=== PATIENT | male | born 1985 | race Caucasian/White ===

== ENCOUNTER 2018-07-21 21:42 | Emergency (ER) | payer BC ==
[2018-07-21 22:37] LABS: Potassium 4.2 mmol/L (3.5-5.1)
[2018-07-21 22:43] LABS: Absolute Lymphocytes (CBC) 1.8 K/uL (0.7-4.9); Absolute Monocytes 0.9 K/uL (0.1-1.3); Absolute Neutrophil 7.8 K/uL (1.8-8.0); Basophils % 1.5 % (0-1.3); Eosinophils % 2.6 % (0-4.4); Hematocrit 40.3 % (39.6-49.0); Lymphocytes % 16.2 % (15.3-44.8); Monocytes % 8.2 % (3.3-12.3); RBC Red Blood Cell Count 5.76 M/uL (4.33-5.43)
[2018-07-22 00:15] LABS: Anisocytosis 1+; Blood Morphology Comment NOTED (NOT SEEN); Hypochromasia 2+; Ovalocytes 2+; Platelet Estimate ADEQ; Urine White Blood Cell Casts OK
--- NOTE | 2018-07-22 00:15 | ER ---
Nurse's Notes [facility] Name: Kailash Greenfield Age: 32 yrs Sex: Male : 1985 Arrival Date: 07/21/2018 Time: 21:50 Bed 7 Private MD: Diagnosis: Hypoglycemia, unspecified;Unspecified open wound, right lower leg Presentation: 07/21 21:50 Presenting complaint: EMS states: they were toned out for report of pt found by bb neighbors unresponsive, pt's BGL on their arrival was 26 they administered D10 250 mLs with a repeat BGL of 184 pt awake, slightly confused. Transition of care: patient was not received from another setting of care. Onset of symptoms was July 21, 2018. Risk Assessment: Do you want to hurt yourself or someone else? Patient reports no desire to harm self or others. Initial Sepsis Screen: Does the patient meet any 2 criteria? No. Patient's initial sepsis screen is negative. Does the patient have a suspected source of infection? No. Patient's initial sepsis screen is negative. Care prior to arrival: Medication(s) given: D10 250 mL IV initiated. 20 GA, in the right antecubital area. 21:50 Method Of Arrival: EMS: [facility] bb 21:50 Acuity: ALFONSO 2 bb Historical: - Allergies: 22:02 Lidocaine; bb - Home Meds: 22:02 Lisinopril Oral [Active]; [place] Oral [Active]; carvedilol oral oral [Active]; Novolin N bb Sub-Q [Active]; Novolin R Sub-Q [Active]; - PMHx: 22:02 Diabetes - IDDM; heart problems; Hypertension; bb - PSHx: 22:02 heart surgery x2 when child; bb - Immunization history:: Adult Immunizations unknown. - Social history:: Smoking status: unknown. - Ebola Screening: : No symptoms or risks identified at this time. Screenin:53 Abuse screen: Denies threats or abuse. Denies injuries from another. Nutritional aa1 screening: No deficits noted. Tuberculosis screening: No symptoms or risk factors identified. Fall Risk IV access (20 points). Assessment: 21:53 General: Appears in no apparent distress. comfortable, unkempt, Behavior is calm, aa1 cooperative, appropriate for age. Pain: Denies pain. Neuro: Level of Consciousness is awake, alert, obeys commands, Oriented to person, place, time, situation, Moves all extremities. Speech is normal, Facial symmetry appears normal, Pupils are PERRLA. Cardiovascular: Denies chest pain, palpitations, shortness of breath. Respiratory: Airway is patent Respiratory effort is even, unlabored, Respiratory pattern is regular, symmetrical. GI: No signs and/or symptoms were reported involving the gastrointestinal system. : No signs and/or symptoms were reported regarding the genitourinary system. EENT: No signs and/or symptoms were reported regarding the EENT system. Derm: Skin is intact, Skin is clammy, moist, Skin is pale, Skin temperature is cool Wound noted lateral aspect of right calf and right meyers Wound is 2 wounds noted redness to surrounding borders with denuded edges and tissue slough noted to wound beds. Musculoskeletal: Circulation, motion, and sensation intact. Capillary refill is sluggish, in bilateral fingers. toes. 22:30 Reassessment: Patient appears in no apparent distress at this time. Patient and/or aa1 family updated on plan of care and expected duration. Pain level reassessed. Patient is alert, oriented x 3, equal unlabored respirations, skin warm/dry/pink. Awaiting lab results. 23:15 Reassessment: Patient appears in no apparent distress at this time. Patient and/or aa1 family updated on plan of care and expected duration. Pain level reassessed. Patient is alert, oriented x 3, equal unlabored respirations, skin warm/dry/pink. Awaiting provider reassessment. 07/22 00:40 Reassessment: Patient appears in no apparent distress at this time. Patient is alert, aa1 oriented x 3, equal unlabored respirations, skin warm/dry/pink. Discussed d/c \T\ f/u instructions with pt \T\ family; denies questions or concerns at this time Patient states feeling better. Vital Signs: 07/21 21:51 BP 144 / 89; Pulse 81; Resp 18; Pulse Ox 93% on R/A; Weight 81.65 kg (R); Height 6 ft. bb 0 in. (182.88 cm) (R); 21:52 aa1 22:32 BP 122 / 88; Pulse 88; Resp 18; Pulse Ox 95% on R/A; Pain 0/10; aa1 23:30 BP 143 / 78; Pulse 89; Resp 16; Temp 97.5(O); Pulse Ox 95% on R/A; Pain 0/10; aa1 07/22 00:40 BP 129 / 62; Pulse 86; Resp 18; Temp 97.6; Pulse Ox 95% on R/A; Pain 0/10; aa1 07/21 21:51 Body Mass Index 24.41 (81.65 kg, 182.88 cm) bb 07/21 21:52 Unable to successfully obtain pt's temperature using temporal, oral, and axillary aa1 methods. EMS reports unable to obtain temperature as well. Applied warm blankets to pt and will reattampt to obtain temperature once pt is dry and no longer shaking. 22:32 thermometer still not reading aa1 ED Course: 21:50 Patient arrived in ED. ds1 21:51 Patient has correct armband on for positive identification. Placed in gown. Bed in low aa1 position. Call light in reach. Side rails up X2. phototypesetting equipment monitor on. Pulse ox on. NIBP on. Warm blanket given. 21:51 Arm band placed on Patient placed in an exam room, on a stretcher, on pulse oximetry. bb Family accompanied patient. 21:51 Maintain EMS IV. Dressing intact. Good blood return noted. Site clean \T\ dry. Gauge \T\ aa 1 site: 20g LAC. 21:55 Fidel García PA is PHCP. jr8 21:55 Peewee Wright MD is Attending Physician. jr8 22:00 Triage completed. bb 22:04 Diet: pt given sandwich, peanut butter and crackers and a soda. bb 22:29 Janene Danielson, FREDDY is Primary Nurse. aa1 07/22 00:14 Paolo Zarate MD is Referral Physician. jr8 00:40 No provider procedures requiring assistance completed. IV discontinued, intact, aa1 bleeding controlled, No redness/swelling at site. Pressure dressing applied. Administered Medications: No medications were administered Point of Care Testing: Blood Glucose: 07/21 21:52 Blood Glucose: 155 mg/dL; aa1 23:37 Blood Glucose: 347 mg/dL; bb Ranges: Outcome: 07/22 00:14 Discharge ordered by . jr8 00:40 Discharged to home ambulatory, with family. aa1 00:40 Condition: good 00:40 Discharge instructions given to patient, family, Instructed on discharge instructions, follow up and referral plans. medication usage, wound care, Demonstrated understanding of instructions, follow-up care, medications, wound care, Prescriptions given X 1, Hand written script for Santyl given 00:42 Patient left the ED. aa1 Signatures: Janene Danielson RN RN aa1 Jane Mckenna1 Yolande Espinoza RN RN bb Fidel García PA PA jr8 Corrections: (The following items were deleted from the chart) 05 22:03 21:51 BP 144 / 89; Pulse 81bpm; Resp 18bpm; Pulse Ox 93% RA; aa1 bb
--- NOTE | 2018-07-22 00:16 | EDPHYS ---
Physician Documentation [facility] Name: Kailash Greenfield Age: 32 yrs Sex: Male : 1985 Arrival Date: 07/21/2018 Time: 21:50 Bed 7 Private MD: ED Physician Peewee Wright HPI: 07/21 22:11 This 32 yrs old Male presents to ER via EMS with complaints of Hypoglycemia. jr8 22:11 The patient or guardian reports hypoglycemia. Onset: The symptoms/episode jr8 began/occurred acutely, today. Associated signs and symptoms: Pertinent negatives: nausea, vomiting. Current symptoms: In the emergency department the patient's symptoms have improved, moderately. The patient has experienced similar episodes in the past, a few times. The patient has not recently seen a physician. Patient stated that he took his insulin today but forgot to eat. While cooking tonight started to become altered. EMS on scene found that patients BGL was in the 20s. D10 given. Patient upon arrival now A\T\O x4. Feeling much better . Historical: - Allergies: 22:02 Lidocaine; bb - Home Meds: 22:02 Lisinopril Oral [Active]; [place] Oral [Active]; carvedilol oral oral [Active]; Novolin N bb Sub-Q [Active]; Novolin R Sub-Q [Active]; - PMHx: 22:02 Diabetes - IDDM; heart problems; Hypertension; bb - PSHx: 22:02 heart surgery x2 when child; bb - Immunization history:: Adult Immunizations unknown. - Social history:: Smoking status: unknown. - Ebola Screening: : No symptoms or risks identified at this time. ROS: 22:11 Eyes: Negative for injury, pain, redness, and discharge, ENT: Negative for injury, jr8 pain, and discharge, Neck: Negative for injury, pain, and swelling, Cardiovascular: Negative for chest pain, palpitations, and edema, Respiratory: Negative for shortness of breath, cough, wheezing, and pleuritic chest pain, Abdomen/GI: Negative for abdominal pain, nausea, vomiting, diarrhea, and constipation, Back: Negative for injury and pain, MS/Extremity: Negative for injury and deformity, Neuro: Negative for headache, weakness, numbness, tingling, and seizure. 22:11 Skin: Positive for open wounds right leg. Exam: 22:11 Eyes: Pupils equal round and reactive to light, extra-ocular motions intact. Lids and jr8 lashes normal. Conjunctiva and sclera are non-icteric and not injected. Cornea within normal limits. Periorbital areas with no swelling, redness, or edema. ENT: Nares patent. No nasal discharge, no septal abnormalities noted. Tympanic membranes are normal and external auditory canals are clear. Oropharynx with no redness, swelling, or masses, exudates, or evidence of obstruction, uvula midline. Mucous membranes moist. Neck: Trachea midline, no thyromegaly or masses palpated, and no cervical lymphadenopathy. Supple, full range of motion without nuchal rigidity, or vertebral point tenderness. No Meningismus. Cardiovascular: Regular rate and rhythm with a normal S1 and S2. No gallops, murmurs, or rubs. Normal PMI, no JVD. No pulse deficits. Respiratory: Lungs have equal breath sounds bilaterally, clear to auscultation and percussion. No rales, rhonchi or wheezes noted. No increased work of breathing, no retractions or nasal flaring. Abdomen/GI: Soft, non-tender, with normal bowel sounds. No distension or tympany. No guarding or rebound. No evidence of tenderness throughout. Back: No spinal tenderness. No costovertebral tenderness. Full range of motion. MS/ Extremity: Pulses equal, no cyanosis. Neurovascular intact. Full, normal range of motion. Neuro: Awake and alert, GCS 15, oriented to person, place, time, and situation. Cranial nerves II-XII grossly intact. Motor strength 5/5 in all extremities. Sensory grossly intact. Cerebellar exam normal. Normal gait. 22:11 Skin: Patient has two stage 3 open diabetic wounds noted to right lower leg on medial and lateral aspects. No surrounding cellulitis noted. No discharge noted . Vital Signs: 21:51 BP 144 / 89; Pulse 81; Resp 18; Pulse Ox 93% on R/A; Weight 81.65 kg (R); Height 6 ft. bb 0 in. (182.88 cm) (R); 21:52 aa1 22:32 BP 122 / 88; Pulse 88; Resp 18; Pulse Ox 95% on R/A; Pain 0/10; aa1 23:30 BP 143 / 78; Pulse 89; Resp 16; Temp 97.5(O); Pulse Ox 95% on R/A; Pain 0/10; aa1 07/22 00:40 BP 129 / 62; Pulse 86; Resp 18; Temp 97.6; Pulse Ox 95% on R/A; Pain 0/10; aa1 07/21 21:51 Body Mass Index 24.41 (81.65 kg, 182.88 cm) 07/21 21:52 Unable to successfully obtain pt's temperature using temporal, oral, and axillary aa1 methods. EMS reports unable to obtain temperature as well. Applied warm blankets to pt and will reattampt to obtain temperature once pt is dry and no longer shaking. 22:32 thermometer still not reading aa1 MDM: 21:55 Patient medically screened. 8 07/22 00:13 Data reviewed: vital signs, nurses notes, lab test result(s), and as a result, I will jr8 discharge patient. Data interpreted: Pulse oximetry: on room air is 95 %. Interpretation: normal. Counseling: I had a detailed discussion with the patient and/or guardian regarding: the historical points, exam findings, and any diagnostic results supporting the discharge/admit diagnosis, lab results, the need for outpatient follow up, a family practitioner, to return to the emergency department if symptoms worsen or persist or if there are any questions or concerns that arise at home. ED course: Glucose levels stabilized. Patient feeling much better. Will refer back to wound care for diabetic wounds to right leg. 07/21 21:50 Order name: [facility]SB[facility] - FOR PT WITH NO ID; Complete Time: 22:30 07/21 22:09 Order name: CBC with Diff; Complete Time: 00:21 jr8 07/21 22:09 Order name: Basic Metabolic Panel; Complete Time: 22:49 jr8 07/21 22:52 Order name: CBC Smear Scan; Complete Time: 00:21 EDMS 07/21 23:44 Order name: Glucose, Ancillary Testing EDMS Administered Medications: No medications were administered Point of Care Testing: Blood Glucose: 07/21 21:52 Blood Glucose: 155 mg/dL; aa1 23:37 Blood Glucose: 347 mg/dL; bb Ranges: Critical Glucose Levels:Adult <50 mg/dl or >400 mg/dl <40 mg/dl or >180 mg/dl Disposition: 07/22 06:42 Co-signature as Attending Physician, Peewee Wright MD I agree with the assessment and otto plan of care. Disposition: 07/22/18 00:14 Discharged to Home. Impression: Hypoglycemia, unspecified, Unspecified open wound, right lower leg. - Condition is Stable. - Discharge Instructions: Hypoglycemia, Blood Glucose Monitoring, Adult. - Medication Reconciliation Form, Thank You Letter, Antibiotic Education, Prescription Opioid Use form. - Follow up: Paolo Zarate MD; When: 2 - 3 days; Reason: Recheck today's complaints, Continuance of care, Re-evaluation by your physician. - Problem is new. - Symptoms have improved. Signatures: Dispatcher [employer] EDMS Janene Danielson RN RN aa1 Peewee Wright MD MD cha Ballard, Brenda RN RN bb Fidel García PA PA jr8 Corrections: (The following items were deleted from the chart) 00:42 00:14 07/22/2018 00:14 Discharged to Home. Impression: Hypoglycemia, unspecified; aa1 Unspecified open wound, right lower leg. Condition is Stable. Forms are Medication Reconciliation Form, Thank You Letter, Antibiotic Education, Prescription Opioid Use. Follow up: Dr. Paolo Zarate; When: 2 - 3 days; Reason: Recheck today's complaints, Continuance of care, Re-evaluation by your physician. Problem is new. Symptoms have improved. jr8
[2018-07-22 03:04] VITALS: O2SAT 95
[2018-07-22 03:06] VITALS: BP 143/78; TEMP 97.5
== END 2018-07-22 00:42 | disposition home or self-care (01) ==
LOC: ER 21:42
DX: E16.2 Hypoglycemia, unspecified (principal); S81.801A Unspecified open wound, right lower leg, initial encounter; I10 Essential (primary) hypertension; E11.9 Type 2 diabetes mellitus without complications; X58.XXXA Exposure to other specified factors, initial encounter
CPT/HCPCS: 36415; 80048; 82962; 85025; 99284

== ENCOUNTER 2019-11-06 19:40 | Inpatient (IN) | payer BC, SELFPAY ==
[2019-11-06] MEDS ORDERED: NA CHLORIDE 0.9% 1,000 ML ONE ×2 (20:33→21:27)
[2019-11-06 20:48] LABS: ALT/SGPT 18 U/L (12-78); AST/SGOT 15 U/L (15-37); Absolute Lymphocytes (CBC) 0.9 K/uL (0.7-4.9); Albumin 3.3 g/dL (3.4-5.0); Alkaline Phosphatase 137 U/L (45-117); BUN Blood Urea Nitrogen 47 mg/dL (7-18); Basophils % 1.8 % (0-1.3); Bicarbonate 19 mmol/L (21-32); Bilirubin Direct 0.2 mg/dL (0-0.2); Bilirubin Total 0.5 mg/dL (0.2-1.0); Glucose Level 169 mg/dL (74-106); Hematocrit 29.4 % (39.6-49.0); Lipase 17 U/L (73-393); MPV 9.4 fL (7.6-11.3); Potassium 3.5 mmol/L (3.5-5.1); Protein, Total 8.4 g/dL (6.4-8.2); Sodium Level 136 mmol/L (136-145); Troponin (Emerg Dept Use Only) < 0.02 ng/mL (0.0-0.045)
[2019-11-06 21:16] LABS: Platelet Estimate ADEQ; White Blood Cell Scan OK (OK)
[2019-11-06 21:17] LABS: Anisocytosis 2+; Blood Morphology Comment NOTED (NOT SEEN); Hypochromasia 2+
[2019-11-06 21:18] LABS: Teardrop Cell FEW
--- NOTE | 2019-11-06 21:27 | ER ---
Nurse's Notes [facility] Name: Kailash Greenfield Age: 33 yrs Sex: Male : 1985 Arrival Date: 11/06/2019 Time: 19:48 Bed 20 Private MD: Verónica Brennan Diagnosis: Dehydration;Acute kidney injury;Vomiting Presentation: 11/05 20:01 Chief complaint: Patient states: I've been really tired for the past few days and today ea threw up twice. Coronavirus screen: Client denies travel out of the [place] in the last 14 days. At this time, the client does not indicate any symptoms associated with coronavirus-19. Ebola Screen: Patient negative for fever greater than or equal to 101.5 degrees Fahrenheit, and additional compatible Ebola Virus Disease symptoms. Initial Sepsis Screen: Does the patient meet any 2 criteria? No. Patient's initial sepsis screen is negative. Does the patient have a suspected source of infection? No. Patient's initial sepsis screen is negative. Risk Assessment: Do you want to hurt yourself or someone else? Patient reports no desire to harm self or others. Onset of symptoms was November 08, 2019. 20:01 Method Of Arrival: Ambulatory ea 20:01 Acuity: ALFONSO 3 ea Triage Assessment: 20:06 General: Appears in no apparent distress. Behavior is calm, cooperative, appropriate ea for age. Pain: Denies pain. EENT: No deficits noted. Neuro: Level of Consciousness is awake, alert, obeys commands, Oriented to person, place, time, situation. Cardiovascular: Capillary refill < 3 seconds Patient's skin is warm and dry. Respiratory: Airway is patent Respiratory effort is even, unlabored, Respiratory pattern is regular, symmetrical. GI: Reports nausea, vomiting, since vomited two times today Patient currently denies diarrhea. : No signs and/or symptoms were reported regarding the genitourinary system. Derm: Skin is intact, is healthy with good turgor, Skin is dry, Skin is pink, warm \T\ dry. Skin temperature is warm. Musculoskeletal: Circulation, motion, and sensation intact. Range of motion: intact in all extremities. Historical: - Allergies: 20:06 Lidocaine; ea - Home Meds: 20:06 carvedilol Oral [Active]; lisinopril Oral [Active]; [place] Oral [Active]; Novolin N ea Sub-Q [Active]; Novolin R Sub-Q [Active]; amoxicillin 250 mg/5 mL Oral susr 5 mL every 8 hours [Active]; gabapentin 100 mg oral cap 3 caps 3 times per day [Active]; clindamycin HCl 75 mg Oral cap 2 caps every 6 hours [Active]; - PMHx: 20:06 Diabetes - IDDM; heart problems; Hypertension; ea - Immunization history:: Adult Immunizations up to date. - Social history:: Smoking status: Patient reports the use of cigarette tobacco products, smokes one pack cigarettes per day. Screenin:10 Abuse screen: Denies threats or abuse. Nutritional screening: No deficits noted. ea Tuberculosis screening: No symptoms or risk factors identified. Fall Risk IV access (20 points). Total [place] Fall Scale indicates No Risk (0-24 pts). Assessment: 20:10 General: see triage assessment. ea 21:00 Reassessment: Patient appears in no apparent distress at this time. Patient and/or vc family updated on plan of care and expected duration. Pain level reassessed. Patient is alert, oriented x 3, equal unlabored respirations, skin warm/dry/pink. Patients oxygen saturation 88% non labored, patient placed on 3L nasal canula, SpO2 increased to 94%. 22:00 Reassessment: Patient appears in no apparent distress at this time. Patient and/or vc family updated on plan of care and expected duration. Pain level reassessed. Patient is alert, oriented x 3, equal unlabored respirations, skin warm/dry/pink. Patient denies pain at this time. GI: Reports vomiting. 23:00 Reassessment: Patient appears in no apparent distress at this time. Patient and/or vc family updated on plan of care and expected duration. Pain level reassessed. Patient is alert, oriented x 3, equal unlabored respirations, skin warm/dry/pink. GI: Abdomen is round non-distended, Reports loss of appetite Patient currently denies pain. 11/06 00:00 Reassessment: Patient appears in no apparent distress at this time. Patient and/or vc family updated on plan of care and expected duration. Pain level reassessed. Patient is alert, oriented x 3, equal unlabored respirations, skin warm/dry/pink. Vital Signs: 11/05 20:01 BP 111 / 67; Pulse 102; Resp 15; Temp 98; Pulse Ox 94% on R/A; ea 20:06 BP 111 / 67; Pulse 102; Resp 15; Temp 98; Pulse Ox 94% on R/A; Weight 99.79 kg; Height ea 6 ft. (182.88 cm); 21:00 BP 116 / 69; Pulse 92; Resp 16; Pulse Ox 91% on 3 lpm NC; vc 22:00 BP 138 / 82; Pulse 92; Resp 17; Pulse Ox 90% on 3 lpm NC; vc 23:00 BP 123 / 77; Pulse 95; Resp 16; Pulse Ox 92% on R/A; vc 11/06 00:00 BP 140 / 82; Pulse 95; Resp 16; Pulse Ox 96% on 3 lpm NC; vc 11/05 20:06 Body Mass Index 29.84 (99.79 kg, 182.88 cm) ea ED Course: 11/05 19:48 Patient arrived in ED. am2 19:49 Verónica Brennan is Private Physician. am2 19:56 Dagoberto Cervantes NP is PHCP. pm1 20:01 Roselia Salmon, RN is Primary Nurse. ea 20:04 Triage completed. ea 20:11 Arm band placed on right wrist. ea 20:11 Patient has correct armband on for positive identification. Bed in low position. Call ea light in reach. Side rails up X 1. Pulse ox on. NIBP on. 20:15 Inserted saline lock: 20 gauge in right antecubital area, using aseptic technique. vc Blood collected. 21:25 Fritz Mcrae DO is Hospitalizing Provider. pm1 21:25 Hospitalizing Provider role handed off by Fritz Mcrae DO pm1 21:25 Gene Abreu MD is Hospitalizing Provider. pm1 21:34 Wilder Marcus MD is Hospitalizing Provider. pm1 11/06 01:03 Wilder Marcus MD is Attending Physician. vc Administered Medications: 11/05 20:25 Drug: NS 0.9% 1000 ml Route: IV; Rate: 1000 ml; Site: right antecubital; ea 21:24 CANCELLED (Duplicate Order): NS 0.9% 1000 ml IV at 1 bolus Per protocol; 1000 mL bolus pm1 21:24 Drug: NS 0.9% 1000 ml Route: IV; Rate: 1000 ml; Site: right antecubital; Point of Care Testing: Blood Glucose: 20:06 Blood Glucose: 215 mg/dL; ea Ranges: Outcome: 21:27 Decision to Hospitalize by Provider. pm1 11/06 01:03 Patient left the ED. vc Signatures: Dagoberto Cervantes NP DIRECTOR SELECTION AND ADMINISTRATION pm1 Veronica Jha am2 Roselia Salmon RN RN ea Calcote, Vanessa, RN RN vc
--- NOTE | 2019-11-06 21:28 | EDPHYS ---
Physician Documentation [facility] Name: Kailash Greenfield Age: 33 yrs Sex: Male : 1985 Arrival Date: 11/06/2019 Time: 19:48 Bed 20 Private MD: Verónica Brennan ED Physician Wilder Marcus HPI: 11/05 20:07 This 33 yrs old Male presents to ER via Ambulatory with complaints of pm1 Nausea/Vomiting, dehydration, General Weakness. 20:07 The patient presents to the emergency department with vomiting, 3 times since the onset pm1 of symptoms. Onset: The symptoms/episode began/occurred vomiting started today. Has not been eating or drinking well for the past 3 days. Eating one meal per day at night and has not been drinking much fluids. Patient does have a particular reason for his decreased appetite. Associated signs and symptoms: Pertinent negatives: abdominal pain, dysuria, fever, chest pain, shortness of breath. Severity of symptoms: in the emergency department the symptoms are worse with generalized weakness. The patient has been recently seen by a physician: with different complaint(s), Dr. Brennan prescribed him antibiotics for his chronic wounds to his lower legs. Historical: - Allergies: 20:06 Lidocaine; ea - Home Meds: 20:06 carvedilol Oral [Active]; lisinopril Oral [Active]; [place] Oral [Active]; Novolin N ea Sub-Q [Active]; Novolin R Sub-Q [Active]; amoxicillin 250 mg/5 mL Oral susr 5 mL every 8 hours [Active]; gabapentin 100 mg oral cap 3 caps 3 times per day [Active]; clindamycin HCl 75 mg Oral cap 2 caps every 6 hours [Active]; - PMHx: 20:06 Diabetes - IDDM; heart problems; Hypertension; ea - Immunization history:: Adult Immunizations up to date. - Social history:: Smoking status: Patient reports the use of cigarette tobacco products, smokes one pack cigarettes per day. ROS: 20:07 Cardiovascular: Negative for chest pain, palpitations, and edema, Respiratory: Negative pm1 for shortness of breath, cough, wheezing, and pleuritic chest pain. 20:07 Back: Negative for injury and pain, MS/Extremity: Negative for injury and deformity. 20:07 Constitutional: Positive for poor PO intake, Negative for fever. 20:07 Abdomen/GI: Positive for nausea and vomiting, Negative for abdominal pain, diarrhea, constipation. 20:07 Skin: Positive for chronic wounds to bilateral lower extremities. 20:07 Neuro: Positive for generalized weakness. Exam: 20:07 Constitutional: This is a well developed, well nourished patient who is awake, alert, pm1 and in no acute distress. Head/Face: Normocephalic, atraumatic. 20:07 Abdomen/GI: Soft, non-tender, with normal bowel sounds. No distension or tympany. No guarding or rebound. No evidence of tenderness throughout. Back: No spinal tenderness. No costovertebral tenderness. Full range of motion. MS/ Extremity: Pulses equal, no cyanosis. Neurovascular intact. Full, normal range of motion. 20:07 Cardiovascular: Rate: tachycardic, Rhythm: regular, Pulses: no pulse deficits are appreciated, Edema: is not appreciated. 20:07 Respiratory: the patient does not display signs of respiratory distress, Respirations: normal, Breath sounds: are clear throughout. 20:07 Neuro: Exam negative for acute changes, Orientation: is normal, Mentation: is normal, Motor: is normal, Sensation: is normal, no obvious gross deficits. Vital Signs: 20:01 BP 111 / 67; Pulse 102; Resp 15; Temp 98; Pulse Ox 94% on R/A; ea 20:06 BP 111 / 67; Pulse 102; Resp 15; Temp 98; Pulse Ox 94% on R/A; Weight 99.79 kg; Height ea 6 ft. (182.88 cm); 21:00 BP 116 / 69; Pulse 92; Resp 16; Pulse Ox 91% on 3 lpm NC; vc 22:00 BP 138 / 82; Pulse 92; Resp 17; Pulse Ox 90% on 3 lpm NC; vc 23:00 BP 123 / 77; Pulse 95; Resp 16; Pulse Ox 92% on R/A; vc 11/06 00:00 BP 140 / 82; Pulse 95; Resp 16; Pulse Ox 96% on 3 lpm NC; vc 11/05 20:06 Body Mass Index 29.84 (99.79 kg, 182.88 cm) ea MDM: 11/05 19:58 Patient medically screened. pm1 20:06 Data reviewed: vital signs. pm1 21:24 Counseling: I had a detailed discussion with the patient and/or guardian regarding: the pm1 historical points, exam findings, and any diagnostic results supporting the discharge/admit diagnosis, lab results, the need for further work-up and treatment in the hospital. 11/05 20:07 Order name: Basic Metabolic Panel; Complete Time: 21:09 pm1 11/05 20:07 Order name: CBC with Diff; Complete Time: 21:22 pm1 11/05 20:07 Order name: Hepatic Function; Complete Time: 21: pm1 11/05 20:07 Order name: Lipase; Complete Time: 21: pm1 11/05 20:07 Order name: Troponin (emerg Dept Use Only); Complete Time: 21: pm1 11/05 20:12 Order name: Glucose, Ancillary Testing; Complete Time: 20:14 EDMS 11/05 20:54 Order name: CBC Smear Scan; Complete Time: 21:22 EDMS 11/05 21:46 Order name: Chest Single View XRAY pm1 11/05 22:29 Order name: COVID-19 vc 11/05 22:51 Order name: CORONAVIRUS EDMS 11/05 23:56 Order name: SARS-COV-2 RT PCR; Complete Time: 00:24 EDMS 11/05 20:07 Order name: IV Saline Lock; Complete Time: 20:26 pm1 11/05 20:07 Order name: Labs collected and sent; Complete Time: 20:26 pm1 11/05 20:07 Order name: EKG; Complete Time: 20:08 pm1 11/05 20:07 Order name: EKG - Nurse/Tech; Complete Time: 20:20 pm1 Administered Medications: 20:25 Drug: NS 0.9% 1000 ml Route: IV; Rate: 1000 ml; Site: right antecubital; ea 21:24 CANCELLED (Duplicate Order): NS 0.9% 1000 ml IV at 1 bolus Per protocol; 1000 mL bolus pm1 21:24 Drug: NS 0.9% 1000 ml Route: IV; Rate: 1000 ml; Site: right antecubital; vc Point of Care Testing: Blood Glucose: 20:06 Blood Glucose: 215 mg/dL; ea Ranges: Critical Glucose Levels:Adult <50 mg/dl or >400 mg/dl <40 mg/dl or >180 mg/dl Disposition: 11/06/19 21:27 Hospitalization ordered by Wilder Marcus for Inpatient Admission. Preliminary diagnosis are Acute kidney injury, Dehydration, Vomiting. - Bed requested for Intensive Care Unit. - Status is Inpatient Admission. vc - Condition is Stable. - Problem is new. - Symptoms have improved. Signatures: Dispatcher [employer] EDBritany Love RN RN cg Dagoberto Cervantes, ACOUSTICS TEACHER ACOUSTICS TEACHER pm1 Roselia Salmon RN RN ea Willa Quinonez RN RN vc Corrections: (The following items were deleted from the chart) 21:24 21:23 NS 0.9% 1000 ml IV at 1 bolus Per protocol; 1000 mL bolus ordered. vc pm1 21:35 21:27 Hospitalization Ordered by Gene Abreu MD for Inpatient Admission. Preliminary pm1 diagnosis is Acute kidney injuryDehydration; Vomiting. Bed requested for Telemetry/MedSurg (Inpatient). Status is Inpatient Admission. Condition is Stable. Problem is new. Symptoms have improved. pm1 22:22 21:35 11/06/2019 21:27 Hospitalization Ordered by Wilder Marcus MD for Inpatient cg Admission. Preliminary diagnosis is Acute kidney injuryDehydration; Vomiting. Bed requested for Telemetry/MedSurg (Inpatient). Status is Inpatient Admission. Condition is Stable. Problem is new. Symptoms have improved. pm1 11/06 00:03 0905 22:22 11/06/2019 21:27 Hospitalization Ordered by Wilder Marcus MD for Inpatient cg Admission. Preliminary diagnosis is Acute kidney injuryDehydration; Vomiting. Bed requested for Telemetry/MedSurg (Inpatient). Status is Inpatient Admission. Condition is Stable. Problem is new. Symptoms have improved. 11/06 01:03 00:03 11/06/2019 21:27 Hospitalization Ordered by Wilder Marcus MD for Inpatient vc Admission. Preliminary diagnosis is Acute kidney injuryDehydration; Vomiting. Bed requested for Intensive Care Unit. Status is Inpatient Admission. Condition is Stable. Problem is new. Symptoms have improved.
--- NOTE | 2019-11-06 21:59 | P.HP ---
Certification for Inpatient Patient admitted to: Inpatient With expected LOS: >2 Midnights Patient will require the following post-hospital care: None Practitioner: I am a practitioner with admitting privileges, knowledge of patient current condition, hospital course, and medical plan of care. Services: Services provided to patient in accordance with Admission requirements found in Title 42 Section 412.3 of the Code of Federal Regulations <DahianaQuinn gaitan - Last Filed: 11/06/19 21:54> Patient History Date of Service: 11/06/19 Primary Care Provider: Dr. Brennan Reason for admission: ARF History of Present Illness: A 33-year-old male with history of diabetes mellitus type 2-insulin dependent, hypertension presents emergency department for nausea, vomiting, anorexia. Patient reports that he has not been feeling well with decreased p.o. intake and a few episodes of vomiting. Patient was evaluated in the emergency department and found to be in acute renal failure with creatinine of 3.47, BUN 47, GFR 21. Last creatinine measured was within normal limits at 1.3. Patient also reports that he has been on clindamycin for diabetic wounds to his lower extremities which she has been treated for by his primary care doctor. Patient also takes lisinopril. While patient is in the emergency department he was found to have some hypoxia with saturations around 87-88% without oxygen. Patient does report distant history of tobacco abuse but not currently smoking. Patient also had a heart surgery as a child but is unable to give specific details regarding this procedure. ED provider wishes to admit patient for further evaluation and management. When I saw the patient in the emergency department he was awake, alert, oriented x3. Patient denies significant shortness of breath but this with some hypoxia. Patient currently on nasal cannula at 3 L saturating about 94 95%. Patient does not appear to be volume overload at this time, electrolytes within normal limits. Patient be admitted for further evaluation and management. 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 - Family History Father -: Hypertension, Diabetes Mother -: Hypertension, Diabetes - Social History Smoking Status: Former smoker Alcohol use: Yes CD- Drugs: No Caffeine use: No Place of Residence: Home <Quinn Ba - Last Filed: 11/06/19 21:54> Date of Service: 11/07/19 <Wilder Marcus - Last Filed: 11/07/19 11:30> Allergies lidocaine Allergy (Severe, Verified 06/16/17 15:06) Shortness of breath Home Medications: Collagenase [Santyl Ointment*] 1 dose TOP DAILY 02/21/16 Lisinopril/Hydrochlorothiazide [Lisinopril-Hctz 20-12.5 mg Tab] 2 tab PO DAILY 02/21/16 carvediloL [Coreg*] 1 tab PO BID 02/21/16 Multivitamin [Multiple Vitamins] 1 each PO DAILY 06/16/17 Amoxicillin [Amoxil] 250 mg PO Q8H 11/07/19 Gabapentin [Neurontin] 3 tab PO TID 11/07/19 Hydrocodone Bit/Acetaminophen [Hydrocodon-Acetaminoph 7.5-325] 1 each PO BID 11/07/19 Ibuprofen [Advil] 4 cap PO BIDP PRN 11/07/19 Insulin 70/30 NPH/Reg Human [Novolin 70/30*] 40 unit SQ BID 11/07/19 Insulin Aspart [Novolog Flexpen] See Protocol SQ BID 11/07/19 clindamycin HCL [Clindamycin HCl] 2 cap PO Q6H 11/07/19 Review of Systems 10-point ROS is otherwise unremarkable General: Malaise Gastrointestinal: Nausea, Vomiting <Quinn Ba - Last Filed: 11/06/19 21:54> Physical Examination - Physical Exam General: Alert, In no apparent distress, Oriented x3 HEENT: Atraumatic, Normocephalic, PERRLA, Other (Poor dentation, mucous membranes dry) Neck: Supple, No LAD Respiratory: Normal air movement, Rhonchi/gurgles (Bilaterally, cleared with cough) Cardiovascular: Normal pulses, Regular rate/rhythm, Systolic murmur Capillary refill: <2 Seconds Gastrointestinal: Normal bowel sounds, Soft and benign, No tenderness, No masses, No rebound Musculoskeletal: No contractures, No erythema, No tenderness Integumentary: No tenderness/swelling, No erythema, No warmth Neurological: Normal speech, Normal strength at 5/5 x4 extr, Normal tone, Sensation intact, Normal affect - Studies Laboratory Data (last 24 hrs) 11/06/19 20:17: WBC 8.6, Hgb 8.4 L, Hct 29.4 L, Plt Count 330 11/06/19 20:17: Sodium 136, Potassium 3.5, BUN 47 H, Creatinine 3.47 H, Glucose 169 H, Total Bilirubin 0.5, AST 15, ALT 18, Alkaline Phosphatase 137 H, Lipase 17 L <Quinn Ba - Last Filed: 11/06/19 21:54> - Studies Laboratory Data (last 24 hrs) 11/06/19 20:17: WBC 8.6, Hgb 8.4 L, Hct 29.4 L, Plt Count 330 11/06/19 20:17: Sodium 136, Potassium 3.5, BUN 47 H, Creatinine 3.47 H, Glucose 169 H, Total Bilirubin 0.5, AST 15, ALT 18, Alkaline Phosphatase 137 H, Lipase 17 L <Wilder Marcus - Last Filed: 11/07/19 11:30> Assessment and Plan - Plan Assessment Acute renal failure Anemia-likely iron deficiency versus anemia of chronic disease Diabetes mellitus type 2-insulin dependent Hypertension Hypoxia Plan Acute renal failure: Continue with IV fluid hydration overnight. Nephrology consult in place. Recheck chemistry with morning labs. Renal ultrasound is ordered. Could be related to dehydration or alternatively combination of dehydration, lisinopril, oral antibiotic. DVT prophylaxis with heparin 5000 units subcutaneous twice daily. Appreciate further input from nephrology. Anemia-likely iron deficiency versus anemia of chronic disease: Will repeat H&H with morning labs, iron studies ordered. Diabetes mellitus type 2-insulin dependent: A.c. HS Accu-Cheks, sliding scale insulin therapy. Will order A1c with morning labs. Hypertension: Will hold lisinopril at this time as patient is in acute renal failure. Will provide medications as needed. Hypoxia: Patient with some mild hypoxia in the emergency department. Will obtain chest x-ray, supply oxygen as needed. Will also supply patient with nebulizer treatments as needed. Patient possibly has COPD as he is a former smoker, will also evaluate patient for COVID. Patient also a distant history of cardiovascular surgery as a child. Patient's troponin is normal, no other indications this is cardiac in nature. If no other etiology is found it may consider cardiology consult and possibly echocardiogram when available. Discharge Plan: Home Plan to discharge in: Greater than 2 days - Advance Directives Does patient have a Living Will: No Does patient have a Durable POA for Healthcare: No - Code Status/Comfort Care Code Status Assessed: Yes (Patient is full code) Critical Care: No Time Spent Managing Pts Care (In Minutes): 55 <Quinn Ba - Last Filed: 11/06/19 21:54> Physician Review Additional Text: Plan of care discussed with Quinn Ba, and I agree with the management plan as noted above. In addition, Patient with chronic BLE wounds being treated by PCP with long courses of Clindamycin. Patient has been doing wound care at home. Refuses to let me see them as he just changed the dressing earlier. Continue Clindamycin for now Wound care consult LORIE -will get further labs to eval: UA, urine Na & Cr. -likely in setting of 800mg BID to TID ibuprofen daily for months and decreased PO intake <Wilder Marcus - Last Filed: 11/07/19 11:30>
[2019-11-07] MEDS ORDERED: IPRATROPIUM BROM 0.5MG/2.5ML NEB PRN (02:00)
[2019-11-07] MEDS ORDERED: ALBUTEROL 2.5 MG/3 ML NEB SOL NEB PRN (02:00)
[2019-11-07] MEDS ORDERED: ONDANSETRON 4 MG/2 ML VIAL IV PRN (02:00)
[2019-11-07] MEDS ORDERED: ACETAMINOPHEN 500 MG TAB PO PRN (02:00)
[2019-11-07] MEDS: NA CHLORIDE 0.9% 1,000 ML IV SCH ×4 (02:04→23:39)
[2019-11-07] MEDS: HYDROCODONE/APAP 7.5/325 MG TAB PO PRN ×2 (03:45→10:08)
[2019-11-07 04:40] LABS: Potassium 3.8 mmol/L (3.5-5.1)
[2019-11-07 04:50] LABS: C-Reactive Protein 58.7 mg/L (<3.00)
[2019-11-07 05:52] LABS: Absolute Lymphocytes (CBC) 0.9 K/uL (0.7-4.9); Basophils % 0.9 % (0-1.3); Hematocrit 27.2 % (39.6-49.0); Lymphocytes % 11.3 % (15.3-44.8); MPV 9.1 fL (7.6-11.3); RBC Red Blood Cell Count 4.11 M/uL (4.33-5.43)
--- NOTE | 2019-11-07 06:53 | EKG ---
Test Date: 2019-11-06 Test Time: 20:12:07 [employer] Automatic: LEVI MEASUREMENT RESULTS: Intervals: Rate: 101 NE: 158 QRSD: 96 QT: 334 QTc: 433 Seanor: P: 18 NE: 158 QRS: -13 T: -43 INTERPRETIVE STATEMENTS: Sinus tachycardia with occasional premature ventricular complexes Possible Left atrial enlargement Anterior infarct, age undetermined T wave abnormality, consider inferolateral ischemia Abnormal ECG Compared to ECG 10/23/2018 21:49:04 Ventricular premature complex(es) now present T-wave abnormality now present Sinus rhythm no longer present ST (T wave) deviation no longer present Myocardial infarct finding still present Possible ischemia still present Electronically Signed On 11-07-19 06:53:08 CDT by Herb Garcia
[2019-11-07] MEDS ORDERED: HEPARIN 5000 UNIT/ML 1 ML VIAL SQ SCH (09:00)
[2019-11-07] MEDS ORDERED: ASCORBIC ACID 500 MG TABLET PO SCH (09:00)
[2019-11-07] MEDS ORDERED: VITAMIN D 1000 UNIT TAB PO SCH (09:00)
[2019-11-07] MEDS ORDERED: METHYLPREDNISOLONE 40 MG INJ IV SCH (09:00)
[2019-11-07] MEDS ORDERED: THIAMINE 200 MG/2 ML INJ IVP SCH (09:00)
[2019-11-07] MEDS: INSULIN -REGULAR HUMAN 50 UNIT/0.5 ML ML SQ SCH ×4 (09:09→21:04)
[2019-11-07] MEDS ORDERED: GLUCAGON 1 MG/VIAL IM PRN (09:24)
[2019-11-07] MEDS ORDERED: D50W 25 GM/50 ML SYRINGE/VIAL IV PRN (09:24)
--- NOTE | 2019-11-07 09:42 | P.CNS ---
Date of Consult: 11/07/19 Primary Care Provider: Dr. Brennan Chief Complaint: ARF History of Present Illness: Patient is 33 years of age presented with nausea vomiting anorexia has not been feeling well and being dehydrated she had acute renal failure per phone microcytic anemia although he denies any history of melenic stools patient has also had a ulcers and has 4 kids been treated with clindamycin he also takes an ISMAEL-inhibitor patient has diabetic ulcers on his foot the disabled as some congenital heart surgeries he denies any shortness of breath Allergies lidocaine Allergy (Severe, Verified 06/16/17 15:06) Shortness of breath Home Medications: Collagenase [Santyl Ointment*] 1 dose TOP DAILY 02/21/16 Lisinopril/Hydrochlorothiazide [Lisinopril-Hctz 20-12.5 mg Tab] 2 tab PO DAILY 02/21/16 carvediloL [Coreg*] 1 tab PO BID 02/21/16 Multivitamin [Multiple Vitamins] 1 each PO DAILY 06/16/17 Amoxicillin [Amoxil] 250 mg PO Q8H 11/07/19 Gabapentin [Neurontin] 3 tab PO TID 11/07/19 Hydrocodone Bit/Acetaminophen [Hydrocodon-Acetaminoph 7.5-325] 1 each PO BID 11/07/19 Ibuprofen [Advil] 4 cap PO BIDP PRN 11/07/19 Insulin 70/30 NPH/Reg Human [Novolin 70/30*] 40 unit SQ BID 11/07/19 Insulin Aspart [Novolog Flexpen] See Protocol SQ BID 11/07/19 clindamycin HCL [Clindamycin HCl] 2 cap PO Q6H 11/07/19 - Past Medical/Surgical History Diabetic: Yes -: Diabetes mellitus type 2 -: Hypertension -: Neuropathy -: 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 - Family History Father Medical History: Hypertension, Diabetes Mother Medical History: Hypertension, Diabetes Brother Medical History: Heart disease, Diabetes - Social History Smoking Status: Unknown if ever smoked Alcohol use: No CD- Drugs: No Caffeine use: Yes Place of Residence: Home Review of Systems 10-point ROS is otherwise unremarkable General: Weakness Gastrointestinal: Nausea Physical Examination Temp Pulse Resp BP Pulse Ox 98.2 F 90 22 H 119/60 92 11/07/19 04:00 11/07/19 04:00 11/07/19 04:00 11/07/19 04:00 11/07/19 04:00 General: Alert, In no apparent distress, Oriented x3 HEENT: Atraumatic Neck: No Thyromegaly Cardiovascular: No edema Gastrointestinal: Normal bowel sounds, Soft and benign Musculoskeletal: Other (Ulcers on his extremity) Integumentary: No rashes Laboratory Data (last 24 hrs) 11/06/19 20:17: WBC 8.6, Hgb 8.4 L, Hct 29.4 L, Plt Count 330 11/06/19 20:17: Sodium 136, Potassium 3.5, BUN 47 H, Creatinine 3.47 H, Glucose 169 H, Total Bilirubin 0.5, AST 15, ALT 18, Alkaline Phosphatase 137 H, Lipase 17 L - Problems (1) Renal failure Current Visit: Yes Status: Acute Plan: Patient is 33 years of age admitted with nausea vomiting acute renal failure was likely a combination of nonsteroidals and Ismael inhibitors needs a urinalysis to check or hematuria as he has chronic severe microcytic anemia denies history of GI bleeding patient's kidney function is improving renal ultrasound is pending the need urinary excretion of sodium and creatinine to evaluate fractional excretion of sodium patient is positive for edwards virus he does not have any acute lung damage chronically hypoxic apparently from his congenital heart disorders (2) Microcytic anemia Current Visit: Yes Status: Acute Plan: Patient has severe microcytic anemia was likely blood loss due to chronic use of nonsteroidals need to be evaluated for peptic ulcer disease and GI evaluation there is no history of active GI bleed recommend iron infusions IV pantoprazole
--- NOTE | 2019-11-07 09:47 | P.PN ---
Subjective Date of Service: 11/07/19 Primary Care Provider: Dr. Brennan Chief Complaint: ARF Subjective: No new changes (Reports maybe feeling a little bit better after all the IV fluids. No shortness of breath, breathing comfortably. Continues with leg pain due to chronic wounds) Physical Examination - Vital Signs Temperature: 98.2 F Blood Pressure: 119/60 Pulse: 90 Respirations: 22 Pulse Ox (%): 92 - Physical Exam General: Alert, In no apparent distress HEENT: EOMI, Sclerae nonicteric Neck: Supple, No LAD Respiratory: Other (Breathing comfortably on 3 L nasal cannula) Cardiovascular: No edema, Regular rate/rhythm Gastrointestinal: Soft and benign, Non-distended, No tenderness Integumentary: Other (Bilateral lower extremity ulcerations covered with dressing (c/d/i)) Neurological: Normal speech, Normal affect - Studies Laboratory Data (last 24 hrs) 11/06/19 20:17: WBC 8.6, Hgb 8.4 L, Hct 29.4 L, Plt Count 330 11/06/19 20:17: Sodium 136, Potassium 3.5, BUN 47 H, Creatinine 3.47 H, Glucose 169 H, Total Bilirubin 0.5, AST 15, ALT 18, Alkaline Phosphatase 137 H, Lipase 17 L Assessment & Plan Physician Review Additional Text: Acute renal failure Microcytic Anemia-likely iron deficiency versus anemia of chronic disease Diabetes mellitus type 2-insulin dependent Bilateral lower extremity wounds Hypertension Hypoxia Congenital heart disease (patient doesn't know specific diagnosis) Plan Acute renal failure Improvement overnight with IV fluids. Nephrology consulted Renal ultrasound ordered Will obtain further labs, calculate FeNa Seems multi factorial, dehydration and lots of NSAID (at least 800 mg b.i.d.) usage for months. Hold nephrotoxic medications Microcytic Anemia, likely of chronic disease and/or iron deficiency Hemoglobin drop today, likely dilutional Given history of congenital heart disease s/p surgery, +COVID, & LORIE, discussed that he may benefit from blood transfusion Patient states he will think about it Iron: Low, TIBC: Normal, ferritin: Low, transferrin saturation: Low Will give IV iron Start on Protonix Tonight history of bleeding, denies GI bleed. Check stool Hemoccult - he has been taking a significant amount of NSAIDs over the past few months He may benefit from GI followup Diabetes mellitus type 2-insulin dependent: A.c. HS Accu-Cheks, sliding scale insulin therapy. Hgb A1c: 10 restart home regimen Bilateral lower extremity wounds -restart home clindamycin, does not appear septic -wound care consult -patient refused to let me look at them today, as he had just changed the dressing a few hr prior -reports his chronic pain due to these wounds, PDMP reviewed: no red flags, restart home [place] 10s Hypertension: Hold nephrotoxic medications (home lisinopril) in setting of acute kidney injury Hypoxia: Congenital heart disease Patient unaware of what cardiac diagnosis he had. Patient with some mild hypoxia in the emergency department. Patient states this is normal for him, ever since his cardiovascular surgery as a child. He states he typically runs around 88-90% Otherwise he reports breathing comfortably Do not suspect active COVID-19 pneumonia at this time, discussed with Dr. Herrera, lamberto steroids Time Spent Managing Pts Care (In Minutes): 40
[2019-11-07] MEDS ORDERED: NA CHLORIDE 0.9% 250 ML IV SCH (10:00)
[2019-11-07] MEDS: PANTOPRAZOLE 40MG TABLET PO SCH (10:07)
[2019-11-07] MEDS: MULTIVITAMIN TAB PO SCH (10:08)
[2019-11-07] MEDS: carvediloL 3.125 MG TAB PO SCH ×2 (10:38→21:05)
[2019-11-07] MEDS: GABAPENTIN 100 MG CAP PO SCH ×3 (10:39→21:05)
[2019-11-07] MEDS: INSULIN 70/30 100 UNITS/ML SQ SCH ×2 (10:40→21:03)
--- NOTE | 2019-11-07 11:59 | RAD REPORT ---
EXAM DESCRIPTION: Abimael Single View11/06/2019 10:50 pm CLINICAL HISTORY: Shortness of breath/hypoxemia COMPARISON: 2013 FINDINGS: The lungs appear clear of acute infiltrate. The heart is normal size IMPRESSION: No acute abnormalities displayed
[2019-11-07 12:06] LABS: Arterial Blood Carboxyhemoglob 2.1 % (0-1.5); Blood Gas Oxyhemoglobin 73.4 % (94-97); Blood O2 Saturation 75.9 % (92-98.5)
[2019-11-07 13:55] LABS: Urine Appearance CLEAR; Urine Bilirubin NEGATIVE (NEG); Urine Blood TRACE (NEG); Urine Color YELLOW; Urine Glucose 3+ (NEG); Urine Protein TRACE (NEG); Urine Specific Gravity 1.015 (1.005-1.030); Urine Urobilinogen 0.2 mg/dL (0.2-1.0); Urine pH 5.5 (5.0-7.0)
[2019-11-07 14:13] LABS: Urine Microscopic Reflex ORDER UMIC
[2019-11-07 14:27] LABS: Urine Bacteria <20 /HPF (NONE SEEN); Urine Culture Reflex Order NOT NEEDED
--- NOTE | 2019-11-07 18:30 | RAD REPORT ---
EXAM DESCRIPTION: US - Renal Ultrasound-Complete - 11/07/2019 6:24 pm CLINICAL HISTORY: . Acute renal failure COMPARISON: None. FINDINGS: The right kidney measures 9 cm with a normal echotexture. 1.3 centimeters cyst The left kidney measures 10 cm with a normal echotexture. Hydronephrosis is not seen. No gross abnormality of bladder IMPRESSION: 0.3 centimeter right renal cyst
[2019-11-07] MEDS ORDERED: INSULIN 70/30 100 UNITS/ML SQ ONE (20:26)
[2019-11-07 20:38] LABS: Hematocrit 30.8 % (39.6-49.0)
--- NOTE | 2019-11-07 20:48 | P.CNS ---
Date of Consult: 11/07/19 Reason for Consult: LORIE/ CKD Requesting Physician: Wilder Marcus Primary Care Provider: Dr. Brennan Chief Complaint: ARF History of Present Illness: Reports taking Advil 800mg twice daily for multiple years. Denies any difficulties with urination but reports increased frequency and volume since being admitted. No hx CKD. A 33-year-old male with history of diabetes mellitus type 2-insulin dependent, hypertension presents emergency department for nausea, vomiting, anorexia. Patient reports that he has not been feeling well with decreased p.o. intake and a few episodes of vomiting. Patient was evaluated in the emergency department and found to be in acute renal failure with creatinine of 3.47, BUN 47, GFR 21. Last creatinine measured was within normal limits at 1.3. Patient also reports that he has been on clindamycin for diabetic wounds to his lower extremities which she has been treated for by his primary care doctor. Patient also takes lisinopril. While patient is in the emergency department he was found to have some hypoxia with saturations around 87-88% without oxygen. Patient does report distant history of tobacco abuse but not currently smoking. Patient also had a heart surgery as a child but is unable to give specific details regarding this procedure. ED provider wishes to admit patient for further evaluation and management. 20:07 This 33 yrs old Male presents to ER via Ambulatory with complaints of pm1 Nausea/Vomiting, dehydration, General Weakness. 20:07 The patient presents to the emergency department with vomiting, 3 times since the onset pm1 of symptoms. Onset: The symptoms/episode began/occurred vomiting started today. Has not been eating or drinking well for the past 3 days. Eating one meal per day at night and has not been drinking much fluids. Patient does have a particular reason for his decreased appetite. Associated signs and symptoms: Pertinent negatives: abdominal pain, dysuria, fever, chest pain, shortness of breath. Severity of symptoms: in the emergency department the symptoms are worse with generalized weakness. The patient has been recently seen by a physician: with different complaint(s), Dr. Brennan prescribed him antibiotics for his chronic wounds to his lower legs. Allergies lidocaine Allergy (Severe, Verified 06/16/17 15:06) Shortness of breath Home medications list reviewed: Yes Home Medications: Collagenase [Santyl Ointment*] 1 dose TOP DAILY 02/21/16 Lisinopril/Hydrochlorothiazide [Lisinopril-Hctz 20-12.5 mg Tab] 2 tab PO DAILY 02/21/16 carvediloL [Coreg*] 1 tab PO BID 02/21/16 Multivitamin [Multiple Vitamins] 1 each PO DAILY 06/16/17 Amoxicillin [Amoxil] 250 mg PO Q8H 11/07/19 Gabapentin [Neurontin] 3 tab PO TID 11/07/19 Hydrocodone Bit/Acetaminophen [Hydrocodon-Acetaminoph 7.5-325] 1 each PO BID 11/07/19 Ibuprofen [Advil] 4 cap PO BIDP PRN 11/07/19 Insulin 70/30 NPH/Reg Human [Novolin 70/30*] 40 unit SQ BID 11/07/19 Insulin Aspart [Novolog Flexpen] See Protocol SQ BID 11/07/19 clindamycin HCL [Clindamycin HCl] 2 cap PO Q6H 11/07/19 - Past Medical/Surgical History Diabetic: Yes -: Diabetes mellitus type 2 -: Hypertension -: Neuropathy -: 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 - Family History Father Medical History: Hypertension, Diabetes Mother Medical History: Hypertension, Diabetes Brother Medical History: Heart disease, Diabetes - Social History Smoking Status: Unknown if ever smoked Alcohol use: No CD- Drugs: No Caffeine use: Yes Place of Residence: Home Review of Systems 10-point ROS is otherwise unremarkable General: Weakness, Malaise Respiratory: SOB with Excertion Integumentary: Lesions Physical Examination Temp Pulse Resp BP Pulse Ox 98.4 F 76 20 136/77 90 L 11/07/19 16:00 11/07/19 16:00 11/07/19 16:00 11/07/19 16:00 11/07/19 16:00 General: In no apparent distress, Oriented x3, Cooperative HEENT: Atraumatic Neck: Supple Respiratory: Clear to auscultation bilaterally Cardiovascular: No edema, Regular rate/rhythm Gastrointestinal: Soft and benign, Non-distended Musculoskeletal: No clubbing, No contractures Integumentary: No rashes, No cyanosis, Skin lesion Neurological: Normal speech Laboratory Data (last 24 hrs) 11/06/19 20:17: WBC 8.6, Hgb 8.4 L, Hct 29.4 L, Plt Count 330 11/06/19 20:17: Sodium 136, Potassium 3.5, BUN 47 H, Creatinine 3.47 H, Glucose 169 H, Total Bilirubin 0.5, AST 15, ALT 18, Alkaline Phosphatase 137 H, Lipase 17 L Imagings Data: EXAM DESCRIPTION: Abimael Single View11/06/2019 10:50 pm CLINICAL HISTORY: Shortness of breath/hypoxemia COMPARISON: 2013 FINDINGS: The lungs appear clear of acute infiltrate. The heart is normal size IMPRESSION: No acute abnormalities displayed. EXAM DESCRIPTION: US - Renal Ultrasound-Complete - 11/07/2019 6:24 pm CLINICAL HISTORY: . Acute renal failure COMPARISON: None. FINDINGS: The right kidney measures 9 cm with a normal echotexture. 1.3 centimeters cyst The left kidney measures 10 cm with a normal echotexture. Hydronephrosis is not seen. No gross abnormality of bladder IMPRESSION: 0.3 centimeter right renal cyst Conclusions/Impression: A/ LORIE in the setting of ibuprofen and hypovolemia. Hypokalemia Acidosis HTN DM II with polyneuropathy Anemia in chronic illness Iron deficiency COVID19 Positive P/ Continue current POC and Medications. Discontinue ibuprofen. Continue IVF. May restart Lisinopril once renal fx improves. Agree with IV iron. Replete potassium as needed. Titrate insulin as needed to improve BG. No NSAIDs. AM labs. Daily weight. Thank you kindly for the consultation.
[2019-11-07] MEDS: HYDROCODONE/APAP 10/325 TAB PO PRN (23:39)
[2019-11-08] MEDS: PANTOPRAZOLE 40MG TABLET PO SCH (05:38)
[2019-11-08 05:39] LABS: C-Reactive Protein 43.9 mg/L (<3.00); Ferritin 17.9 ng/mL (26-388); Potassium 3.8 mmol/L (3.5-5.1)
[2019-11-08 05:41] LABS: Absolute Lymphocytes (CBC) 1.3 K/uL (0.7-4.9); Basophils % 0.6 % (0-1.3); Hematocrit 29.5 % (39.6-49.0); Lymphocytes % 27.7 % (15.3-44.8); MPV 9.4 fL (7.6-11.3); RBC Red Blood Cell Count 4.33 M/uL (4.33-5.43)
[2019-11-08] MEDS: INSULIN -REGULAR HUMAN 50 UNIT/0.5 ML ML SQ SCH ×4 (07:30→21:10)
[2019-11-08] MEDS: IRON SUCROSE 100 MG in NA CHLORIDE 0.9% 100 ML IV SCH (08:00)
[2019-11-08] MEDS ORDERED: POTASSIUM 25 MEQ EFFERV TAB PO ONE (08:00)
[2019-11-08] MEDS: MULTIVITAMIN TAB PO SCH (08:02)
[2019-11-08] MEDS: carvediloL 3.125 MG TAB PO SCH ×2 (08:02→20:35)
[2019-11-08] MEDS: GABAPENTIN 100 MG CAP PO SCH ×3 (08:02→20:35)
[2019-11-08] MEDS: NA CHLORIDE 0.9% 1,000 ML IV SCH (08:03)
[2019-11-08] MEDS: INSULIN 70/30 100 UNITS/ML SQ SCH ×2 (08:04→21:10)
[2019-11-08] MEDS: COLLAGENASE 30 GM OINTMENT TOP SCH (08:11)
[2019-11-08] MEDS: lisinopriL 5 MG TAB PO SCH (08:14)
[2019-11-08] MEDS: NACHLORIDE 0.45% 1,000 ML IV SCH ×2 (08:14→21:20)
[2019-11-08] MEDS ORDERED: SODIUM CHLORIDE 0.9% 10ML INJ IV PRN (08:50)
[2019-11-08] MEDS ORDERED: IRON SUCROSE 50 MG in NA CHLORIDE 0.9% 100 ML IV SCH (09:00)
[2019-11-08] MEDS ORDERED: SOD FERRIC GLUC COMPLX/SUCROSE 125 MG in NA CHLORIDE 0.9% 100 ML IV SCH (09:00)
[2019-11-08] MEDS: PANTOPRAZOLE 40 MG INJ IVP SCH ×2 (09:07→20:35)
--- NOTE | 2019-11-08 12:35 | P.PN ---
Subjective Date of Service: 11/08/19 Primary Care Provider: Dr. Brennan Chief Complaint: ARF Subjective: Improving (Patient reports feeling well, continues with chronic lower extremity pain. States he is breathing comfortably) Review of Systems 10-point ROS is otherwise unremarkable Physical Examination - Vital Signs Temperature: 98.1 F Blood Pressure: 132/74 Pulse: 72 Respirations: 19 Pulse Ox (%): 90 - Physical Exam General: Alert, In no apparent distress HEENT: Mucous membr. moist/pink, Sclerae nonicteric Neck: Supple, No LAD Respiratory: Other (Breathing comfortably on 3 L nasal cannula) Cardiovascular: No edema, Regular rate/rhythm, Normal S1 S2 Gastrointestinal: Soft and benign, Non-distended, No tenderness Integumentary: Other (Bilateral lower extremities with wound dressings in place (c/d/i)) Neurological: Normal speech, Normal affect Assessment & Plan Physician Review Additional Text: Acute renal failure Microcytic Anemia-likely iron deficiency versus anemia of chronic disease Diabetes mellitus type 2-insulin dependent Bilateral lower extremity wounds Hypertension Hypoxia Congenital heart disease (patient doesn't know specific diagnosis) Plan Acute renal failure Improvement/resolution with IV fluids. Nephrology consulted. Renal ultrasound: 0.3 cm right renal cyst Seems multi factorial, dehydration and lots of NSAID (at least 800 mg b.i.d.) usage for months. Hold nephrotoxic medications Microcytic Anemia, of chronic disease and iron deficiency GI bleed Given history of congenital heart disease s/p surgery, +COVID, & LORIE, discussed that he may benefit from blood transfusion Received 1 unit PRBC on 11/07/2019 Iron: Low, TIBC: Normal, ferritin: Low, transferrin saturation: Low Receiving IV iron Continue Protonix Tonight history of bleeding, denies GI bleed. Hemoccult-positive, patient without any abdominal pain Likely gastritis in setting of chronic NSAID usage Discussed with GI, Dr. Weinberg - stable for outpatient f/u, no acute intervention is needed at this time Diabetes mellitus type 2-insulin dependent: A.c. HS Accu-Cheks, sliding scale insulin therapy. Hgb A1c: 10 Continue home regimen Bilateral lower extremity wounds -continue home clindamycin, does not appear septic -wound care consult -patient again refused to let me look at them today -reports his chronic pain due to these wounds, PDMP reviewed: no red flags, continue home [place] 10s Hypertension: Hold nephrotoxic medications (home lisinopril) in setting of acute kidney injury Hypoxia: Congenital heart disease Patient unaware of what cardiac diagnosis he had. Patient with some mild hypoxia in the emergency department. Patient states this is normal for him, ever since his cardiovascular surgery as a child. He states he typically runs around 88-90% Otherwise he reports breathing comfortably Do not suspect active COVID-19 pneumonia at this time, discussed with Dr. Herrera, dc steroids Dispo: anticipate DC home tomorrow, may need O2, monitor Hgb in setting of occult GI bleed Time Spent Managing Pts Care (In Minutes): 35
--- NOTE | 2019-11-08 19:31 | CON ---
Date of Consultation: 11/08/2019 Reason For Consultation: Because of anemia, acute drop in hemoglobin. History Of Present Illness: The patient is a 33-year-old white male with history of diabetes type 2, hypertension, presented to the hospital with nausea, vomiting, anorexia, found to have acute renal f ailure with a creatinine of 3.47 with prior creatinine being 1.3, BUN of 47, GFR 21. The patient als o states he had been on clindamycin for diabetic wounds of his lower extremities by his primary care doctor and is also on lisinopril for blood pressure. He was found to be hypoxic with O2 saturations of 87% to 88% on room air in the emergency room. He does have a history of tobacco use, but not curr ently smoking. The patient is admitted to hospital for care. He is COVID positive and now in the CO VID positive ICU moore. The patient's hemoglobin noted to decline, which on admission was 8.4, then d ropped to 7.7 acutely. Of note, the patient has been taking ibuprofen 800 mg 2 to 3 times a day it a ppears. Past Medical History: Significant for diabetes, hypertension, neuropathy, congenital heart repair, m ultiple surgeries. Family History: Father with diabetes, hypertension. Mother with diabetes, hypertension. Social History: Former smoker. Positive for alcohol. Lives at home. No recreational drugs noted. Home Medications: Include collagenase, lisinopril, hydrochlorothiazide, Coreg, multivitamin, amoxici llin, gabapentin, [place], Advil 4 tablets b.i.d. at least, Novolin insulin, NovoLog insulin, clindamyc in. Allergies: LIDOCAINE. Review of Systems: The patient had nausea, vomiting, decreased appetite, mild shortness of breath, recent wounds of lowe r extremities, on clindamycin for therapy. The patient denies any melena, hematochezia, hematemesis, coffee-grounds emesis, numbness. No history appears of depression, anxiety, muscle aches, joint ach es, backaches, seizure, syncope, chest pain, shortness of breath. No hemoptysis or hematuria. Physical Examination: Vital Signs: The patient is 6 foot, 206 pounds, BMI 28 kg/m2. Laboratory Data: White count of 4.7, down from 8.6 on admission; hemoglobin 8.4 on admission, then d own to 7.7, then back up to 8.4; hematocrit 29.5; MCV of 68 on admission, then MCV of 85; platelet co unt of 258; polys 53%; lymphs 28%; monocytes 15%; eosinophils 0 today. Blood gas showed pH of 7.34, pCO2 of 32.9, pO2 of 43 on room air, hemoglobin of 2.1, methemoglobin of 1.2, O2 saturation 76% on ro om air, 21% FiO2. The patient has a sodium 140, potassium 3.8, chloride 110, bicarb 22, BUN is 25, c reatinine of 1.14, glucose 93, calcium of 9.1, ferritin 17.9 low, C-reactive protein elevated at 43.9 , iron saturation of 3.5%. UA shows 3+ glucose, trace ketones, trace blood, negative nitrite, negati ve leukocyte esterase, less than 5 white blood cells, less than 5 squamous epithelial cells, less aicha n 20 bacteria, trace protein. COVID-19 testing was positive. Chest x-ray revealed no acute abnormal ities. O2 saturation of 87% on room air and PaO2 of 42 with an oxygen saturation of approximately 76 % with blood gas. Impression: 1.Anemia. Hemoglobin from 8.4 down to 7.7 since admission. The patient has been taking ibuprofen 8 00 mg twice a day or more chronically. He has a low MCV of 65 on admission and has been transfused 1 time. Hemoglobin is back up to 8.4 after 1 unit. The patient will need to be placed on PPI twice a day preferably IV in this case of acute setting with COVID-19 respiratory compromise. We will try t o avoid upper endoscopy since this would endanger staff with high risk procedure for spreading the CO VID-19 to multiple staff members and this is not necessary. We would also check HP antigen test and treat if positive. We will continue the Protonix twice a day. 2.COVID-19 positive with acute respiratory compromise with O2 saturation of 87% on room air, FiO2 of 40, PaO2 of 43, and oxygen saturation of 76% on ABG. He need to be kept in COVID unit therapy as pe r Internal Medicine and Pulmonary Medicine. Consider ID consult. Recommendations: 1.Increase Protonix from 40 mg p.o. daily to 40 mg IV q.12 hours. 2.Check Helicobacter pylori stool antigen test and treat if positive. 3.Continue COVID-19 isolation and consider Infectious Disease consultation as needed for possible th erapy as needed and as indicated. 4.Acute renal failure. Continue therapy and consider Nephrology consultation. 5.Also, the patient has iron-deficiency anemia. We will work this up further outpatient with EGD co lonoscopy when the patient is COVID-19 negative. NAE Voice ID: [id number] Report ID: [id number]
[2019-11-08] MEDS ORDERED: INSULIN 70/30 100 UNITS/ML SQ ONE (21:09)
[2019-11-09] MEDS: NACHLORIDE 0.45% 1,000 ML IV SCH (00:25)
[2019-11-09 05:35] LABS: Absolute Lymphocytes (CBC) 1.4 K/uL (0.7-4.9); Basophils % 0.5 % (0-1.3); Hematocrit 31.8 % (39.6-49.0); Lymphocytes % 20.8 % (15.3-44.8); MPV 9.1 fL (7.6-11.3); RBC Red Blood Cell Count 4.68 M/uL (4.33-5.43)
[2019-11-09 05:42] LABS: BUN Blood Urea Nitrogen 13 mg/dL (7-18); Bicarbonate 27 mmol/L (21-32); Ferritin 52.4 ng/mL (26-388); Glucose Level 51 mg/dL (74-106); Magnesium 1.6 mg/dL (1.8-2.4); Potassium 3.6 mmol/L (3.5-5.1); Sodium Level 140 mmol/L (136-145)
[2019-11-09 05:53] VITALS: BMI 28.0
[2019-11-09] MEDS: INSULIN -REGULAR HUMAN 50 UNIT/0.5 ML ML SQ SCH ×2 (07:30→12:00)
[2019-11-09] MEDS ORDERED: MAGNESIUM SULFATE 1 gm IVPB 1 GM/100 ML BAG IV ONE (08:00)
[2019-11-09] MEDS: INSULIN 70/30 100 UNITS/ML SQ SCH (08:10)
[2019-11-09] MEDS: GABAPENTIN 100 MG CAP PO SCH ×2 (08:13→15:19)
[2019-11-09] MEDS: PANTOPRAZOLE 40 MG INJ IVP SCH (08:13)
[2019-11-09] MEDS: carvediloL 3.125 MG TAB PO SCH (08:13)
[2019-11-09] MEDS: lisinopriL 5 MG TAB PO SCH (08:13)
[2019-11-09] MEDS: MULTIVITAMIN TAB PO SCH (08:14)
[2019-11-09] MEDS: IRON SUCROSE 100 MG in NA CHLORIDE 0.9% 100 ML IV SCH (08:18)
[2019-11-09 08:45] VITALS: O2SAT 93
[2019-11-09] MEDS ORDERED: POTASSIUM CL SA 10 MEQ TAB PO ONE (09:00)
[2019-11-09 10:26] LABS: Anisocytosis 2+; Blood Morphology Comment NOTED (NOT SEEN); Platelet Estimate ADEQ; White Blood Cell Scan OK (OK)
[2019-11-09 10:27] LABS: Hypochromasia 1+; Ovalocytes 1+
[2019-11-09 10:29] LABS: Teardrop Cell 1+
--- NOTE | 2019-11-09 12:00 | P.DS ---
Admission Date: 11/06/19 Discharge Date: 11/09/19 Primary Care Provider: Dr. Brennan Disposition: ROUTINE DISCHARGE Discharge Condition: FAIR Reason for Admission: ARF Consultations: Dr. Phillips Brief History of Present Illness: 33-year-old gentleman with a history of diabetes mellitus on insulin therapy presented to the emergency department with a complaint of nausea and vomiting. Patient also reports a history of congenital heart disease in childhood and chronic hypoxia. He was noted to have acute renal failure with creatinine up to 3.47 compared to baseline of 1.3. He was also anemia with hemoglobin of 8.4. Patient tested positive for COVID 19. He was admitted for further management. Hospital Course: Patient was admitted to the medical floor and treated aggressively with IV fluids. Nephrology was consulted, patient was seen and followed by Dr. Phillips. Acute renal failure responded well to IV hydration and got resolved. Patient developed anemia with hemoglobin of falling to as low as 7.7. He was transfused 1 unit of blood. Occult GI bleed suspected. Patient was seen and evaluated by GI-Dr. Weinberg. Given that patient was on ibuprofen, he was placed on IV Protonix. Dr. Weinberg recommended medical management at this time given his COVID positive status and also recommended Helicobacter pylori testing which is pending. Patient did not experience any active GI bleeding and his hemoglobin was stable. He was hypoxic on room air. Chest x-ray done in the ED did not show any acute infiltrate. Patient reported chronic hypoxia but not on home oxygen. There is a concern his COVID positive status may exacerbate his hypoxia and therefore recommend home oxygen therapy. Patient noted to be hypoxic with SaO2 at 81% on room air at rest. Patient condition has stabilized, acute renal failure has resolved. He is discharged to follow with Dr. Weinberg within 2 weeks. Vital Signs/Physical Exam: Temp Pulse Resp BP Pulse Ox 98.3 F 88 24 H 145/77 H 89 L 11/09/19 08:00 11/09/19 08:00 11/09/19 08:00 11/09/19 08:13 11/09/19 08:00 General: Alert, In no apparent distress, Oriented x3 HEENT: Mucous membr. moist/pink Respiratory: Clear to auscultation bilaterally, Normal air movement Cardiovascular: No edema, Regular rate/rhythm, Normal S1 S2, No murmurs Gastrointestinal: Normal bowel sounds, Soft and benign, No tenderness Musculoskeletal: Other (Multiple shallow ulcers on right lower extremity.) Neurological: Normal strength at 5/5 x4 extr Laboratory Data at Discharge: WBC 6.5 K/uL (4.3-10.9) D 11/09/19 04:58 Hgb 9.2 g/dL (13.6-17.9) L 11/09/19 04:58 Hct 31.8 % (39.6-49.0) L 11/09/19 04:58 Plt Count 223 K/uL (152-406) 11/09/19 04:58 Sodium 140 mmol/L (136-145) 11/09/19 04:58 Potassium 3.6 mmol/L (3.5-5.1) 11/09/19 04:58 BUN 13 mg/dL (7-18) 11/09/19 04:58 Creatinine 0.96 mg/dL (0.55-1.3) 11/09/19 04:58 Glucose 51 mg/dL (74-106) L 11/09/19 04:58 Magnesium 1.6 mg/dL (1.8-2.4) L 11/09/19 04:58 Total Bilirubin 0.5 mg/dL (0.2-1.0) 11/06/19 20:17 AST 15 U/L (15-37) 11/06/19 20:17 ALT 18 U/L (12-78) 11/06/19 20:17 Alkaline Phosphatase 137 U/L (45-117) H 11/06/19 20:17 Lipase 17 U/L (73-393) L 11/06/19 20:17 Home Medications: Collagenase [Santyl Ointment*] 1 dose TOP DAILY 02/21/16 Lisinopril/Hydrochlorothiazide [Lisinopril-Hctz 20-12.5 mg Tab] 2 tab PO DAILY 02/21/16 Multivitamin [Multiple Vitamins] 1 each PO DAILY 06/16/17 Amoxicillin [Amoxil*] 250 mg PO Q8H 11/07/19 Hydrocodone Bit/Acetaminophen [Hydrocodon-Acetaminoph 7.5-325] 1 each PO BID 11/07/19 Insulin 70/30 NPH/Reg Human [Novolin 70/30*] 40 unit SQ BID 09/06/20 Insulin Aspart [Novolog Flexpen] See Protocol SQ BID 11/07/19 clindamycin HCL [Clindamycin HCl] 2 cap PO Q6H 11/07/19 Albuterol Neb [Proventil 0.083% Neb Soln] 2.5 mg NEB Q6HP PRN #120 amp 11/09/19 Gabapentin [Neurontin*] 3 tab PO TID #270 cap 11/09/19 Pantoprazole [Protonix Tab] 40 mg PO BID #60 tab 11/09/19 carvediloL [Coreg*] 1 tab PO BID #60 tab 11/09/19 New Medications: Albuterol Neb [Proventil 0.083% Neb Soln] 2.5 mg NEB Q6HP PRN #120 amp PRN Reason: Shortness Of Breath carvediloL [Coreg*] 1 tab PO BID #60 tab Gabapentin [Neurontin*] 3 tab PO TID #270 cap Pantoprazole [Protonix Tab] 40 mg PO BID #60 tab Diet: ADA Activity: Ad jaida Followup: Zafar Weinberg MD [ASSOCIATE-ACTIVE - CAN ADMIT] - (Within 2 weeks) Time spent managing pt's care (in minutes): 40
[2019-11-09] MEDS: COLLAGENASE 30 GM OINTMENT TOP SCH (12:01)
[2019-11-09 12:47] VITALS: BP 130/61; TEMP 98.8
[2019-11-09] MEDS: HYDROCODONE/APAP 10/325 TAB PO PRN (12:56)
== END 2019-11-09 16:36 | disposition home or self-care (01) | DRG 682 ==
LOC: ER 19:40 → ERHOLD 21:52 → 3RD-ICU 11-07 00:43
PROVIDERS: ADMIT Hospitalist; ATTEND Internal Medicine
PROC: 30233N1 Transfusion of Nonautologous Red Blood Cells into Peripheral Vein, Percutaneous Approach (ICD-10-PCS; principal; 2019-11-07)
DX: N17.9 Acute kidney failure, unspecified (principal); U07.1 COVID-19; E87.2 Acidosis; I10 Essential (primary) hypertension; R09.02 Hypoxemia; E86.1 Hypovolemia; E87.6 Hypokalemia; E11.42 Type 2 diabetes mellitus with diabetic polyneuropathy; D63.8 Anemia in other chronic diseases classified elsewhere; D50.9 Iron deficiency anemia, unspecified; Q24.9 Congenital malformation of heart, unspecified; Z87.891 Personal history of nicotine dependence; Z79.891 Long term (current) use of opiate analgesic; Z79.4 Long term (current) use of insulin; Z88.4 Allergy status to anesthetic agent; Z79.899 Other long term (current) drug therapy
CPT/HCPCS: 36415; 36430; 71045; 76770; 80048; 80076; 81003; 81015; 82274; 82570; 82728; 82805; 82947; 83036; 83540; 83690; 83735; 84300; 84466; 84484; 85014; 85018; 85025; 86140; 86850; 86900; 86901; 87338; 93005; 99251; 99284; C9113; J1644; J1815; J2916; J2920; J3411; J3475; J3590; J7030; J7050; P9016; U0003

== ENCOUNTER 2020-09-14 23:34 | Inpatient (IN) | payer OTHER ==
[2020-09-15] MEDS ORDERED: NA CHLORIDE 0.9% 0 ML ONE (01:01)
[2020-09-15 01:25] LABS: Protime INR 1.19
[2020-09-15 01:28] LABS: Absolute Lymphocytes (CBC) 0.5 K/uL (0.7-4.9); Basophils % 0.8 % (0-1.3); Hematocrit 40.6 % (39.6-49.0); Lymphocytes % 3.8 % (15.3-44.8); MPV 9.4 fL (7.6-11.3); RBC Red Blood Cell Count 4.63 M/uL (4.33-5.43)
[2020-09-15 01:50] LABS: ALT/SGPT 20 U/L (12-78); AST/SGOT 12 U/L (15-37); Albumin 3.4 g/dL (3.4-5.0); Alkaline Phosphatase 191 U/L (45-117); BUN Blood Urea Nitrogen 69 mg/dL (7-18); Bicarbonate 16 mmol/L (21-32); Bilirubin Direct 0.1 mg/dL (0-0.2); Bilirubin Total 0.6 mg/dL (0.2-1.0); Creatine Phosphokinase 115 U/L (39-308); Glucose Level 326 mg/dL (74-106); Lipase 21 U/L (73-393); Magnesium 2.3 mg/dL (1.8-2.4); NT PRO-BNP 859 pg/mL (<125); Potassium 7.7 mmol/L (3.5-5.1); Protein, Total 8.7 g/dL (6.4-8.2); Sodium Level 128 mmol/L (136-145); Troponin (Emerg Dept Use Only) < 0.02 ng/mL (0.0-0.045)
--- NOTE | 2020-09-15 02:25 | EDPHYS ---
Physician Documentation [facility] Name: Kailash Greenfield Age: 34 yrs Sex: Male : 1985 Arrival Date: 09/14/2020 Time: 23:36 Bed 6 Private MD: ED Physician Chris English HPI: 09/15 01:06 This 34 yrs old Male presents to ER via Wheelchair with complaints of mh7 DISORIENTED. 01:06 The patient presents to the emergency department with nausea, that is moderate, mh7 vomiting, that is intermittent, described as clear fluid. 01:07 Onset: The symptoms/episode began/occurred yesterday. Possible causes: unknown. The mh7 symptoms are aggravated by nothing. The symptoms are alleviated by nothing. Associated signs and symptoms: Pertinent positives: nausea, vomiting, Disoriented according to family, Pertinent negatives: abdominal pain, anorexia, belching, constipation, diarrhea, dysuria, fever, flatulence, GI bleeding, hematuria. Severity of symptoms: At their worst the symptoms were moderate yesterday, in the emergency department the symptoms have improved moderately. Historical: - Allergies: 00:08 Lidocaine; bb - Home Meds: 00:08 carvedilol Oral [Active]; gabapentin 100 mg Oral cap 3 caps 3 times per day [Active]; bb lisinopril Oral [Active]; Novolin R Sub-Q [Active]; Doniphan Oral [Active]; cipro [Active]; - PMHx: 00:08 Diabetes - IDDM; heart problems; Hypertension; bb - PSHx: 00:08 Heart surgery; bb - Immunization history:: Adult Immunizations up to date. - Social history:: Smoking status: Patient denies any tobacco usage or history of. ROS: 01:07 Constitutional: Negative for fever, chills, and weight loss, Eyes: Negative for injury, mh7 pain, redness, and discharge, ENT: Negative for injury, pain, and discharge, Neck: Negative for injury, pain, and swelling, Cardiovascular: Negative for chest pain, palpitations, and edema, Respiratory: Negative for shortness of breath, cough, wheezing, and pleuritic chest pain, Back: Negative for injury and pain, : Negative for injury, bleeding, discharge, and swelling, MS/Extremity: Negative for injury and deformity, Skin: Negative for injury, rash, and discoloration, Neuro: Negative for headache, weakness, numbness, tingling, and seizure, Psych: Negative for depression, anxiety, suicide ideation, homicidal ideation, and hallucinations, Allergy/Immunology: Negative for hives, rash, and allergies, Endocrine: Negative for neck swelling, polydipsia, polyuria, polyphagia, and marked weight changes, Hematologic/Lymphatic: Negative for swollen nodes, abnormal bleeding, and unusual bruising. Exam: 01:07 Constitutional: This is a well developed, well nourished patient who is awake, alert, mh7 and in no acute distress. Head/Face: Normocephalic, atraumatic. Eyes: Pupils equal round and reactive to light, extra-ocular motions intact. Lids and lashes normal. Conjunctiva and sclera are non-icteric and not injected. Cornea within normal limits. Periorbital areas with no swelling, redness, or edema. Neck: Trachea midline, no thyromegaly or masses palpated, and no cervical lymphadenopathy. Supple, full range of motion without nuchal rigidity, or vertebral point tenderness. No Meningismus. Chest/axilla: Normal chest wall appearance and motion. Nontender with no deformity. No lesions are appreciated. Cardiovascular: Regular rate and rhythm with a normal S1 and S2. No gallops, murmurs, or rubs. Normal PMI, no JVD. No pulse deficits. Respiratory: Lungs have equal breath sounds bilaterally, clear to auscultation and percussion. No rales, rhonchi or wheezes noted. No increased work of breathing, no retractions or nasal flaring. Abdomen/GI: Soft, non-tender, with normal bowel sounds. No distension or tympany. No guarding or rebound. No evidence of tenderness throughout. Back: No spinal tenderness. No costovertebral tenderness. Full range of motion. 01:07 Psych: Awake, alert, with orientation to person, place and time. Behavior, mood, and affect are within normal limits. 01:07 Neuro: Orientation: is normal, Mentation: is normal, Memory: is normal, immediate memory is intact, recent memory is intact, remote memory is intact, Cranial nerves: grossly normal, Cerebellar function: is grossly normal, Motor: is normal, Sensation: is normal, Gait: not tested. seizure activity, is not displayed by the patient, Abnormal movements: there are no abnormal movements. 01:07 MS/ Extremity: Pulses equal, no cyanosis. Neurovascular intact. Full, normal range [facility] of motion. Vital Signs: 00:06 BP 107 / 61; Pulse 95; Resp 18 S; Temp 98.6; Pulse Ox 95% on R/A; Weight 93.89 kg (R); bb Height 6 ft. 0 in. (182.88 cm) (R); Pain 0/10; 00:06 Body Mass Index 28.07 (93.89 kg, 182.88 cm) bb MDM: 02:22 Differential diagnosis: gastritis, pancreatitis, Dehydration. Data reviewed: [facility] signs, nurses notes, old medical records, lab test result(s), cardiac enzymes, CBC, electrolytes, EKG, radiologic studies, plain films. Data reviewed: radiologic studies, CT scan. Data interpreted: Pulse oximetry: on room air is 96 %. Interpretation: normal. Counseling: I had a detailed discussion with the patient and/or guardian regarding: the historical points, exam findings, and any diagnostic results supporting the discharge/admit diagnosis, lab results, radiology results, the need for further work-up and treatment in the hospital. Response to treatment: the patient's symptoms have mildly improved after treatment. 02:25 Patient medically screened. 09/15 00:25 Order name: Basic Metabolic Panel 09/15 00:25 Order name: CBC with Diff 09/15 00:25 Order name: LFT's; Complete Time: : [facility] 09/15 00:25 Order name: Magnesium; Complete Time: [facility] 09/15 00:25 Order name: NT PRO-BNP; Complete Time: : 09/15 00:25 Order name: PT-INR; Complete Time: :50 09/15 00:25 Order name: Troponin (emerg Dept Use Only); Complete Time: 09/15 00:26 Order name: Basic Metabolic Panel; Complete Time: : EDMS 09/15 00:26 Order name: CPK; Complete Time: :09/15 00:26 Order name: UDS [facility] 09/15 00:26 Order name: Acetaminophen; Complete Time: 09/15 00:26 Order name: Salicylate [facility] 09/15 00:26 Order name: ETOH Level [facility] 09/15 00:27 Order name: Alcohol Serum/Plasma; Complete Time: 01:50 [facility] 09/15 00:27 Order name: Lipase; Complete Time: 01:51 [facility] 09/15 00:27 Order name: Lactate; Complete Time: 01:38 [facility] 09/15 01:41 Order name: Manual Differential [facility] 09/15 01:52 Order name: Arterial Blood Gas [facility] 09/15 01:52 Order name: Ketone, Serum [facility] 09/15 01:53 Order name: ABG Arterial Blood Gas [facility] 09/15 01:53 Order name: Acetone Level; Complete Time: 02:14 [facility] 09/15 04:23 Order name: COVID-19 : Document "Date of Symptom Onset" if Symptomatic. 09/15 05:21 Order name: CORONAVIRUS [facility] 09/15 06:17 Order name: SARS-COV-2 RT PCR [facility] 09/15 08:12 Order name: Glucose, Ancillary Testing [facility] 09/15 08:41 Order name: Comprehensive Metabolic Panel [facility] 09/15 08:41 Order name: Phosphorus [facility] 09/15 08:41 Order name: Creatine Phosphokinase [facility] 09/15 08:41 Order name: Magnesium [facility] 09/15 09:26 Order name: Urinalysis [facility] 09/15 00:25 Order name: XRAY Chest (1 view) [facility] 09/15 00:25 Order name: EKG; Complete Time: 00:26 [facility] 09/15 00:25 Order name: Cardiac monitoring; Complete Time: 00:56 [facility] 09/15 00:25 Order name: EKG - Nurse/Tech; Complete Time: 00:56 [facility] 09/15 00:25 Order name: IV Saline Lock; Complete Time: 00:56 [facility] 09/15 00:25 Order name: Labs collected and sent; Complete Time: 00:56 [facility] 09/15 00:25 Order name: O2 Per Protocol; Complete Time: 00:56 [facility] 09/15 00:25 Order name: O2 Sat Monitoring; Complete Time: 00:56 [facility] 09/15 00:26 Order name: Urine Dipstick-Ancillary (obtain specimen); Complete Time: 08:41 [facility] 09/15 00:26 Order name: Accucheck Blood Glucose; Complete Time: 01:44 [facility] 09/15 00:27 Order name: CT Head Brain wo Cont [facility] 09/15 02:25 Order name: CONS Physician Consult [facility] 09/15 09:28 Order name: Urine Microscopic Only [facility] 09/15 10:32 Order name: Hemoglobin A1c [facility] 09/15 11:45 Order name: Glucose, Ancillary Testing [facility]DC Administered Medications: 00:56 Drug: NS 0.9% 1000 ml Route: IV; Rate: 1000 ml; Site: right antecubital; ea 02:35 Follow up: Response: No adverse reaction; IV Status: Completed infusion; IV Intake: ea 1000ml 02:35 Drug: NS 0.9% 1000 ml Route: IV; Rate: 1000 ml; Site: right antecubital; ea 03:48 Follow up: Response: No adverse reaction; IV Status: Completed infusion; IV Intake: ea 1000ml 02:35 Drug: Insulin Regular Human 10 units {Co-Signature: chago (Brijesh Addison RN).} Route: IVP; ea Site: right antecubital; 03:48 Follow up: Response: No adverse reaction ea 02:35 Drug: Calcium Chloride 1 grams Route: IVP; Site: right antecubital; ea 03:48 Follow up: Response: No adverse reaction ea 02:35 Drug: Sodium Bicarbonate 1 amp Route: IVP; Site: right antecubital; ea 03:47 Follow up: Response: No adverse reaction ea Disposition Summary: 09/15/20 02:25 Hospitalization Ordered Hospitalization Status: Inpatient Admission [facility] Provider: Erica Gomez Condition: Stable [facility] Problem: new [facility] Symptoms: have improved [facility] Bed/Room Type: Standard [facility] Location: Telemetry/MedSurg (Inpatient)(09/15/20 14:02) eb Room Assignment: 229(09/15/20 14:02) eb Diagnosis - Dehydration [facility] - Hyperkalemia [facility] - Acute Kidney Injury [facility] Forms: - Medication Reconciliation Form [facility] - SBAR form [facility] Signatures: Dispatcher [employer] EDYolande Contreras RN RN bb Antunez, Elena, RN RN ea Botello, Elizabeth eb Holmes, Maurice, MD MD [facility] Brijesh Addison RN [email or web address] Corrections: (The following items were deleted from the chart) 05:18 02:25 Telemetry/MedSurg (Inpatient) [facility] bb 05:18 02:25 [facility] bb 14:02 05:18 [facility] ER [facility] bb eb 14:02 05:18 [facility]- eb
--- NOTE | 2020-09-15 02:25 | ER ---
Nurse's Notes [facility] Name: Kailash Greenfield Age: 34 yrs Sex: Male : 1985 Arrival Date: 09/14/2020 Time: 23:36 Bed 6 Private MD: Diagnosis: Dehydration;Hyperkalemia;Acute Kidney Injury Presentation: 09/15 00:06 Chief complaint: Patient states: he was not feeling well all day then vomited x 2 bb tonight pt is diabetic has a leg ulcer and was put on cipro today. Coronavirus screen: At this time, the client does not indicate any symptoms associated with coronavirus-19. Ebola Screen: No symptoms or risks identified at this time. Initial Sepsis Screen: Does the patient meet any 2 criteria? No. Patient's initial sepsis screen is negative. Does the patient have a suspected source of infection? Yes: Skin breakdown/wound. Risk Assessment: Do you want to hurt yourself or someone else? Patient reports no desire to harm self or others. Onset of symptoms was September 15, 2020. 00:06 Method Of Arrival: Wheelchair bb 00:06 Acuity: ALFONSO 3 bb Historical: - Allergies: 00:08 Lidocaine; bb - Home Meds: 00:08 carvedilol Oral [Active]; gabapentin 100 mg Oral cap 3 caps 3 times per day [Active]; bb lisinopril Oral [Active]; Novolin R Sub-Q [Active]; Scobey Oral [Active]; cipro [Active]; - PMHx: 00:08 Diabetes - IDDM; heart problems; Hypertension; bb - PSHx: 00:08 Heart surgery; bb - Immunization history:: Adult Immunizations up to date. - Social history:: Smoking status: Patient denies any tobacco usage or history of. Screenin:57 Abuse screen: Denies threats or abuse. Nutritional screening: No deficits noted. ea Tuberculosis screening: No symptoms or risk factors identified. Fall Risk IV access (20 points). Assessment: 00:10 General: Appears in no apparent distress. Behavior is calm, cooperative, appropriate ea for age. Pain: Denies pain. Neuro: No deficits noted. Cardiovascular: Patient's skin is warm and dry. Respiratory: Airway is patent Respiratory effort is even, unlabored, Respiratory pattern is regular, symmetrical. Derm: Skin is pink, warm \T\ dry. 01:47 Reassessment: Patient and/or family updated on plan of care and expected duration. Pain ea level reassessed. Patient is alert, oriented x 3, equal unlabored respirations, skin warm/dry/pink. Vital Signs: 00:06 BP 107 / 61; Pulse 95; Resp 18 S; Temp 98.6; Pulse Ox 95% on R/A; Weight 93.89 kg (R); bb Height 6 ft. 0 in. (182.88 cm) (R); Pain 0/10; 00:06 Body Mass Index 28.07 (93.89 kg, 182.88 cm) bb ED Course: 09/14 23:36 Patient arrived in ED. wm 09/15 00:00 Chris English MD is Attending Physician. [facility] 00:01 Roselia Salmon, FREDDY is Primary Nurse. ea 00:08 Triage completed. bb 00:08 Arm band placed on Patient placed in an exam room, on a stretcher, on pulse oximetry. bb Family accompanied patient. 00:44 CT Head Brain wo Cont In Process Unspecified. EDMS 00:57 Patient has correct armband on for positive identification. Bed in low position. Call ea light in reach. 00:57 Inserted saline lock: 20 gauge in right antecubital area, using aseptic technique. ea Blood collected. 01:05 XRAY Chest (1 view) In Process Unspecified. EDMS 02:23 Erica Gomez MD is Hospitalizing Provider. mh7 Administered Medications: 00:56 Drug: NS 0.9% 1000 ml Route: IV; Rate: 1000 ml; Site: right antecubital; ea 02:35 Follow up: Response: No adverse reaction; IV Status: Completed infusion; IV Intake: ea 1000ml 02:35 Drug: NS 0.9% 1000 ml Route: IV; Rate: 1000 ml; Site: right antecubital; ea 03:48 Follow up: Response: No adverse reaction; IV Status: Completed infusion; IV Intake: ea 1000ml 02:35 Drug: Insulin Regular Human 10 units {Co-Signature: [email or web address] (Brijesh Addison RN).} Route: IVP; ea Site: right antecubital; 03:48 Follow up: Response: No adverse reaction ea 02:35 Drug: Calcium Chloride 1 grams Route: IVP; Site: right antecubital; ea 03:48 Follow up: Response: No adverse reaction ea 02:35 Drug: Sodium Bicarbonate 1 amp Route: IVP; Site: right antecubital; ea 03:47 Follow up: Response: No adverse reaction ea Intake: 02:35 IV: 1000ml; Total: 1000ml. ea 03:48 IV: 1000ml; Total: 2000ml. ea Outcome: 02:25 Decision to Hospitalize by Provider. Codie 15:01 Patient left the ED. jayson Signatures: Dispatcher [employer] Yolande Mehta RN RN Roselia Bernard RN RN Cosmo Xavier RN RN [id number] Holmes, Maurice, MD MD mhKaylan Suero RN [email or web address]
[2020-09-15] MEDS ORDERED: NA CHLORIDE 0.9% 1,000 ML ONE ×3 (02:45→09:34)
[2020-09-15] MEDS ORDERED: INSULIN -REGULAR HUMAN 50 UNIT/0.5 ML ML ONE ×3 (02:45→12:01)
[2020-09-15] MEDS ORDERED: Caclcium Chloride 10% INJ SYR IV ONE (02:46)
[2020-09-15 02:49] LABS: Arterial Blood Carboxyhemoglob 1.1 % (0-1.5); Blood Gas Oxyhemoglobin 37.4 % (94-97); Blood O2 Saturation 38.2 % (92-98.5)
[2020-09-15 03:10] LABS: Blood Morphology Comment NOT SEEN (NOT SEEN); Platelet Estimate ADEQ
--- NOTE | 2020-09-15 03:15 | P.HP ---
Certification for Inpatient Patient admitted to: Inpatient With expected LOS: >2 Midnights Patient will require the following post-hospital care: None Practitioner: I am a practitioner with admitting privileges, knowledge of patient current condition, hospital course, and medical plan of care. Services: Services provided to patient in accordance with Admission requirements found in Title 42 Section 412.3 of the Code of Federal Regulations <Ramiro Mcintosh - Last Filed: 09/15/20 03:26> Patient History Date of Service: 09/15/20 Primary Care Provider: Steven Reason for admission: LORIE, hyperkalemia History of Present Illness: Mr. Greenfield is a 34 yo M with DM here today with nausea, vomiting, weakness, and twitching beginning this evening. He says he has been out in the sun the last few days and was initially drinking gatorade but switched to soda. WBC 13. Na 128, K 7.7, C03 16. BUN 69, Cr 5.59, GFR 12. Glu 326. Alk phos 191. BNP 859. Given insulin, calcium gluconate and bicarb in the ED as well as fluids. CXR and CT Head without acute findings. EKG without peaked T waves or U waves. Ketones & acetone negative. 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 - Family History Father -: Hypertension, Diabetes Mother -: Hypertension, Diabetes Brother -: Heart disease, Diabetes - Social History Smoking Status: Never smoker Alcohol use: Yes CD- Drugs: No Caffeine use: Yes Place of Residence: Home <Tuyet Mcintoshwil Dunham - Last Filed: 09/15/20 03:26> Date of Service: 09/15/20 <Erica Gomez - Last Filed: 09/16/20 03:11> Allergies lidocaine Allergy (Severe, Verified 09/15/20 04:04) Shortness of breath Home Medications: Lisinopril/Hydrochlorothiazide [Lisinopril-Hctz 20-12.5 mg Tab] 2 tab PO DAILY 02/21/16 Multivitamin [Multiple Vitamins] 1 each PO DAILY 06/16/17 Insulin 70/30 NPH/Reg Human [Novolin 70/30*] 40 unit SQ BID 11/07/19 Insulin Aspart [Novolog Flexpen] See Protocol SQ BID 11/07/19 carvediloL [Coreg*] 1 tab PO BID #60 tab 11/09/19 Ciprofloxacin HCl 500 mg PO BID 09/15/20 Gabapentin [Neurontin*] 400 mg PO TID 09/15/20 Hydrocodone/Acetaminophen [Hydrocodon-Acetaminophn 10-325] 1 each PO PRN 09/15/20 Review of Systems General: Weakness Gastrointestinal: Nausea, Vomiting <Ramiro Mcintosh - Last Filed: 09/15/20 03:26> Physical Examination - Physical Exam General: Alert, In no apparent distress HEENT: Atraumatic, PERRLA, Mucous membr. moist/pink, EOMI, Sclerae nonicteric Neck: Supple, 2+ carotid pulse no bruit, No LAD, Without JVD or thyroid abnormality Respiratory: Clear to auscultation bilaterally, Normal air movement Cardiovascular: Regular rate/rhythm, Normal S1 S2 Gastrointestinal: Normal bowel sounds, No tenderness Musculoskeletal: No tenderness Integumentary: No rashes Neurological: Normal gait, Normal speech, Normal strength at 5/5 x4 extr, Normal tone, Normal affect Lymphatics: No axilla or inguinal lymphadenopathy - Studies Laboratory Data (last 24 hrs) 09/15/20 00:58: PT 13.7 H, INR 1.19 09/15/20 00:58: WBC 13.00 H, Hgb 13.0 L, Hct 40.6, Plt Count 340 09/15/20 00:58: Sodium 128 L, Potassium 7.7 H*, BUN 69 H, Creatinine 5.59 H*, Glucose 326 H, Magnesium 2.3 D, Total Bilirubin 0.6, AST 12 L, ALT 20, Alkaline Phosphatase 191 H, Lipase 21 L <Ramiro Mcintosh - Last Filed: 09/15/20 03:26> Assessment and Plan - Problems (Diagnosis) (1) Hyperkalemia Current Visit: Yes Status: Acute (2) Diabetes Current Visit: No Status: Chronic Qualifiers: Diabetes mellitus type: type 1 Diabetes mellitus complication status: without complication Qualified Code(s): E10.9 - Type 1 diabetes mellitus without complications (3) Renal failure Current Visit: No Status: Acute Qualifiers: Renal failure chronicity: acute Acute renal failure type: unspecified Qualified Code(s): N17.9 - Acute kidney failure, unspecified (4) Open wnd knee/leg-complicated Current Visit: No Status: Chronic Qualifiers: Encounter type: subsequent encounter Laterality: right Qualified Code(s): S81.001D - Unspecified open wound, right knee, subsequent encounter; S81.801D - Unspecified open wound, right lower leg, subsequent encounter; S91.001D - Unspecified open wound, right ankle, subsequent encounter (5) Pyoderma gangrenosa Current Visit: No Status: Chronic - Plan nephrology consulted continue aggressive IVF hydration received insulin, calcium gluconate and bicarb in the ED. will recheck potassium and BMP. on telemetry, continue to monitor sliding scale insulin and accuchecks, A1c pending consulted wound care for dressing changes DVT ppx Discharge Plan: Home Plan to discharge in: 48 Hours - Advance Directives Does patient have a Living Will: No Does patient have a Durable POA for Healthcare: No - Code Status/Comfort Care Code Status Assessed: Yes (full code ) Critical Care: No Time Spent Managing Pts Care (In Minutes): 70 <Ramiro Mcintosh - Last Filed: 09/15/20 03:26> Date of Service: 09/15/20 Agree with plan of care as mentioned above. Aggressive IV hydration and monitor renal function and electrolytes closely <Erica Gomez - Last Filed: 09/16/20 03:11>
[2020-09-15] MEDS: NA CHLORIDE 0.9% 1,000 ML IV SCH ×3 (04:03→19:46)
[2020-09-15] MEDS ORDERED: ACETAMINOPHEN 500 MG TAB PO PRN (04:03)
[2020-09-15] MEDS ORDERED: ONDANSETRON 4 MG/2 ML VIAL IV PRN (04:03)
[2020-09-15 04:58] VITALS: BMI 28.0
[2020-09-15] MEDS: INSULIN -REGULAR HUMAN 50 UNIT/0.5 ML ML SQ SCH ×4 (07:30→21:09)
--- NOTE | 2020-09-15 07:35 | RAD REPORT ---
EXAM DESCRIPTION: RAD - Chest Single View - 09/15/2020 1:05 am CLINICAL HISTORY: AMS COMPARISON: Chest Single View dated 11/06/2019; CHEST SINGLE VIEW dated 03/20/2013 FINDINGS: No evidence of edema or pneumonia. The heart size is within normal limits.No acute osseous abnormality. No significant pleural effusions or pneumothorax. Sternotomy. IMPRESSION: No acute cardiopulmonary disease.
--- NOTE | 2020-09-15 08:03 | P.CNS ---
Date of Consult: 09/15/20 Reason for Consult: LORIE Requesting Physician: Erica Gomez Primary Care Provider: Steven Chief Complaint: LORIE, hyperkalemia History of Present Illness: Mr. Greenfield is a 34 yo M with DM here today with nausea, vomiting, weakness, and twitching beginning this evening. He says he has been out in the sun the last few days and was initially drinking gatorade but switched to soda. Reports working outside in the heat for the last few days and then starting to feel bad in the last 24-48 hours. No NSAIDs. No difficulty with urination. 01:06 This 34 yrs old Male presents to ER via Wheelchair with complaints of mh7 DISORIENTED. 01:06 The patient presents to the emergency department with nausea, that is moderate, mh7 vomiting, that is intermittent, described as clear fluid. 01:07 Onset: The symptoms/episode began/occurred yesterday. Possible causes: unknown. The mh7 symptoms are aggravated by nothing. The symptoms are alleviated by nothing. Associated signs and symptoms: Pertinent positives: nausea, vomiting, Disoriented according to family, Pertinent negatives: abdominal pain, anorexia, belching, constipation, diarrhea, dysuria, fever, flatulence, GI bleeding, hematuria. Severity of symptoms: At their worst the symptoms were moderate yesterday, in the emergency department the symptoms have improved moderately. Allergies lidocaine Allergy (Severe, Verified 09/15/20 04:04) Shortness of breath Home medications list reviewed: Yes Home Medications: Lisinopril/Hydrochlorothiazide [Lisinopril-Hctz 20-12.5 mg Tab] 2 tab PO DAILY 02/21/16 Multivitamin [Multiple Vitamins] 1 each PO DAILY 06/16/17 Insulin 70/30 NPH/Reg Human [Novolin 70/30*] 40 unit SQ BID 11/07/19 Insulin Aspart [Novolog Flexpen] See Protocol SQ BID 11/07/19 carvediloL [Coreg*] 1 tab PO BID #60 tab 11/09/19 Ciprofloxacin HCl 500 mg PO BID 09/15/20 Gabapentin [Neurontin*] 400 mg PO TID 09/15/20 Hydrocodone/Acetaminophen [Hydrocodon-Acetaminophn 10-325] 1 each PO PRN 09/15/20 - Past Medical/Surgical History Diabetic: Yes -: Diabetes mellitus type 2 -: Hypertension -: Neuropathy -: 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 - Family History Father Medical History: Hypertension, Diabetes Mother Medical History: Hypertension, Diabetes Brother Medical History: Heart disease, Diabetes - Social History Smoking Status: Unknown if ever smoked Alcohol use: Yes CD- Drugs: No Caffeine use: Yes Place of Residence: Home Review of Systems 10-point ROS is otherwise unremarkable General: Weakness, Malaise Musculoskeletal: Foot Pain Neurological: Weakness Physical Examination General: In no apparent distress, Oriented x3, Cooperative HEENT: Atraumatic Neck: Supple Respiratory: Clear to auscultation bilaterally Cardiovascular: No edema, Regular rate/rhythm Gastrointestinal: Soft and benign, Non-distended Musculoskeletal: No clubbing, No contractures Integumentary: No rashes, No cyanosis, Diabetic ulcer Neurological: Normal speech, Abnormal sensation Laboratory Data (last 24 hrs) 09/15/20 00:58: PT 13.7 H, INR 1.19 09/15/20 00:58: WBC 13.00 H, Hgb 13.0 L, Hct 40.6, Plt Count 340 09/15/20 00:58: Sodium 128 L, Potassium 7.7 H*, BUN 69 H, Creatinine 5.59 H*, Glucose 326 H, Magnesium 2.3 D, Total Bilirubin 0.6, AST 12 L, ALT 20, Alkaline Phosphatase 191 H, Lipase 21 L Imagings Data: EXAM DESCRIPTION: RAD - Chest Single View - 09/15/2020 1:05 am CLINICAL HISTORY: AM COMPARISON: Chest Single View dated 11/06/2019; CHEST SINGLE VIEW dated 03/20/2013 FINDINGS: No evidence of edema or pneumonia. The heart size is within normal limits.No acute osseous abnormality. No significant pleural effusions or pneumothorax. Sternotomy. IMPRESSION: No acute cardiopulmonary disease. Conclusions/Impression: LORIE likely hypovolemia Proteinuria -Aggressive IVF with NS Hyponatremia in the setting of HCTZ -Continue IVF with NS -Hold HCTZ Hyperkalemia in the setting of Lisinopril -Continue IVF with NS -Kayexalate 30g X2 -Hold Lisinopril NAG Acidosis -Start oral bicarb HTN with CKD -Hold Lisinopril HCTZ -Hold Coreg DM II with CKD, polyneuropathy and foot ulcer -RISS Thank you kindly for the consultation.
[2020-09-15] MEDS ORDERED: SOD POLYSTYREN SUL 15 GM/60 ML UCUP PO ONE ×2 (08:26→18:00)
[2020-09-15 08:35] LABS: Albumin 2.8 g/dL (3.4-5.0); Bilirubin Total 0.5 mg/dL (0.2-1.0); Magnesium 2.3 mg/dL (1.8-2.4); Phosphorus 5.4 mg/dL (2.5-4.9); Protein, Total 7.4 g/dL (6.4-8.2)
[2020-09-15 08:40] LABS: Potassium 7.7 mmol/L (3.5-5.1)
[2020-09-15] MEDS: HEPARIN 5000 UNIT/ML 1 ML VIAL SQ SCH ×2 (09:00→16:56)
[2020-09-15] MEDS: SODIUM BICARB 325 MG TAB PO SCH ×4 (09:00→21:09)
[2020-09-15 09:06] LABS: Urine Appearance CLEAR (Clear); Urine Bilirubin NEGATIVE (Negative); Urine Blood NEGATIVE (Negative); Urine Color YELLOW (Yellow); Urine Glucose 1+ (Negative); Urine Protein TRACE (Negative); Urine Urobilinogen 0.2 mg/dL (0.2-1.0); Urine pH 5.5 (5.0-7.0)
[2020-09-15 09:26] LABS: Urine Microscopic Reflex ORDER UMIC
[2020-09-15 09:27] LABS: Urine Bacteria <20 /HPF (NONE SEEN); Urine RBC <5 /HPF (NONE SEEN)
[2020-09-15] MEDS ORDERED: SOD POLYSTYREN SUL 15 GM/60 ML UCUP ONE (09:33)
[2020-09-15] MEDS ORDERED: HEPARIN 5000 UNIT/ML 1 ML VIAL ONE (09:33)
[2020-09-15] MEDS: HYDROCODONE/APAP 10/325 TAB PO PRN ×2 (10:20→17:05)
[2020-09-15] MEDS ORDERED: HYDROCODONE/APAP 10/325 TAB ONE (10:37)
--- NOTE | 2020-09-15 11:04 | RAD REPORT ---
EXAM DESCRIPTION: CT - Head Brain Wo Cont - 09/15/2020 6:40 am CLINICAL HISTORY: The patient is 34 years old and is Male; AMS TECHNIQUE: Axial computed tomography images of the head/brain without intravenous contrast. Sagitt al and coronal reformatted images were created and reviewed. This CT exam was performed using one o r more of the following dose reduction techniques: automated exposure control, adjustment of the mA and/or kV according to patient size, and/or use of iterative reconstruction technique. COMPARISON: No relevant prior studies available. FINDINGS: BRAIN: Evidence of small areas of encephalomalacia within the right frontal lobe and sca ttered throughout the left frontal and parietal lobes is noted. No intracranial hemorrhage, mass effe ct, or midline shift is seen. There are no extra-axial fluid collections. There is no cerebral edema. VENTRICLES: Unremarkable. No ventriculomegaly. BONES/JOINTS: No acute fracture. SOFT TISSUES: Unremarkable. SINUSES: Unremarkable as visualized. No acute sinusitis. MASTOID AIR CELLS: Unremarkable as visualized. No mastoid effusion. ORBITS: Unremarkable as visualized. IMPRESSION: No acute intracranial findings. Chronic findings as detailed above. Electronically signed by: Breann Abraham MD 09/15/2020 1:10 AM CDT Due to temporary technical issues with the PACS/Fluency reporting system, reports are being signed by the in house radiologist without review as a courtesy to ensure prompt reporting. The interpreting r adiologist is fully responsible for the content of the report.
[2020-09-15 11:17] LABS: Barbiturates NEGATIVE (NEGATIVE); Benzodiazepines NEGATIVE (NEGATIVE); Cocaine NEGATIVE (NEGATIVE); METHAMPHETAM NEGATIVE (NEGATIVE); Methadone NEGATIVE (NEGATIVE); Opiates NEGATIVE (NEGATIVE); Phencyclidine NEGATIVE (NEGATIVE); THC Cannibis NEGATIVE (NEGATIVE)
--- NOTE | 2020-09-15 11:43 | EKG ---
Test Date: 2020-09-15 Test Time: 00:50:08 Design Leader: LEVI MEASUREMENT RESULTS: Intervals: Rate: 86 FL: 192 QRSD: 112 QT: 384 QTc: 459 [place]: P: 28 FL: 192 QRS: -56 T: 8 INTERPRETIVE STATEMENTS: Normal sinus rhythm Left axis deviation Inferior infarct, age undetermined Anterolateral infarct, age undetermined Abnormal ECG Compared to ECG 11/06/2019 20:12:07 Left-axis deviation now present Sinus tachycardia no longer present Ventricular premature complex(es) no longer present T-wave abnormality no longer present Possible ischemia no longer present Myocardial infarct finding still present Electronically Signed On 09-15-20 11:42:00 CDT by Herb Garcia
[2020-09-15] MEDS ORDERED: NA CHLORIDE 0.9% 1,000 ML IV SCH (14:54)
[2020-09-15 15:58] LABS: Potassium 5.9 mmol/L (3.5-5.1)
[2020-09-15] MEDS ORDERED: INSULIN -REGULAR HUMAN 50 UNIT/0.5 ML ML SQ ONE (16:06)
[2020-09-15] MEDS ORDERED: D50W 25 GM/50 ML VIAL IV PRN (16:07)
[2020-09-15 20:39] LABS: Potassium 6.3 mmol/L (3.5-5.1)
[2020-09-15] MEDS ORDERED: ALBUTEROL 2.5 MG/3 ML NEB SOL NEB ONE (21:35)
[2020-09-16] MEDS: HEPARIN 5000 UNIT/ML 1 ML VIAL SQ SCH ×2 (00:59→09:00)
[2020-09-16] MEDS: NA CHLORIDE 0.9% 1,000 ML IV SCH (00:59)
[2020-09-16 01:53] VITALS: BP 102/55; TEMP 97.9
[2020-09-16] MEDS ORDERED: D50W 25 GM/50 ML SYRINGE IV ONE (02:35)
[2020-09-16] MEDS ORDERED: INSULIN -REGULAR HUMAN 50 UNIT/0.5 ML ML SQ ONE (02:37)
--- NOTE | 2020-09-16 03:17 | P.PN ---
Subjective Date of Service: 09/15/20 Patient clinical symptoms are improving. Patient's urine output has increased. BUN and creatinine are much better as his potassium level. Continue with pain control. Continue with aggressive IV hydration. Repeat renal function and potassium level this evening. Will also check in the morning. Anticipate discharge over the next 2-3 days. Review of Systems 10-point ROS is otherwise unremarkable Physical Examination - Vital Signs Temperature: 97.9 F Blood Pressure: 102/55 Pulse: 75 Respirations: 16 Pulse Ox (%): 93 - Physical Exam General: Alert, In no apparent distress, Oriented x3 Respiratory: Clear to auscultation bilaterally, Normal air movement Cardiovascular: Regular rate/rhythm, Normal S1 S2, Systolic murmur Gastrointestinal: Normal bowel sounds, Soft and benign, Non-distended, No tenderness Musculoskeletal: No clubbing, No swelling, No tenderness Neurological: Normal speech, Normal tone, Normal affect Lymphatics: No axilla or inguinal lymphadenopathy - Studies Medications List Reviewed: Yes Assessment & Plan - Problems (Diagnosis) (1) Acute kidney injury Current Visit: Yes Status: Acute (2) Hyperkalemia Current Visit: Yes Status: Acute (3) Congenital heart valve abnormality Current Visit: No Status: Acute (4) Hypertension Current Visit: No Status: Acute (5) Neuropathy Current Visit: No Status: Acute (6) Diabetes Current Visit: No Status: Chronic Qualifiers: Diabetes mellitus type: type 1 Diabetes mellitus complication status: without complication Qualified Code(s): E10.9 - Type 1 diabetes mellitus without complications - Plan Plan: 1. Continue with aggressive IV hydration 2. Monitor renal function closely 3. Repeat potassium level 4. Hold lisinopril 5. Strict input and output 6. Strict blood sugar control 7. Monitor blood pressure closely 8. Check CPK level 9. Hold statin therapy 10. GI and DVT prophylaxis Discharge Plan: Home Plan to discharge in: Greater than 2 days - Advance Directives Does patient have a Living Will: No Does patient have a Durable POA for Healthcare: No - Code Status/Comfort Care Code Status Assessed: Yes Code Status: Full Code Critical Care: No Time Spent Managing PTS Care (In Minutes): 35
[2020-09-16] MEDS ORDERED: HYDROCODONE/APAP 10/325 TAB PO SCH (04:00)
--- NOTE | 2020-09-16 06:12 | P.PN ---
Subjective Date of Service: 09/16/20 Primary Care Provider: Steven Chief Complaint: LORIE, hyperkalemia Subjective: Improving, Doing well Physical Examination - Vital Signs Temperature: 97.9 F Blood Pressure: 102/55 Pulse: 75 Respirations: 16 Pulse Ox (%): 93 - Studies Medications List Reviewed: Yes Assessment & Plan Discharge Plan: Home Plan to discharge in: 24 Hours Physician Review Additional Text: Physical exam: General: Alert, In no apparent distress, Oriented x3 Respiratory: Clear to auscultation bilaterally, Normal air movement Cardiovascular: Regular rate/rhythm, Normal S1 S2, Systolic murmur Gastrointestinal: Normal bowel sounds, Soft and benign, Non-distended, No tenderness Musculoskeletal: No clubbing, No swelling, No tenderness Neurological: Normal speech, Normal tone, Normal affect Lymphatics: No axilla or inguinal lymphadenopathy Impression: (1) Acute kidney injury Current Visit: Yes Status: Acute (2) Hyperkalemia Current Visit: Yes Status: Acute (3) Congenital heart valve abnormality Current Visit: No Status: Acute (4) Hypertension Current Visit: No Status: Acute (5) Neuropathy Current Visit: No Status: Acute (6) Diabetes Current Visit: No Status: Chronic Qualifiers: Diabetes mellitus type: type 1 Diabetes mellitus complication status: without complication Qualified Code(s): E10.9 - Type 1 diabetes mellitus without complications Plan: 1. Continue with aggressive IV hydration. Case discussed with nephrology. Patient to be discharged home. Will make changes to his medications. 2. Monitor renal function closely 3. Repeat potassium level 4. Hold lisinopril 5. Strict input and output 6. Strict blood sugar control 7. Monitor blood pressure closely 8. Check CPK level 9. Hold statin therapy 10. GI and DVT prophylaxis Time Spent Managing Pts Care (In Minutes): 55
[2020-09-16 06:19] LABS: Albumin 2.6 g/dL (3.4-5.0); Bilirubin Total 0.3 mg/dL (0.2-1.0); Magnesium 2.2 mg/dL (1.8-2.4); Phosphorus 4.1 mg/dL (2.5-4.9); Potassium 4.6 mmol/L (3.5-5.1); Protein, Total 6.7 g/dL (6.4-8.2)
[2020-09-16] MEDS ORDERED: NACHLORIDE 0.45% 1,000 ML IV SCH (07:00)
[2020-09-16] MEDS: INSULIN -REGULAR HUMAN 50 UNIT/0.5 ML ML SQ SCH ×3 (07:30→15:44)
[2020-09-16] MEDS ORDERED: carvediloL 3.125 MG TAB PO SCH (09:00)
[2020-09-16] MEDS ORDERED: INSULIN 70/30 100 UNITS/ML SQ SCH (09:00)
[2020-09-16] MEDS: SODIUM BICARB 325 MG TAB PO SCH ×2 (09:27→13:00)
[2020-09-16 13:16] VITALS: O2SAT 97
--- NOTE | 2020-09-16 16:06 | P.DS ---
Admission Date: 09/15/20 Discharge Date: 09/16/20 Primary Care Provider: Steven Disposition: ROUTINE DISCHARGE Discharge Condition: GOOD Reason for Admission: LORIE, hyperkalemia Consultations: Nephrology-Dr. Cotton Procedures: Medical problem list: Acute renal injury with hyperkalemia secondary to severe dehydration, hypovolemia, and medication Diabetes mellitus type 2 insulin-dependent Hypertension Diabetic neuropathy with chronic pain Brief History of Present Illness: 34-year-old male with history of hypertension, diabetes. Patient presented with nausea, vomiting and weakness. Patient had been working outside. Patient found to have acute renal failure likely from dehydration. Patient admitted for further evaluation and treatment. Hospital Course: Patient presented with acute renal injury secondary to severe dehydration, hypovolemia complicated with medication. The patient was admitted for treatment. Patient received IV fluids with improvement. Nephrology was consulted. His medications of carvedilol, lisinopril hydrochlorothiazide were discontinued. Patient has improved. Renal function improved. Patient no longer with elevated potassium or acidosis. At discharge recommend to increase oral intake. Recommend to continue to hold carvedilol, lisinopril hydrochlorothiazide. Recommend follow-up with PCP within 1 week. Recommend follow-up with nephrology in 1 to 2 weeks to follow-up hospitalization. Recommend to recheck labBMP in 1 week to monitor his progress. Patient with hypertension. Medicationscarvedilol and lisinopril hydrochlorothiazide have been discontinued due to low blood pressure and acute renal injury. Recommend to monitor his blood pressures daily. Recommend to maintain his blood pressure less than 130/80. If blood pressures remain elevated greater than 140/90 patient may need to restart his carvedilol. Recommend follow-up with nephrology or his PCP to determine when lisinopril hydrochlorothiazide can be restarted. This may not be needed if blood pressures remain normal. Patient with diabetes mellitus type 2 insulin-dependent. At discharge patient may continue with his current regimen of medication. This includes insulin 70/30 40 units subcu twice daily and NovoLog sliding scale. Hemoglobin A1c 11.7. Recommend to maintain blood sugar less than 140 fasting and less than 2 after meals. Further adjustment can be done by his PCP. Recommend to recheck hemoglobin A1c every 3 months to monitor his progress. Recommend follow-up with his PCP to further monitor and address his medication. Patient with diabetic neuropathy and chronic pain. At discharge patient may continue with Neurontin 400 mg 3 times a day and [place] as needed for pain. Further adjustment can be done by his PCP. Vital Signs/Physical Exam: Temp Pulse Resp BP Pulse Ox 97.9 F 75 16 102/55 L 93 09/16/20 15:59 09/16/20 15:59 09/16/20 15:59 09/16/20 15:59 09/16/20 15:59 General: Alert, In no apparent distress, Oriented x3, Cooperative HEENT: Atraumatic Neck: Supple Respiratory: Clear to auscultation bilaterally, Normal air movement Cardiovascular: Normal pulses, Regular rate/rhythm Gastrointestinal: Normal bowel sounds, No tenderness, No masses, No rebound, No guarding Musculoskeletal: No erythema, No tenderness, No warmth Integumentary: No tenderness/swelling, No erythema, No warmth, No cyanosis Neurological: Normal speech, Normal strength at 5/5 x4 extr, Normal tone, Normal affect Laboratory Data at Discharge: WBC 13.00 K/uL (4.3-10.9) H 09/15/20 00:58 Hgb 13.0 g/dL (13.6-17.9) L 09/15/20 00:58 Hct 40.6 % (39.6-49.0) 09/15/20 00:58 Plt Count 340 K/uL (152-406) 09/15/20 00:58 PT 13.7 SECONDS (9.5-12.5) H 09/15/20 00:58 INR 1.19 09/15/20 00:58 Sodium 142 mmol/L (136-145) 09/16/20 05:19 Potassium 4.6 mmol/L (3.5-5.1) 09/16/20 05:19 BUN 50 mg/dL (7-18) H 09/16/20 05:19 Creatinine 2.57 mg/dL (0.55-1.3) H D 09/16/20 05:19 Glucose 132 mg/dL (74-106) H 09/16/20 05:19 Phosphorus 4.1 mg/dL (2.5-4.9) 09/16/20 05:19 Magnesium 2.2 mg/dL (1.8-2.4) 09/16/20 05:19 Total Bilirubin 0.3 mg/dL (0.2-1.0) 09/16/20 05:19 AST 11 U/L (15-37) L 09/16/20 05:19 ALT 14 U/L (12-78) 09/16/20 05:19 Alkaline Phosphatase 146 U/L (45-117) H 09/16/20 05:19 Lipase 21 U/L (73-393) L 09/15/20 00:58 Home Medications: Multivitamin [Multiple Vitamins] 1 each PO DAILY 06/16/17 Insulin 70/30 NPH/Reg Human [Novolin 70/30*] 40 unit SQ BID 11/07/19 Insulin Aspart [Novolog Flexpen] See Protocol SQ BID 11/07/19 Gabapentin [Neurontin*] 400 mg PO TID 09/15/20 Hydrocodone/Acetaminophen [Hydrocodone-Acetamin 10-325 mg] 1 each PO PRN 09/15/20 Physician Discharge Instructions: Patient presented with acute renal injury secondary to severe dehydration, hypovolemia complicated with medication. The patient was admitted for zion atment. Patient received IV fluids with improvement. Nephrology was consulted. His medications of carvedilol, lisinopril hydrochlorothiazide were discontinued. Patient has improved. Renal function improved. Patient no longer with elevated potassium or acidosis. At discharge recommend to increase oral intake. Recommend to continue to hold carvedilol, lisinopril hydrochlorothiazide. Recommend follow-up with PCP within 1 week. Recommend follow-up with nephrology in 1 to 2 weeks to follow-up hospitalization. Recommend to recheck labBMP in 1 week to monitor his progress. Patient with hypertension. Medicationscarvedilol and lisinopril hydrochlorothiazide have been discontinued due to low blood pressure and acute renal injury. Recommend to monitor his blood pressures daily. Recommend to maintain his blood pressure less than 130/80. If blood pressures remain elevated greater than 140/90 patient may need to restart his carvedilol. Recommend follow-up with nephrology or his PCP to determine when lisinopril hydrochlorothiazide can be restarted. This may not be needed if blood pressures remain normal. Patient with diabetes mellitus type 2 insulin-dependent. At discharge patient may continue with his current regimen of medication. This includes insulin 70/30 40 units subcu twice daily and NovoLog sliding scale. Hemoglobin A1c 11.7. Recommend to maintain blood sugar less than 140 fasting and less than 2 after meals. Further adjustment can be done by his PCP. Recommend to recheck hemoglobin A1c every 3 months to monitor his progress. Recommend follow-up with his PCP to further monitor and address his medication. Patient with diabetic neuropathy and chronic pain. At discharge patient may continue with Neurontin 400 mg 3 times a day and [place] as needed for pain. Further adjustment can be done by his PCP. Diet: ADA Activity: Ad jaida Followup: NONE,NONE [Primary Care Provider] - Time spent managing pt's care (in minutes): 55
--- NOTE | 2020-09-16 16:20 | PN ---
Subjective: He is alert, awake, doing well today. Denies any nausea, vomiting. He seems to be eati ng and drinking well. He has been able to walk around. He states that he was working outside in the yard and did not drink enough fluids and that is how he got volume depleted. He states that this mckeon s happened to him before also and recovered with volume repletion in the past. He understands to fol low up in clinic. I have given him information on our clinic and how to make an appointment and the phone numbers. The patient states that he will do that. He states he is ready to go home. His daug hter who is 10 years old has been visiting him. She is currently with some friends and he wants to b e able to spend some time with his daughter. He is otherwise talking in full sentences, comfortable walking on, blood pressure stable. He states he has his medications at home. He follows up with [facility] doctors in [place] and sates that he does not have any history of significant kidney disea se in the past except for 1 time when he was volume depleted and after volume repletion got better. Objective: Vital signs: The patient's blood pressure is 102/55, pulse 75, respirations around 16. He is afebrile. O2 sats are 97% to 100% on room air. Lungs: Clear to auscultation. Abdomen: Soft. Extremities: Reveal no edema. Heart: Sounds are regular. Laboratory Data: His WBC count is 13, hemoglobin and hematocrit are 13/40.6, platelet count of 340 r rober. Sodium 142, potassium 4.6, chloride 115, bicarb is 22, BUN is 50, creatinine is 2.57, glucose in the 144 range. Albumin 2.6. Normal saline has been given at 150 cc an hour. Currently, his norm al saline is on hold. The patient is eating and drinking okay. Assessment And Plan: Acute kidney injury in the setting of prerenal azotemia, volume depletion. The patient has been adequately volume repleted. Kidney function significantly improved. Question what his residual kidney function is and what the damage from this acute kidney injury may be. The patie nt is clinically stable to be discharged home. He understands that his renal function is possibly no t back to baseline completely. He also understands that he needs to continue to keep his water intak e and food intake adequate. If any change in condition, he needs to come back to the emergency room. Monitor his blood pressure and any changes need to be addressed and reported to his primary care tea suresh or if indicated needs to come to the ER. I have educated him about that. From the renal point of view, the patient is ready to be discharged home with followup in clinic. I have given him informati on to make appointment in clinic with us. Appreciate your consultation Dr. Mcrae. /ELENA Voice ID: [id number] Report ID: [id number]
== END 2020-09-16 18:11 | disposition home or self-care (01) | DRG 683 ==
LOC: ER 23:34 → ERHOLD 09-15 02:23 → 2ND 09-15 14:52
PROVIDERS: ADMIT Hospitalist; ATTEND Family Medicine
DX: N17.9 Acute kidney failure, unspecified (principal); L88 Pyoderma gangrenosum; E87.1 Hypo-osmolality and hyponatremia; E87.2 Acidosis; E87.5 Hyperkalemia; E86.1 Hypovolemia; E86.0 Dehydration; G89.29 Other chronic pain; I12.9 Hypertensive chronic kidney disease with stage 1 through stage 4 chronic kidney disease, or unspecified chronic kidney disease; N18.9 Chronic kidney disease, unspecified; E11.22 Type 2 diabetes mellitus with diabetic chronic kidney disease; E11.621 Type 2 diabetes mellitus with foot ulcer; E11.42 Type 2 diabetes mellitus with diabetic polyneuropathy; L97.509 Non-pressure chronic ulcer of other part of unspecified foot with unspecified severity; T50.905A Adverse effect of unspecified drugs, medicaments and biological substances, initial encounter; S91.001D Unspecified open wound, right ankle, subsequent encounter; S81.801D Unspecified open wound, right lower leg, subsequent encounter; R80.9 Proteinuria, unspecified; Z88.4 Allergy status to anesthetic agent; Z79.4 Long term (current) use of insulin; Z79.899 Other long term (current) drug therapy; Z20.822 Contact with and (suspected) exposure to COVID-19
CPT/HCPCS: 11042; 11045; 36415; 70450; 71045; 80048; 80053; 80076; 80307; 80320; 80329; 81003; 81015; 82010; 82550; 82805; 82947; 83036; 83605; 83690; 83735; 83880; 84100; 84132; 84484; 85025; 85610; 87070; 87075; 87077; 87186; 87205; 93005; 94760; 96361; 96374; 96375; 99284; J1644; J7030; U0003

== ENCOUNTER 2020-10-17 18:40 | Inpatient (IN) | payer OTHER ==
[2020-10-17 20:44] LABS: Absolute Lymphocytes (CBC) 1.6 K/uL (0.7-4.9); Basophils % 1.1 % (0-1.3); Hematocrit 40.7 % (39.6-49.0); Lymphocytes % 18.5 % (15.3-44.8); MPV 8.4 fL (7.6-11.3); RBC Red Blood Cell Count 4.64 M/uL (4.33-5.43)
[2020-10-17 21:03] LABS: Potassium 6.9 mmol/L (3.5-5.1)
--- NOTE | 2020-10-17 21:23 | ER ---
Nurse's Notes [facility] Name: Kailash Greenfield Age: 34 yrs Sex: Male : 1985 Arrival Date: 10/17/2020 Time: 18:46 Bed 12 [facility] MD: Diagnosis: Hyperkalemia Presentation: 10/17 20:54 Chief complaint: Patient states: was sent here for abnormal lab results of high bb potassium. Coronavirus screen: At this time, the client does not indicate any symptoms associated with coronavirus-19. Ebola Screen: No symptoms or risks identified at this time. Initial Sepsis Screen: Does the patient meet any 2 criteria? No. Patient's initial sepsis screen is negative. Does the patient have a suspected source of infection? No. Patient's initial sepsis screen is negative. Risk Assessment: Do you want to hurt yourself or someone else? Patient reports no desire to harm self or others. Onset of symptoms was October 17, 2020. 20:54 Method Of Arrival: Ambulatory bb 20:54 Acuity: ALFONSO 3 bb Triage Assessment: 10/18 04:13 General: Appears in no apparent distress. Behavior is calm, cooperative, appropriate lh3 for age. Pain: Complains of pain in right leg. Historical: - Allergies: 10/17 20:55 Lidocaine; bb - Home Meds: 20:55 carvedilol Oral [Active]; cipro [Active]; gabapentin 100 mg Oral cap 3 caps 3 times per bb day [Active]; lisinopril Oral [Active]; [place] Oral [Active]; Novolin R Sub-Q [Active]; - PMHx: 20:55 Diabetes - IDDM; heart problems; Hypertension; bb - PSHx: 20:55 heart surgery; bb - Immunization history:: Adult Immunizations unknown. - Social history:: Smoking status: unknown. Screenin/18 04:14 Abuse screen: Denies threats or abuse. Nutritional screening: No deficits noted. lh3 Tuberculosis screening: No symptoms or risk factors identified. Fall Risk No fall in past 12 months (0 pts). Secondary diagnosis (15 points) impaired mobility, IV access (20 points). Ambulatory Aid- None/Bed Rest/Nurse Assist (0 pts). Gait- Weak (10 pts.). Mental Status- Oriented to own ability (0 pts). Assessment: 04:14 General: Appears in no apparent distress. Behavior is calm, cooperative, appropriate lh3 for age. Vital Signs: 10/17 20:54 BP 128 / 78; Pulse 79; Resp 18 S; Temp 97.7(O); Pulse Ox 92% on R/A; Weight 96.62 kg bb (R); Height 6 ft. 1 in. (185.42 cm) (R); 10/18 04:37 BP 107 / 70; Pulse 72; Resp 18; Temp 97.5; Pulse Ox 95% on R/A; lh3 10/17 20:54 Body Mass Index 28.10 (96.62 kg, 185.42 cm) bb ED Course: 10/17 18:46 Patient arrived in ED. bp1 20:13 Marimar North FNP-C is PHCP. kb 20:13 Peewee Wright MD is Attending Physician. kb 20:55 Triage completed. bb 20:55 Arm band placed on Patient placed in waiting room, Patient notified of wait time. bb 21:22 Fritz Mcrae DO is Hospitalizing Provider. kb 21:47 Wilder Marcus MD is Hospitalizing Provider. la1 22:13 Whit Nava, FREDDY is Primary Nurse. lh3 23:48 CORONAVIRUS Sent. 3 10/18 01:17 Basic Metabolic Panel Sent. 3 01:17 CBC with Diff Sent. lh3 03:16 COVID-19 : Document "Date of Symptom Onset" if Symptomatic. Sent. lh3 04:14 Patient has correct armband on for positive identification. Bed in low position. Call 3 light in reach. Side rails up X 1. Side rails up X2. 04:14 No provider procedures requiring assistance completed. Inserted saline lock: 20 gauge lh3 in right antecubital area, using aseptic technique. Administered Medications: 10/17 23:07 Drug: Insulin Regular Human 10 units {Co-Signature: ss (Selina Taylor RN).} Route: IVP; lh3 Site: right antecubital; 23:07 Drug: Sodium Bicarbonate 1 amp Route: IVP; Site: right antecubital; 3 10/18 03:17 Follow up: Response: No adverse reaction 3 10/17 23:07 Drug: Calcium Gluconate 1 grams Route: IVPB; Infused Over: 10 mins; Site: right lh3 antecubital; 10/18 03:17 Follow up: IV Status: Completed infusion; IV Intake: 100ml [facility] 10/17 23:07 Drug: Kayexalate (polystyrene) 45 grams Route: PO; [facility] 10/18 03:16 Follow up: Response: No adverse reaction [facility] 10/17 23:07 Drug: Albuterol 2.5 mg Route: Inhalation; [facility] 10/18 03:16 Follow up: Response: No adverse reaction [facility] 10/17 23:08 Drug: D50W 50 ml Route: IVP; Site: right antecubital; [facility] 10/18 03:17 Follow up: Response: No adverse reaction [facility] 03:18 Follow up: Response: No adverse reaction [facility] 01:15 Drug: D5W with Sodium Bicarbonate 100 mEq/L 1000 ml Route: IV; Rate: 75 ml/hr; Site: 3 right antecubital; Intake: 03:17 IV: 100ml; Total: 100ml. [facility] Outcome: 10/17 21:23 Decision to Hospitalize by Provider. 10/20 01:43 Patient left the ED. em Signatures: Marimar North, CRISC KULWANT-Ricardo Villanueva RN RN em Yolande Espinoza RN RN bb Quinn Ba FNP-Rosamaria BLUM-Heidy1 Angelica Parks [facility] Whit Nava RN RN 3 Selina Taylor RN
--- NOTE | 2020-10-17 21:23 | EDPHYS ---
Physician Documentation [facility] Name: Kailash Grenefield Age: 34 yrs Sex: Male : 1985 Arrival Date: 10/17/2020 Time: 18:46 Bed 12 Private MD: KIARA Physician Peewee Wright HPI: 10/17 22:40 This 34 yrs old Male presents to ER via Ambulatory with complaints of kb Abnormal Lab Results. 22:40 Pt states he had routine labs done on Friday. Was called and told to come to the ER for kb potassium of 6.6. Denies any symptoms. States he waited to come because he thought it might go down on its own. Onset: The symptoms/episode began/occurred 5 day(s) ago. Severity of symptoms: At their worst the symptoms were moderate in the emergency department the symptoms are unchanged. The patient has not experienced similar symptoms in the past. The patient has been recently seen by a physician:. Historical: - Allergies: 20:55 Lidocaine; bb - Home Meds: 20:55 carvedilol Oral [Active]; cipro [Active]; gabapentin 100 mg Oral cap 3 caps 3 times per bb day [Active]; lisinopril Oral [Active]; [place] Oral [Active]; Novolin R Sub-Q [Active]; - PMHx: 20:55 Diabetes - IDDM; heart problems; Hypertension; bb - PSHx: 20:55 heart surgery; bb - Immunization history:: Adult Immunizations unknown. - Social history:: Smoking status: unknown. ROS: 22:40 Constitutional: Negative for fever, chills, and weight loss. kb 22:40 All other systems are negative. Exam: 22:40 Constitutional: This is a well developed, well nourished patient who is awake, alert, kb and in no acute distress. Head/Face: Normocephalic, atraumatic. ENT: Moist Mucous membranes Cardiovascular: Regular rate and rhythm with a normal S1 and S2. No gallops, murmurs, or rubs. No pulse deficits. Respiratory: Respirations even and unlabored. No increased work of breathing, no retractions or nasal flaring. Abdomen/GI: Soft, non-tender. No distention Skin: Warm, dry with normal turgor. Normal color. MS/ Extremity: Pulses equal, no cyanosis. Neurovascular intact. Full, normal range of motion. Neuro: Awake and alert, GCS 15, oriented to person, place, time, and situation. Moves all extremities. Normal gait. Psych: Awake, alert, with orientation to person, place and time. Behavior, mood, and affect are within normal limits. Vital Signs: 20:54 BP 128 / 78; Pulse 79; Resp 18 S; Temp 97.7(O); Pulse Ox 92% on R/A; Weight 96.62 kg bb (R); Height 6 ft. 1 in. (185.42 cm) (R); 10/18 04:37 BP 107 / 70; Pulse 72; Resp 18; Temp 97.5; Pulse Ox 95% on R/A; lh3 10/17 20:54 Body Mass Index 28.10 (96.62 kg, 185.42 cm) bb MDM: 10/17 20:13 Patient medically screened. 21:23 Data reviewed: vital signs, nurses notes. Data interpreted: Pulse oximetry: on room air kb is 92 %. Interpretation: normal. Counseling: I had a detailed discussion with the patient and/or guardian regarding: the historical points, exam findings, and any diagnostic results supporting the discharge/admit diagnosis, lab results, the need for outpatient follow up, a family practitioner, to return to the emergency department if symptoms worsen or persist or if there are any questions or concerns that arise at home. 21:26 Physician consultation: Quinn CASE was contacted at 21:26, regarding admission, kb to the telemetry unit. patient's condition, and will see patient in ED. 10/17 20:13 Order name: CBC with Diff 10/17 20:13 Order name: Basic Metabolic Panel 10/17 20:14 Order name: CBC with Automated Diff; Complete Time: 20:52 EDTN 10/17 20:14 Order name: Basic Metabolic Panel; Complete Time: 21:06 EDTN 10/17 21:26 Order name: COVID-19 : Document "Date of Symptom Onset" if Symptomatic. 10/17 21:26 Order name: CORONAVIRUS EDTN 10/17 22:48 Order name: Glucose, Ancillary Testing; Complete Time: 22:50 EDTN 10/18 00:52 Order name: SARS-COV-2 RT PCR; Complete Time: 00:54 EDMS 10/18 01:17 Order name: Comprehensive Metabolic Panel; Complete Time: 01:18 EDMS 10/18 07:49 Order name: CBC with Automated Diff; Complete Time: 15:01 EDMS 10/18 08:06 Order name: Comprehensive Metabolic Panel; Complete Time: 15:01 EDMS 10/18 08:06 Order name: Uric Acid; Complete Time: 15:01 EDMS 10/18 08:06 Order name: Creatine Phosphokinase; Complete Time: 15:01 EDMS 10/18 08:06 Order name: Lipid Profile; Complete Time: 15:01 EDMS 10/18 08:06 Order name: T4 Free; Complete Time: 15:01 EDMS 10/18 08:06 Order name: Magnesium; Complete Time: 15:01 EDMS 10/18 08:06 Order name: Thyroid Stimulating Hormone; Complete Time: 15:01 EDMS 10/18 09:54 Order name: Glucose, Ancillary Testing; Complete Time: 15:01 EDMS 10/18 13:38 Order name: Glucose 10/18 13:43 Order name: Glucose, Ancillary Testing; Complete Time: 15:01 EDMS 10/18 14:43 Order name: Basic Metabolic Panel; Complete Time: 15:01 EDMS 10/18 14:45 Order name: Glucose Level; Complete Time: 15:01 EDMS 10/18 17:16 Order name: Glucose, Ancillary Testing; Complete Time: 17:16 EDMS 10/18 18:49 Order name: Basic Metabolic Panel; Complete Time: 18:53 EDMS 10/18 21:07 Order name: Glucose, Ancillary Testing; Complete Time: 21:10 EDMS 10/19 03:44 Order name: CBC with Automated Diff EDMS 10/19 04:39 Order name: Comprehensive Metabolic Panel EDMS 10/19 04:39 Order name: Creatine Phosphokinase EDMS 10/19 04:39 Order name: Magnesium EDMS 10/17 21:03 Order name: EKG; Complete Time: 21:03 kb 10/17 21:03 Order name: EKG - Nurse/Tech; Complete Time: 07:01 kb 10/17 21:41 Order name: Blood Glucose Level; Complete Time: 22:52 kb 10/17 22:26 Order name: Misc. Order: Obtain CMP, CPK levels at 2350; Complete Time: 03:16 la1 10/19 08:26 Order name: Glucose, Ancillary Testing EDMS 10/19 11:32 Order name: Basic Metabolic Panel EDMS 10/19 11:32 Order name: Magnesium EDMS 10/19 11:33 Order name: Glucose, Ancillary Testing EDMS 10/19 16:27 Order name: Glucose, Ancillary Testing EDMS 10/19 21:02 Order name: Glucose, Ancillary Testing EDMS 10/19 23:15 Order name: Glucose, Ancillary Testing EDMS Administered Medications: 23:07 Drug: Insulin Regular Human 10 units {Co-Signature: ss (Selina Taylor RN).} Route: IVP; [facility] Site: right antecubital; 23:07 Drug: Sodium Bicarbonate 1 amp Route: IVP; Site: right antecubital; [facility] 10/18 03:17 Follow up: Response: No adverse reaction [facility] 10/17 23:07 Drug: Calcium Gluconate 1 grams Route: IVPB; Infused Over: 10 mins; Site: right [facility] antecubital; 10/18 03:17 Follow up: IV Status: Completed infusion; IV Intake: 100ml [facility] 10/17 23:07 Drug: Kayexalate (polystyrene) 45 grams Route: PO; [facility] 10/18 03:16 Follow up: Response: No adverse reaction [facility] 10/17 23:07 Drug: Albuterol 2.5 mg Route: Inhalation; [facility] 10/18 03:16 Follow up: Response: No adverse reaction [facility] 10/17 23:08 Drug: D50W 50 ml Route: IVP; Site: right antecubital; [facility] 10/18 03:17 Follow up: Response: No adverse reaction [facility] 03:18 Follow up: Response: No adverse reaction [facility] 01:15 Drug: D5W with Sodium Bicarbonate 100 mEq/L 1000 ml Route: IV; Rate: 75 ml/hr; Site: [facility] right antecubital; Disposition: 10/20 07:29 Co-signature as Attending Physician, Peewee Wright MD I agree with the assessment and otto plan of care. Disposition Summary: 10/17/20 21:23 Hospitalization Ordered Hospitalization Status: Inpatient Admission kb Condition: Stable kb Problem: new kb Symptoms: are unchanged kb Bed/Room Type: Standard kb Provider: Wilder Marcus(10/17/20 21:47) la1 Location: Telemetry/MedSurg (Inpatient)(10/19/20 22:55) cg Room Assignment: [facility](10/19/20 22:55) Diagnosis - Hyperkalemia kb Forms: - Medication Reconciliation Form kb - SBAR form kb Signatures: Dispatcher [employer] EDMS [place] Marimar, KULWANT-C KULWANT-Chrissie Bautista RN RN mw Anderson, Corey, MD MD cha Ballard, Brenda RN Quinn Billingsley FNP-Rosamaria BLUM-Britany Bowen RN RN cg Whit Nava RN RN 3 Selina Taylor RN Corrections: (The following items were deleted from the chart) 10/17 21:47 21:23 Fritz Mcrae lashay la1 22:40 22:40 Constitutional: This is a well developed, well nourished patient who is awake, kb alert, and in no acute distress. Head/Face: Normocephalic, atraumatic. ENT: Moist Mucous membranes Respiratory: Respirations even and unlabored. No increased work of breathing, no retractions or nasal flaring. Skin: Warm, dry with normal turgor. Normal color. MS/ Extremity: Pulses equal, no cyanosis. Neurovascular intact. Full, normal range of motion. Neuro: Awake and alert, GCS 15, oriented to person, place, time, and situation. Moves all extremities. Normal gait. Psych: Awake, alert, with orientation to person, place and time. Behavior, mood, and affect are within normal limits. 10/18 02:07 10/17 21:23 Telemetry/MedSurg (Inpatient) [facility] 10/18 02:07 10/17 21:23 [facility] 10/19 22:55 10/18 02:07 [facility] ER HOLD [facility] 10/19 22:55 10/18 02:07 ERHOLD- [facility]
--- NOTE | 2020-10-17 22:44 | P.HP ---
Certification for Inpatient Patient admitted to: Inpatient With expected LOS: >2 Midnights Patient will require the following post-hospital care: None Practitioner: I am a practitioner with admitting privileges, knowledge of patient current condition, hospital course, and medical plan of care. Services: Services provided to patient in accordance with Admission requirements found in Title 42 Section 412.3 of the Code of Federal Regulations Patient History Date of Service: 10/17/20 Reason for admission: Hyperkalemia, CKD 4, hypoglycemia History of Present Illness: 34-year-old male with history of CKD 4, diabetes metas type II, congenital heart disease with valve replacement, hypertension, neuropathy presents emergency department for abnormal lab value. Patient reports he had outpatient labs done with his front desk specialist on Friday which was significant for potassium level of 6.6. Patient was evaluated here in the emergency department labs were significant for potassium 6.9 chloride 116 carbon dioxide 18 BUN 57 creatinine 2.5 GFR 30 glucose initially 38. Patient was given juice as well as calcium gluconate, insulin, dextrose, Kayexalate, albuterol treatment in the emergency department, repeat labs in level pending, ED provider wishes to admit for further evaluation and management of hyperkalemia. Allergies lidocaine Allergy (Severe, Verified 09/15/20 04:04) Shortness of breath Home Medications: Multivitamin [Multiple Vitamins] 1 each PO DAILY 06/16/17 Insulin 70/30 NPH/Reg Human [Novolin 70/30*] 40 unit SQ BID 11/07/19 Insulin Aspart [Novolog Flexpen] See Protocol SQ BID 11/07/19 Gabapentin [Neurontin*] 400 mg PO TID 09/15/20 Hydrocodone/Acetaminophen [Hydrocodone-Acetamin 10-325 mg] 1 each PO PRN 09/15/20 - Past Medical/Surgical History Diabetic: Yes -: Diabetes mellitus type 2 -: Hypertension -: Neuropathy -: congenital heart defect -: CKD 4 -: 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 - Family History Father -: Hypertension, Diabetes Mother -: Hypertension, Diabetes Brother -: Heart disease, Diabetes - Social History Alcohol use: Yes CD- Drugs: No Caffeine use: Yes Review of Systems Unremarkable Physical Examination - Physical Exam General: Alert, In no apparent distress, Oriented x3 HEENT: Atraumatic, PERRLA, Mucous membr. moist/pink, EOMI, Sclerae nonicteric Neck: Supple, 2+ carotid pulse no bruit, No LAD, Without JVD or thyroid abnormality Respiratory: Clear to auscultation bilaterally, Normal air movement Cardiovascular: Regular rate/rhythm, Normal S1 S2 Gastrointestinal: Normal bowel sounds, No tenderness Musculoskeletal: No tenderness Integumentary: No rashes, Diabetic ulcer, Other (Patient with chronic wound to right lower extremity, currently dressing is intact without any significant wound drainage.) Neurological: Normal speech, Normal strength at 5/5 x4 extr, Normal tone, Normal affect Lymphatics: No axilla or inguinal lymphadenopathy - Studies Laboratory Data (last 24 hrs) 10/17/20 20:20: Sodium 140, Potassium 6.9 H*, BUN 57 H, Creatinine 2.50 H, Glucose 38 L* 10/17/20 20:20: WBC 8.80, Hgb 13.1 L, Hct 40.7, Plt Count 378 Assessment and Plan - Plan Assessment: Hyperkalemia secondary to CKD 4 Diabetes mellitus type 2 with hypoglycemia Hypertension Congenital heart defect Plan: Hyperkalemia secondary to CKD 4: Patient received insulin, dextrose, calcium, albuterol, Kayexalate in the ER, will repeat potassium level this evening, nephrology consulted for additional assistance. Creatinine/GFR stable from discharge. Patient will require education regarding renal diet. Bicarb drip this evening. Diabetes mellitus type 2 with hypoglycemia: ACH is Accu-Chek, sliding scale insulin therapy. Continue D5W with 150 mEq of bicarb drip the evening. Hypertension: obtain and verify home meds, continue as appropriate Congenital heart defect: stable, continue to monitor DVT PPX: Heparin Code status: Full Discharge Plan: Home Plan to discharge in: 48 Hours - Advance Directives Does patient have a Living Will: No Does patient have a Durable POA for Healthcare: No - Code Status/Comfort Care Code Status Assessed: Yes (Full code) Critical Care: No Time Spent Managing Pts Care (In Minutes): 55
[2020-10-17] MEDS ORDERED: INSULIN -REGULAR HUMAN 50 UNIT/0.5 ML ML ONE (22:54)
[2020-10-17] MEDS ORDERED: ALBUTEROL 2.5 MG/3 ML NEB SOL ONE (22:54)
[2020-10-17] MEDS ORDERED: SOD POLYSTYREN SUL 15 GM/60 ML UCUP ONE (22:55)
[2020-10-17] MEDS ORDERED: SODIUM BICARB 50 MEQ/50ML VIAL ONE (22:55)
[2020-10-17] MEDS ORDERED: CALCIUM GLUCONATE 1 GM IVPB 1 GM/50 ML BAG IV ONE (22:55)
[2020-10-17] MEDS ORDERED: D5W 1,000 ML IV ONE (22:55)
[2020-10-17] MEDS ORDERED: D50W 25 GM/50 ML SYRINGE IV ONE (22:56)
[2020-10-18 01:16] LABS: Albumin 3.1 g/dL (3.4-5.0); Bilirubin Total 0.3 mg/dL (0.2-1.0); Protein, Total 7.7 g/dL (6.4-8.2)
[2020-10-18 01:17] LABS: Potassium 5.6 mmol/L (3.5-5.1)
[2020-10-18 05:35] VITALS: BMI 30.4
[2020-10-18] MEDS ORDERED: ONDANSETRON 4 MG/2 ML VIAL IV PRN (05:38)
[2020-10-18] MEDS ORDERED: D5W 1,000 ML with NA BICARB 8.4% 150 MEQ IV SCH ×2 (05:38)
[2020-10-18] MEDS ORDERED: GLUCAGON 1 MG/VIAL IM PRN (05:38)
[2020-10-18] MEDS ORDERED: D50W 25 GM/50 ML SYRINGE IV PRN (05:38)
[2020-10-18 07:48] LABS: Absolute Lymphocytes (CBC) 1.8 K/uL (0.7-4.9); Basophils % 1.2 % (0-1.3); Hematocrit 35.8 % (39.6-49.0); Lymphocytes % 28.2 % (15.3-44.8); MPV 8.4 fL (7.6-11.3); RBC Red Blood Cell Count 4.11 M/uL (4.33-5.43)
[2020-10-18 08:04] LABS: Albumin 2.8 g/dL (3.4-5.0); Bilirubin Total 0.3 mg/dL (0.2-1.0); Magnesium 1.8 mg/dL (1.8-2.4); Potassium 5.3 mmol/L (3.5-5.1); Uric Acid 8.9 mg/dL (3.5-7.2)
[2020-10-18 08:05] LABS: Thyroid Stimulating Hormone 8.43 uIU/mL (0.360-3.740)
[2020-10-18] MEDS ORDERED: HEPARIN 5000 UNIT/ML 1 ML VIAL ONE ×2 (10:47→20:39)
[2020-10-18] MEDS: INSULIN -REGULAR HUMAN 50 UNIT/0.5 ML ML SQ SCH ×4 (11:10→20:53)
[2020-10-18] MEDS: HEPARIN 5000 UNIT/ML 1 ML VIAL SQ SCH ×2 (11:11→20:38)
[2020-10-18] MEDS ORDERED: INSULIN -REGULAR HUMAN 50 UNIT/0.5 ML ML ONE ×2 (11:27→15:06)
[2020-10-18] MEDS ORDERED: INSULIN -REGULAR HUMAN 50 UNIT/0.5 ML ML IV ONE (14:15)
[2020-10-18 14:43] LABS: Potassium 5.6 mmol/L (3.5-5.1)
--- NOTE | 2020-10-18 16:25 | EKG ---
Test Date: 2020-10-18 Test Time: 06:55:31 Dental Officer: LINDA MEASUREMENT RESULTS: Intervals: Rate: 82 UT: 172 QRSD: 92 QT: 392 QTc: 457 [place]: P: 24 UT: 172 QRS: -5 T: -18 INTERPRETIVE STATEMENTS: Sinus rhythm with occasional premature ventricular complexes Low voltage QRS Septal infarct, age undetermined ST & T wave abnormality, consider inferior ischemia ST & T wave abnormality, consider anterolateral ischemia Abnormal ECG Compared to ECG 09/15/2020 00:50:08 Ventricular premature complex(es) now present Low QRS voltage now present ST (T wave) deviation now present Possible ischemia now present Left-axis deviation no longer present Myocardial infarct finding still present Electronically Signed On 10-18-20 16:22:52 CDT by Herb Garcia
[2020-10-18] MEDS ORDERED: INSULIN 70/30 100 UNITS/ML SQ SCH (16:30)
[2020-10-18] MEDS: INSULIN 70/30 100 UNITS/ML SQ SCH (16:30)
[2020-10-18] MEDS ORDERED: SOD POLYSTYREN SUL 15 GM/60 ML UCUP PO ONE ×3 (17:00→22:27)
--- NOTE | 2020-10-18 17:02 | P.PN ---
Subjective Date of Service: 10/18/20 Chief Complaint: Hyperkalemia, CKD 4, hypoglycemia Subjective: No new changes (feels the same, no significant symptoms. maybe some generalized fatigue.) Review of Systems 10-point ROS is otherwise unremarkable Physical Examination - Vital Signs Temperature: 97.6 F Blood Pressure: 143/87 Respirations: 15 Pulse Ox (%): 93 - Studies Laboratory Data (last 24 hrs) 10/17/20 20:20: Sodium 140, Potassium 6.9 H*, BUN 57 H, Creatinine 2.50 H, Glucose 38 L* 10/17/20 20:20: WBC 8.80, Hgb 13.1 L, Hct 40.7, Plt Count 378 Assessment & Plan Physician Review Additional Text: Physical Exam General: Alert, In no apparent distress, Oriented x3 HEENT: Normal conjunctiva, sclera anicteric Respiratory: Clear to auscultation bilaterally, Normal air movement Cardiovascular: Regular rate/rhythm, Normal S1 S2 Gastrointestinal: Soft, nontender, nondistended Musculoskeletal: No joint tenderness Integumentary: chronic wound to right lower extremity with dressing intact Problem list Hyperkalemia likely secondary to medication (Bactrim and Lisinopril) in setting of CKD4 Diabetes mellitus type 2 with hypoglycemia Hypertension Congenital heart defect Patient reports he has recently been taking Bactrim for his wound in addition to lisinopril for his hypertension. Suspect this combination this will lead to his hyperglycemia Initially improved with some insulin, albuterol, and Kayexalate Repeat potassium increased again. Patient also now with hyperglycemia, did not receive his a.m. dose of insulin Patient otherwise feeling well Restart patient's insulin, will give another dose of IV insulin as well as Kayexalate Recheck BMP this evening If potassium and glucose are better, can possibly be discharged home later tonight. You would need to discontinue the Bactrim, and hold the lisinopril. To have close follow-up with his flight communications officer who is aware. Time Spent Managing Pts Care (In Minutes): 40
[2020-10-18] MEDS ORDERED: SOD POLYSTYREN SUL 15 GM/60 ML UCUP ONE ×3 (17:36→23:59)
[2020-10-18] MEDS ORDERED: WATER FOR INJ,STERILE 10 ML ONE (17:36)
--- NOTE | 2020-10-18 22:31 | P.CNS ---
Date of Consult: 10/18/20 Reason for Consult: Hyperkalemia/ CKD Requesting Physician: Wilder Marcus Chief Complaint: Hyperkalemia, CKD 4, hypoglycemia History of Present Illness: 34 yo WM DM, CKD presented to the ER with hyperkalemia in the setting of Lisinopril and Bactrim. 34-year-old male with history of CKD 4, diabetes metas type II, congenital heart disease with valve replacement, hypertension, neuropathy presents emergency department for abnormal lab value. Patient reports he had outpatient labs done with his oxidation engineer on Friday which was significant for potassium level of 6.6. Patient was evaluated here in the emergency department labs were significant for potassium 6.9 chloride 116 carbon dioxide 18 BUN 57 creatinine 2.5 GFR 30 glucose initially 38. Patient was given juice as well as calcium gluconate, insulin, dextrose, Kayexalate, albuterol treatment in the emergency department, repeat labs in level pending, ED provider wishes to admit for further evaluation and management of hyperkalemia. Allergies lidocaine Allergy (Severe, Verified 09/15/20 04:04) Shortness of breath Home medications list reviewed: Yes Home Medications: Insulin 70/30 NPH/Reg Human [Novolin 70/30*] See Protocol SQ BID 11/07/19 Gabapentin [Neurontin*] 400 mg PO TID 09/15/20 Hydrocodone/Acetaminophen [Hydrocodone-Acetamin 10-325 mg] 1 each PO PRN 09/15/20 Carvedilol [Coreg] 12.5 mg PO BID 10/18/20 Ciprofloxacin HCl [Cipro 500 MG Tablet] 1 tab PO BID 10/18/20 Insulin -Regular Human [Novolin -R*] See Protocol SQ 10/18/20 Lisinopril/Hydrochlorothiazide [Lisinopril-Hctz 10-12.5 mg Tab] 1 tab PO BID 10/18/20 Sulfamethoxazole/Trimethoprim [Bactrim Ds Tablet] 1 tab PO BID 10/18/20 - Past Medical/Surgical History Diabetic: Yes -: Diabetes mellitus type 2 -: Hypertension -: Neuropathy -: congenital heart defect -: CKD 4 -: 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 - Family History Father Medical History: Hypertension, Diabetes Mother Medical History: Hypertension, Diabetes Brother Medical History: Heart disease, Diabetes - Social History Smoking Status: Unknown if ever smoked Alcohol use: Yes CD- Drugs: No Caffeine use: Yes Place of Residence: Home Review of Systems 10-point ROS is otherwise unremarkable Physical Examination Temp Pulse Resp BP Pulse Ox 98.2 F 20 143/87 H 93 10/18/20 20:00 10/18/20 20:00 10/18/20 17:02 10/18/20 17:02 General: Oriented x3, Cooperative HEENT: Atraumatic Neck: Supple Respiratory: Clear to auscultation bilaterally Cardiovascular: No edema, Regular rate/rhythm Gastrointestinal: Soft and benign, Non-distended Musculoskeletal: No clubbing, No contractures Integumentary: No rashes, No cyanosis Neurological: Normal speech Blood work reviewed in the chart. Conclusions/Impression: LORIE CKD III -No NSAIDs Hyperkalemia -Kayexalate as ordered -Hold Lisinopril -Hold Bactrim HTN with CKD -Restart Coreg -Hold Lisinopril DM II with CKD -RISS Case reviewed with Dr. Marcus
[2020-10-19 03:36] LABS: Absolute Lymphocytes (CBC) 1.7 K/uL (0.7-4.9); Basophils % 1.5 % (0-1.3); Hematocrit 37.3 % (39.6-49.0); Lymphocytes % 25.3 % (15.3-44.8); RBC Red Blood Cell Count 4.35 M/uL (4.33-5.43)
[2020-10-19 03:49] LABS: Albumin 2.9 g/dL (3.4-5.0); Bilirubin Total 0.3 mg/dL (0.2-1.0); Magnesium 1.6 mg/dL (1.8-2.4); Potassium 5.4 mmol/L (3.5-5.1); Protein, Total 7.2 g/dL (6.4-8.2)
[2020-10-19] MEDS ORDERED: SOD POLYSTYREN SUL 15 GM/60 ML UCUP PO ONE (06:27)
[2020-10-19] MEDS: INSULIN 70/30 100 UNITS/ML SQ SCH ×2 (07:30→16:05)
[2020-10-19] MEDS: INSULIN -REGULAR HUMAN 50 UNIT/0.5 ML ML SQ SCH ×4 (07:30→21:00)
[2020-10-19] MEDS: carvediloL 6.25 MG TAB PO SCH ×2 (08:00→16:47)
[2020-10-19] MEDS: MUPIROCIN 2% OINT 22GM TUBE TOP SCH (09:00)
[2020-10-19] MEDS: HEPARIN 5000 UNIT/ML 1 ML VIAL SQ SCH ×2 (09:00→22:03)
[2020-10-19] MEDS ORDERED: INSULIN -REGULAR HUMAN 50 UNIT/0.5 ML ML ONE (09:27)
[2020-10-19] MEDS ORDERED: INSULIN 70/30 100 UNITS/ML SQ ONE (09:27)
[2020-10-19] MEDS ORDERED: HEPARIN 5000 UNIT/ML 1 ML VIAL ONE ×2 (09:57→22:21)
[2020-10-19] MEDS ORDERED: carvediloL 6.25 MG TAB ONE ×2 (09:58→17:13)
[2020-10-19] MEDS ORDERED: SOD POLYSTYREN SUL 15 GM/60 ML UCUP ONE ×4 (09:58→17:14)
[2020-10-19 11:23] LABS: Magnesium 1.6 mg/dL (1.8-2.4)
[2020-10-19 11:31] LABS: Potassium 6.1 mmol/L (3.5-5.1)
[2020-10-19] MEDS: SOD POLYSTYREN SUL 15 GM/60 ML UCUP PO SCH ×3 (12:28→18:15)
--- NOTE | 2020-10-19 16:27 | P.PN ---
Subjective Date of Service: 10/19/20 Chief Complaint: Hyperkalemia, CKD 4, hypoglycemia Subjective: No new changes (pt reports feeling ok, no complaints. no nausea/vomiting, no diarrhea, no palpitations/chest pain. Potassium improved this morning) Review of Systems 10-point ROS is otherwise unremarkable Physical Examination - Vital Signs Temperature: 98.3 F Blood Pressure: 142/81 Pulse: 93 Respirations: 17 Pulse Ox (%): 94 Assessment & Plan Physician Review Additional Text: Physical Exam General: Alert, In no apparent distress, Oriented x3 HEENT: Normal conjunctiva, sclera anicteric Respiratory: Clear to auscultation bilaterally, Normal air movement Cardiovascular: Regular rate/rhythm, Normal S1 S2 Gastrointestinal: Soft, nontender, nondistended Musculoskeletal: No joint tenderness Integumentary: chronic wound to right lower extremity Problem list Hyperkalemia likely secondary to medication (Bactrim and Lisinopril) in setting of CKD3-4 Diabetes mellitus type 2, insulin dependent Hypertension Congenital heart defect Patient reports he has recently been taking Bactrim for his wound in addition to lisinopril for his hypertension. Suspect this combination this will lead to his hyperglycemia Initially improved with some insulin, albuterol, and Kayexalate potassium has been labile nephrology consulted Continue Kayexalate Potassium increased back up to 6 this morning Recheck BMP in AM will need to discontinue the Bactrim, and hold the lisinopril. To have close follow-up with his bar tender who is aware. anticipate dc home tomorrow, pending further improvement Time Spent Managing Pts Care (In Minutes): 35
[2020-10-19] MEDS: ACETAMINOPHEN 500 MG TAB PO PRN (16:58)
[2020-10-19] MEDS ORDERED: ACETAMINOPHEN 500 MG TAB ONE (17:20)
--- NOTE | 2020-10-19 21:16 | P.PN ---
Date of Service: 10/19/20 Vital Signs Temp Pulse Resp BP Pulse Ox 98.3 F 93 H 17 142/81 H 94 10/19/20 16:27 10/19/20 16:27 10/19/20 16:27 10/19/20 16:27 10/19/20 16:27 Medications Acetaminophen (Acetaminophen 500 Mg Tab) 500 mg PO Q4HP PRN PRN Reason: TEMP > 100' F Last Admin: 10/19/20 16:58 Dose: 500 mg Documented by: Carvedilol (Carvedilol 6.25 Mg Tab) 12.5 mg PO BIDWM [facility] Dextrose (D50w 25 Gm/50 Ml Syringe) 12.5 gm IV PRN PRN; Protocol PRN Reason: HYPOGLYCEMIA Glucagon (Glucagon 1 Mg/Vial) 1 mg IM 1X PRN; Protocol PRN Reason: HYPOGLYCEMIA Heparin Sodium (Porcine) (Heparin 5000 Unit/Ml 1 Ml Vial) 5,000 unit SQ Q12HR [facility] Last Admin: 10/19/20 09:00 Dose: 5,000 unit Documented by: Insulin Human Isoph/Insulin Regular (Insulin 70/30 100 Units/Ml) 30 unit SQ BIDAC [facility] Last Admin: 10/19/20 16:05 Dose: Not Given Documented by: Insulin Human Regular (Insulin -Regular Human 50 Unit/0.5 Ml Ml) 0 unit SQ ACHS [facility]; Protocol Last Admin: 10/19/20 16:05 Dose: Not Given Documented by: Mupirocin (Mupirocin 2% Oint 22gm Tube) 1 appl TOP DAILY [facility] Last Admin: 10/19/20 09:00 Dose: 1 dose Documented by: Ondansetron HCl (Ondansetron 4 Mg/2 Ml Vial) 4 mg IV Q6HP PRN PRN Reason: NAUSEA / VOMITING Sodium Chloride (Flush Normal Saline 10 Ml) 10 ml IV BID [facility] Last Admin: 10/19/20 09:00 Dose: 10 ml Documented by: Assessment/ Plan: Nephrology Progress Note Doing well No chest pain or dyspnea No acute events overnight Vitals, medications blood work and imaging reviewed in the chart General: Oriented x3, Cooperative HEENT: Atraumatic Neck: Supple Respiratory: Clear to auscultation bilaterally Cardiovascular: No edema, Regular rate/rhythm Gastrointestinal: Soft and benign, Non-distended Musculoskeletal: No clubbing, No contractures Integumentary: No rashes, No cyanosis Neurological: Normal speech Blood work reviewed in the chart. Conclusions/Impression: LORIE CKD III -No NSAIDs Hyperkalemia -Kayexalate as ordered -Hold Lisinopril -Hold Bactrim HTN with CKD -Increase Coreg -Hold Lisinopril DM II with CKD -RISS Case reviewed with Dr. Marcus
[2020-10-20] MEDS: ACETAMINOPHEN 500 MG TAB PO PRN (00:49)
[2020-10-20] MEDS ORDERED: ACETAMINOPHEN 500 MG TAB ONE (01:09)
[2020-10-20 05:52] LABS: Hematocrit 40.4 % (39.6-49.0); MPV 7.8 fL (7.6-11.3); RBC Red Blood Cell Count 4.67 M/uL (4.33-5.43)
[2020-10-20 06:32] LABS: Albumin 3.3 g/dL (3.4-5.0); Bilirubin Total 0.4 mg/dL (0.2-1.0); Magnesium 1.5 mg/dL (1.8-2.4); Protein, Total 8.2 g/dL (6.4-8.2)
[2020-10-20 06:57] VITALS: TEMP 97.2
[2020-10-20] MEDS: INSULIN 70/30 100 UNITS/ML SQ SCH (07:30)
[2020-10-20] MEDS: INSULIN -REGULAR HUMAN 50 UNIT/0.5 ML ML SQ SCH (07:30)
[2020-10-20] MEDS ORDERED: carvediloL 6.25 MG TAB PO SCH (08:00)
[2020-10-20 08:38] VITALS: BP 129/72
--- NOTE | 2020-10-20 08:43 | P.DS ---
Admission Date: 10/17/20 Discharge Date: 10/20/20 Disposition: ROUTINE DISCHARGE Discharge Condition: GOOD Reason for Admission: Hyperkalemia, CKD 4, hypoglycemia Consultations: NephrologyDr. Phillips Procedures: Problem list Hyperkalemia secondary to medication (Bactrim and Lisinopril) in setting of CKD3-4 Diabetes mellitus type 2, insulin dependent Hypertension Congenital heart defect Brief History of Present Illness: 34-year-old male with history of CKD 4, diabetes metas type II, congenital heart disease with valve replacement, hypertension, neuropathy presents emergency department for abnormal lab value. Patient reports he had outpatient labs done with his dealer sales manager on Friday which was significant for potassium level of 6.6. Patient was evaluated here in the emergency department labs were significant for potassium 6.9 chloride 116 carbon dioxide 18 BUN 57 creatinine 2.5 GFR 30 glucose initially 38. Patient was given juice as well as calcium gluconate, insulin, dextrose, Kayexalate, albuterol treatment in the emergency department, repeat labs in level pending, ED provider wishes to admit for further evaluation and management of hyperkalemia. Hospital Course: Patient was treated for his hyperkalemia with initial improvement, however his potassium continued to increase again. Nephrology was consulted, recommended holding lisinopril, discontinued Bactrim. Patient was treated with Kayexalate. He had significant improvement of his potassium levels and stable. Patient is asymptomatic. He was discharged home Advised to not take his lisinopril until he has further follow- up/recommendations from his dealer sales manager. To discontinue Bactrim. Vital Signs/Physical Exam: Physical Exam General: Alert, In no apparent distress, Oriented x3 HEENT: Normal conjunctiva, sclera anicteric Respiratory: Clear to auscultation bilaterally, Normal air movement Cardiovascular: Regular rate/rhythm, Normal S1 S2 Gastrointestinal: Soft, nontender, nondistended Musculoskeletal: No joint tenderness Integumentary: chronic wound to right lower extremity Temp Pulse Resp BP Pulse Ox 97.2 F 80 18 129/72 92 10/20/20 07:20 10/20/20 07:20 10/20/20 07:20 10/20/20 07:20 10/20/20 07:20 Laboratory Data at Discharge: WBC 7.80 K/uL (4.3-10.9) 10/20/20 05:40 Hgb 13.2 g/dL (13.6-17.9) L 10/20/20 05:40 Hct 40.4 % (39.6-49.0) 10/20/20 05:40 Plt Count 343 K/uL (152-406) 10/20/20 05:40 Sodium 139 mmol/L (136-145) 10/20/20 05:40 Potassium 4.0 mmol/L (3.5-5.1) 10/20/20 05:40 BUN 30 mg/dL (7-18) H 10/20/20 05:40 Creatinine 1.52 mg/dL (0.55-1.3) H 10/20/20 05:40 Glucose 301 mg/dL (74-106) H 10/20/20 05:40 Uric Acid 8.9 mg/dL (3.5-7.2) H 10/18/20 07:07 Magnesium 1.5 mg/dL (1.8-2.4) L 10/20/20 05:40 Total Bilirubin 0.4 mg/dL (0.2-1.0) 10/20/20 05:40 AST 15 U/L (15-37) 10/20/20 05:40 ALT 26 U/L (12-78) 10/20/20 05:40 Alkaline Phosphatase 149 U/L (45-117) H 10/20/20 05:40 Triglycerides 92 mg/dL (<150) 10/18/20 07:07 Cholesterol 104 mg/dL (<200) 10/18/20 07:07 HDL Cholesterol 25 mg/dL (40-60) L 10/18/20 07:07 Cholesterol/HDL Ratio 4.16 10/18/20 07:07 Home Medications: Insulin 70/30 NPH/Reg Human [Novolin 70/30*] See Protocol SQ BID 11/07/19 Gabapentin [Neurontin*] 400 mg PO TID 09/15/20 Hydrocodone/Acetaminophen [Hydrocodone-Acetamin 10-325 mg] 1 each PO PRN 09/15/20 Carvedilol [Coreg] 12.5 mg PO BID 10/18/20 Ciprofloxacin HCl [Cipro 500 MG Tablet] 1 tab PO BID 10/18/20 Insulin -Regular Human [Novolin -R*] See Protocol SQ 10/18/20 Physician Discharge Instructions: PROBLEM: Hyperkalemia GOAL: Clear understanding of disease process INSTRUCTIONS: Diet: Regular Activity: As tolerated If you have any questions regarding your stay call [phone] If your symptoms worsen call [phone] or go to the ED. You were found to have high potassium levels in your blood. Likely due to your recent usage of bactrim in combination with your lisinopril and chronic kidney disease. This improved with holding those medications, as well as medications to further reduce your potassium level (Kayexalate) Recommend discontinuing Bactrim, and not taking your lisinopril until you follow-up with your kidney doctor with repeat blood work. If your potassium stays stable/in the normal range, they may likely restart your lisinopril. Follow-up with your kidney doctor next week. Diet: Regular Activity: Ad jaida Followup: NONE,NONE [Primary Care Provider] - Time spent managing pt's care (in minutes): 40
[2020-10-20] MEDS: HEPARIN 5000 UNIT/ML 1 ML VIAL SQ SCH (08:46)
[2020-10-20] MEDS: MUPIROCIN 2% OINT 22GM TUBE TOP SCH (08:50)
[2020-10-20 08:56] VITALS: O2SAT 92
== END 2020-10-20 10:16 | disposition home or self-care (01) | DRG 641 ==
LOC: ER 18:40 → ERHOLD 22:28 → 2ND 10-20 01:34
PROVIDERS: ADMIT Hospitalist; ATTEND Hospitalist
DX: E87.5 Hyperkalemia (principal); N18.4 Chronic kidney disease, stage 4 (severe); N17.9 Acute kidney failure, unspecified; I12.9 Hypertensive chronic kidney disease with stage 1 through stage 4 chronic kidney disease, or unspecified chronic kidney disease; E11.22 Type 2 diabetes mellitus with diabetic chronic kidney disease; T36.8X5A Adverse effect of other systemic antibiotics, initial encounter; T46.4X5A Adverse effect of angiotensin-converting-enzyme inhibitors, initial encounter; Y92.009 Unspecified place in unspecified non-institutional (private) residence as the place of occurrence of the external cause; Q24.9 Congenital malformation of heart, unspecified; Z95.2 Presence of prosthetic heart valve; E11.40 Type 2 diabetes mellitus with diabetic neuropathy, unspecified; Z20.822 Contact with and (suspected) exposure to COVID-19
CPT/HCPCS: 36415; 80048; 80053; 80061; 82550; 82947; 83735; 84439; 84443; 84550; 85025; 85027; 93005; 96365; 96366; 96375; 99284; J0610; J1644; J1815; U0003

== ENCOUNTER 2020-12-23 10:58 | Emergency (ER) | payer OTHER ==
[2020-12-23] MEDS ORDERED: D50W 25 GM/50 ML SYRINGE IV ONE (11:31)
[2020-12-23] MEDS ORDERED: NA CHLORIDE 0.9% 1,000 ML ONE ×2 (11:31→15:41)
[2020-12-23 12:20] LABS: Protime INR 1.15
[2020-12-23 12:22] LABS: Absolute Lymphocytes (CBC) 1.5 K/uL (0.7-4.9); Basophils % 1.2 % (0-1.3); Hematocrit 43.5 % (39.6-49.0); Lymphocytes % 12.2 % (15.3-44.8); MPV 8.8 fL (7.6-11.3); RBC Red Blood Cell Count 5.09 M/uL (4.33-5.43)
[2020-12-23 12:42] LABS: Albumin 3.2 g/dL (3.4-5.0); Bilirubin Direct 0.1 mg/dL (0-0.2); Bilirubin Total 0.4 mg/dL (0.2-1.0); Potassium 3.7 mmol/L (3.5-5.1); Protein, Total 8.2 g/dL (6.4-8.2)
[2020-12-23] MEDS ORDERED: VANCOMYCIN 1 GM/VIAL ONE (13:33)
[2020-12-23] MEDS ORDERED: NA CHLORIDE 0.9% 100 ML ONE (13:33)
[2020-12-23] MEDS ORDERED: CEFEPIME 1 GM/VIAL ONE (13:33)
[2020-12-23] MEDS ORDERED: NA CHLORIDE 0.9% 2,000 ML ONE (13:34)
[2020-12-23] MEDS ORDERED: NA CHLORIDE 0.9% 500 ML ONE (13:34)
--- NOTE | 2020-12-23 14:07 | RAD REPORT ---
EXAM DESCRIPTION: RAD - Tib Fib Right - 12/23/2020 1:22 pm CLINICAL HISTORY: diabetic wound COMPARISON: No comparisons FINDINGS: No acute fracture. No malalignment. No significant focal degenerative changes. IMPRESSION: No acute osseous abnormality involving the tibia or fibula. No soft tissue gas or eviden ce of underlying osteomyelitis.
[2020-12-23 15:38] LABS: Urine Blood Negative (Negative); Urine Glucose Trace (Negative); Urine Protein Negative (Negative); Urine Specific Gravity 1.015 (1.005-1.030); Urine pH 5.5 (5.0-7.0)
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
--- NOTE | 2020-12-23 15:45 | EDPHYS ---
Physician Documentation [facility] Name: Kailash Greenfield Age: 35 yrs Sex: Male : 1985 Arrival Date: 12/23/2020 Time: 11:01 Bed 4 Private MD: ED Physician Erica iRco HPI: 12/23 11:05 This 35 yrs old Male presents to ER via EMS with complaints of Low Blood cp Sugar. 11:05 The patient presents with decreased responsiveness. cp 11:05 Onset: The symptoms/episode began/occurred at an unknown time. Possible causes: low cp blood sugar, the patient uses insulin, EMS reports initial blood glucose of 44 upon arrival. Associated signs and symptoms: Pertinent positives: unresponsive. Current symptoms: In the emergency department the patient's symptoms have improved, moderately. Patient's baseline: Neuro: alert and fully oriented, Motor: no deficits, Ambulation: walks without assistance, Speech: normal. Family member called EMS due to concern of inability to contact patient today. Patient with history of chronic wound to right lower leg. Historical: - Allergies: 11:05 Lidocaine; ll1 - PMHx: 11:05 Diabetes - IDDM; heart problems; Hypertension; ll1 - PSHx: 11:05 heart surgery; ll1 - Immunization history:: Adult Immunizations up to date, Client reports having NOT received the Covid vaccine. - Social history:: Smoking status: Patient denies any tobacco usage or history of. ROS: 11:10 Constitutional: Negative for chills, fever, poor PO intake. cp 11:10 Eyes: Negative for injury, pain, redness, and discharge. cp 11:10 ENT: Negative for ear pain, sore throat, difficulty swallowing, difficulty handling cp secretions. 11:10 Cardiovascular: Negative for chest pain. 11:10 Respiratory: Negative for cough, shortness of breath, wheezing. 11:10 Abdomen/GI: Negative for abdominal pain, nausea, vomiting, and diarrhea. 11:10 Neuro: Positive for altered mental status, Negative for 11:10 Unable to obtain ROS due to altered mental status. Exam: 11:15 ECG was reviewed by the Attending Physician. cp 11:17 Constitutional: The patient appears in no acute distress, alert, awake, cp non-diaphoretic, non-toxic, well developed, well nourished. 11:17 Head/Face: Normocephalic, atraumatic. cp 11:17 Eyes: Periorbital structures: appear normal, Pupils: equal, round, and reactive to light and accomodation, Extraocular movements: intact throughout, Conjunctiva: normal, no exudate, no injection, Sclera: no appreciated abnormality, Lids and lashes: appear normal, bilaterally. 11:17 ENT: External ear(s): are unremarkable, Nose: is normal, Mouth: Lips: dry, Oral mucosa: dry, Posterior pharynx: Airway: no evidence of obstruction, patent. 11:17 Neck: ROM/movement: is normal, is supple, without pain, no range of motions limitations, no meningismus. 11:17 Chest/axilla: Inspection: normal, Palpation: is normal, no crepitus, no tenderness. 11:17 Cardiovascular: Rate: normal, Rhythm: regular, Edema: is not appreciated, JVD: is not appreciated. 11:17 Respiratory: the patient does not display signs of respiratory distress, Respirations: normal, no use of accessory muscles, no retractions, labored breathing, is not present, Breath sounds: are clear throughout, no decreased breath sounds, no stridor, no wheezing. 11:17 Abdomen/GI: Inspection: abdomen appears normal, Bowel sounds: active, all quadrants, Palpation: abdomen is soft and non-tender, in all quadrants. 11:17 Back: pain, is absent, ROM is normal. 11:20 Skin: large wound through dermal layer of skin right lower leg with moderate cp surrounding erythema, mild drainage. 11:20 Neuro: Orientation: to person, place \\T\\ time. Mentation: able to follow commands, slow cp to respond, Motor: moves all fours, general weakness with no focal deficits. Vital Signs: 11:01 BP 147 / 84; Pulse 88; Resp 22; Pulse Ox 93% on R/A; Weight 97.52 kg; Height 6 ft. 0 ll1 in. (182.88 cm); Pain 0/10; 11:01 Temp 96.0(TE); ll1 12:10 BP 98 / 62; Pulse 79; Resp 18; Pulse Ox 94% on R/A; jw6 12:33 Temp 96.7(TE); ll1 14:46 Temp 97.9(O); ll1 15:23 BP 135 / 91; Pulse 95; Resp 18; Pulse Ox 96% on R/A; jw6 15:26 Temp 98.2(O); jw6 16:30 BP 116 / 73; Pulse 95; Resp 17; Pulse Ox 95% on R/A; ll1 11:01 Body Mass Index 29.16 (97.52 kg, 182.88 cm) ll1 MDM: 11:04 Patient medically screened. cp 12:00 Differential Diagnosis: alcohol intoxication, hypoglycemia, sepsis, UTI, volume cp depletion. 14:00 Physician consultation: Andrea Nayak was called at 14:05, was contacted at 14:00, regarding admission, to the telemetry unit. patient's condition, requests patient to be ambulated and if ambulatory will discharge to home. 15:20 Physician consultation: Andrea Nayak in the emergency department to see patient at 15:15, evaluates patient. Discusses results of labs and feels patient stable for discharge to home. Wants patient to start oral doxycycline 100 mg bid and Augmentin 875 mg bid, both for 7 days and f/u with DR Rodriguez. 15:20 Counseling: I had a detailed discussion with the patient and/or guardian regarding: the historical points, exam findings, and any diagnostic results supporting the discharge/admit diagnosis, lab results, radiology results, the need for outpatient follow up, a family practitioner, wound care. Response to treatment: the patient's symptoms have markedly improved after treatment, patient is well hydrated. 15:40 Data reviewed: vital signs, nurses notes, lab test result(s), EKG, radiologic studies, cp plain films. 12/23 11:02 Order name: Basic Metabolic Panel 12/23 11:02 Order name: CBC with Diff cp 12/23 11:02 Order name: LFT's; Complete Time: 13:39 cp 12/23 13:39 Interpretation: Normal except: ALK 201; ALB 3.2; GLOB 5.0; A/G 0.6. cp 12/23 11:02 Order name: Magnesium; Complete Time: 13:39 cp 12/23 11:02 Order name: PT-INR; Complete Time: 12:33 cp 12/23 12:33 Interpretation: Abnormal: PT 13.2. cp 12/23 11: Order name: Basic Metabolic Panel; Complete Time: 13:39 EDMS 12/23 13:40 Interpretation: Normal except: GLUC 268; BUN 22; GFR 67. 12/23 11:02 Order name: CBC with Automated Diff; Complete Time: 12:33 EDMS 12/23 12:33 Interpretation: Normal except: WBC 12.30; MCH 26.7; MCHC 31.2; RDW 15.8; EJ% 75.3; cp LYM% 12.2; NEUT A 9.3. 12/23 11:14 Order name: Glucose, Ancillary Testing; Complete Time: 12:33 EDMS 12/23 11:41 Order name: Wound Culture jw6 12/23 12:53 Order name: Lactate; Complete Time: 13:39 12/23 12:53 Order name: Procalcitonin; Complete Time: 13:59 12/23 12:53 Order name: Blood Culture Adult (2) 12/23 12:53 Order name: Urine Microscopic Only 12/23 12:55 Order name: Glucose, Ancillary Testing; Complete Time: 13:39 EDMS 12/23 11:02 Order name: EKG; Complete Time: 11:02 12/23 11:02 Order name: Cardiac monitoring; Complete Time: 11:10 12/23 11:02 Order name: EKG - Nurse/Tech; Complete Time: 11:10 12/23 11:02 Order name: IV Saline Lock; Complete Time: 11:07 12/23 12:59 Order name: XRAY Tib Fib RIGHT; Complete Time: 14:10 12/23 14:10 Interpretation: Report reviewed. 12/23 13:49 Order name: COVID-19 (Coronavirus) Document "Date of Onset" if Symptomatic 12/23 14:45 Order name: SARS-COV-2 RT PCR; Complete Time: 16:27 EDMS 12/23 15:37 Order name: Urine Dipstick-Ancillary; Complete Time: 16:27 EDMS 12/23 15:43 Order name: Glucose, Ancillary Testing; Complete Time: 16:27 EDMS 12/23 11:02 Order name: Labs collected and sent; Complete Time: 11:07 12/23 11:02 Order name: O2 Per Protocol; Complete Time: 11:07 12/23 11:02 Order name: O2 Sat Monitoring; Complete Time: 11: 12/23 11:41 Order name: Wound Care; Complete Time: 11:41 jw6 12/23 11:41 Order name: Wound dressing; Complete Time: 11:41 jw6 12/23 12:40 Order name: Accucheck Blood Glucose; Complete Time: 12:45 cp 12/23 12:53 Order name: Urine Dipstick-Ancillary (obtain specimen); Complete Time: 15:38 cp 12/23 15:09 Order name: Vital Signs: recheck to include temp; Complete Time: 15:27 cp 12/23 15:09 Order name: Accucheck Blood Glucose; Complete Time: 15:38 cp EC:15 Rate is 102 beats/min. Rhythm is regular. NM interval is normal. QRS interval is cp normal. QT interval is normal. Interpreted by me. Reviewed by me. Administered Medications: 11:17 Drug: D50W 50 ml Route: IVP; Site: left antecubital; jw6 11:17 Follow up: Response: No adverse reaction jw6 11:17 Drug: NS 0.9% 1000 ml Route: IV; Rate: 1 bolus; Site: left antecubital; jw6 12:45 Follow up: Response: No adverse reaction; IV Status: Completed infusion; IV Intake: jw6 1000ml 13:22 Drug: NS 0.9% 1000 ml Route: IV; Rate: 1 bolus; Site: left antecubital; 1 13:22 Drug: Cefepime 1 grams Route: IVPB; Rate: 200 ml/hr; Infused Over: 30 mins; Site: left ll1 antecubital; 14:01 Drug: vancoMYCIN 1 grams Route: IVPB; Infused Over: 2 hrs; Site: left antecubital; jw6 16:12 Not Given (Duplicate Order): NS 0.9% 1000 ml IV at 1 bolus Per protocol; 1000 mL bolus jw6 Point of Care Testing: Blood Glucose: 11:06 Blood Glucose: 95 mg/dL; ll1 Ranges: Critical Glucose Levels:Adult <50 mg/dl or >400 mg/dl <40 mg/dl or >180 mg/dl Disposition Summary: 12/23/20 15:44 Discharge Ordered Location: Home cp Problem: new cp Symptoms: have improved cp Condition: Stable cp Diagnosis - Type 1 diabetes mellitus with hypoglycemia cp - Cellulitis of right lower limb - Right Lower Leg cp Followup: cp - With: Vladimir Rodriguez MD - When: 2 - 3 days - Reason: Recheck today's complaints Discharge Instructions: - Discharge Summary Sheet cp - Cellulitis, Adult cp - Hypoglycemia cp Forms: - Medication Reconciliation Form cp - Thank You Letter cp - Antibiotic Education cp - Prescription Opioid Use cp Prescriptions: - Augmentin 875-125 mg Oral Tablet - take 1 tablet by ORAL route every 12 hours for 7 days; 14 tablet; Refills: 0, cp Product Selection Permitted - Doxycycline Hyclate 100 mg Oral Tablet - take 1 tablet by ORAL route every 12 hours for 7 days; 14 tablet; Refills: 0, cp Product Selection Permitted Addendum: 01/01/2021 22:54 Co-signature as Attending Physician, Erica Rico MD PA/[employer] SERVICE AGENT's history reviewed, m a2 patient interviewed, and examined. I agree with assessment and care plan and confirm the diagnosis (es) above. Signatures: Dispatcher [employer] EDMS Peewee Braga PA PA cp Alzahri, Mohammad, MD MD ma2 Buster Martinez RN RN ll1 Nadege Mejias 6 Corrections: (The following items were deleted from the chart) 12/23 14:45 13:49 CORONAVIRUS ordered. EDMS EDMS 15:09 15:08 Vital Signs ordered. cp cp
[2020-12-23 16:47] VITALS: TEMP 98.2
[2020-12-23 16:48] VITALS: BP 116/73; O2SAT 95
[2020-12-23 17:32] LABS: Urine Bacteria <20 /HPF (NONE SEEN); Urine RBC <5 /HPF (NONE SEEN)
== END 2020-12-23 16:32 | disposition home or self-care (01) ==
LOC: ER 10:58
DX: E10.649 Type 1 diabetes mellitus with hypoglycemia without coma (principal); Z79.4 Long term (current) use of insulin; L03.115 Cellulitis of right lower limb; Z20.822 Contact with and (suspected) exposure to COVID-19
CPT/HCPCS: 96361; 93005; 87040 ×2; 87070; 85025; 80048; 36415; 83735; 87205; 85610; 82947 ×3; 80076; 83605; 87077 ×2; 87186 ×2; 84145; 73590; 96375; 96374; 99285; U0003; J3370; J7040; J7030 ×3; J0692; 81003; 81015

== ENCOUNTER 2021-08-24 22:26 | Inpatient (IN) | payer OTHER ==
--- OUTSIDE RECORDS SUMMARY | 2021-08-24 22:30 | XMS REPORT | Continuity of Care Document ---
:1985 Author Organization [facility] t Address [address] [place] [address] Care Team Providers Name Role Phone Pcp, Does Not Have A Primary Care Physician [place] [facility]ALTH SERVICES DIRECTOR Attending Clinician Payers Payer Name Policy Type Policy Number Effective Date Expiration Date S ource Problems Condition Condition Condition Status Onset Resolution Last Treating Co mments Source Name Details Category Date Date Treatment Clinician Date No known No known Disease Unive rs active active ity of problems problems [facility] Allergies, Adverse Reactions, Alerts Allergy Allergy Status Severity Reaction(s) Onset Inactive Treating Comm ents Source Name Type Date Date Clinician Lidocain Propensi Active Rash Univer s e ty to 7-19 ity of adverse 00:00: [place] reaction 00 Medical s Branch Social History Social Habit Start Date Stop Date Quantity Comments Source Exposure to 2021-07-31 2021-08-10 Not sure [facility] SARS-CoV-2 (event) 00:00:00 14:48:00 Medica l Branch Sex Assigned At [birth year] [facility] 00:00:00 00:00:00 Medical Branch Smoking Status Start Date Stop Date Source Unknown if ever smoked [facility] Medications Ordered Filled Start Stop Current Ordering Indication Dosage Frequency Signature Comments Components Source Medication Medication Date Date Medication? Clinician (SIG) Name Name insulin Yes Inject 8 Univer s regular 6-10 units ity of human 00:00: three [place] (NOVOLIN R 00 times Medical REGULAR daily with Branch U-100 meals, INSULN) 100 plus unit/mL sliding injection scale. Max daily dose 50 units Insulin Yes [id number] 25U inject 25 Univers Glargine 6-10 Units ity of (LANTUS 00:00: under the [place] [id number] skin 2 Medical U-100 (two) Branch INSULIN) times 100 unit/mL daily. (3 mL) injection insulin Yes Inject 8 Univer s regular 6-10 units ity of human 00:00: three [place] (NOVOLIN R 00 times Medical REGULAR daily with Branch U-100 meals, INSULN) 100 plus unit/mL sliding injection scale. Max daily dose 50 units Insulin Yes [id number] 25U inject 25 Univers Glargine 6-10 Units ity of (LANTUS 00:00: under the [place] [id number] skin 2 Medical U-100 (two) Branch INSULIN) times 100 unit/mL daily. (3 mL) injection insulin Yes Inject 8 Univer s regular 6-10 units ity of human 00:00: three [place] (NOVOLIN R 00 times Medical REGULAR daily with Branch U-100 meals, INSULN) 100 plus unit/mL sliding injection scale. Max daily dose 50 units Insulin Yes [id number] 25U inject 25 Univers Glargine 6-10 Units ity of (LANTUS 00:00: under the [place] [address] skin 2 Medical U-100 (two) Branch INSULIN) times 100 unit/mL daily. (3 mL) injection Insulin 2021- No 20U inject 20 Univ ers Glargine 2-18 06-10 Units ity of (LANTUS 00:00: 00:00 under the [facility] SOLOSTAR 00 :00 skin Medical U-100 daily. Branch INSULIN) 100 unit/mL (3 mL) injection Insulin 2021- No 20U inject 20 Univ ers Glargine 2-18 06-10 Units ity of (LANTUS 00:00: 00:00 under the [facility] SOLOSTAR 00 :00 skin Medical U-100 daily. Branch INSULIN) 100 unit/mL (3 mL) injection HYDROcodone Yes 1{tbl} Take 1 Un serafin -acetaminop 2-02 tablet by ity of hen 10-325 00:00: [place] tablet 00 (two) Medical times Branch daily. HYDROcodone 2021-0 Yes 1{tbl} Take 1 Un serafin -acetaminop 2-02 tablet by ity of hen 10-325 00:00: [place] mg tablet 00 (two) Medical times Branch daily. HYDROcodone 2-0 Yes 1{tbl} Take 1 Un serafin -acetaminop 2-02 tablet by ity of hen 10-325 00:00: [place] mg tablet 00 (two) Medical times Branch daily. amLODIPine 2021-0 Yes Univers 5 mg tablet 1-20 ity of 00:00: [place] 00 Medical Branch gabapentin 2-0 Yes Univers 400 mg 1-20 ity of capsule 00:00: [place] 00 Medical Branch lisinopriL- 2021-0 Yes Univer s hydrochloro 1-20 ity of thiazide 00:00: [place] 20-12.5 mg 00 Medical per tablet Branch amLODIPine 2021-0 Yes Univers 5 mg tablet 1-20 ity of 00:00: [place] 00 Medical Branch gabapentin 2022-0 Yes Univers 400 mg 1-20 ity of capsule 00:00: [place] 00 Medical Branch lisinopriL- 2-0 Yes Univer s hydrochloro 1-20 ity of thiazide 00:00: [place] 20-12.5 mg 00 Medical per tablet Branch amLODIPine 2-0 Yes Univers 5 mg tablet 1-20 ity of 00:00: [place] 00 Medical Branch gabapentin 2022-0 Yes Univers 400 mg 1-20 ity of capsule 00:00: [place] 00 Medical Branch lisinopriL- 2-0 Yes Univer s hydrochloro 1-20 ity of thiazide 00:00: [place] 20-12.5 mg 00 Medical per tablet Branch amoxicillin 2022-0 2022- No Unive rs 500 mg 1-20 06-10 ity of capsule 00:00: 00:00 [place] 00 :00 Medical Branch doxycycline 2022-0 2022- No Unive rs monohydrate 1-20 06-10 ity of 100 mg 00:00: 00:00 [place] capsule 00 :00 Medical Branch NOVOLIN R 2022-0 2022- No Univers REGULAR 1-20 06-10 ity of U-100 00:00: 00:00 [place] INSULN 100 00 :00 Medical unit/mL Branch solution amoxicillin 2021- No Unive rs 500 mg 03-22 ity of capsule 00:00: 00:00 [place] 00 :00 Medical Branch doxycycline 2021-2021- No Unive rs monohydrate 03-22 ity of 100 mg 00:00: 00:00 [place] capsule 00 :00 Medical Branch NOVOLIN R 2021- No Univers REGULAR 03-22 ity of U-100 00:00: 00:00 [place] INSULN 100 00 :00 Medical unit/mL Branch solution furosemide 2020-03 Yes 20mg Take 20 mg U nivers 20 mg 0-22 by mouth. ity of tablet 00:00: [place] Medical Branch furosemide 2020-03 Yes 20mg Take 20 mg U nivers 20 mg 0-22 by mouth. ity of tablet 00:00: [place] Medical Branch furosemide 2020-03 Yes 20mg Take 20 mg U nivers 20 mg 0-22 by mouth. ity of tablet 00:00: [address] Vital Signs Vital Name Observation Time Observation Value Comments Source Systolic blood 2021-08-10 19:51:00 135 mm[Hg] Univer [facility] pressure [facility] Diastolic blood 2021-08-10 19:51:00 84 mm[Hg[facility] pressure [facility] Heart rate 2021-08-10 19:51:00 83 /min [facility] Body weight 2021-08-10 19:51:00 96.208 kg [facility] BMI 2021-08-10 19:51:00 28.77 kg/m2 [facility] Oxygen saturation 2021-08-10 19:51:00 89 /min [facility] in Arterial blood [facility] Br anch by Pulse oximetry Procedures Procedure Date / Time Performed Performing Clinician Sour e POCT HEMOGLOBIN A1C 2021-08-10 20:00:00 Christal Mccall [facility] Encounters Start End Encounter Admission Attending Care Care Encounter Source Date/Time Date/Time Type Type Clinicians Facility Department ID 2021-08-13 2021-08-13 Telephone CRISTINA Mccall [id number] [facility] 00:00:00 00:00:00 [facility] [id number] it y of [place] [id number] Shakeel as KATHRYN?BLEA [id number] [address] OFFICE BUILDING 2021-08-10 2021-08-10 Office Cal [facility] [id number] Univers 15:00:00 15:35:28 Visit [facility] [id number] it y of [place] [id number] Shake[place] as KATHRYN?BLEA [id number] [address] Results Test Description Test Time Test Comments Results Result Comments Source COMPREHENSIVE METABOLIC PANEL 2021-08-14 06:40:10 Test Item Value Reference Range Interpretation Comme nts GLUCOSE (test code = 2217) 139 MG/DL 70-99 H BUN (test code = 2208) 32 MG/DL 6-20 H CREATININE (test code = 1.37 MG/DL 0.80-1.40 2213) eGFR (2020 CKD-EPI) (test 69 ML/MIN/1.73 >60 code = 53025) CALC BUN/CREAT (test code = 23 RATIO 6-28 2234) SODIUM (test code = 2231) 141 MEQ/L 133-146 POTASSIUM (test code = 2228) 5.1 MEQ/L 3.5-5.4 CHLORIDE (test code = 2215) 106 MEQ/L 95-107 CARBON DIOXIDE (test code = 19 MEQ/L 19-31 2205) CALCIUM (test code = 2209) 9.6 MG/DL 8.5-10.5 PROTEIN, TOTAL (test code = 7.2 G/DL 6.1-8.3 2228) ALBUMIN (test code = 2201) 3.6 G/DL 3.5-5.2 CALC GLOBULIN (test code = 3.6 G/DL 1.9-3.7 2239) CALC A/G RATIO (test code = 1.0 RATIO 1.0-2.6 2233) BILIRUBIN, TOTAL (test code 0.3 MG/DL See_Comment [Automated message] The = 2206) system which ge nerated this result transmit tushar reference range: <=1.2. T he reference range was not u sed to interpret this result as normal/abnormal . ALKALINE PHOSPHATASE (test 175 U/L 40-112 H code = 2204) AST (test code = 2218) 14 U/L 9-50 ALT (test code = 2219) 15 U/L 5-50 LIPID [id number] 06:40:10 Test Item Value Reference Range Interpretation Comments CHOLESTEROL (test 144 MG/DL <200 code = 2210) TRIGLYCERIDES (test 108 MG/DL <150 code = 2232) HDL CHOLESTEROL (test 29 MG/DL >39 L code = 2220) CALC LDL CHOL (test 95 MG/DL <100 NOTE: C ALCULATED LDL code = 2237) IS BASED ON DENONA-MUNOZ METHOD WHICHINCLUDES ADJUSTABLE TRIGLYCERIDE:VL DL CHOLESTEROL RAT IO.THIS FACTOR VARIES B Y MEASURED TRIGLY CERIDE AND NON-HDLCHOL ESTEROL CONCENTRATIONS WITH INCREASED CALCU LATED LDL SEENIN HIGH ER TRIGLYCERIDE OR LOWER NON-HDL SPECIME NS. FOR MOREINFORMATION , SEE CLIENT ANNOUNCE MENT AT [email or web address] LDL/HDL 3.28 RATIO <3.55 (test code = 2238) ALBUMIN/CREATININE RATIO, URINE, [id number] 06:08:56 Test Item Value Reference Range Interpretation Comments CREATININE, URINE, 114.0 MG/DL NOT ESTAB RANDOM (test code = 2072) ALBUMIN, URINE, 10.6 MG/DL NOT ESTAB RANDOM (test code = 17327) CALC ALBUMIN/CREAT, 93 MG/G <30 H Note: RND (test code = Albumin/Cre atinine 99852) ratio reference interval reflec ts ADA and NKF guidelines. HIV 1/2 4TH GEN, RFLX [id number] 06:02:50 Test Item Value Reference Range Interpretation Comments HIV 1/2 4TH GEN, RFLX CONF (test NON-REACTIVE NON-REACTIVE code = 3514) HEMOGLOBIN [id number] 05:58:13 Test Item Value Reference Range Interpretation Comments HEMOGLOBIN A1c (test 12.8 % 4.2-5.6 H [facility] code = 68596) ASSOCIATION IDELINES FOR HGB A1C: PREDIABETES/INC REASED RISK . . . . . . . 5 .7-6.4% DIAGNOSIS O F DIABETES . . . . . . . . . >=6.5% WITH CO NFIRMATION OR APPROPRIATE SYMPTOMS NOTE: ASSAY MA Y BE AFFECTED BY HEMOGLOBINOPATH IES (SICKLE CELL ANEMIA, S-C DISEASE, OTHERS ) OR ARTIFICIALLY LO WERED BY DECREASED RED C ELL SURVIVAL (HEMOLYTIC ANEM IAS, BLOOD LOSS, ETC.) . CONSIDER ALTERNATE TESTI NG OR LABORATORY CONS ULTATION. CBC W/AUTO DIFF WITH [id number] 05:39:06 Test Item Value Reference Range Interpretation Comments WBC (test code = 12.3 K/UL 3.5-11.0 H 1001) RBC (test code = 4.70 M/UL 4.50-6.10 1002) HEMOGLOBIN (test 11.5 G/DL 13.5-17.0 L code = 1003) HEMATOCRIT (test 37.6 % 40.0-51.0 L code = 1004) MCV (test code = 80.0 fL 80.0-99.0 1005) MCH (test code = 24.5 PG 25.0-33.0 L 1006) MCHC (test code = 30.6 G/DL 31.0-36.0 L 1007) RDW (test code = 15.6 % 11.5-15.0 H 1038) NEUTROPHILS (test 75.6 % code = 1008) LYMPHOCYTES (test 10.8 % code = 1010) MONOCYTES (test code 9.5 % = 1011) EOSINOPHILS (test 2.4 % code = 1012) BASOPHILS (test code 1.1 % = 1013) IMMATURE 0.6 % GRANULOCYTES (test code = 1036) NUCLEATED RBCS (test 0.0 /100 See_Comment [Autom ated message] code = 1065) WBC'S The system [employer] generated this result transmitted ref erence range: 0.0. The reference range was not used to int erpret this result as normal/abnormal . PLATELET COUNT (test 445 K/UL 130-400 H code = 1015) ABSOLUTE NEUTROPHILS 9.30 K/UL 1.50-7.50 H (test code = 1066) ABSOLUTE LYMPHOCYTES 1.33 K/UL 1.00-4.00 (test code = 1067) ABSOLUTE MONOCYTES 1.17 K/UL 0.20-1.00 H (test code = 1068) ABSOLUTE EOSINOPHILS 0.29 K/UL 0.00-0.50 (test code = 1040) ABSOLUTE BASOPHILS 0.14 K/UL 0.00-0.20 (test code = 1069) ABS IMMATURE 0.08 K/UL 0.00-0.10 GRANULOCYTES (test code = 1020) ABS NUCLEATED RBCS 0.00 K/UL 0.00-0.11 UN LESS (test code = 45824) OTHERWIS E INDICATED, ALL TESTING PER FORMED ATCLINICAL PATH OLOGY LABORATORIES, I [place]. [address] [place] [address] LABORATORY DIRE CTOR: CHRISTOPHE DIAZ M.D. CLIA NUMBER [id number] CAP ACCREDITATION N O. [id number] POCT HEMOGLOBIN A1C [id number] 20:02:00 Test Item Value Reference Range Interpretation Comments POCT HBA1C (test code = 4548-4) 11.3 % 4-6 A Lab Interpretation (test code = Abnormal 43256-9) [facility] [id number] 20:02:00 Test Item Value Reference Range Interpretation Comments POCT HBA1C (test code = 4548-4) 11.3 % 4-6 A Lab Interpretation (test code = Abnormal 47051-4) [id number] 04:50:48 Test Item Value Reference Range Interpretation Comments MAGNESIUM (test code = 2226) 1.8 MG/DL 1.6-2.6 [id number] 04:50:48 Test Item Value Reference Range Interpretation Comments PHOSPHORUS (test code = 2227) 3.5 MG/DL 2.5-4.5 URIC [id number] 04:30:14 Test Item Value Reference Range Interpretation Comments URIC ACID (test code = 2233) 8.1 MG/DL 3.7-8.0 H [id number] 04:30:14 Test Item Value Reference Range Interpretation Comments ALBUMIN (test code = 2201) 3.7 G/DL 3.5-5.2 [id number] 04:30:14 Test Item Value Reference Range Interpretation Comments CALCIUM (test code 9.6 MG/DL 8.5-10.5 UN LESS OTHERWISE = 2209) INDICATED, ALL TESTING PERFORMED ATCLI NICAL PATHOLOGY LABOR [facility] [address] [place], [place] [address] LABORATORY DIRE CTOR: CHRISTOPHE DIAZ M.D. RADIA NUMBER [id number] [place]. [id number] URINALYSIS W/REFLEX [id number] 04:07:56 Test Item Value Reference Range Interpretation Comments COLOR (test code = YELLOW YELLOW-STRAW 1501) APPEARANCE (test code CLEAR CLEAR = 1502) SPECIFIC GRAVITY (test 1.028 1.005-1.035 code = 1503) LEUKOCYTE ESTERASE NEGATIVE NEGATIVE (test code = 1504) NITRITE (test code = NEGATIVE NEGATIVE 1505) pH (test code = 1506) 5.0 5.0-9.0 PROTEIN (test code = TRACE NEGATIVE A 1507) GLUCOSE (test code = 3+ NEGATIVE A 1508) KETONES (test code = NEGATIVE NEGATIVE 1509) UROBILINOGEN (test 0.2 MG/DL See_Comment [Automat ed message] code = 1510) The system [employer] generated this result transmit tushar reference range : <=2.0. The refe rence range was not u sed to interpret th is result as normal/abnormal . BILIRUBIN (test code = NEGATIVE NEGATIVE 1511) OCCULT BLOOD (test 1+ NEGATIVE A code = 1512) WHITE BLOOD CELLS 0-5 /HPF 0-5 (test code = 1513) RED BLOOD CELLS (test 30-50 /HPF 0-5 A code = 1514) EPITHELIAL CELLS (test 0-5 /HPF 0-5 code = 34758) BACTERIA (test code = NONE SEEN NONE SEEN 1515) CASTS, HYALINE (test TRACE NONE-TRACE code = 1517) CBC W/AUTO DIFF WITH [id number] 04:01:55 Test Item Value Reference Range Interpretation Comments WBC (test code = 11.0 K/UL 3.5-11.0 1001) RBC (test code = 5.06 M/UL 4.50-6.10 1002) HEMOGLOBIN (test code 12.7 G/DL 13.5-17.0 L = 1003) HEMATOCRIT (test code 42.6 % 40.0-51.0 = 1004) MCV (test code = 84.2 fL 80.0-99.0 1005) MCH (test code = 25.1 PG 25.0-33.0 1006) MCHC (test code = 29.8 G/DL 31.0-36.0 L 1007) RDW (test code = 13.2 % 11.5-15.0 1038) NEUTROPHILS (test 75.9 % code = 1008) LYMPHOCYTES (test 12.1 % code = 1010) MONOCYTES (test code 8.0 % = 1011) EOSINOPHILS (test 2.3 % code = 1012) BASOPHILS (test code 1.2 % = 1013) IMMATURE GRANYLOCYTES 0.5 % (test code = 1036) NUCLEATED RBCS (test 0.0 /100 See_Comment [Autom ated code = 1065) WBC'S message] The sy stem which generated this result transmitted reference range : 0.0. The refere nce range was not u sed to interpret th is result as normal/abnormal . PLATELET COUNT (test 319 K/UL 130-400 code = 1015) ABSOLUTE NEUTROPHILS 8.33 K/UL 1.50-7.50 H (test code = 1066) ABSOLUTE LYMPHOCYTES 1.33 K/UL 1.00-4.00 (test code = 1067) ABSOLUTE MONOCYTES 0.88 K/UL 0.20-1.00 (test code = 1068) ABSOLUTE EOSINOPHILS 0.25 K/UL 0.00-0.50 (test code = 1040) ABSOLUTE BASOPHILS 0.13 K/UL 0.00-0.20 (test code = 1069) ABS IMMATURE 0.05 K/UL 0.00-0.10 GRANULOCYTES (test code = 1020) ABS NUCLEATED RBCS 0.00 K/UL 0.00-0.11 (test code = 84857) LIPID [id number] 04:51:06 Test Item Value Reference Range Interpretation Comments CHOLESTEROL (test 121 MG/DL <200 code = 2210) TRIGLYCERIDES (test 127 MG/DL <150 code = 2232) HDL CHOLESTEROL (test 28 MG/DL >39 L code = 2220) CALC LDL CHOL (test 72 MG/DL <100 NOTE: C ALCULATED LDL code = 2237) IS BASED ON DEONNA-MUNOZ METHOD WHICHINCLUDES ADJUSTABLE TRIGLYCERIDE:VL DL CHOLESTEROL RAT IO.THIS FACTOR VARIES B Y MEASURED TRIGLY CERIDE AND NON-HDLCHOL ESTEROL CONCENTRATIONS WITH INCREASED CALCU LATED LDL SEENIN HIGH ER TRIGLYCERIDE OR LOWER NON-HDL SPECIME NS. FOR MOREINFORMATION , SEE CLIENT ANNOUNCE MENT AT [email or web address] LDL/HDL 2.57 RATIO <3.55 (test code = 2238) COMPREHENSIVE METABOLIC [id number] 04:51:06 Test Item Value Reference Range Interpretation Comments GLUCOSE (test code = 248 MG/DL 70-99 H 2216) BUN (test code = 22 MG/DL 6-20 H 2207) CREATININE (test 1.23 MG/DL 0.80-1.40 code = 2214) eGFR (2020 CKD-EPI) 79 >60 (test code = 96703) ML/MIN/1.73 CALC BUN/CREAT (test 18 RATIO 6-28 code = 2235) SODIUM (test code = 138 MEQ/L 447-103 8594) POTASSIUM (test code 4.7 MEQ/L 3.5-5.4 = 2227) CHLORIDE (test code 102 MEQ/L 95-107 = 2214) CARBON DIOXIDE (test 22 MEQ/L 19-31 code = 2206) CALCIUM (test code = 9.7 MG/DL 8.5-10.5 2208) PROTEIN, TOTAL (test 7.4 G/DL 6.1-8.3 code = 2228) ALBUMIN (test code = 3.9 G/DL 3.5-5.2 2200) CALC GLOBULIN (test 3.5 G/DL 1.9-3.7 code = 2240) CALC A/G RATIO (test 1.1 RATIO 1.0-2.6 code = 2234) BILIRUBIN, TOTAL 0.4 MG/DL See_Comment [Automated message] (test code = 2207) The syste m which generated this result transmitted ref erence range: <=1.2. T he reference range was not used to int erpret this result as normal/abnormal . ALKALINE PHOSPHATASE 174 U/L 40-112 H (test code = 2204) AST (test code = 14 U/L 9-50 2217) ALT (test code = 14 U/L 5-50 UNLE SS 2218) OTHERWISE INDIC ATED, ALL TESTING PER FORMED ATCLINICAL PATH OLOGY LABORATORIES, I [place]. [address] [place] [address] LABORATORY DIRE CTOR: CHRISTOPHE DIAZ M.D. CLIA NUMBER [id number] CAP ACCREDITATION N O. [id number] HEMOGLOBIN [id number] 03:04:48 Test Item Value Reference Range Interpretation Comments HEMOGLOBIN A1c (test 11.9 % 4.2-5.6 H [facility] code = 39703) ASSOCIATION IDELINES FOR HGB A1C: PREDIABETES/INC REASED RISK . . . . . . . 5 .7-6.4% DIAGNOSIS O F DIABETES . . . . . . . . . >=6.5% WITH CO NFIRMATION OR APPROPRIATE SYMPTOMS NOTE: ASSAY MA Y BE AFFECTED BY HEMOGLOBINOPATH IES (SICKLE CELL ANEMIA, S-C DISEASE, OTHERS ) OR ARTIFICIALLY LO WERED BY DECREASED RED C ELL SURVIVAL (HEMOLYTIC ANEM IAS, BLOOD LOSS, ETC.) . CONSIDER ALTERNATE TESTI NG OR LABORATORY CONS ULTATION.
[2021-08-25] MEDS ORDERED: ONDANSETRON 4 MG/2 ML VIAL ONE (01:02)
[2021-08-25] MEDS ORDERED: NA CHLORIDE 0.9% 1,000 ML ONE ×2 (01:02→04:34)
[2021-08-25 01:21] LABS: Absolute Lymphocytes (CBC) 0.8 K/uL (0.7-4.9); Lymphocytes % 5.8 % (15.3-44.8); MCV 82.7 fL (80-100); MPV 8.9 fL (7.6-11.3)
[2021-08-25 02:28] LABS: Albumin 2.7 g/dL (3.4-5.0); Bilirubin Total 0.5 mg/dL (0.2-1.0); Potassium 5.3 mmol/L (3.5-5.1); Protein, Total 7.3 g/dL (6.4-8.2)
--- NOTE | 2021-08-25 03:27 | ER ---
Nurse's Notes [facility] Name: Kailash Greenfield Age: 35 yrs Sex: Male : 1985 Arrival Date: 08/24/2021 Time: 22:28 Bed 14 Private MD: Diagnosis: Vomiting;Dehydration;Acute Kidney Injury Presentation: 08/24 22:50 Chief complaint: Patient states: Severe vomiting today, feels dehydrated; States lp1 generalized weakness that began 2 days ago; Denies fever, abdominal pain. Coronavirus screen: At this time, the client does not indicate any symptoms associated with coronavirus-19. Ebola Screen: No symptoms or risks identified at this time. Initial Sepsis Screen: Does the patient meet any 2 criteria? No. Patient's initial sepsis screen is negative. Does the patient have a suspected source of infection? No. Patient's initial sepsis screen is negative. Risk Assessment: Do you want to hurt yourself or someone else? Patient reports no desire to harm self or others. Onset of symptoms was August 24, 2021. 22:50 Method Of Arrival: Ambulatory lp1 22:50 Acuity: ALFONSO 3 lp1 Historical: - Allergies: 22:52 Lidocaine; lp1 - Home Meds: 22:52 amlodipine 5 mg tab [Active]; Lasix 20 mg Oral tab [Active]; gabapentin 400 mg oral cap lp1 [Active]; [place] 10-325 mg Oral tab [Active]; lisinopril-hydrochlorothiazide 20-12.5 mg oral tab [Active]; Novolin R Sub-Q [Active]; - PMHx: 22:52 Diabetes - IDDM; heart problems; Hypertension; lp1 - PSHx: 22:52 heart surgery; lp1 - Immunization history:: Adult Immunizations up to date, Client reports having NOT received the Covid vaccine. - Social history:: Smoking status: Patient denies any tobacco usage or history of. Screenin:21 Abuse screen: Denies threats or abuse. Nutritional screening: No deficits noted. fu Tuberculosis screening: No symptoms or risk factors identified. Fall Risk None identified. Assessment: 23:20 General: Appears in no apparent distress. Behavior is calm, cooperative, appropriate fu for age. Pain: Denies pain. Neuro: Level of Consciousness is awake, alert, obeys commands, Oriented to person, place, time, situation, Moves all extremities. Speech is normal, Facial symmetry appears normal. Respiratory: Respiratory effort is even, unlabored, Respiratory pattern is regular. GI: Reports nausea, vomiting, Patient currently denies abdominal pain, diarrhea. 08/25 00:35 Reassessment: Patient and/or family updated on plan of care and expected duration. Pain fu level reassessed. Patient is alert, oriented x 3, equal unlabored respirations, skin warm/dry/pink. 02:00 Reassessment: Patient and/or family updated on plan of care and expected duration. Pain fu level reassessed. Patient is alert, oriented x 3, equal unlabored respirations, skin warm/dry/pink. 02:00 Derm: Skin large wound to right lower extremity, redness and swelling around the wound fu noted. 03:00 Reassessment: Patient and/or family updated on plan of care and expected duration. Pain fu level reassessed. Patient is alert, oriented x 3, equal unlabored respirations, skin warm/dry/pink. 04:00 Reassessment: Patient and/or family updated on plan of care and expected duration. Pain fu level reassessed. Patient is alert, oriented x 3, equal unlabored respirations, skin warm/dry/pink. 05:00 Reassessment: right leg wound cleaned with NS, covered with ABD pads and wrapped with fu kerlix. Vital Signs: 08/24 22:50 BP 122 / 82; Pulse 99; Resp 18; Temp 98.9(O); Pulse Ox 90% on R/A; Weight 52.16 kg (R); lp1 Height 6 ft. 0 in. (182.88 cm); Pain 0/10; 23:30 BP 92 / 65; Pulse 91; Pulse Ox 92% on R/A; Pain 0/10; fu 08/25 00:00 BP 102 / 63; Pulse 91; Pulse Ox 93% on R/A; fu 01:00 BP 122 / 77; Pulse 102; Resp 16; Pulse Ox 94% on R/A; Pain 0/10; lp1 02:30 BP 102 / 62; Pulse 99; Resp 19; Pulse Ox 90% on R/A; fu 03:22 BP 101 / 80; Pulse 80; Resp 19; Pulse Ox 92% on R/A; fu 05:00 BP 124 / 58; Pulse 115; Resp 19; Temp 99.2(TE); Pulse Ox 95% on R/A; fu 08/24 22:50 Body Mass Index 15.60 (52.16 kg, 182.88 cm) lp1 08/24 22:50 Patient states this O2 sat is normal, due to childhood heart surgeries lp1 ED Course: 22:28 Patient arrived in ED. bp1 22:50 Arm band placed on left wrist. lp1 22:52 Triage completed. lp1 23:06 Vitor Flores, FREDDY is Primary Nurse. fu 23:35 Chris English MD is Attending Physician. [facility] 08/25 01:10 Missed attempt(s): 20 gauge in right antecubital area. lp1 01:20 Inserted saline lock: 22 gauge in left antecubital area, using aseptic technique. lp1 01:53 CT Abd/Pelvis - Without Contrast In Process Unspecified. EDMS 01:59 Lab(s) recollected, by me, sent to lab. 1 03:25 Reagan Doherty MD is Hospitalizing Provider. [facility] 04:22 Wound Culture Sent. fu 05:24 Patient has correct armband on for positive identification. Call light in reach. Side fu rails up X 1. Pulse ox on. NIBP on. 05:24 No provider procedures requiring assistance completed. Patient admitted, IV remains in fu place. Administered Medications: 01:20 Drug: NS 0.9% 1000 ml Route: IV; Rate: 1 bolus; Site: left antecubital; lp1 01:20 Drug: Zofran (Ondansetron) 4 mg Route: IVP; Site: left antecubital; lp1 03:33 Drug: morphine 2 mg Route: IVP; Infused Over: 4 mins; Site: left antecubital; fu 05:25 Follow up: Response: Pain is decreased fu 04:49 Drug: Cefepime 2 grams Route: IVPB; Rate: 200 ml/hr; Infused Over: 30 mins; Site: left fu antecubital; 04:57 Drug: NS 0.9% 1000 ml Route: IV; Rate: 100 ml/hr; Site: left antecubital; fu 05:25 Drug: vancoMYCIN 2 grams Route: IVPB; Rate: calculated rate; Site: left antecubital; fu Medication: 08/24 22:53 VIS not applicable for this client. lp1 Point of Care Testing: Blood Glucose: 22:54 Blood Glucose: 78 mg/dL; lp1 08/25 01:33 Blood Glucose: 104 mg/dL; lp1 Ranges: Outcome: 03:26 Decision to Hospitalize by Provider. mh7 05:23 Admitted to Med/surg accompanied by nurse, room 207, Report called to FREDDY Sims 05:23 Condition: unchanged 05:23 Discharge instructions given to patient, family, Instructed on the need for admit, Demonstrated understanding of instructions. 06:03 Patient left the ED. mh5 Signatures: Dispatcher [employer] EDMS Verónica Sherwood RN RN lp1 Martinez, Maria [facility] Vitor Flores, Angelica Jones RN, Maurice, MD MD [facility]
--- NOTE | 2021-08-25 03:27 | EDPHYS ---
Physician Documentation [facility] Name: Kailash Greenfield Age: 35 yrs Sex: Male : 1985 Arrival Date: 08/24/2021 Time: 22:28 Bed 14 Private MD: ED Physician Chris English HPI: 08/25 00:35 This 35 yrs old Male presents to ER via Ambulatory with complaints of Dehydrated. mh7 00:35 The patient presents to the emergency department with nausea, that is moderate, mh7 vomiting, that is intermittent, described as clear fluid. Onset: The symptoms/episode began/occurred yesterday. Possible causes: unknown. The symptoms are aggravated by nothing. The symptoms are alleviated by nothing. Associated signs and symptoms: Pertinent negatives: abdominal pain, anorexia, belching, constipation, diarrhea, dysuria, fever, flatulence, GI bleeding, hematuria. Severity of symptoms: At their worst the symptoms were moderate yesterday, in the emergency department the symptoms are unchanged. Historical: - Allergies: 08/24 22:52 Lidocaine; lp1 - Home Meds: 22:52 amlodipine 5 mg tab [Active]; Lasix 20 mg Oral tab [Active]; gabapentin 400 mg oral cap lp1 [Active]; [place] 10-325 mg Oral tab [Active]; lisinopril-hydrochlorothiazide 20-12.5 mg oral tab [Active]; Novolin R Sub-Q [Active]; - PMHx: 22:52 Diabetes - IDDM; heart problems; Hypertension; lp1 - PSHx: 22:52 heart surgery; lp1 - Immunization history:: Adult Immunizations up to date, Client reports having NOT received the Covid vaccine. - Social history:: Smoking status: Patient denies any tobacco usage or history of. ROS: 08/25 00:35 Constitutional: Negative for fever, chills, and weight loss, Eyes: Negative for injury, mh7 pain, redness, and discharge, ENT: Negative for injury, pain, and discharge, Neck: Negative for injury, pain, and swelling, Cardiovascular: Negative for chest pain, palpitations, and edema, Respiratory: Negative for shortness of breath, cough, wheezing, and pleuritic chest pain, Back: Negative for injury and pain, : Negative for injury, bleeding, discharge, and swelling, MS/Extremity: Negative for injury and deformity, Skin: Negative for injury, rash, and discoloration, Neuro: Negative for headache, weakness, numbness, tingling, and seizure, Psych: Negative for depression, anxiety, suicide ideation, homicidal ideation, and hallucinations, Allergy/Immunology: Negative for hives, rash, and allergies, Endocrine: Negative for neck swelling, polydipsia, polyuria, polyphagia, and marked weight changes, Hematologic/Lymphatic: Negative for swollen nodes, abnormal bleeding, and unusual bruising. Exam: 00:35 Head/Face: Normocephalic, atraumatic. Eyes: Pupils equal round and reactive to light, mh7 extra-ocular motions intact. Lids and lashes normal. Conjunctiva and sclera are non-icteric and not injected. Cornea within normal limits. Periorbital areas with no swelling, redness, or edema. Neck: Trachea midline, no thyromegaly or masses palpated, and no cervical lymphadenopathy. Supple, full range of motion without nuchal rigidity, or vertebral point tenderness. No Meningismus. Chest/axilla: Normal chest wall appearance and motion. Nontender with no deformity. No lesions are appreciated. 00:35 Respiratory: Lungs have equal breath sounds bilaterally, clear to auscultation and percussion. No rales, rhonchi or wheezes noted. No increased work of breathing, no retractions or nasal flaring. Abdomen/GI: Soft, non-tender, with normal bowel sounds. No distension or tympany. No guarding or rebound. No evidence of tenderness throughout. Back: No spinal tenderness. No costovertebral tenderness. Full range of motion. Skin: Warm, dry with normal turgor. Normal color with no rashes, no lesions, and no evidence of cellulitis. MS/ Extremity: Pulses equal, no cyanosis. Neurovascular intact. Full, normal range of motion. Neuro: Awake and alert, GCS 15, oriented to person, place, time, and situation. Cranial nerves II-XII grossly intact. Motor strength 5/5 in all extremities. Sensory grossly intact. Cerebellar exam normal. Normal gait. Psych: Awake, alert, with orientation to person, place and time. Behavior, mood, and affect are within normal limits. 00:35 Constitutional: The patient appears in no acute distress, alert, awake, uncomfortable. 00:35 Cardiovascular: Rate: tachycardic, Rhythm: regular, Pulses: no pulse deficits are appreciated, Heart sounds: normal, normal S1and S2, Edema: is not appreciated, JVD: is not appreciated. Vital Signs: 08/24 22:50 BP 122 / 82; Pulse 99; Resp 18; Temp 98.9(O); Pulse Ox 90% on R/A; Weight 52.16 kg (R); lp1 Height 6 ft. 0 in. (182.88 cm); Pain 0/10; 23:30 BP 92 / 65; Pulse 91; Pulse Ox 92% on R/A; Pain 0/10; fu 08/25 00:00 BP 102 / 63; Pulse 91; Pulse Ox 93% on R/A; fu 01:00 BP 122 / 77; Pulse 102; Resp 16; Pulse Ox 94% on R/A; Pain 0/10; lp1 02:30 BP 102 / 62; Pulse 99; Resp 19; Pulse Ox 90% on R/A; fu 03:22 BP 101 / 80; Pulse 80; Resp 19; Pulse Ox 92% on R/A; fu 05:00 BP 124 / 58; Pulse 115; Resp 19; Temp 99.2(TE); Pulse Ox 95% on R/A; fu 08/24 22:50 Body Mass Index 15.60 (52.16 kg, 182.88 cm) lp1 08/24 22:50 Patient states this O2 sat is normal, due to childhood heart surgeries lp1 MDM: 08/25 03:24 Differential diagnosis: gastritis, pancreatitis, diverticulitis, viral gastroenteritis, mh7 gastroenteritis. Data reviewed: vital signs, nurses notes, lab test result(s), CBC, electrolytes, EKG, radiologic studies, CT scan. Data interpreted: Pulse oximetry: on room air is 95 %. Interpretation: normal. Counseling: I had a detailed discussion with the patient and/or guardian regarding: the historical points, exam findings, and any diagnostic results supporting the discharge/admit diagnosis, lab results, radiology results, the need for further work-up and treatment in the hospital. Response to treatment: the patient's symptoms have mildly improved after treatment. 03:26 Patient medically screened. [facility] 08/24 23:08 Order name: Glucose, Ancillary Testing; Complete Time: 00:19 EDMS 08/25 00:44 Order name: CBC with Diff; Complete Time: 02:55 [facility] 08/25 00:44 Order name: CMP; Complete Time: 02:55 [facility] 08/25 00:44 Order name: Lipase; Complete Time: 02:55 [facility] 08/25 00:44 Order name: COVID-19 SARS RT PCR (Document "Date of Onset" if Symptomatic); Complete [facility] Time: 02:55 08/25 00:44 Order name: Influenza Screen (a \\T\\ B); Complete Time: 02:55 [facility] 08/25 00:45 Order name: CT Abd/Pelvis - Without Contrast [facility] 08/25 01:41 Order name: Glucose, Ancillary Testing; Complete Time: 02:55 EDPR 08/25 01:59 Order name: Troponin High Sensitivity; Complete Time: 02:55 [facility] 08/25 02:55 Order name: CPK; Complete Time: 03:52 [facility] 08/25 03:22 Order name: Blood Culture Adult (2) [facility] 08/25 03:22 Order name: Lactate; Complete Time: 05:20 [facility] 08/25 03:22 Order name: Procalcitonin; Complete Time: 05:20 [facility] 08/25 04:06 Order name: Wound Culture ks08/25 00:44 Order name: IV Saline Lock; Complete Time: 01:23 [facility] 08/25 00:44 Order name: Labs collected and sent; Complete Time: 01:23 [facility] 08/25 00:44 Order name: Urine Dipstick-Ancillary (obtain specimen) [facility] 08/25 00:44 Order name: EKG; Complete Time: 00:45 [facility] 08/25 00:44 Order name: EKG - Nurse/Tech; Complete Time: 02:12 [facility] 08/25 03:50 Order name: Tib Fib Right XRAY la1 Administered Medications: 01:20 Drug: NS 0.9% 1000 ml Route: IV; Rate: 1 bolus; Site: left antecubital; lp1 01:20 Drug: Zofran (Ondansetron) 4 mg Route: IVP; Site: left antecubital; lp1 03:33 Drug: morphine 2 mg Route: IVP; Infused Over: 4 mins; Site: left antecubital; fu 05:25 Follow up: Response: Pain is decreased fu 04:49 Drug: Cefepime 2 grams Route: IVPB; Rate: 200 ml/hr; Infused Over: 30 mins; Site: left fu antecubital; 04:57 Drug: NS 0.9% 1000 ml Route: IV; Rate: 100 ml/hr; Site: left antecubital; fu 05:25 Drug: vancoMYCIN 2 grams Route: IVPB; Rate: calculated rate; Site: left antecubital; Point of Care Testing: Blood Glucose: 08/24 22:54 Blood Glucose: 78 mg/dL; lp1 08/25 01:33 Blood Glucose: 104 mg/dL; lp1 Ranges: Critical Glucose Levels:Adult <50 mg/dl or >400 mg/dl <40 mg/dl or >180 mg/dl Disposition Summary: 08/25/21 03:26 Hospitalization Ordered Hospitalization Status: Inpatient Admission [facility] Provider: Reagan Doherty [facility] Location: Telemetry/MedSurg (Inpatient) [facility] Condition: Stable [facility] Problem: new [facility] Symptoms: have improved [facility] Bed/Room Type: Standard [facility] Room Assignment: 207(08/25/21 04:17) cg Diagnosis - Vomiting mh7 - Dehydration 7 - Acute Kidney Injury [facility] Forms: - Medication Reconciliation Form [facility] - SBAR form [facility] Signatures: Dispatcher [employer] Verónica Mackay RN RN lp1 Quinn Ba FNP-Rosamaria BLUM-Cla1 Britany Skinner RN RN Vitor Flores RN RN Chris English MD MD [facility] Corrections: (The following items were deleted from the chart) 04:17 03:26 7 cg
[2021-08-25] MEDS ORDERED: MORPHINE 2 MG/ML SYR ONE (03:31)
--- NOTE | 2021-08-25 04:27 | P.HP ---
Certification for Inpatient Patient admitted to: Inpatient With expected LOS: >2 Midnights Patient will require the following post-hospital care: None Practitioner: I am a practitioner with admitting privileges, knowledge of patient current condition, hospital course, and medical plan of care. Services: Services provided to patient in accordance with Admission requirements found in Title 42 Section 412.3 of the Code of Federal Regulations Patient History Date of Service: 08/25/21 Reason for admission: ARF, sepsis History of Present Illness: 35-year-old male history of insulin-dependent diabetes, CKD 3, hypertension presented to the emergency department for "dehydration" reports he been vomiting today about 5 times denies any diarrhea or abdominal pain. His labs were significant for acute renal failure, leukocytosis, mild hyperkalemia. It was later revealed patient has a chronic wound of the RL extremity he is self treating. He meets severe sepsis criteria given elevated HR, leukocytosis, acute renal failure with presence of infection. He has an extensive wound of his right lower extremity which will require surgical intervention. Patient was started on broad-spectrum antibiotics, blood and wound cultures obtained surgical consult placed. Patient recommends Medihoney dressing once a day at this time will be evaluated for possible debridement. Allergies lidocaine Allergy (Severe, Verified 09/15/20 04:04) Shortness of breath Home Medications: Insulin 70/30 NPH/Reg Human [Novolin 70/30*] See Protocol SQ BID 11/07/19 Gabapentin [Neurontin*] 400 mg PO TID 09/15/20 Hydrocodone/Acetaminophen [Hydrocodone-Acetamin 10-325 mg] 1 each PO PRN 09/15/20 Carvedilol [Coreg] 12.5 mg PO BID 10/18/20 Ciprofloxacin HCl [Cipro 500 MG Tablet] 1 tab PO BID 10/18/20 Insulin -Regular Human [Novolin -R*] See Protocol SQ 10/18/20 - Past Medical/Surgical History Diabetic: Yes -: Diabetes mellitus type 2 -: Hypertension -: Neuropathy -: congenital heart defect -: CKD 4 -: 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 - Family History Father -: Hypertension, Diabetes Mother -: Hypertension, Diabetes Brother -: Heart disease, Diabetes - Social History Smoking Status: Never smoker Alcohol use: Yes CD- Drugs: No Caffeine use: Yes Place of Residence: Home Review of Systems 10-point ROS is otherwise unremarkable General: Weakness, Malaise Gastrointestinal: Nausea, Vomiting Physical Examination - Physical Exam General: Alert, In no apparent distress, Oriented x3 HEENT: Atraumatic, PERRLA, Mucous membr. moist/pink, EOMI, Sclerae nonicteric Neck: Supple, 2+ carotid pulse no bruit, No LAD, Without JVD or thyroid abnormality Respiratory: Clear to auscultation bilaterally, Normal air movement Cardiovascular: Regular rate/rhythm, Normal S1 S2 Capillary refill: <2 Seconds Gastrointestinal: Normal bowel sounds, No tenderness Musculoskeletal: No tenderness Integumentary: Other (Large deep tissue wound of the right lower extremity present from the proximal anterior meyers to the level of the ankle, circumferential from about mid calf to ankle with surrounding cellulitis) Neurological: Normal speech, Normal strength at 5/5 x4 extr, Normal tone, Normal affect - Studies Laboratory Data (last 24 hrs) 08/25/21 01:55: Sodium 137, Potassium 5.3 H, BUN 62 H, Creatinine 3.69 H, Glucose 138 H, Total Bilirubin 0.5, AST 4 L, ALT 14, Alkaline Phosphatase 144 H, Lipase 15 L 08/25/21 01:08: WBC 14.0 H, Hgb 11.3 L, Hct 38.0 L, Plt Count 396 Microbiology Data (last 24 hrs): 08/25/21 01:08 Nasopharnyx Influenza Type A Antigen Screen - Final 08/25/21 01:08 Nasopharnyx Influenza Type B Antigen Screen - Final Assessment and Plan - Plan Assessment: Severe sepsis secondary to extensive right lower extremity wound with surrounding cellulitis Acute worsening of CKD 4/acute renal failure likely secondary to sepsis Diabetes mellitus type 2insulin-dependent Hypertension 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 Surgery consulted likely to have debridement in the next few days. For now Medihoney dressing once a day. Lactate pending patient is not hypotensive, if lactate >4 will give sepsis bolus. Acute worsening of CKD 4/acute renal failure likely secondary to sepsis: Neurology consulted continue IV fluids, renal ultrasound pending. Diabetes mellitus type 2insulin-dependent: A1c ordered, ACH S Accu-Chek, sliding scale insulin. 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 DVT PPX: Heparin l Code status:ful Discharge Plan: Home Plan to discharge in: Greater than 2 days - Advance Directives Does patient have a Living Will: No Does patient have a Durable POA for Healthcare: No - Code Status/Comfort Care Code Status Assessed: Yes (Full code) Critical Care: No Time Spent Managing Pts Care (In Minutes): 70
[2021-08-25] MEDS ORDERED: VANCOMYCIN 1 GM/VIAL ONE (04:41)
[2021-08-25] MEDS ORDERED: NA CHLORIDE 0.9% 500 ML ONE (04:42)
[2021-08-25] MEDS ORDERED: NA CHLORIDE 0.9% 100 ML ONE (04:43)
[2021-08-25] MEDS ORDERED: CEFEPIME 2 GM VIAL ONE (04:43)
[2021-08-25] MEDS ORDERED: VANCOMYCIN 1 GM in NA CHLORIDE 0.9% 250 ML IVPB SCH (06:12)
[2021-08-25] MEDS ORDERED: NA CHLORIDE 0.9% 1,000 ML IV SCH ×3 (06:12→11:00)
[2021-08-25] MEDS ORDERED: ONDANSETRON 4 MG/2 ML VIAL IV PRN (06:12)
[2021-08-25 06:22] VITALS: BMI 28.5
[2021-08-25] MEDS: HYDROCODONE/APAP 7.5/325 MG TAB PO PRN ×2 (06:41→21:04)
[2021-08-25] MEDS ORDERED: [UNRECOGNIZED DRUG - REMARK] XX PRN (06:46)
[2021-08-25] MEDS: INSULIN -REGULAR HUMAN 50 UNIT/0.5 ML ML SQ SCH ×4 (07:30→21:00)
[2021-08-25] MEDS: HEPARIN 5000 UNIT/ML 1 ML VIAL SQ SCH ×2 (09:00→21:00)
[2021-08-25] MEDS: MEDIHONEY 44 ML TOPICAL TUBE TOP SCH (09:32)
--- NOTE | 2021-08-25 10:22 | P.CNS ---
Date of Consult: 08/25/21 Reason for consult: Infected wound right leg History of present illness: Patient is a 35-year-old gentleman who presented to the emergency room yesterday with chief complaint of dehydration because of vomiting. Patient has multiple medical problems including diabetes and chronic renal disease. Patient has a right leg wound which he has been treating with soap and water for the last 5 years. Patient has not seek any medical attention for wound care in the last 5 years. Initially he was seen in the wound healing center but declined to follow-up. He is complaining of increasing pain redness in his right leg as well as swelling. He denies sore throat, runny nose, cough, headaches, dizziness, chest pain, fever or chills. Review of systems: Otherwise unremarkable Past medical history: Diabetes type 2 hypertension neuropathy congenital heart disease chronic kidney disease stage IV. Past surgical history:Surgeries related to the congenital heart disease when he was a child Allergies: Lidocaine Social history: Denies smoking, does drink alcohol Family history: Hypertension diabetes Vital signs: Heart rate of 112 and temperature 99.5, O2 sat 90% otherwise vitals are stable Physical exam: Awake alert oriented x4 Head and neck exam: No masses Chest: Clear Heart: S1-S2 Abdomen: Soft Extremity: Neurovascularly intact, right leg has circumferential wound comprising 75% of the lower leg with moderate amount of fibrin and necrotic tissue with surrounding erythema, warmth and edema as well as tenderness. Neuro: Diagnostic data: White count is 14,000, BUN is 62, creatinine is 3.69, lactic acid 1.3, x-ray of the tib-fib does not show any evidence of osteo, CT of the abdomen pelvis is unremarkable except for some collaterals to the IVC Assessment: Infected right wound with cellulitis, chronic renal disease, dehydration Plan/recommendation: Continue IV antibiotics and wound care as ordered. Patient needs more hydration today and once medically cleared we will proceed with incision, drainage and debridement of right leg infected wound. Patient understands risk benefits alternatives and agrees to procedure. CC:
--- NOTE | 2021-08-25 12:12 | P.CNS ---
Date of Consult: 08/25/21 Reason for Consult: LORIE/ CKD Requesting Physician: Reagan Doherty Chief Complaint: ARF, sepsis History of Present Illness: 35-year-old male history of insulin-dependent diabetes, CKD 3, hypertension presented to the emergency department for "dehydration" reports he been vomiting today about 5 times denies any diarrhea or abdominal pain. His labs were significant for acute renal failure, leukocytosis, mild hyperkalemia. It was l ater revealed patient has a chronic wound of the RL extremity he is self treating. He meets severe sepsis criteria given elevated HR, leukocytosis, acute renal failure with presence of infection. He has an extensive wound of his right lower extremity which will require surgical intervention. Patient was started on broad-spectrum antibiotics, blood and wound cultures obtained surgical consult placed. Patient recommends Medihoney dressing once a day at this time will be evaluated for possible debridement. 00:35 This 35 yrs old Male presents to ER via Ambulatory with complaints of D ehydrated. mh7 00:35 The patient presents to the emergency department with nausea, that is moderate, mh7 vomiting, that is intermittent, described as clear fluid. Onset: The symp toms/episode began/occurred yesterday. Possible causes: unknown. The symptoms are aggravated by nothing. The symptoms are alleviated by nothing. Associated signs and symptoms: Pertinent negatives: abdominal pain, anorexia, belching, constipation, diarrhea, dysuria, fever, flatulence, GI bleeding, hematuria. Severity of symptoms: At their worst the symptoms were moderate yesterday, in the emergency department the symptoms are unchanged. Allergies lidocaine Allergy (Severe, Verified 08/25/21 06:36) Shortness of breath Home medications list reviewed: Yes Home Medications: Gabapentin [Neurontin*] 800 mg PO BID 09/15/20 Hydrocodone/Acetaminophen [Hydrocodone-Acetamin 10-325 mg] 1 each PO BID 09/15/20 Carvedilol [Coreg] 12.5 mg PO BID 10/18/20 Insulin -Regular Human [Novolin -R*] See Protocol SQ DAILY 10/18/20 Insulin Glargine,Hum.rec.anlog [Lantus] 40 unit SQ DAILY 08/25/21 - Past Medical/Surgical History Diabetic: Yes -: Diabetes mellitus type 1 -: Hypertension -: Neuropathy -: Congenital heart defect -: CKD [address] Cotton -: 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 - Family History Father Medical History: Hypertension, Diabetes Mother Medical History: Hypertension, Diabetes Brother Medical History: Heart disease, Diabetes - Social History Smoking Status: Unknown if ever smoked Alcohol use: Yes CD- Drugs: No Caffeine use: Yes Place of Residence: Home Review of Systems 10-point ROS is otherwise unremarkable General: Weakness, Malaise Integumentary: Rash, Lesions Physical Examination Temp Pulse Resp BP Pulse Ox 99.5 F 102 H 16 95/53 L 90 L 08/25/21 08:00 08/25/21 08:00 08/25/21 08:00 08/25/21 08:00 08/25/21 08:00 General: Oriented x3, Cooperative HEENT: Atraumatic Neck: Supple Respiratory: Clear to auscultation bilaterally Cardiovascular: No edema, Regular rate/rhythm Gastrointestinal: Soft and benign, Non-distended Musculoskeletal: No clubbing, No contractures Integumentary: No rashes, No cyanosis Neurological: Normal speech Laboratory Data (last 24 hrs) 08/25/21 01:55: Sodium 137, Potassium 5.3 H, BUN 62 H, Creatinine 3.69 H, Glucose 138 H, Total Bilirubin 0.5, AST 4 L, ALT 14, Alkaline Phosphatase 144 H, Lipase 15 L 08/25/21 01:08: WBC 14.0 H, Hgb 11.3 L, Hct 38.0 L, Plt Count 396 Imagings Data: EXAM DESCRIPTION: US - Renal Ultrasound-Complete - 08/25/2021 8:50 pm CLINICAL HISTORY: ARF COMPARISON: Abdomen Pelvis Wo Contrast dated 08/25/2021 FINDINGS: Both kidneys are normal in size, shape and echotexture. The right kidney measures 11.6 cm. No hydronephrosis or perinephric fluid. Right renal cyst measuring 1.3 x 1.2 cm. The left kidney measures 11 cm. No hydronephrosis, focal mass or perinephric fluid. The urinary bladder is incompletely distended without gross abnormality seen. IMPRESSION: Right renal cyst. No evidence of hydronephrosis. Conclusions/Impression: LORIE likely due to hypovolemia and hypotension complicated by Aleve therapy CKD III -No NSAIDs -Continue aggressive IVF Hyperkalemia -Low potassium diet -Continue IVF Acidosis -Start oral bicarb DM I with polyneuropathy DM I foot ulcer -RISS Moderate malnutrition -Encourage nutrition Anemia in chronic illness Iron Deficiency -Monitor H&H -Consider IV iron CKD MBD -Start Vitamin D RLE Cellulitis with ulcer -Continue abx -Wound care as ordered Case discussed with Dr. Doherty Thank you kindly for the consultation.
[2021-08-25] MEDS ORDERED: VITAMIN D 5,000 UNIT CAP PO SCH (14:15)
[2021-08-25] MEDS: SODIUM BICARB 325 MG TAB PO SCH ×3 (14:36→21:05)
--- NOTE | 2021-08-25 17:27 | EKG ---
Test Date: 2021-08-25 Test Time: 01:55:06 Leather Belt Loop Cutter: ALBARO MEASUREMENT RESULTS: Intervals: Rate: 107 WA: 158 QRSD: 92 QT: 322 QTc: 429 [place]: P: 34 WA: 158 QRS: -18 T: -12 INTERPRETIVE STATEMENTS: Sinus tachycardia Low voltage QRS Inferior infarct, age undetermined Possible Anterolateral infarct, age undetermined Abnormal ECG Compared to ECG 12/23/2020 11:09:18 ST (T wave) deviation no longer present Possible ischemia no longer present Myocardial infarct finding still present Electronically Signed On 08-25-21 17:27:02 CDT by Rylan Romero
--- NOTE | 2021-08-25 20:16 | CON ---
Date of Consultation: 08/25/2021 Reason For Consultation: Cardiac preop evaluation before surgery. History Of Present Illness: A 35-year-old male, history of insulin-dependent diabetes, chronic kidne y disease, hypertension, presented to the emergency room with vomiting, diarrhea, and abdominal pain, was in acute renal failure, also leukocytosis. He has extensive inflammation around the wound of ri ght lower extremity and Surgery recommended surgical debridement and so was consulted for preop evalu ation. I evaluated the patient at bedside. 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 He apparently has some congenital heart defect that was taken care of as a chil d with an open-heart surgery while he was 6 years old and he was released after that. He does not kn ow exact details about his history, but he does not have any chest pain with activities or any shortn ess of breath. Past Surgical History: He had a left heart catheterization a few years back as per his report when pio kohler was told that his arteries were clean. Past Medical History: As outlined above in the HPI. Medications: Refer to reconciliation sheet for detailed list. Allergies: LIDOCAINE. Family History: No premature coronary artery disease or cancer. Social History: Does not smoke or drink. Does not use any drugs. Review of Systems: All systems reviewed and they were negative except as mentioned in HPI. Physical Examination: Vital signs: Reviewed. Head and Neck: Pupils are equal, reactive to light. Intact eye movements. No JVD. No cervical lym phadenopathy. Neck is supple. Thyroid is not enlarged. Lungs: Clear to auscultation bilaterally. No rhonchi, rales, or crackles. No accessory muscle use. Heart: Regular rate and rhythm. Tachycardic. Abdomen: Soft, nontender. Bowel sounds positive. No organomegaly. Bowel sounds positive. Extremities: No clubbing, cyanosis. He has significant wound to the right lower extremity with cell ulitis. Neurologic: Alert, awake, and oriented x3. No acute focal deficit appreciated. Lymph Nodes: No cervical or axillary lymphadenopathy. Investigations: Creatinine 3.69, BUN 62. White blood count 14,000, hemoglobin 11.3. Assessment And Recommendation: Cardiac preoperative risk assessment. This patient has congenital he art defect and that was corrected surgically, and he is active, can do more than 4 METs without sympt oms and he needs debridement which it seems to me that is an urgent surgery to be done. At this poin t, we will not recommend any further cardiac workup prior to the surgical debridement and I would rec ommend that we get an echocardiogram on him to understand the heart anatomy but this should not hold him from going through the surgery that needs to be done sooner than later. As such, I will follow t he patient with you. Thank you for the consult. SCOTTY Voice ID: [id number] Report ID: [id number]
--- NOTE | 2021-08-25 21:00 | RAD REPORT ---
EXAM DESCRIPTION: US - Renal Ultrasound-Complete - 08/25/2021 8:50 pm CLINICAL HISTORY: ARF COMPARISON: Abdomen Pelvis Wo Contrast dated 08/25/2021 FINDINGS: Both kidneys are normal in size, shape and echotexture. The right kidney measures 11.6 cm. No hydronephrosis or perinephric fluid. Right renal cyst measuring 1.3 x 1.2 cm. The left kidney measures 11 cm. No hydronephrosis, focal mass or perinephric fluid. The urinary bladder is incompletely distended without gross abnormality seen. IMPRESSION: Right renal cyst. No evidence of hydronephrosis.
[2021-08-25] MEDS: DOCUSATE NA 100 MG CAP PO SCH (21:05)
[2021-08-25] MEDS ORDERED: NACHLORIDE 0.45% 1,000 ML IV SCH (22:00)
[2021-08-25 22:51] LABS: Urine Appearance Clear (Clear); Urine Bilirubin Negative (Negative); Urine Blood Negative (Negative); Urine Color Yellow (Yellow); Urine Glucose Negative (Negative); Urine Protein 1+ (Negative); Urine Specific Gravity 1.025 (1.005-1.030); Urine Urobilinogen 0.2 mg/dL (0.2-1.0); Urine pH 5.5 (5.0-7.0)
[2021-08-25 23:15] LABS: Urine Amorphous Sediment 1+ /HPF (NONE SEEN); Urine Bacteria 20-50 /HPF (NONE SEEN); Urine Mucus 2+ /HPF (NONE SEEN)
[2021-08-26 03:50] LABS: Absolute Lymphocytes (CBC) 0.8 K/uL (0.7-4.9); Hematocrit 34.1 % (39.6-49.0); Lymphocytes % 9.3 % (15.3-44.8); MCV 84.1 fL (80-100); MPV 8.9 fL (7.6-11.3); RBC Red Blood Cell Count 4.05 M/uL (4.33-5.43)
[2021-08-26 04:16] LABS: Albumin 2.3 g/dL (3.4-5.0); Bilirubin Total 0.6 mg/dL (0.2-1.0); Protein, Total 6.6 g/dL (6.4-8.2)
[2021-08-26 04:20] LABS: Potassium 6.4 mmol/L (3.5-5.1)
[2021-08-26] MEDS ORDERED: CALCIUM GLUC 10% INJ 9.3 MEQ in NA CHLORIDE 0.9% 100 ML IV ONE (04:34)
[2021-08-26] MEDS ORDERED: D50W 25 GM/50 ML SYRINGE IV PRN ×2 (04:34→14:10)
[2021-08-26] MEDS ORDERED: GLUCAGON 1 MG/VIAL IM PRN ×3 (04:34→14:11)
[2021-08-26] MEDS ORDERED: INSULIN -REGULAR HUMAN 50 UNIT/0.5 ML ML IV ONE (04:41)
[2021-08-26] MEDS ORDERED: FUROSEMIDE 40 MG/4 ML VIAL IV ONE (04:43)
[2021-08-26] MEDS ORDERED: D10W 125 ML IV PRN (04:55)
[2021-08-26] MEDS ORDERED: DEXTROSE 10%-WATER 500 ML IV ONE (05:21)
[2021-08-26] MEDS ORDERED: SOD POLYSTYREN SUL 15 GM/60 ML UCUP PO ONE ×2 (05:21→09:00)
[2021-08-26] MEDS ORDERED: NACHLORIDE 0.45% 1,000 ML with NA BICARB 8.4% 50 MEQ IV SCH ×2 (05:21)
[2021-08-26] MEDS ORDERED: CALCIUM GLUCONATE 1 GM IVPB 1 GM/50 ML BAG IV ONE ×2 (05:25→05:44)
[2021-08-26] MEDS ORDERED: SODIUM BICARB 50 MEQ/50ML VIAL ONE (05:37)
[2021-08-26] MEDS ORDERED: NACHLORIDE 0.45% 1,000 ML IV ONE (05:40)
[2021-08-26] MEDS: CALCIUM GLUCONATE 1 GM IVPB 1 GM/50 ML BAG IV SCH ×2 (05:47→06:17)
[2021-08-26] MEDS: VITAMIN D 5,000 UNIT CAP PO SCH ×3 (08:00→08:39)
[2021-08-26] MEDS: INSULIN -REGULAR HUMAN 50 UNIT/0.5 ML ML SQ SCH ×4 (08:22→21:19)
[2021-08-26] MEDS: HEPARIN 5000 UNIT/ML 1 ML VIAL SQ SCH ×2 (08:24→21:18)
[2021-08-26] MEDS: DOCUSATE NA 100 MG CAP PO SCH ×2 (08:24→21:17)
[2021-08-26] MEDS: SODIUM BICARB 325 MG TAB PO SCH ×4 (08:24→21:18)
[2021-08-26] MEDS: MEDIHONEY 44 ML TOPICAL TUBE TOP SCH (08:25)
--- NOTE | 2021-08-26 08:35 | P.PN ---
Subjective Date of Service: 08/26/21 Chief Complaint: ARF, sepsis 35-year-old male patient admitted for management of right lower extremity wound was also deemed to be septic. He had worsening kidney function with a creatinine of 3.69 yesterday which is now improved to 2.35. He also developed hyperkalemia today with a potassium of 6.4. Physical Examination - Vital Signs Temperature: 99.3 F Blood Pressure: 109/54 Pulse: 97 Respirations: 18 Pulse Ox (%): 96 - Physical Exam General: Alert, Oriented x3 HEENT: Atraumatic, Normocephalic Neck: Supple Respiratory: Normal air movement Cardiovascular: Regular rate/rhythm, Normal S1 S2 Gastrointestinal: Soft and benign Musculoskeletal: Other (dressing over the right leg.) Assessment And Plan - Plan Diabetes type 2 CKD stage III Acute renal failure Hyperkalemia Metabolic acidemia Chronic right lower extremity ulcer Cellulitis of right lower extremity Plan: Patient developed worsening kidney function on admission but this is much improved today with a creatinine of 2.35 after initial value of 3.69. We will continue IV hydration. Nephrology has been consulted for management recommendation based on metabolic acidemia, hyperkalemia and worsening kidney function. Will continue to dose medication for estimated glomerular filtration. Continued dressing of wound with Medihoney. Surgeon following for debridement. We will continue renal diet for abnormal kidney function. Will continue sodium bicarbonate infusion for management of worsening metabolic acidemia.
[2021-08-26] MEDS ORDERED: CEFEPIME 1 GM in NA CHLORIDE 0.9% 100 ML IV SCH (09:00)
[2021-08-26] MEDS: HYDROCODONE/APAP 7.5/325 MG TAB PO PRN (09:12)
--- NOTE | 2021-08-26 10:01 | P.PN ---
Date of Service: 08/26/21 Subjective: Patient is complaining of right leg pain. Objective: Vital signs are stable temperature is 99.3, white count is 8.6, potassium is 6.4, and CO2 is 12 with a BUN of 61 and creatinine of 2.32 Physical exam: No significant change, no increased in erythema or warmth Assessment: Infected right leg wound with cellulitis, chronic renal disease with hyperkalemia and acidosis Plan: Discussed the case with Dr. Hermosillo. Patient is to be medically treated for his hyperkalemia first. We will reschedule him for surgical debridement tomorrow morning. Continue IV antibiotics and wound care as ordered. CC:
[2021-08-26] MEDS: WATER FOR INJ,STERILE 1,000 ML with NA BICARB 8.4% 150 MEQ IV SCH ×2 (13:53)
[2021-08-26] MEDS: INSULIN GLARGINE 100 UNIT/ML SQ SCH (14:15)
[2021-08-26] MEDS ORDERED: DEXTROSE 10%-WATER 500 ML IV BAG IV PRN (14:20)
[2021-08-26] MEDS ORDERED: VANCOMYCIN 1.75 GM in NA CHLORIDE 0.9% 500 ML IVPB SCH (18:00)
[2021-08-26 18:01] LABS: Urine Appearance Clear (Clear); Urine Bilirubin Negative (Negative); Urine Blood Trace-lysed (Negative); Urine Color Yellow (Yellow); Urine Glucose Negative (Negative); Urine Protein Negative (Negative); Urine Specific Gravity 1.015 (1.005-1.030); Urine Urobilinogen 0.2 mg/dL (0.2-1.0); Urine pH 5.5 (5.0-7.0)
[2021-08-26 18:28] LABS: Urine Amorphous Sediment TRACE /HPF (NONE SEEN); Urine Bacteria <20 /HPF (NONE SEEN)
[2021-08-26 18:50] LABS: Potassium 4.9 mmol/L (3.5-5.1)
--- NOTE | 2021-08-26 20:56 | PN ---
Date of Progress Note: 08/26/2021 Subjective: Seen by bedside. No cardiac complaints. Review of Systems: No chest pain, shortness of breath, orthopnea, cough. No nausea, vomiting, diarrhea. All other syst ems reviewed and negative. Physical Examination: Vital Signs: Temperature is 98.8, pulse 94, breathing at 18, blood pressure 143/74, saturating 95% o n room air. General: Pleasant young male, in no apparent distress. Head and Neck: Pupils are equal, reactive to light. Intact eye movements. No JVD. No cervical lym phadenopathy. Neck is supple. Thyroid is not enlarged. Lungs: Clear to auscultation bilaterally. No rhonchi, wheezing, or crackles. No accessory muscle u se. Heart: Regular rate and rhythm. No extra sounds. Abdomen: Soft, nontender. Bowel sounds positive. No organomegaly. No masses or hernia. No rigidi ty or rebound. Extremities: No clubbing or cyanosis. Intact pulses. Skin: Cellulitis involving the right lower extremity with open wound. Neurologic: Alert, awake, oriented x3. No acute focal deficits appreciated. Lymph Nodes: No cervical or axillary lymphadenopathy. Assessment And Recommendations: 1.Cardiac risk assessment. Appears hemodynamically stable. Obtain echocardiogram in the morning an d no further workup will be required before the urgent surgery. 2.Cellulitis of lower extremity, on IV antibiotics. 3.Metabolic acidosis, which could be in part due to diabetic ketoacidosis. Recommend IV hydration and insulin therapy and IV antibiotics for his infec tion. SR/MODL Voice ID: [id number] Report ID: [id number]
[2021-08-27] MEDS: WATER FOR INJ,STERILE 1,000 ML with NA BICARB 8.4% 150 MEQ IV SCH ×4 (03:32→13:00)
[2021-08-27 05:50] LABS: Absolute Lymphocytes (CBC) 0.8 K/uL (0.7-4.9); Hematocrit 30.2 % (39.6-49.0); MCV 79.8 fL (80-100); MPV 8.4 fL (7.6-11.3); RBC Red Blood Cell Count 3.78 M/uL (4.33-5.43)
[2021-08-27 06:16] LABS: AST/SGOT 5 U/L (15-37); Albumin 2.1 g/dL (3.4-5.0); Alkaline Phosphatase 106 U/L (45-117); BUN Blood Urea Nitrogen 40 mg/dL (7-18); Bicarbonate 25 mmol/L (21-32); Bilirubin Total 0.5 mg/dL (0.2-1.0); Glomerular Filtration Rate 86 ml/min (=/>90); Glucose Level 176 mg/dL (74-106); Protein, Total 5.7 g/dL (6.4-8.2); Sodium Level 142 mmol/L (136-145)
[2021-08-27 06:24] LABS: ALT/SGPT < 10 U/L (12-78)
[2021-08-27] MEDS ORDERED: NA CHLORIDE 0.9% 1,000 ML ONE (08:53)
[2021-08-27] MEDS: CEFEPIME 2 GM in NA CHLORIDE 0.9% 100 ML IV SCH ×2 (08:55→20:17)
[2021-08-27] MEDS: DOCUSATE NA 100 MG CAP PO SCH ×2 (09:00→20:16)
[2021-08-27] MEDS: HEPARIN 5000 UNIT/ML 1 ML VIAL SQ SCH ×2 (09:00→20:17)
[2021-08-27] MEDS: INSULIN -REGULAR HUMAN 50 UNIT/0.5 ML ML SQ SCH ×4 (09:00→20:18)
[2021-08-27] MEDS: INSULIN GLARGINE 100 UNIT/ML SQ SCH (09:00)
[2021-08-27] MEDS: MEDIHONEY 44 ML TOPICAL TUBE TOP SCH (09:00)
[2021-08-27] MEDS ORDERED: propofoL 200 MG/20 ML VIAL IV ONE ×2 (09:20→09:42)
[2021-08-27] MEDS ORDERED: FENTANYL CITR 100 MCG/2 ML ONE ×2 (09:21→09:42)
[2021-08-27] MEDS ORDERED: MIDAZOLAM HCL 2 MG/2 ML INJ ONE ×2 (09:21→09:42)
[2021-08-27] MEDS ORDERED: LIDOCAINE 1% MPF 5 ML VIAL ONE (09:21)
[2021-08-27] MEDS ORDERED: ONDANSETRON 4 MG/2 ML VIAL ONE ×2 (09:21→09:48)
[2021-08-27] MEDS ORDERED: LIDOCAINE 2% MPF 5 ML VIAL ONE (09:48)
[2021-08-27] MEDS ORDERED: MORPHINE 10 MG/ML VIAL ONE (10:41)
[2021-08-27] MEDS ORDERED: SILVER SULFADIAZINE 1% 25 GM TOP ONE (10:42)
--- NOTE | 2021-08-27 10:47 | P.OP ---
Date of Service: 08/27/21 Preop diagnosis: Infected wound right lower leg secondary to pyoderma gangrenosum Postop diagnosis: Same Procedure performed: Incision, drainage, debridement and pulse irrigation of infected right lower leg wound25 x 20 cm to subcutaneous tissue Surgeon: Paolo Zarate MD Adjunct Professor Of Voice: None Estimated blood loss: Minimal Specimen: Infected tissue Findings: As above Anesthesia: General Complications: None Drains: None Fluids and blood products: Noncontributory Disposition: Recovery room Operative note: Patient brought to the OR and placed in the supine position. General anesthesia begun. Patient prepped and draped in the usual sterile fashion. Then pulse irrigation utilized to irrigate the entire wound below the knee and above the ankle. All loose infected fibrin tissue was debrided with scissors. Curette was utilized as needed. Bleeding was controlled with cautery. Then a Betadine surgical scrub brush was used to scrub the wound all the way around. Then the wound was irrigated again. Curette was utilized again as well as scissors and pickups. After adequate debridement was done, Silvadene dressing was applied. Patient was awakened taken to recovery room in good general condition. The area of debridement was 25 x 20 cm. CC:
[2021-08-27] MEDS ORDERED: HYDROMORPHONE HCL 1 MG/ML INJ IV PRN (11:45)
--- NOTE | 2021-08-27 12:23 | RAD REPORT ---
EXAM DESCRIPTION: CT - Abdomen Pelvis Wo Contrast - 08/25/2021 6:50 am CLINICAL HISTORY: 35 years, Male, vomiting COMPARISON: None. TECHNIQUE: Multiple transaxial tomograms of the abdomen and pelvis were performed from the lung base s to the symphysis pubis 5 mm slice thickness at 5 mm interval reconstruction, without administration of IV and oral contrast. Multiplanar reformats in the sagittal and coronal plane were generated and reviewed. This exam was performed according to our departmental dose-optimization protocol, which includes auto mated exposure control, adjustment of the mA and/or kV according to patient size and/or use of iterat homar reconstruction technique. FINDINGS: The lack of IV and oral contrast limits evaluation of solid organs, subtle lesions cannot be excluded. The lung bases minimal dependent atelectatic changes. Bilateral gynecomastia. Minimal rim wall consul tation superior vena cava. Grossly the unopacified liver, gallbladder, pancreas, spleen and adrenal glands demonstrate to be wit hin normal limits, no significant focal lesions were identified. The kidneys demonstrate grossly unremarkable. There is no evidence for nephrolithiasis and/or hydro nephrosis. There is a anterior upper pole renal cyst measuring 1.8 cm on image 33. The ureters disp lays normal appearance with normal caliber, no hydroureter was seen. Grossly the unopacified stomach, small bowel and large bowel demonstrate to be within normal limits. There is no evidence for bowel dilatation/or free air. The appendix is normal. The urinary bladder demonstrate to be within normal limits. The prostate gland is unremarkable The ao rta demonstrate to be normal. There is absence of the normal appearance of the inferior vena cava. Mu ltiple collateral veins are identified within the retroperitoneum up to the level of the S1. There is no retroperitoneal lymphadenopathy. There is enlarged right inguinal lymph node measuring 2.1 cm o n image 105. There is no evidence for ascites. The rest of the soft tissue demonstrate to be grossly unremarkable. IMPRESSION: No evidence for nephrolithiasis and/or hydronephrosis. 1.8 cm right renal cyst. Absent normal appearance of the inferior vena cava with multiple collateral veins within the retroper itoneum up to the level of the S1. Bilateral gynecomastia. Electronically signed by: Tristen Kay MD 08/25/2021 2:23 AM CDT Due to temporary technical issues with the PACS/Fluency reporting system, reports are being signed by the in house radiologist without review as a courtesy to ensure prompt reporting. The interpreting r adiologist is fully responsible for the content of the report.
[2021-08-27] MEDS: SODIUM BICARB 325 MG TAB PO SCH ×4 (12:33→20:16)
[2021-08-27] MEDS: VITAMIN D 5,000 UNIT CAP PO SCH (12:34)
--- NOTE | 2021-08-27 13:10 | RAD REPORT ---
EXAM DESCRIPTION: RAD - Tib Fib Right - 08/25/2021 4:44 am CLINICAL HISTORY: 35 years Male large wound COMPARISON: None TECHNIQUE: AP and lateral views of the right tibia/fibula are obtained. FINDINGS: OSSEOUS: There is no evidence of acute fracture or osteolytic/osteoblastic lesions. The joint spaces are preserved. There is no evidence of degenerative osteophytosis or sclerosis. There is no evidence of marginal erosive changes to suggest an inflammatory arthritis. SOFT TISSUE: There are multifocal indentations of the superficial soft tissues of the right lower leg and mid and distal portions consistent with a soft tissue injury No evidence of significant soft tissue calcifications. No radiopaque foreign bodies. No evidence of a suprapatellar or ankle joint effusion. IMPRESSION: No significant osseous abnormality. If there is clinical concern for osteomyelitis rec ommend triple phase bone scan or MRI. Extensive soft tissue injury along the mid and distal right lower leg Electronically signed by: Abbi Clement MD 08/25/2021 5:14 AM CDT Due to temporary technical issues with the PACS/Fluency reporting system, reports are being signed by the in house radiologist without review as a courtesy to ensure prompt reporting. The interpreting r adiologist is fully responsible for the content of the report.
[2021-08-27] MEDS: HYDROCODONE/APAP 7.5/325 MG TAB PO PRN ×2 (15:02→20:24)
[2021-08-27] MEDS ORDERED: VANCOMYCIN 1.75 GM in NA CHLORIDE 0.9% 500 ML IVPB SCH (18:00)
[2021-08-27] MEDS ORDERED: WATER FOR INJ,STERILE 1,000 ML with NA BICARB 8.4% 150 MEQ IV SCH ×2 (18:30)
--- NOTE | 2021-08-27 20:09 | P.PN ---
Date of Service: 08/27/21 Vital Signs Temp Pulse Resp BP Pulse Ox 97.0 F 82 18 129/68 91 08/27/21 16:00 08/27/21 16:00 08/27/21 16:00 08/27/21 16:00 08/27/21 16:00 Medications Hydrocodone Bitart/Acetaminophen (Hydrocodone/Apap 7.5/325 Mg Tab) 1 tab PO Q6H PRN PRN Reason: Pain scale 5-7 (Moderate) Last Admin: 08/27/21 15:02 Dose: 1 tab Documented by: Cholecalciferol (Vitamin D 5,000 Unit Cap) 5,000 unit PO DAILY [facility] Last Admin: 08/27/21 12:34 Dose: 5,000 unit Documented by: Dextrose (Dextrose 10%-Water 500 Ml Iv Bag) 125 ml IV PRN PRN PRN Reason: HYPOGLYCEMIA Docusate Sodium (Docusate Na 100 Mg Cap) 100 mg PO BID [facility] Last Admin: 08/27/21 09:00 Dose: Not Given Documented by: Emollient Gel (Medihoney 44 Ml Topical Tube) 1 appl TOP DAILY [facility] Last Admin: 08/27/21 09:00 Dose: Not Given Documented by: Glucagon (Glucagon 1 Mg/Vial) 1 mg IM 1X PRN PRN Reason: HYPOGLYCEMIA Heparin Sodium (Porcine) (Heparin 5000 Unit/Ml 1 Ml Vial) 5,000 unit SQ Q12HR [facility] Last Admin: 08/27/21 09:00 Dose: Not Given Documented by: Hydromorphone HCl (Hydromorphone Hcl 1 Mg/Ml Inj) 1 mg IV Q4H PRN PRN Reason: Pain scale 8-10 (Severe) Vancomycin HCl 1.75 gm/ Sodium (Chloride) 500 mls @ 250 mls/hr IVPB Q24H [facility] Last Admin: 08/27/21 18:09 Dose: 500 mls Documented by: Cefepime HCl 2 gm/ Sodium (Chloride) 100 mls @ 200 mls/hr IV Q12HR [facility]; Protocol Last Admin: 08/27/21 08:55 Dose: 100 mls Documented by: Sodium Bicarbonate 150 meq/ (Sterile Water) 1,150 mls @ 100 mls/hr IV .[id number] [facility] Last Admin: 08/27/21 18:10 Dose: 1,150 mls Documented by: Insulin Glargine (Insulin Glargine 100 Unit/Ml) 15 unit SQ DAILY [facility] Last Admin: 08/27/21 09:00 Dose: 15 unit Documented by: Insulin Human Regular (Insulin -Regular Human 50 Unit/0.5 Ml Ml) 0 unit SQ ACHS [facility]; Protocol Last Admin: 08/27/21 16:30 Dose: 6 unit Documented by: Ondansetron HCl (Ondansetron 4 Mg/2 Ml Vial) 4 mg IV Q6HP PRN PRN Reason: NAUSEA / VOMITING Sodium Bicarbonate (Sodium Bicarb 325 Mg Tab) 650 mg PO QID [facility] Last Admin: 08/27/21 18:10 Dose: 650 mg Documented by: Sodium Chloride (Flush Normal Saline 10 Ml) 10 ml IV BID [facility] Last Admin: 08/27/21 09:00 Dose: Not Given Documented by: Microbiology Results 08/25/21 01:08 Nasopharnyx Influenza Type A Antigen Screen - Final 08/25/21 01:08 Nasopharnyx Influenza Type B Antigen Screen - Final Assessment/ Plan: Nephrology No dyspnea No chest pain No acute events overnight Vitals, medications, blood work and imaging reviewed in the chart. General: Oriented x3, Cooperative HEENT: Atraumatic Neck: Supple Respiratory: Clear to auscultation bilaterally Cardiovascular: No edema, Regular rate/rhythm Gastrointestinal: Soft and benign, Non-distended Musculoskeletal: No clubbing, No contractures Integumentary: No rashes, No cyanosis Neurological: Normal speech Laboratory Data (last 24 hrs) 08/25/21 01:55: Sodium 137, Potassium 5.3 H, BUN 62 H, Creatinine 3.69 H, Glucose 138 H, Total Bilirubin 0.5, AST 4 L, ALT 14, Alkaline Phosphatase 144 H, Lipase 15 L 08/25/21 01:08: WBC 14.0 H, Hgb 11.3 L, Hct 38.0 L, Plt Count 396 Imagings Data: EXAM DESCRIPTION: US - Renal Ultrasound-Complete - 08/25/2021 8:50 pm CLINICAL HISTORY: ARF COMPARISON: Abdomen Pelvis Wo Contrast dated 08/25/2021 FINDINGS: Both kidneys are normal in size, shape and echotexture. The right kidney measures 11.6 cm. No hydronephrosis or perinephric fluid. Right renal cyst measuring 1.3 x 1.2 cm. The left kidney measures 11 cm. No hydronephrosis, focal mass or perinephric fluid. The urinary bladder is incompletely distended without gross abnormality seen. IMPRESSION: Right renal cyst. No evidence of hydronephrosis. Conclusions/Impression: LORIE likely due to hypovolemia and hypotension complicated by Aleve therapy CKD III -No NSAIDs -Hold IVF Hyperkalemia -Low potassium diet Acidosis -Continue oral bicarb DM I with polyneuropathy DM I foot ulcer -RISS Moderate malnutrition -Encourage nutrition Anemia in chronic illness Iron Deficiency -Monitor H&H -Consider IV iron CKD MBD -Continue Vitamin D RLE Cellulitis with ulcer -Continue abx -Wound care as ordered
--- NOTE | 2021-08-27 20:10 | PN ---
Date of Progress Note: 08/27/2021 Subjective: Seen by bedside. He had his surgical debridement. No cardiac complication. Review of Systems: No chest pain, shortness of breath, orthopnea, cough. No nausea, vomiting, diarrhea. All other syst ems reviewed and are negative. Physical Examination: Vital Signs: Reviewed. Head and Neck: Pupils are equal, reactive to light. Intact eye movements. No JVD. No cervical lym phadenopathy. Neck is supple. Thyroid is not enlarged. Lungs: Clear to auscultation bilaterally. No rhonchi, wheezing, or crackles. No accessory muscle u se. Heart: Regular rate and rhythm. No extra sounds. Abdomen: Soft, nontender. Bowel sounds positive. No organomegaly. No masses or hernia. No rigidi ty or rebound. Extremities: No edema, clubbing, or cyanosis. Intact pulses. Skin: No rash. Neurologic: Alert, awake, oriented x3. No acute focal deficits appreciated. Assessment And Recommendations: Cardiac preop evaluation assessment, the patient is doing clinically well post surgery. No complications. At this point, no further cardiac care is required. I will b e happy to follow up the patient as an outpatient. Thank you for the consult. /ELENA Voice ID: [id number] Report ID: [id number]
--- NOTE | 2021-08-27 23:56 | P.PN ---
Date of Service: 08/27/21 Subjective Patient is clinically doing better. Status post I and D of abscess of the right lower extremity. Physical Examination - Vital Signs Reviewed - Physical Exam General: Alert, Oriented x3 HEENT: Atraumatic, Normocephalic Neck: Supple Respiratory: Normal air movement Cardiovascular: Regular rate/rhythm, Normal S1 S2 Gastrointestinal: Soft and benign Musculoskeletal: Other (dressing over the right leg.) Assessment And Plan - Plan Diabetes type 2 CKD stage III Acute renal failure Hyperkalemia Metabolic acidemia Chronic right lower extremity ulcer Cellulitis/Abscess of right lower extremity Plan: Patient developed worsening kidney function on admission but this is much improved today with a creatinine of 2.35 after initial value of 3.69. We will continue IV hydration. Nephrology has been consulted for management recommendation based on metabolic acidemia, hyperkalemia and worsening kidney function. Will continue to dose medication for estimated glomerular filtration. Continued dressing of wound with Medihoney. Surgeon following for debridement. We will continue renal diet for abnormal kidney function. Will continue sodium bicarbonate infusion for management of worsening metabolic acidemia.
[2021-08-28 03:49] LABS: Hematocrit 31.2 % (39.6-49.0); Lymphocytes % 20.4 % (15.3-44.8); MCV 79.2 fL (80-100); MPV 8.2 fL (7.6-11.3); RBC Red Blood Cell Count 3.94 M/uL (4.33-5.43)
[2021-08-28 04:37] LABS: ALT/SGPT < 10 U/L (12-78); AST/SGOT 6 U/L (15-37); Albumin 2.2 g/dL (3.4-5.0); Alkaline Phosphatase 106 U/L (45-117); BUN Blood Urea Nitrogen 25 mg/dL (7-18); Bicarbonate 30 mmol/L (21-32); Bilirubin Total 0.3 mg/dL (0.2-1.0); Folic Acid, (Folate) 13.4 ng/mL (3.1-17.5); Glomerular Filtration Rate 116 ml/min (=/>90); Phosphorus 1.8 mg/dL (2.5-4.9); Potassium 3.6 mmol/L (3.5-5.1); Protein, Total 5.9 g/dL (6.4-8.2); Sodium Level 143 mmol/L (136-145); Transferrin 158 mg/dL (200-360); Uric Acid 9.8 mg/dL (3.5-7.2)
[2021-08-28 04:39] LABS: Glucose Level 48 mg/dL (74-106)
[2021-08-28] MEDS: INSULIN -REGULAR HUMAN 50 UNIT/0.5 ML ML SQ SCH (07:30)
[2021-08-28] MEDS ORDERED: POTASSIUM CL SA 10 MEQ TAB PO ONE (08:02)
[2021-08-28] MEDS: INSULIN GLARGINE 100 UNIT/ML SQ SCH (08:52)
[2021-08-28] MEDS: CEFEPIME 2 GM in NA CHLORIDE 0.9% 100 ML IV SCH (08:52)
[2021-08-28] MEDS: HEPARIN 5000 UNIT/ML 1 ML VIAL SQ SCH (08:52)
[2021-08-28] MEDS: VITAMIN D 5,000 UNIT CAP PO SCH (08:54)
[2021-08-28] MEDS: SODIUM BICARB 325 MG TAB PO SCH (08:54)
[2021-08-28] MEDS: DOCUSATE NA 100 MG CAP PO SCH (08:54)
[2021-08-28] MEDS ORDERED: SOD FERRIC GLUC COMPLX/SUCROSE 125 MG in NA CHLORIDE 0.9% 100 ML IV SCH (09:00)
[2021-08-28] MEDS: HYDROCODONE/APAP 7.5/325 MG TAB PO PRN (09:34)
[2021-08-28 12:25] VITALS: BP 128/70; TEMP 98.6
[2021-08-28 13:33] VITALS: O2SAT 89
--- NOTE | 2021-08-28 16:05 | EKG ---
Test Date: 2021-08-26 Test Time: 04:34:34 Dietary Cook: SUNDAY MEASUREMENT RESULTS: Intervals: Rate: 102 VA: 172 QRSD: 100 QT: 350 QTc: 456 [place]: P: 14 VA: 172 QRS: -29 T: -7 INTERPRETIVE STATEMENTS: Sinus tachycardia Possible Left atrial enlargement Low voltage QRS Inferior infarct, age undetermined Possible Anterolateral infarct, age undetermined Abnormal ECG Compared to ECG 08/25/2021 01:55:06 No significant changes Electronically Signed On 08-28-21 16:04:36 CDT by Herb Garcia
--- NOTE | 2021-08-28 19:51 | P.PN ---
Date of Service: 08/28/21 Vital Signs Temp Pulse Resp BP Pulse Ox 98.6 F 81 18 128/70 89 L 08/28/21 12:00 08/28/21 12:00 08/28/21 12:00 08/28/21 12:00 08/28/21 12:00 Microbiology Results 08/25/21 01:08 Nasopharnyx Influenza Type A Antigen Screen - Final 08/25/21 01:08 Nasopharnyx Influenza Type B Antigen Screen - Final Assessment/ Plan: Nephrology No dyspnea No chest pain Feeling better No acute events overnight Vitals, medications, blood work and imaging reviewed in the chart. General: Oriented x3, Cooperative HEENT: Atraumatic Neck: Supple Respiratory: Clear to auscultation bilaterally Cardiovascular: No edema, Regular rate/rhythm Gastrointestinal: Soft and benign, Non-distended Musculoskeletal: No clubbing, No contractures Integumentary: No rashes, No cyanosis Neurological: Normal speech Laboratory Data (last 24 hrs) 08/25/21 01:55: Sodium 137, Potassium 5.3 H, BUN 62 H, Creatinine 3.69 H, Glucose 138 H, Total Bilirubin 0.5, AST 4 L, ALT 14, Alkaline Phosphatase 144 H, Lipase 15 L 08/25/21 01:08: WBC 14.0 H, Hgb 11.3 L, Hct 38.0 L, Plt Count 396 Imagings Data: EXAM DESCRIPTION: US - Renal Ultrasound-Complete - 08/25/2021 8:50 pm CLINICAL HISTORY: ARF COMPARISON: Abdomen Pelvis Wo Contrast dated 08/25/2021 FINDINGS: Both kidneys are normal in size, shape and echotexture. The right kidney measures 11.6 cm. No hydronephrosis or perinephric fluid. Right renal cyst measuring 1.3 x 1.2 cm. The left kidney measures 11 cm. No hydronephrosis, focal mass or perinephric fluid. The urinary bladder is incompletely distended without gross abnormality seen. IMPRESSION: Right renal cyst. No evidence of hydronephrosis. Conclusions/Impression: LORIE likely due to hypovolemia and hypotension complicated by Aleve therapy CKD III with proteinuria -No NSAIDs -DC IVF Hyperkalemia -Low potassium diet Acidosis -Continue oral bicarb DM I with polyneuropathy DM I foot ulcer -RISS Moderate malnutrition -Encourage nutrition Anemia in chronic illness Iron Deficiency 7% -Monitor H&H -Start IV iron CKD MBD -Continue Vitamin D RLE Cellulitis with ulcer -Continue abx -Wound care as ordered Case reviewed with Dr. Gomez
--- NOTE | 2021-08-28 23:56 | P.DS ---
Discharge Date: 08/28/21 Disposition: ROUTINE DISCHARGE Discharge Condition: GOOD Reason for Admission: ARF, sepsis Consultations: General surgery Brief History of Present Illness: 35-year-old male history of insulin-dependent diabetes, CKD 3, hypertension presented to the emergency department for "dehydration" reports he been vomiting today about 5 times denies any diarrhea or abdominal pain. His labs were significant for acute renal failure, leukocytosis, mild hyperkalemia. It was later revealed patient has a chronic wound of the RL extremity he is self treating. He meets severe sepsis criteria given elevated HR, leukocytosis, acute renal failure with presence of infection. He has an extensive wound of his right lower extremity which will require surgical intervention. Patient was started on broad-spectrum antibiotics, blood and wound cultures obtained surgical consult placed. Patient recommends Medihoney dressing once a day at this time will be evaluated for possible debridement. Hospital Course: patient had debridement performed by General surgery. Patient was shown how to do wound care. Patient is clinically feeling much better and at this time he will follow-up with General surgery and Wound Care as an outpatient. He will continue with wound dressing as recommended by surgery. Continue with antibiotics for 10 more days. Also medication for pain control. Vital Signs/Physical Exam: Temp Pulse Resp BP Pulse Ox 98.6 F 81 18 128/70 89 L 08/28/21 12:00 08/28/21 12:00 08/28/21 12:00 08/28/21 12:00 08/28/21 12:00 General: Alert, In no apparent distress, Oriented x3 Laboratory Data at Discharge: WBC 5.0 K/uL (4.3-10.9) 08/28/21 03:14 Hgb 9.8 g/dL (13.6-17.9) L 08/28/21 03:14 Hct 31.2 % (39.6-49.0) L 08/28/21 03:14 Plt Count 279 K/uL (152-406) 08/28/21 03:14 Sodium 143 mmol/L (136-145) 08/28/21 03:14 Potassium 3.6 mmol/L (3.5-5.1) 08/28/21 03:14 BUN 25 mg/dL (7-18) H 08/28/21 03:14 Creatinine 0.87 mg/dL (0.55-1.3) 08/28/21 03:14 Glucose 48 mg/dL (74-106) L* 08/28/21 03:14 Uric Acid 9.8 mg/dL (3.5-7.2) H 08/28/21 03:14 Phosphorus 1.8 mg/dL (2.5-4.9) L 08/28/21 03:14 Total Bilirubin 0.3 mg/dL (0.2-1.0) 08/28/21 03:14 AST 6 U/L (15-37) L 08/28/21 03:14 ALT < 10 U/L (12-78) L 08/28/21 03:14 Alkaline Phosphatase 106 U/L (45-117) 08/28/21 03:14 Lipase 15 U/L (73-393) L 08/25/21 01:55 Home Medications: Gabapentin [Neurontin*] 800 mg PO BID 09/15/20 Hydrocodone/Acetaminophen [Hydrocodone-Acetamin 10-325 mg] 1 each PO BID 09/15/20 Carvedilol [Coreg] 12.5 mg PO BID 10/18/20 Insulin -Regular Human [Novolin -R*] See Protocol SQ DAILY 10/18/20 Insulin Glargine,Hum.rec.anlog [Lantus] 40 unit SQ DAILY 08/25/21 Docusate [Colace Cap*] 100 mg PO BID #60 cap 08/28/21 Hydrocodone 7.5/APAP 325 [[place] 7.5/325 mg*] 1 tab PO Q6H PRN #30 tab 08/28/21 Medihoney [Medihoney Woundcare Gel*] 1 appl TOP DAILY #1 tube 08/28/21 Minocycline HCl 100 mg PO BID #20 capsule 08/28/21 Na Bicarb Tab [Sodium Bicarb 325 MG Tab*] 650 mg PO QID #60 tab 08/28/21 Silver Sulfadiazine [Silvadene] 1,000 gm TP DAILY #1 cream..g. 08/28/21 Smz./Tmp. [Bactrim Ds 800 MG/160 MG] 1 tab PO BID #14 tab 08/28/21 New Medications: Smz./Tmp. [Bactrim Ds 800 MG/160 MG] 1 tab PO BID #14 tab Docusate [Colace Cap*] 100 mg PO BID #60 cap Medihoney [Medihoney Woundcare Gel*] 1 appl TOP DAILY #1 tube Minocycline HCl 100 mg PO BID #20 capsule Hydrocodone 7.5/APAP 325 [[place] 7.5/325 mg*] 1 tab PO Q6H PRN #30 tab PRN Reason: Pain Scale 5-7 (Moderate) Silver Sulfadiazine [Silvadene] 1,000 gm TP DAILY #1 cream..g. Na Bicarb Tab [Sodium Bicarb 325 MG Tab*] 650 mg PO QID #60 tab Physician Discharge Instructions: OK TO DC IV AND DC HOME FOLLOW-UP WITH PRIMARY CARE PROVIDER IN 1-2 WEEKS FOLLOW-UP WITH SURGERY IN 1-2 WEEKS RETURN TO THE ER IF symptoms worsen CALL DR. DELEON AT [phone] IF ANY QUESTIONS REGARDING HOSPITAL STAY. PLEASE CALL THE FLOOR AT [phone] IF ANY MEDICATION OR NURSING QUESTIONS. Diet: Regular Activity: Fall precautions Followup: NONE,NONE [Primary Care Provider] - Time spent managing pt's care (in minutes): 35
== END 2021-08-28 13:45 | disposition home health service (06) | DRG 854 ==
LOC: ER 22:26 → ERHOLD 08-25 04:00 → 2ND 08-25 05:48
PROVIDERS: ADMIT Internal Medicine Nephrology; ATTEND Internal Medicine Nephrology
PROC: 0JDN0ZZ Extraction of Right Lower Leg Subcutaneous Tissue and Fascia, Open Approach (ICD-10-PCS; principal; 2021-08-27 10:00)
DX: A41.9 Sepsis, unspecified organism (principal); L88 Pyoderma gangrenosum; N17.9 Acute kidney failure, unspecified; E87.2 Acidosis; L03.115 Cellulitis of right lower limb; L97.919 Non-pressure chronic ulcer of unspecified part of right lower leg with unspecified severity; E11.52 Type 2 diabetes mellitus with diabetic peripheral angiopathy with gangrene; R65.20 Severe sepsis without septic shock; I12.9 Hypertensive chronic kidney disease with stage 1 through stage 4 chronic kidney disease, or unspecified chronic kidney disease; E11.22 Type 2 diabetes mellitus with diabetic chronic kidney disease; N18.30 Chronic kidney disease, stage 3 unspecified; E87.5 Hyperkalemia; D50.9 Iron deficiency anemia, unspecified; Z79.4 Long term (current) use of insulin; E86.0 Dehydration; Z95.2 Presence of prosthetic heart valve; E11.42 Type 2 diabetes mellitus with diabetic polyneuropathy; Z20.822 Contact with and (suspected) exposure to COVID-19
CPT/HCPCS: 36415; 74176; 76770; 80048; 80053; 80202; 81003; 81015; 82010; 82550; 82607; 82746; 82947; 83036; 83540; 83605; 83690; 84100; 84145; 84466; 84484; 84550; 85025; 87040; 87070; 87077; 87086; 87088; 87186; 87205; 87804; 88304; 93005; 96374; 96375; 99285; J0610; J0692; J1170; J1644; J1815; J1940; J2250; J2270; J2405; J2704; J2916; J3010; J3370; J7030; J7040; U0003

== ENCOUNTER 2022-03-08 15:49 | Emergency (ER) | payer OTHER ==
--- OUTSIDE RECORDS SUMMARY | 2022-03-08 16:02 | XMS REPORT | Continuity of Care Document ---
:[address] [facility] t Address [address] [place] [address] Care Team Providers Name Role Phone PCP, PATIENT DOES NOT HAVE A Primary Care Physician UnavailENIO Moscoso Attending Clinician Unavailable Enio Manuel MD Attending Clinician Malissa Coley Attending Clinician MALISSA MCCALL Attending Clinician Unavailable Payers Payer Name Policy Type Policy Number Effective Date Expiration Date S anilce MEDICARE PART A [id number] 2019 \T\ B 00:00:00 Problems Condition Condition Condition Status Onset Resolution Last Treating Co mments Source Name Details Category Date Date Treatment Clinician Date No known No known Disease Unive rs active active ity of problems problems [facility] Allergies, Adverse Reactions, Alerts Allergy Allergy Status Severity Reaction(s) Onset Inactive Treating Comm ents Source Name Type Date Date Clinician n Propensi Active ty to 6-11 adverse 00:00: reaction 00 to drug Lidocain Propensi Active Rash Univer s e ty to 7-19 ity of adverse 00:00: [place] reaction 00 Medical s Branch LIDOCAIN DRUG Active Rash Univers E INGREDI 7-19 ity of 00:00: [place] 00 Medical Branch Lidocain Propensi Active e ty to 3-13 adverse 00:00: reaction 00 to drug Social History Social Habit Start Date Stop Date Quantity Comments Source Exposure to 2021-11-13 2021-11-23 Not sure [facility] SARS-CoV-2 (event) 00:00:00 15:43:00 Medica l Branch Sex Ass[birth year] At [birth year] [facility] 00:00:00 00:00:00 Medical Branch Smoking Status Start Date Stop Date Source Tobacco smoking consumption [facility] Medical unknown Branch Medications Ordered Filled Start Stop Current Ordering Indication Dosage Frequency Signature Comments Components Source Medication Medication Date Date Medication? Clinician (SIG) Name Name Insulin 2021-03 Yes [id number] 40U inject 40 Univers Glargine 1-30 Units it[facility] Branch INSULIN) morning. 100 unit/mL (3 mL) injection Insulin 2021-03 [id number] 40U inject 40 Univers Glargine 1-30 11-30 Units ity of (LANTUS 00:00: 00:00 under the [facility] SOLOSTAR 00 :00 skin in Medical U-100 the Branch INSULIN) morning. 100 unit/mL (3 mL) injection Insulin Yes [id number] 40U inject 40 Univers Glargine 9-23 Units ity of (LANTUS 00:00: under the [facility] 00 skin in Medical U-100 the Branch INSULIN) morning. 100 unit/mL (3 mL) injection insulin Yes [id number] Inject 15 Univers regular 9-23 units ity of human 00:00: three [place] (NOVOLIN R 00 times Medical REGULAR daily with Branch U-100 meals, INSULN) 100 plus unit/mL sliding injection scale. Max daily dose 60 units Insulin Yes [id number] 40U inject 40 Univers Glargine 9-23 Units ity of (LANTUS 00:00: under the [place] SOLOSTAR 00 skin in Medical U-100 the Branch INSULIN) morning. 100 unit/mL (3 mL) injection insulin Yes [id number] Inject 15 Univers regular 9-23 units ity of human 00:00: three [place] (NOVOLIN R 00 times Medical REGULAR daily with Branch U-100 meals, INSULN) 100 plus unit/mL sliding injection scale. Max daily dose 60 units insulin 2022-0 Yes [id number] Inject 15 Univers regular 9-23 units ity of human 00:00: three [place] (NOVOLIN R 00 times Medical REGULAR daily with Branch U-100 meals, INSULN) 100 plus unit/mL sliding injection scale. Max daily dose 60 units Insulin 0 2- No [id number] 40U inject 40 Univers Glargine - 11-30 Units ity of (LANTUS 00:00: 00:00 under the [facility] SOLOSTAR 00 :00 skin in Medical U-100 the Branch INSULIN) morning. 100 unit/mL (3 mL) injection HYDROCODONE No BITARTRATE/ 10-17 ACETAMINOPH 00:00: EN 10MG / 00 325MG TABLET TAKE 1 2021-0 No TABLET BY 8-17 MOUTH ONCE 00:00: DAILY 00 &lt 2021-0 No 100 8- 00:00: 00 Dose 2021-0 No Unknown 8- 00:00: 00 TAKE 1 2021-0 No 100 CAPSULE BY 8-09 MOUTH TWICE 00:00: DAILY 00 TAKE 1 2021-0 No 5 TABLET BY 8-08 MOUTH ONCE 00:00: DAILY HOLD 00 IF TOP BLOOD PRESSURE NUMBER IS LESS THAN 110 &lt 2021-0 No 100 8-08 00:00: 00 TAKE 1 2021-0 No 100 CAPSULE BY 8-05 MOUTH TWICE 00:00: DAILY 00 TAKE 1 2021-0 No TABLET BY 8-05 MOUTH TWICE 00:00: DAILY 00 TAKE 1 2021-0 No TABLET BY 8-05 MOUTH TWICE 00:00: DAILY 00 TAKE 1 2021-0 No 50 TABLET BY 7-11 MOUTH ONCE 00:00: DAILY 00 &lt 2021-0 No 100 7-07 00:00: 00 Dose 2021-0 No Unknown 6-16 00:00: 00 &lt 2022-0 No 6-15 00:00: 00 Dose 2021-0 No Unknown 6-15 00:00: 00 Dose 2021-0 No Unknown 6-14 00:00: 00 &lt 2022-0 No 6-13 00:00: 00 TAKE 1 2021-0 No TABLET BY 6-13 MOUTH EVERY 00:00: 12 HOURS 00 FOR 7 DAYS carvedilol 2021-0 No 1mg 3.125 mg 6-11 tablet 00:00: 00 lisinopril 2021-0 No 2mg 20 6-11 mg-hydrochl 00:00: orothiazide 00 12.5 mg tablet doxycycline 2021-0 No 1mg monohydrate 6-11 100 mg 00:00: capsule 00 gabapentin 2021-0 No 1mg 400 mg - capsule 00:00: 00 Dose 2-0 No Unknown 6-11 00:00: 00 Dose 2021-0 No Unknown 6-11 00:00: 00 &lt 2-0 No 6-11 00:00: 00 INJECT 20 2021-0 No UNITS 6-11 SUBCUTANEOU 00:00: SLY ONCE 00 DAILY TAKE 1 2021-0 No TABLET BY 6-11 MOUTH EVERY 00:00: 12 HOURS 00 FOR 7 DAYS TAKE 1 2021-0 No TABLET BY 6-11 MOUTH EVERY 00:00: 12 HOURS 00 FOR 7 DAYS TAKE ONE 2021-0 No TABLET BY 6-11 MOUTH ONCE 00:00: A WEEK 00 insulin 2021- Yes Inject 8 Univer s regular 6-10 units ity of human 00:00: three [place] (NOVOLIN R 00 times Medical REGULAR daily with Branch U-100 meals, INSULN) 100 plus unit/mL sliding injection scale. Max daily dose 50 units Insulin Yes [id number] 25U inject 25 Univers Glargine 6-10 Units ity of (LANTUS 00:00: under the [facility] [facility] 00 skin 2 Medical U-100 (two) Branch INSULIN) times 100 unit/mL daily. (3 mL) injection insulin Yes Inject 8 Univer s regular 6-10 units ity of human 00:00: three [place] (NOVOLIN R 00 times Medical REGULAR daily with Branch U-100 meals, INSULN) 100 plus unit/mL sliding injection scale. Max daily dose 50 units Insulin 2021- Yes [id number] 25U inject 25 Univers Glargine 6-10 Units ity of (LANTUS 00:00: under the [facility] 00 skin 2 Medical U-100 (two) Branch INSULIN) times 100 unit/mL daily. (3 mL) injection insulin Yes Inject 8 Univer s regular 6-10 units ity of human 00:00: three [place] (NOVOLIN R 00 times Medical REGULAR daily with Branch U-100 meals, INSULN) 100 plus unit/mL sliding injection scale. Max daily dose 50 units Insulin Yes [id number] 25U inject 25 Univers Glargine 6-10 Units ity of (LANTUS 00:00: under the [facility] 00 skin 2 Medical U-100 (two) Branch INSULIN) times 100 unit/mL daily. (3 mL) injection Insulin 2021- No [id number] 25U inject 25 Univers Glargine 6-10 09-23 Units ity of (LANTUS 00:00: 00:00 under the [facility] 00 :00 skin 2 Medical U-100 (two) Branch INSULIN) times 100 unit/mL daily. (3 mL) injection insulin 2021- No Inject 8 Unive rs regular 6-10 09-23 units ity of human 00:00: 00:00 three [place] (NOVOLIN R 00 :00 times Medical REGULAR daily with Branch U-100 meals, INSULN) 100 plus unit/mL sliding injection scale. Max daily dose 50 units Insulin 2021- No [id number] 25U inject 25 Univers Glargine 6-10 09-23 Units ity of (LANTUS 00:00: 00:00 under the [facility] 00 :00 skin 2 Medical U-100 (two) Branch INSULIN) times 100 unit/mL daily. (3 mL) injection insulin 2021- No Inject 8 Unive rs regular 6-10 09-23 units ity of human 00:00: 00:00 three [place] (NOVOLIN R 00 :00 times Medical REGULAR daily with Branch U-100 meals, INSULN) 100 plus unit/mL sliding injection scale. Max daily dose 50 units Insulin 2021- No 20U inject 20 Univ ers Glargine 2-18 06-10 Units ity of (LANTUS 00:00: 00:00 under the [facility] 00 :00 skin Medical U-100 daily. Branch INSULIN) 100 unit/mL (3 mL) injection Insulin 2021- No 20U inject 20 Univ ers Glargine 2-18 06-10 Units ity of (LANTUS 00:00: 00:00 under the [facility] 00 :00 skin Medical U-100 daily. Branch INSULIN) 100 unit/mL (3 mL) injection HYDROcodone 2022-0 Yes 1{tbl} Take 1 Un serafin -acetaminop 2-02 tablet by ity of [place] 10-325 00:[place]: [place] 00 (two) Medical times Branch daily. HYDROcodone 2022-0 Yes 1{tbl} Take 1 Un serafin -acetaminop 2-02 tablet by ity of hen 10-325 00:00: [place] tablet 00 (two) Medical times Branch daily. HYDROcodone 2022-0 Yes 1{tbl} Take 1 Un serafin -acetaminop 2-02 tablet by ity of hen 10-325 00:00: [place] tablet 00 (two) Medical times Branch daily. HYDROcodone 2022-0 Yes 1{tbl} Take 1 Un serafin -acetaminop 2-02 tablet by ity of hen 10-325 00:00: [place] tablet 00 (two) Medical times Branch daily. HYDROcodone 2-0 Yes 1{tbl} Take 1 Un serafin -acetaminop 2-02 tablet by ity of hen 10-325 00:00: [place] tablet 00 (two) Medical times Branch daily. HYDROcodone 2022-0 Yes 1{tbl} Take 1 Un serafin -acetaminop 2-02 tablet by ity of hen 10-325 00:00: [place] tablet 00 (two) Medical times Branch daily. lisinopriL- 2-0 Yes Univer s hydrochloro 1-20 ity of thiazide 00:00: [place] 20-12.5 mg 00 Medical per tablet Branch amLODIPine 2-0 Yes Univers 5 mg tablet 1-20 ity of 00:00: [place] 00 Medical Branch gabapentin 2022-0 Yes Univers 400 mg 1-20 ity of capsule 00:00: [place] 00 Medical Branch lisinopriL- 2-0 Yes Univer s hydrochloro 1-20 ity of thiazide 00:00: [place] 20-12.5 mg 00 Medical per tablet Branch amLODIPine 2-0 Yes Univers 5 mg tablet 1-20 ity of 00:00: 00 Medical Branch gabapentin 2022-0 Yes Univers 400 mg 1-20 ity of capsule 00:00: [place] [address] Medical Branch lisinopriL- 2-0 Yes Univer s hydrochloro 1-20 ity of thiazide 00:00: [place] 20-12.5 mg 00 Medical per tablet Branch amLODIPine 2021-0 Yes Univers 5 mg tablet 1-20 ity of 00:00: [place] [address] Medical Branch gabapentin 2-0 Yes Univers 400 mg 1-20 ity of capsule 00:00: [place] [address] Medical Branch lisinopriL- 2021-0 Yes Univer s hydrochloro 1-20 ity of thiazide 00:00: [place] 20-12.5 mg 00 Medical per tablet Branch Novolin R 2021-0 No unit/mL Regular 1-20 U-100 00:00: Insulin 100 00 unit/mL injection solution amlodipine 2021-0 No 1mg 5 mg tablet 1-20 00:00: 00 carvedilol 2-0 No 1mg 3.125 mg 1-20 tablet 00:00: 00 amoxicillin 2-0 No 1mg 500 mg 1-20 tablet 00:00: 00 lisinopril 2021-0 No 2mg 20 1-20 mg-hydrochl 00:00: orothiazide 00 12.5 mg tablet doxycycline 2021-0 No 1mg monohydrate 1-20 100 mg 00:00: capsule 00 gabapentin 2021-0 No 1mg 400 mg 1-20 capsule 00:00: 00 Novolin 2-0 No unit/mL 70/30 U-100 1-20 (70-30) Insulin 100 00:00: unit/mL 00 subcutaneou s suspension amLODIPine 2021-0 Yes Univers 5 mg tablet 1-20 ity of 00:00: [place] [address] Medical Branch gabapentin 2-0 Yes Univers 400 mg 1-20 ity of capsule 00:00: [place] [address] Medical Branch lisinopriL- 2-0 Yes Univer s hydrochloro 1-20 ity of thiazide 00:00: [place] 20-12.5 mg 00 Medical per tablet Branch amLODIPine 2021-0 Yes Univers 5 mg tablet 1-20 ity of 00:00: [place] [address] Medical Branch gabapentin 2022-0 Yes Univers 400 mg 1-20 ity of capsule 00:00: [place] [address] Medical Branch lisinopriL- 2021-0 Yes Univer s hydrochloro 1-20 ity of thiazide 00:00: [place] 20-12.5 mg 00 Medical per tablet Branch amLODIPine 2021-0 Yes Univers 5 mg tablet -20 ity of 00:00: [place] 00 Medical Branch gabapentin 2021-0 Yes Univers 400 mg -20 ity of capsule 00:00: [place] 00 Medical Branch amoxicillin 2-0 2021- No Unive rs 500 mg 03-22 06-10 ity of capsule 00:00: 00:00 [place] 00 :00 Medical Branch doxycycline 2021-0 2021- No Unive rs monohydrate 03-22 06-10 ity of 100 mg 00:00: 00:00 [place] capsule 00 :00 Medical Branch NOVOLIN R 2021-0 2021- No Univers REGULAR 03-22 06-10 ity of U-100 00:00: 00:00 [place] INSULN 100 00 :00 Medical unit/mL Branch solution amoxicillin 2021-0 2021- No Unive rs 500 mg 03-22-10 ity of capsule 00:00: 00:00 [place] 00 :00 Medical Branch doxycycline 2021-0 2021- No Unive rs monohydrate 03-22-10 ity of 100 mg 00:00: 00:00 [place] capsule 00 :00 Medical Branch NOVOLIN R 2021-0 2021- No Univers REGULAR 03-22 06-10 ity of U-100 00:00: 00:00 [place] INSULN 100 00 :00 Medical unit/mL Branch solution furosemide 2020-03 Yes 20mg Take 20 mg U nivers 20 mg 0-22 by mouth. ity of tablet 00:00: [place] [address] Medical Branch furosemide 2020-03 Yes 20mg Take 20 mg U nivers 20 mg 0-22 by mouth. ity of tablet 00:00: [place] [address] Medical Branch furosemide 2020-03 Yes 20mg Take 20 mg U nivers 20 mg 0-22 by mouth. ity of tablet 00:00: [place] [address] Medical Branch furosemide 2020-03 Yes 20mg Take 20 mg U nivers 20 mg 0-22 by mouth. ity of tablet 00:00: [place] [address] Medical Branch furosemide 2020-03 Yes 20mg Take 20 mg U nivers 20 mg 0-22 by mouth. ity of tablet 00:00: [place] [address] Medical Branch furosemide 2020-03 Yes 20mg Take 20 mg U nivers 20 mg 0-22 by mouth. ity of tablet 00:00: [address] Branch carvedilol 1-0 No 1mg 3.125 mg 9-21 tablet 00:00: 00 lisinopril 2021-0 No 2mg 20 9-21 mg-hydrochl 00:00: orothiazide 00 12.5 mg tablet gabapentin 1-0 No 1mg 400 mg 9-21 capsule 00:00: 00 carvedilol 1-0 No 1mg 3.125 mg 6-25 tablet 00:00: 00 lisinopril 1-0 No 2mg 20 6-25 mg-hydrochl 00:00: orothiazide 00 12.5 mg tablet gabapentin 2020-0 No 1mg 400 mg 6-25 capsule 00:00: 00 Novolin R 2021-0 No 1unit/m Regular 6-25 L U-100 00:00: Insulin 100 00 unit/mL injection solution carvedilol 1-0 No 1mg 3.125 mg 3-19 tablet 00:00: 00 lisinopril 1-0 No 2mg 20 3-19 mg-hydrochl 00:00: orothiazide 00 12.5 mg tablet gabapentin 2020-0 No 1mg 400 mg 3-19 capsule 00:00: 00 Santyl 250 2019-1 No 1unit/g unit/gram 2-11 jerel topical 00:00: ointment 00 carvedilol 2019-1 No 1mg 3.125 mg 2-11 tablet 00:00: 00 lisinopril 2019-1 No 2mg 20 2-11 mg-hydrochl 00:00: orothiazide 00 12.5 mg tablet gabapentin 2019-1 No 1mg 300 mg 2-11 capsule 00:00: 00 Santyl 250 2019-1 No 1unit/g unit/gram 0-19 jerel topical 00:00: ointment 00 Santyl 250 2020-1 No 1unit/g unit/gram 0-19 jerel topical 00:00: ointment 00 Santyl 250 2020-1 No 1unit/g unit/gram 0-19 jerel topical 00:00: ointment 00 carvedilol 2020-1 No 1mg 3.125 mg 0-19 tablet 00:00: 00 carvedilol 2020-1 No 1mg 3.125 mg 0-19 tablet 00:00: 00 carvedilol 2020-1 No 1mg 3.125 mg 0-19 tablet 00:00: 00 lisinopril 2020-1 No 2mg 20 0-19 mg-hydrochl 00:00: orothiazide 00 12.5 mg tablet lisinopril 2020-1 No 2mg 20 0-19 mg-hydrochl 00:00: orothiazide 00 12.5 mg tablet gabapentin 2020-1 No 1mg 300 mg 0-19 capsule 00:00: 00 gabapentin 2020-1 No 1mg 300 mg 0-19 capsule 00:00: 00 gabapentin 2020-1 No 1mg 300 mg 0-19 capsule 00:00: 00 lisinopril 2020-1 No 2mg 20 0-16 mg-hydrochl 00:00: orothiazide 00 12.5 mg tablet gabapentin 2020-1 No 1mg 300 mg 0-16 capsule 00:00: 00 Santyl 250 2020-0 No 1unit/g unit/gram 8-18 jerel topical 00:00: ointment 00 carvedilol 2020-0 No 1mg 3.125 mg 8-18 tablet 00:00: 00 lisinopril 2020-0 No 2mg 20 8-18 mg-hydrochl 00:00: orothiazide 00 12.5 mg tablet gabapentin 2020-0 No 1mg 300 mg 8-18 capsule 00:00: 00 clindamycin 2020-0 No 1mg HCl 300 mg 8-18 capsule 00:00: 00 carvedilol 2020-0 No 1mg 3.125 mg 7-14 tablet 00:00: 00 lisinopril 2020-0 No 2mg 20 7-14 mg-hydrochl 00:00: orothiazide 00 12.5 mg tablet gabapentin 2020-0 No 1mg 300 mg 7-14 capsule 00:00: 00 gabapentin 2020-0 No 1mg 300 mg 5-05 capsule 00:00: 00 Novolin N 2020-0 No unit/mL NPH U-100 3-26 Insulin 00:00: isophane 00 100 unit/mL subcutaneou s susp Novolin N 2020-0 No unit/mL NPH U-100 3-26 Insulin 00:00: isophane 00 100 unit/mL subcutaneou s susp Novolin R 2020-0 No 1unit/m Regular 3-26 L U-100 00:00: Insulin 100 00 unit/mL injection solution carvedilol 2020-0 No 1mg 3.125 mg 3-26 tablet 00:00: 00 lisinopril 2020-0 No 2mg 20 3-26 mg-hydrochl 00:00: orothiazide 00 12.5 mg tablet gabapentin 2020-0 No 1mg 300 mg 3-26 capsule 00:00: 00 gabapentin 2020-0 No 1mg 300 mg 3-26 capsule 00:00: 00 carvedilol 2020-0 No 1mg 3.125 mg 1-03 tablet 00:00: 00 lisinopril 2020-0 No 2mg 20 1-03 mg-hydrochl 00:00: orothiazide 00 12.5 mg tablet lisinopril 2019-1 No 1mg 20 2-30 mg-hydrochl 00:00: orothiazide 00 12.5 mg tablet lisinopril 2019-1 No 1mg 20 1-19 mg-hydrochl 00:00: orothiazide 00 12.5 mg tablet lisinopril 2019-0 No 1mg 20 9-12 mg-hydrochl 00:00: orothiazide 00 12.5 mg tablet carvedilol 2019-0 No 1mg 3.125 mg 9-12 tablet 00:00: 00 mupirocin 2 2019-0 No 1% % topical 7-10 ointment 00:00: 00 lisinopril 2019-0 No 1mg 20 7-10 mg-hydrochl 00:00: orothiazide 00 12.5 mg tablet carvedilol 2019-0 No 1mg 3.125 mg 7-10 tablet 00:00: 00 ciprofloxac 2019-0 No 1mg in 500 mg 7-10 tablet 00:00: 00 Novolin N 2019-0 No unit/mL NPH U-100 2-18 Insulin 00:00: isophane 00 100 unit/mL subcutaneou s susp mupirocin 2 2019-0 No 1% % topical 2-18 ointment 00:00: 00 lisinopril 2019-0 No 1mg 20 2-18 mg-hydrochl 00:00: orothiazide 00 12.5 mg tablet carvedilol 2019-0 No 1mg 3.125 mg 2-18 tablet 00:00: 00 Bactrim DS 2019-0 No 1mg 800 mg-160 2-18 mg tablet 00:00: 00 lisinopril 2018-0 No 1mg 20 9-27 mg-hydrochl 00:00: orothiazide 00 12.5 mg tablet carvedilol 2018-0 No 1mg 3.125 mg 9-27 tablet 00:00: 00 Levemir 2018-0 No 5unit/m U-100 7-12 L Insulin 100 00:00: unit/mL 00 subcutaneou s solution Novolin R 2018-0 No 1unit/m Regular 7-12 L U-100 00:00: Insulin 100 00 unit/mL injection solution Novolin R 2018-0 No 1unit/m Regular 7-12 L U-100 00:00: Insulin 100 00 unit/mL injection solution lisinopril 2018-0 No 1mg 20 7-12 mg-hydrochl 00:00: orothiazide 00 12.5 mg tablet carvedilol 2018-0 No 1mg 3.125 mg 7-12 tablet 00:00: 00 lisinopril 2018-0 No 1mg 20 6-18 mg-hydrochl 00:00: orothiazide 00 12.5 mg tablet carvedilol 2018-0 No 1mg 3.125 mg 6-18 tablet 00:00: 00 nitroglycer 2018-0 No 1% in 2 % 4-04 transdermal 00:00: ointment 00 mupirocin 2 2018-0 No 1% % topical 4-04 ointment 00:00: 00 Bactrim DS 2018-0 No 1mg 800 mg-160 4-04 mg tablet 00:00: 00 gabapentin 2018-0 No 1mg 300 mg 4-04 capsule 00:00: 00 Novolin R 2018-0 No 1unit/m Regular 2-19 L U-100 00:00: Insulin 100 00 unit/mL injection solution lisinopril 2018-0 No 2mg 20 2-19 mg-hydrochl 00:00: orothiazide 00 12.5 mg tablet carvedilol 2018-0 No 1mg 3.125 mg 2-19 tablet 00:00: 00 lisinopril 2017-1 No 2mg 20 0-20 mg-hydrochl 00:00: orothiazide 00 12.5 mg tablet carvedilol 2017-1 No 1mg 3.125 mg 0-20 tablet 00:00: 00 lovastatin 2017-1 No 1mg 10 mg 0-20 tablet 00:00: 00 lisinopril 2017-0 No 2mg 20 9-19 mg-hydrochl 00:00: orothiazide 00 12.5 mg tablet carvedilol 2017-0 No 1mg 3.125 mg 9-19 tablet 00:00: 00 lisinopril 2017-0 No 2mg 20 6-03 mg-hydrochl 00:00: orothiazide 00 12.5 mg tablet carvedilol 2017-0 No 1mg 3.125 mg 6-03 tablet 00:00: 00 Bactrim DS 2017-0 No 1mg 800 mg-160 6-03 mg tablet 00:00: 00 lisinopril 2017-0 No 2mg 20 5-18 mg-hydrochl 00:00: orothiazide 00 12.5 mg tablet carvedilol 2017-0 No 1mg 3.125 mg 5-18 tablet 00:00: 00 Bactrim DS 2017-0 No 1mg 800 mg-160 1-19 mg tablet 00:00: 00 clindamycin 2017-0 No 1mg 300 mg 1-19 capsule 00:00: 00 Bactrim DS 2015-1 No 1mg 800 mg-160 2-15 mg tablet 00:00: 00 clindamycin 2016-1 No 1mg 300 mg 2-15 capsule 00:00: 00 lisinopril 2015-1 No 2mg 20 1-05 mg-hydrochl 00:00: orothiazide 00 12.5 mg tablet carvedilol 2016-1 No 1mg 3.125 mg 1-05 tablet 00:00: 00 Cleocin 300 2016-1 No 1mg mg capsule 1-05 00:00: 00 lisinopril 2015-0 No 2mg 20 4-29 mg-hydrochl 00:00: orothiazide 00 12.5 mg tablet lisinopril 2014-0 No 2mg 20 9-25 mg-hydrochl 00:00: orothiazide 00 12.5 mg tablet carvedilol 2015-0 No 1mg 3.125 mg 9-25 tablet 00:00: 00 Novolin N 2014-0 No 30unit/ NPH U-100 7-13 mL Insulin 00:00: isophane 00 100 unit/mL subcutaneou s susp Lantus 100 2014-0 No unit/mL unit/mL 7-13 subcutaneou 00:00: s solution 00 lisinopril 2014-0 No 2mg 20 7-03 mg-hydrochl 00:00: orothiazide 00 12.5 mg tablet carvedilol 2015-0 No 1mg 3.125 mg 7-03 tablet 00:00: 00 lisinopril 2015-0 No 2mg 20 3-13 mg-hydrochl 00:00: orothiazide 00 12.5 mg tablet carvedilol 2015-0 No 1mg 3.125 mg 3-13 tablet 00:00: 00 clindamycin 2015-0 No 2mg 150 mg 3-13 capsule 00:00: 00 Vital Signs Vital Name Observation Time Observation Value Comments Source Systolic blood 2021-11-23 20:50:00 139 mm[Hg] [facility] Diastolic blood 2021-11-23 20:50:00 90 mm[Hg] Unive [facility] Heart rate 2021-11-23 20:50:00 86 /[facility] Body weight 2021-11-23 20:50:00 90.538 kg [facility] BMI 2021-11-23 20:50:00 27.07 kg/m2 [facility] Oxygen saturation in 2021-11-23 20:50:00 86 /min University of Arterial blood by [facility] Pulse oximetry Branch Systolic blood 2021-08-10 19:51:00 135 mm[Hg] [facility]iver [facility] Diastolic blood 2021-08-10 19:51:00 84 mm[Hg] [facility]ive [facility] Heart rate 2021-08-10 19:51:00 83 /min Universi ty [facility] Body weight 2021-08-10 19:51:00 96.208 kg [facility] BMI 2021-08-10 19:51:00 28.77 kg/m2 [facility] Oxygen saturation in 2021-08-10 19:51:00 89 /min University of Arterial blood by [facility] Pulse oximetry Branch BP Systolic 2021-11-15 16:19:00 120 mm[Hg] BP Diastolic 2021-11-15 16:19:00 79 mm[Hg] Weight Measured 2021-11-15 16:19:00 197.20 pounds Height Measured 2021-11-15 16:19:00 70.00 inches Body Temperature 2021-11-15 16:19:00 98.30 degrees Heart Rate 2021-11-15 16:19:00 89.00 /min Respiratory Rate 2021-11-15 16:19:00 18.00 /min BP Systolic 2021-08-11 14:50:00 146 mm[Hg] BP Diastolic 2021-08-11 14:50:00 80 mm[Hg] Weight Measured 2021-08-11 14:50:00 211.60 pounds Height Measured 2021-08-11 14:50:00 70.00 inches Body Temperature 2021-08-11 14:50:00 98.20 degrees Heart Rate 2021-08-11 14:50:00 90.00 /min Respiratory Rate 2021-08-11 14:50:00 BP Systolic 2021-03-22 13:59:00 163 mm[Hg] BP Diastolic 2021-03-22 13:59:00 104 mm[Hg] Weight Measured 2021-03-22 13:59:00 219.00 pounds Height Measured 2021-03-22 13:59:00 70.00 inches Body Temperature 2021-03-22 13:59:00 98.30 degrees Heart Rate 2021-03-22 13:59:00 89.00 /min Respiratory Rate 2021-03-22 13:59:00 BP Systolic 2021-03-22 13:46:00 163 mm[Hg] BP Diastolic 2021-03-22 13:46:00 104 mm[Hg] Weight Measured 2021-03-22 13:46:00 219.00 pounds Height Measured 2021-03-22 13:46:00 70.00 inches Body Temperature 2021-03-22 13:46:00 98.30 degrees Heart Rate 2021-03-22 13:46:00 89.00 /min Respiratory Rate 2021-03-22 13:46:00 BP Systolic 2020-11-21 09:47:00 132 mm[Hg] BP Diastolic 2020-11-21 09:47:00 80 mm[Hg] Weight Measured 2020-11-21 09:47:00 204.20 pounds Height Measured 2020-11-21 09:47:00 70.00 inches Body Temperature 2020-11-21 09:47:00 98.30 degrees Heart Rate 2020-11-21 09:47:00 85.00 /min Respiratory Rate 2020-11-21 09:47:00 17.00 /min BP Systolic 2020-10-12 14:29:00 104 mm[Hg] BP Diastolic 2020-10-12 14:29:00 68 mm[Hg] Weight Measured 2020-10-12 14:29:00 213.80 pounds Height Measured 2020-10-12 14:29:00 70.00 inches Body Temperature 2020-10-12 14:29:00 98.10 degrees Heart Rate 2020-10-12 14:29:00 96.00 /min Respiratory Rate 2020-10-12 14:29:00 16.00 /min BP Systolic 2020-08-25 15:11:00 154 mm[Hg] BP Diastolic 2020-08-25 15:11:00 64 mm[Hg] Weight Measured 2020-08-25 15:11:00 207.00 pounds Height Measured 2020-08-25 15:11:00 70.00 inches Body Temperature 2020-08-25 15:11:00 99.00 degrees Heart Rate 2020-08-25 15:11:00 94.00 /min Respiratory Rate 2020-08-25 15:11:00 21.00 /min BP Systolic 2020-05-19 13:18:00 121 mm[Hg] BP Diastolic 2020-05-19 13:18:00 77 mm[Hg] Weight Measured 2020-05-19 13:18:00 203.20 pounds Height Measured 2020-05-19 13:18:00 70.00 inches Body Temperature 2020-05-19 13:18:00 98.90 degrees Heart Rate 2020-05-19 13:18:00 95.00 /min Respiratory Rate 2020-05-19 13:18:00 18.00 /min BP Systolic 2019-12-20 16:12:00 148 mm[Hg] BP Diastolic 2019-12-20 16:12:00 83 mm[Hg] Weight Measured 2019-12-20 16:12:00 210.40 pounds Height Measured 2019-12-20 16:12:00 70.00 inches Body Temperature 2019-12-20 16:12:00 98.40 degrees Heart Rate 2019-12-20 16:12:00 103.00 /min Respiratory Rate 2019-12-20 16:12:00 17.00 /min BP Systolic 2019-10-19 16:02:00 126 mm[Hg] BP Diastolic 2019-10-19 16:02:00 71 mm[Hg] Weight Measured 2019-10-19 16:02:00 215.20 pounds Height Measured 2019-10-19 16:02:00 70.00 inches Body Temperature 2019-10-19 16:02:00 98.40 degrees Heart Rate 2019-10-19 16:02:00 96.00 /min Respiratory Rate 2019-10-19 16:02:00 17.00 /min Procedures Procedure Date / Time Performed Performing [facility] 2021-11-23 21:03:00 [facility] 2021-08-10 20:00:00 Malissa Mccall of [facility] Plan of Care Planned Activity Planned Date Details Comments Source Goal Plan of Care Note [code = 36028-5] Goal Plan of Care Note [code = 99627-8] Goal Plan of Care Note [code = 80551-2] Goal Plan of Care Note [code = 17698-3] Goal Plan of Care Note [code = 06773-4] Goal Plan of Care Note [code = 71304-1] Goal Plan of Care Note [code = 21338-7] Goal Plan of Care Note [code = 54840-4] Goal Plan of Care Note [code = 90460-2] Goal Plan of Care Note [code = 70989-5] Goal Plan of Care Note [code = 94203-4] Goal Plan of Care Note [code = 34415-8] Goal Plan of Care Note [code = 99910-2] Goal Plan of Care Note [code = 10819-1] Goal Plan of Care Note [code = 16735-2] Goal Plan of Care Note [code = 08320-7] Goal Plan of Care Note [code = 21200-2] Goal Plan of Care Note [code = 16457-8] Goal Plan of Care Note [code = 20471-2] Goal Plan of Care Note [code = 03487-5] Goal Plan of Care Note [code = 82201-1] Goal Plan of Care Note [code = 08451-6] Goal Plan of Care Note [code = 97605-1] Goal Plan of Care Note [code = 85928-6] Goal Plan of Care Note [code = 91076-0] Goal Plan of Care Note [code = 79049-8] Encounters Start End Encounter Admission Attending Care Care Encounter Source Date/Time Date/Time Type Type Clinicians Facility Department ID 2022-02-22 2022-02-22 Outpatient [facility] [id number] Univers 16:00:00 16:00:00 [facility] 2022-01-29 2022-01-29 [email or web address] [id number] Univers 00:00:00 00:00:00 Enio [employer] [id number] it y of [place] [id number] Shakeel as KATHRYN?BLEA [id number] [address] MEDICAL OFFICE [facility] 2021-11-23 2021-11-23 Outpatient [facility] [id number] Univers 16:30:00 17:05:36 [facility] 2021-11-23 2021-11-23 [email or web address] [id number] Univers 16:30:00 17:05:36 Visit [facility] [employer] [id number] it y of [place] 4.2.7.2.686 Shakeel as KATHRYN?BLEA [phone] [address] MEDICAL OFFICE BUILDING 2021-11-23 2021-11-23 Outpatient R [facility] [id number] Univers 16:30:00 16:30:00 [facility] 2021-11-15 2021-11-15 Outpatient [id number] [id number] 00:00:00 00:00:00 Visit [id number] 2021-08-13 2021-08-13 Telephone [facility] [id number] Univers 00:00:00 00:00:00 Malissa [employer] 350.1.13.10 it y of [place] 4.2.7.2.686 Shakeel as KATHRYN?BLEA [phone] [address] OFFICE [facility] 2021-08-10 2021-08-10 Outpatient R [facility] [id number] Univers 15:00[facility]00 [facility]35:[facility]10 2021-08-10 Office [facility] [id number] Univers 15:00:00 15:35:28 [facility]1.13.10 [facility] y of [place] [id number] Shakeel as KATHRYN?BLEA [phone] [address] OFFICE [facility] 2021-06-22 2021-06-22 [facility] [id number] Univers 14:30:00 14:30:00 [facility] 2021-04-20 2021-04-20 Office [facility] [id number] Univers 12:00:00 13:26:44 Visit Enio [employer] 350.1.13.10 it y of [place] [id number] Shakeel as KATHRYN?BLEA [phone] [address] OFFICE [facility] 2021-04-20 2021-04-20 Outpatient R [facility] [id number] Univers 12:00:00 13:26:44 ENIO [facility] 2021-04-20 2021-04-20 Outpatient R [facility] [id number] Univers 12:00:00 12:00:00 ENIO susie [facility] Results Test Description Test Time Test Comments Results Result Comments Source POCT HEMOGLOBIN A1C TEST 2021-11-23 21:04:00 Test Item Value Reference Range Interpretation Comme nts POCT HBA1C (test code = 4548-4) 12.0 % 4-6 A Lab Interpretation (test code = 16337-3) Abnormal [facility] [id number] 21:04:00 Test Item Value Reference Range Interpretation Comments POCT HBA1C (test code = 4548-4) 12.0 % 4-6 A Lab Interpretation (test code = Abnormal 28902-3) [facility] [id number] 06:53:02 Test Item Value Reference Range Interpretation Comments HEMOGLOBIN A1c (test 13.6 % 4.2-5.6 H AMERIC AN DIABETES code = 49867) ASSOCIATION IDELINES FOR HGB A1C: PREDIABETES/INC REASED RISK . . . . . . . 5 .7-6.4% DIAGNOSIS OF DI ABETES . . . . . . . . . >=6 .5% WITH CONFIRMATION OR APPROPRIATE SYMPTOMS NOTE: ASSAY MAY BE AFFECTED BY HEMOGLOBINOPATH IES (SICKLE CELL ANEMIA, S- C DISEASE, OTHERS) OR [place] FICIALLY LOWERED BY DECR EASED RED CELL SURVIVAL ( HEMOLYTIC ANEMIAS, BLOOD LOSS, ETC.). CONSIDER ALTERN ATE TESTING OR LABORATORY C ONSULTATION. UNLESS OTHERWIS E INDICATED, ALL TESTING PER [facility] [address] [address] LABORATORY DIRE CTOR: Nisha MCKEE. CLIA NUMBER [id number] CAP ACCREDITATION N O. [id number] BASIC METABOLIC [id number] 04:17:39 Test Item Value Reference Range Interpretation Comments GLUCOSE (test code = 2217) 326 MG/DL 70-99 H BUN (test code = 2208) 38 MG/DL 6-20 H CREATININE (test code = 2214) 1.47 MG/DL 0.80-1.40 H eGFR (2020 CKD-EPI) (test code 64 ML/MIN/1.73 >60 = 51442) SODIUM (test code = 2231) 138 MEQ/L 133-146 POTASSIUM (test code = 2228) 4.7 MEQ/L 3.5-5.4 CHLORIDE (test code = 2215) 105 MEQ/L 95-107 CARBON DIOXIDE (test code = 19 MEQ/L -2205) CALCIUM (test code = 2209) 10.0 MG/DL 8.5-10.5 CBC W/AUTO DIFF WITH [id number] 02:43:45 Test Item Value Reference Range Interpretation Comments WBC (test code = 7.4 K/UL 3.5-11.0 1001) RBC (test code = 4.87 M/UL 4.50-6.10 1002) HEMOGLOBIN (test code 13.7 G/DL 13.5-17.0 = 1003) HEMATOCRIT (test code 43.0 % 40.0-51.0 = 1004) MCV (test code = 88.3 fL 80.0-99.0 1005) MCH (test code = 28.1 PG 25.0-33.0 1006) MCHC (test code = 31.9 G/DL 31.0-36.0 1007) RDW (test code = 15.2 % 11.5-15.0 H 1038) NEUTROPHILS (test 67.0 % code = 1008) LYMPHOCYTES (test 20.2 % code = 1010) MONOCYTES (test code 8.4 % = 1011) EOSINOPHILS (test 2.7 % code = 1012) BASOPHILS (test code 1.2 % = 1013) IMMATURE GRANULOCYTES 0.5 % (test code = 1036) NUCLEATED RBCS (test 0.0 /100 WBC'S See_Comment [Aut omated code = 1065) message] The sy stem which generated this result transmitted reference range : 0.0. The refere nce range was not u sed to interpret th is result as normal/abnormal . PLATELET COUNT (test 304 K/UL 130-400 code = 1015) ABSOLUTE NEUTROPHILS 4.96 K/UL 1.50-7.50 (test code = 1066) ABSOLUTE LYMPHOCYTES 1.50 K/UL 1.00-4.00 (test code = 1067) ABSOLUTE MONOCYTES 0.62 K/UL 0.20-1.00 (test code = 1068) ABSOLUTE EOSINOPHILS 0.20 K/UL 0.00-0.50 (test code = 1040) ABSOLUTE BASOPHILS 0.09 K/UL 0.00-0.20 (test code = 1069) ABS IMMATURE 0.04 K/UL 0.00-0.10 GRANULOCYTES (test code = 1020) ABS NUCLEATED RBCS 0.00 K/UL 0.00-0.11 (test code = 86133) COMPREHENSIVE METABOLIC [id number] 06:40:10 Test Item Value Reference Range Interpretation Comments GLUCOSE (test code = 139 MG/DL 70-99 H 2216) BUN (test code = 32 MG/DL 6-20 H 2207) CREATININE (test 1.37 MG/DL 0.80-1.40 code = 2214) eGFR (2020 CKD-EPI) 69 ML/MIN/1.73 >60 (test code = 29427) CALC BUN/CREAT (test 23 RATIO 6-28 code = 2235) SODIUM (test code = 141 MEQ/L 279-764 0248) POTASSIUM (test code 5.1 MEQ/L 3.5-5.4 = 2227) CHLORIDE (test code 106 MEQ/L 95-107 = 2214) CARBON DIOXIDE (test 19 MEQ/L 19-31 code = 2206) CALCIUM (test code = 9.6 MG/DL 8.5-10.5 2208) PROTEIN, TOTAL (test 7.2 G/DL 6.1-8.3 code = 222) ALBUMIN (test code = 3.6 G/DL 3.5-5.2 2200) CALC GLOBULIN (test 3.6 G/DL 1.9-3.7 code = 2240) CALC A/G RATIO (test 1.0 RATIO 1.0-2.6 code = 2234) BILIRUBIN, TOTAL 0.3 MG/DL See_Comment [Automated message] (test code = 2207) The syste m which generated this result transmit tushar reference range : <=1.2. The refe rence range was not u sed to interpret th is result as normal/abnormal . ALKALINE PHOSPHATASE 175 U/L 40-112 H (test code = 2204) AST (test code = 14 U/L 9-50 2217) ALT (test code = 15 U/L 5-50 2218) LIPID [id number] 06:40:10 Test Item Value Reference Range Interpretation [...] MOREINFORMATION , SEE CLIENT ANNOUNCE MENT AT [email or web address] RISK RATIO LDL/HDL 3.28 RATIO <3.55 (test code = 2238) ALBUMIN/CREATININE RATIO, URINE, [id number] 06:08:56 Test Item Value Reference Range Interpretation Comments CREATININE, URINE, 114.0 MG/DL NOT ESTAB RANDOM (test code = 2072) ALBUMIN, URINE, 10.6 MG/DL NOT ESTAB RANDOM (test code = 08189) CALC ALBUMIN/CREAT, 93 MG/G <30 H Note: RND (test code = Albumin/Cre atinine 97047) ratio reference interval reflec ts ADA and NKF guideli james. HIV 1/2 4TH GEN, RFLX [id number] 06:02:50 Test Item Value Reference Range Interpretation Comments HIV 1/2 4TH GEN, RFLX CONF (test NON-REACTIVE NON-REACTIVE code = 3514) HEMOGLOBIN [id number] 05:58:13 Test Item Value Reference Range Interpretation Comments HEMOGLOBIN A1c (test 12.8 % 4.2-5.6 H AMERIC AN DIABETES code = 15017) ASSOCIATION IDELINES FOR HGB A1C: PREDIABETES/INC REASED RISK . . . . . . . 5 .7-6.4% DIAGNOSIS OF DI ABETES . . . . . . . . . >=6 .5% WITH CONFIRMATION OR APPROPRIATE SYMPTOMS NOTE: ASSAY MAY BE AFFECTED BY HEMOGLOBINOPATH IES (SICKLE CELL ANEMIA, S- C DISEASE, OTHERS) OR [place] FICIALLY LOWERED BY DECR EASED RED CELL SURVIVAL ( HEMOLYTIC ANEMIAS, BLOOD LOSS, ETC.). CONSIDER ALTERN ATE TESTING OR LABORATORY C ONSULTATION. CBC W/AUTO DIFF WITH [id number] 05:39:06 Test Item Value Reference Range Interpretation [...] message] code = 1065) WBC'S The system [employer] generated this result transmitted ref erence range: [...] 1020) ABS NUCLEATED RBCS 0.00 K/UL 0.00-0.11 UNLESS O THERWISE (test code = 91982) INDICATE D, ALL TESTING PERFORM ED ATCLINICAL PATH [facility], [place]. [address] [facility] [place] [address] [facility] DIRECTOR: CHRISTOPHE WEN M.D. CLIA NUMBER [id number] CAP ACCREDITATION N O. [id number] MICROALBUMIN/CREATININE, RANDOM AND [id number] 00:00:00 Test Item Value Reference Range Interpretation Comments CREATININE, URINE, RANDOM (test 114.0 MG/DL code = 2072) ALBUMIN, URINE, RANDOM (test code 10.6 MG/DL = 25439) CALC ALBUMIN/CREAT, RND (test 93 MG/G code = 21604) MICROALBUMIN/CREATININE, RANDOM AND [id number] 00:00:00 Test Item Value Reference Range Interpretation Comments CREATININE, URINE, RANDOM (test 114.0 MG/DL code = 2072) ALBUMIN, URINE, RANDOM (test code 10.6 MG/DL = 13631) CALC ALBUMIN/CREAT, RND (test 93 MG/G code = 74451) HIV AB/AG COMBO RFLX [id number] 00:00:00 Test Item Value Reference Range Interpretation Comments HIV 1/2 4TH GEN, RFLX CONF (test NON-REACTIVE code = 3514) HIV AB/AG COMBO RFLX [id number] 00:00:00 Test Item Value Reference Range Interpretation Comments HIV 1/2 4TH GEN, RFLX CONF (test NON-REACTIVE code = 3514) COMPREHENSIVE METABOLIC [id number] 00:00:00 Test Item Value Reference Range Interpretation Comments GLUCOSE (test code = 2217) 139 MG/DL BUN (test code = 2208) 32 MG/DL CREATININE (test code = 2214) 1.37 MG/DL eGFR (2020 CKD-EPI) (test code 69 ML/MIN/1.73 = 09956) CALC BUN/CREAT (test code = 23 RATIO 2235) SODIUM (test code = 2231) 141 MEQ/L POTASSIUM (test code = 2228) 5.1 MEQ/L CHLORIDE (test code = 2215) 106 MEQ/L CARBON DIOXIDE (test code = 19 MEQ/L 2205) CALCIUM (test code = 2209) 9.6 MG/DL PROTEIN, TOTAL (test code = 7.2 G/DL 2228) ALBUMIN (test code = 2201) 3.6 G/DL CALC GLOBULIN (test code = 3.6 G/DL 2239) CALC A/G RATIO (test code = 1.0 RATIO 2234) BILIRUBIN, TOTAL (test code = 0.3 MG/DL 2206) ALKALINE PHOSPHATASE (test 175 U/L code = 2204) AST (test code = 2218) 14 U/L ALT (test code = 2219) 15 U/L COMPREHENSIVE METABOLIC [id number] 00:00:00 Test Item Value Reference Range Interpretation Comments GLUCOSE (test code = 2217) 139 MG/DL BUN (test code = 2208) 32 MG/DL CREATININE (test code = 2214) 1.37 MG/DL eGFR (2020 CKD-EPI) (test code 69 ML/MIN/1.73 = 63395) CALC BUN/CREAT (test code = 23 RATIO 2235) SODIUM (test code = 2231) 141 MEQ/L POTASSIUM (test code = 2228) 5.1 MEQ/L CHLORIDE (test code = 2215) 106 MEQ/L CARBON DIOXIDE (test code = 19 MEQ/L 2205) CALCIUM (test code = 2209) 9.6 MG/DL PROTEIN, TOTAL (test code = 7.2 G/DL 2228) ALBUMIN (test code = 2201) 3.6 G/DL CALC GLOBULIN (test code = 3.6 G/DL 2239) CALC A/G RATIO (test code = 1.0 RATIO 2233) BILIRUBIN, TOTAL (test code = 0.3 MG/DL 2206) ALKALINE PHOSPHATASE (test 175 U/L code = 2204) AST (test code = 2218) 14 U/L ALT (test code = 2219) 15 U/L HEMOGLOBIN [id number] 00:00:00 Test Item Value Reference Range Interpretation Comments HEMOGLOBIN A1c (test code = 17454) 12.8 % HEMOGLOBIN [id number] 00:00:00 Test Item Value Reference Range Interpretation Comments HEMOGLOBIN A1c (test code = 55755) 12.8 % HEMOGLOBIN [id number] 00:00:00 Test Item Value Reference Range Interpretation Comments HEMOGLOBIN A1c (test code = 54430) 12.8 % LIPID [id number] 00:00:00 Test Item Value Reference Range Interpretation Comments CHOLESTEROL (test code = 2210) 144 MG/DL TRIGLYCERIDES (test code = 2232) 108 MG/DL HDL CHOLESTEROL (test code = 2220) 29 MG/DL CALC LDL CHOL (test code = 2237) 95 MG/DL RISK RATIO LDL/HDL (test code = 3.28 RATIO 8) LIPID [id number] 00:00:00 Test Item Value Reference Range Interpretation Comments CHOLESTEROL (test code = 2210) 144 MG/DL TRIGLYCERIDES (test code = 2232) 108 MG/DL HDL CHOLESTEROL (test code = 2220) 29 MG/DL CALC LDL CHOL (test code = 2237) 95 MG/DL RISK RATIO LDL/HDL (test code = 3.28 RATIO 2238) CBC W/AUTO DIFF WITH PLATELETS [ADDED]2021-08-14 00:00:00 Test Item Value Reference Range Interpretation Comments WBC (test code = 1001) 12.3 K/UL RBC (test code = 1002) 4.70 M/UL HEMOGLOBIN (test code = 1003) 11.5 G/DL HEMATOCRIT (test code = 1004) 37.6 % MCV (test code = 1005) 80.0 fL MCH (test code = 1006) 24.5 PG MCHC (test code = 1007) 30.6 G/DL RDW (test code = 1038) 15.6 % NEUTROPHILS (test code = 1008) 75.6 % LYMPHOCYTES (test code = 1010) 10.8 % MONOCYTES (test code = 1011) 9.5 % EOSINOPHILS (test code = 1012) 2.4 % BASOPHILS (test code = 1013) 1.1 % IMMATURE GRANULOCYTES (test 0.6 % code = 1036) NUCLEATED RBCS (test code = 0.0 /100WBC'S 1065) PLATELET COUNT (test code = 445 K/UL 1015) ABSOLUTE NEUTROPHILS (test code 9.30 K/UL = 1066) ABSOLUTE LYMPHOCYTES (test code 1.33 K/UL = 1067) ABSOLUTE MONOCYTES (test code = 1.17 K/UL 1068) ABSOLUTE EOSINOPHILS (test code 0.29 K/UL = 1040) ABSOLUTE BASOPHILS (test code = 0.14 K/UL 1069) ABS IMMATURE GRANULOCYTES (test 0.08 K/UL code = 1020) ABS NUCLEATED RBCS (test code = 0.00 K/UL 57863) CBC W/AUTO DIFF WITH PLATELETS [ADDED]2021-08-14 00:00:00 Test Item Value Reference Range Interpretation Comments WBC (test code = 1001) 12.3 K/UL RBC (test code = 1002) 4.70 M/UL HEMOGLOBIN (test code = 1003) 11.5 G/DL HEMATOCRIT (test code = 1004) 37.6 % MCV (test code = 1005) 80.0 fL MCH (test code = 1006) 24.5 PG MCHC (test code = 1007) 30.6 G/DL RDW (test code = 1038) 15.6 % NEUTROPHILS (test code = 1008) 75.6 % LYMPHOCYTES (test code = 1010) 10.8 % MONOCYTES (test code = 1011) 9.5 % EOSINOPHILS (test code = 1012) 2.4 % BASOPHILS (test code = 1013) 1.1 % IMMATURE GRANULOCYTES (test 0.6 % code = 1036) NUCLEATED RBCS (test code = 0.0 /100WBC'S 1065) PLATELET COUNT (test code = 445 K/UL 1015) ABSOLUTE NEUTROPHILS (test code 9.30 K/UL = 1066) ABSOLUTE LYMPHOCYTES (test code 1.33 K/UL = 1067) ABSOLUTE MONOCYTES (test code = 1.17 K/UL 1068) ABSOLUTE EOSINOPHILS (test code 0.29 K/UL = 1040) ABSOLUTE BASOPHILS (test code = 0.14 K/UL 1069) ABS IMMATURE GRANULOCYTES (test 0.08 K/UL code = 1020) ABS NUCLEATED RBCS (test code = 0.00 K/UL 45587) CBC W/AUTO DIFF WITH PLATELETS [ADDED]2021-08-14 00:00:00 Test Item Value Reference Range Interpretation Comments WBC (test code = 1001) 12.3 K/UL RBC (test code = 1002) 4.70 M/UL HEMOGLOBIN (test code = 1003) 11.5 G/DL HEMATOCRIT (test code = 1004) 37.6 % MCV (test code = 1005) 80.0 fL MCH (test code = 1006) 24.5 PG MCHC (test code = 1007) 30.6 G/DL RDW (test code = 1038) 15.6 % NEUTROPHILS (test code = 1008) 75.6 % LYMPHOCYTES (test code = 1010) 10.8 % MONOCYTES (test code = 1011) 9.5 % EOSINOPHILS (test code = 1012) 2.4 % BASOPHILS (test code = 1013) 1.1 % IMMATURE GRANULOCYTES (test 0.6 % code = 1036) NUCLEATED RBCS (test code = 0.0 /100WBC'S 1065) PLATELET COUNT (test code = 445 K/UL 1015) ABSOLUTE NEUTROPHILS (test code 9.30 K/UL = 1066) ABSOLUTE LYMPHOCYTES (test code 1.33 K/UL = 1067) ABSOLUTE MONOCYTES (test code = 1.17 K/UL 1068) ABSOLUTE EOSINOPHILS (test code 0.29 K/UL = 1040) ABSOLUTE BASOPHILS (test code = 0.14 K/UL 1069) ABS IMMATURE GRANULOCYTES (test 0.08 K/UL code = 1020) ABS NUCLEATED RBCS (test code = 0.00 K/UL 23504) POCT HEMOGLOBIN A1C [id number] 20:02:00 Test Item Value Reference Range Interpretation Comments POCT HBA1C (test code = 4548-4) 11.3 % 4-6 A Lab Interpretation (test code = Abnormal 92173-5) [facility] [id number] 20:02:00 Test Item Value Reference Range Interpretation Comments POCT HBA1C (test code = 4548-4) 11.3 % 4-6 A Lab Interpretation (test code = Abnormal 17216-0) [id number] 04:50:48 Test Item Value Reference Range Interpretation Comments MAGNESIUM (test code = 2226) 1.8 MG/DL 1.6-2.6 [id number] 04:50:48 Test Item Value Reference Range Interpretation Comments PHOSPHORUS (test code = 2227) 3.5 MG/DL 2.5-4.5 URIC [id number] 04:30:14 Test Item Value Reference Range Interpretation Comments URIC ACID (test code = 2233) 8.1 MG/DL 3.7-8.0 H [id number] 04:30:14 Test Item Value Reference Range Interpretation Comments ALBUMIN (test code = 2201) 3.7 G/DL 3.5-5.2 [id number] 04:30:14 Test Item Value Reference Range Interpretation Comments CALCIUM (test code 9.6 MG/DL 8.5-10.5 UNLESS O THERWISE = 2209) INDICATED, ALL TESTING PERFORMED ATCLI NICAL PATHOLOGY LABOR [employer] [address] [place] [address] 2398 4 LABORATORY DIRE CTOR: Nisha MCKEE. CLIA NUMBER [id number] CAP ACCREDITATION N O. [id number] URINALYSIS W/REFLEX [id number] 04:07:56 Test Item Value Reference Range Interpretation [...] ed message] code = 1510) The system [employer] generated this result transmitted ref erence range: <=2.0. T he reference range was not used to int erpret this result as normal/abnormal . BILIRUBIN (test code = NEGATIVE NEGATIVE 1511) OCCULT BLOOD (test 1+ NEGATIVE A code = 1512) WHITE BLOOD CELLS 0-5 /HPF 0-5 (test code = 1513) RED BLOOD CELLS (test 30-50 /HPF 0-5 A code = 1514) EPITHELIAL CELLS (test 0-5 /HPF 0-5 code = 32216) BACTERIA (test code = NONE SEEN NONE SEEN 1515) CASTS, HYALINE (test TRACE NONE-TRACE code = 1517) CBC W/AUTO DIFF WITH [id number] 04:01:55 Test Item Value Reference Range Interpretation [...] = 1036) NUCLEATED RBCS (test 0.0 /100 WBC'S See_Comment [Aut omated code = 1065) message] The sy stem which generated this [...] RBCS 0.00 K/UL 0.00-0.11 (test code = 63740) CBC W/AUTO [id number] 00:00:00 Test Item Value Reference Range Interpretation Comments WBC (test code = 1001) 11.0 K/UL RBC (test code = 1002) 5.06 M/UL HEMOGLOBIN (test code = 1003) 12.7 G/DL HEMATOCRIT (test code = 1004) 42.6 % MCV (test code = 1005) 84.2 fL MCH (test code = 1006) 25.1 PG MCHC (test code = 1007) 29.8 G/DL RDW (test code = 1038) 13.2 % NEUTROPHILS (test code = 1008) 75.9 % LYMPHOCYTES (test code = 1010) 12.1 % MONOCYTES (test code = 1011) 8.0 % EOSINOPHILS (test code = 1012) 2.3 % BASOPHILS (test code = 1013) 1.2 % IMMATURE GRANYLOCYTES (test 0.5 % code = 1036) NUCLEATED RBCS (test code = 0.0 /100WBC'S 1065) PLATELET COUNT (test code = 319 K/UL 1015) ABSOLUTE NEUTROPHILS (test code 8.33 K/UL = 1066) ABSOLUTE LYMPHOCYTES (test code 1.33 K/UL = 1067) ABSOLUTE MONOCYTES (test code = 0.88 K/UL 1068) ABSOLUTE EOSINOPHILS (test code 0.25 K/UL = 1040) ABSOLUTE BASOPHILS (test code = 0.13 K/UL 1069) ABS IMMATURE GRANULOCYTES (test 0.05 K/UL code = 1020) ABS NUCLEATED RBCS (test code = 0.00 K/UL 24470) CBC W/AUTO [id number] 00:00:00 Test Item Value Reference Range Interpretation Comments WBC (test code = 1001) 11.0 K/UL RBC (test code = 1002) 5.06 M/UL HEMOGLOBIN (test code = 1003) 12.7 G/DL HEMATOCRIT (test code = 1004) 42.6 % MCV (test code = 1005) 84.2 fL MCH (test code = 1006) 25.1 PG MCHC (test code = 1007) 29.8 G/DL RDW (test code = 1038) 13.2 % NEUTROPHILS (test code = 1008) 75.9 % LYMPHOCYTES (test code = 1010) 12.1 % MONOCYTES (test code = 1011) 8.0 % EOSINOPHILS (test code = 1012) 2.3 % BASOPHILS (test code = 1013) 1.2 % IMMATURE GRANYLOCYTES (test 0.5 % code = 1036) NUCLEATED RBCS (test code = 0.0 /100WBC'S 1065) PLATELET COUNT (test code = 319 K/UL 1015) ABSOLUTE NEUTROPHILS (test code 8.33 K/UL = 1066) ABSOLUTE LYMPHOCYTES (test code 1.33 K/UL = 1067) ABSOLUTE MONOCYTES (test code = 0.88 K/UL 1068) ABSOLUTE EOSINOPHILS (test code 0.25 K/UL = 1040) ABSOLUTE BASOPHILS (test code = 0.13 K/UL 1069) ABS IMMATURE GRANULOCYTES (test 0.05 K/UL code = 1020) ABS NUCLEATED RBCS (test code = 0.00 K/UL 11637) CBC W/AUTO [id number] 00:00:00 Test Item Value Reference Range Interpretation Comments WBC (test code = 1001) 11.0 K/UL RBC (test code = 1002) 5.06 M/UL HEMOGLOBIN (test code = 1003) 12.7 G/DL HEMATOCRIT (test code = 1004) 42.6 % MCV (test code = 1005) 84.2 fL MCH (test code = 1006) 25.1 PG MCHC (test code = 1007) 29.8 G/DL RDW (test code = 1038) 13.2 % NEUTROPHILS (test code = 1008) 75.9 % LYMPHOCYTES (test code = 1010) 12.1 % MONOCYTES (test code = 1011) 8.0 % EOSINOPHILS (test code = 1012) 2.3 % BASOPHILS (test code = 1013) 1.2 % IMMATURE GRANYLOCYTES (test 0.5 % code = 1036) NUCLEATED RBCS (test code = 0.0 /100WBC'S 1065) PLATELET COUNT (test code = 319 K/UL 1015) ABSOLUTE NEUTROPHILS (test code 8.33 K/UL = 1066) ABSOLUTE LYMPHOCYTES (test code 1.33 K/UL = 1067) ABSOLUTE MONOCYTES (test code = 0.88 K/UL 1068) ABSOLUTE EOSINOPHILS (test code 0.25 K/UL = 1040) ABSOLUTE BASOPHILS (test code = 0.13 K/UL 1069) ABS IMMATURE GRANULOCYTES (test 0.05 K/UL code = 1020) ABS NUCLEATED RBCS (test code = 0.00 K/UL 90695) [id number] 00:00:00 Test Item Value Reference Range Interpretation Comments MAGNESIUM (test code = 2226) 1.8 MG/DL [id number] 00:00:00 Test Item Value Reference Range Interpretation Comments MAGNESIUM (test code = 2226) 1.8 MG/DL [id number] 00:00:00 Test Item Value Reference Range Interpretation Comments MAGNESIUM (test code = 2226) 1.8 MG/DL URIC [id number] 00:00:00 Test Item Value Reference Range Interpretation Comments URIC ACID (test code = 2233) 8.1 MG/DL URIC [id number] 00:00:00 Test Item Value Reference Range Interpretation Comments URIC ACID (test code = 2233) 8.1 MG/DL [id number] 00:00:00 Test Item Value Reference Range Interpretation Comments PHOSPHORUS (test code = 2227) 3.5 MG/DL [id number] 00:00:00 Test Item Value Reference Range Interpretation Comments PHOSPHORUS (test code = 2227) 3.5 MG/DL [id number] 00:00:00 Test Item Value Reference Range Interpretation Comments ALBUMIN (test code = 2201) 3.7 G/DL [id number] 00:00:00 Test Item Value Reference Range Interpretation Comments ALBUMIN (test code = 2201) 3.7 G/DL URINALYSIS W/REFLEX [id number] 00:00:00 Test Item Value Reference Range Interpretation Comments COLOR (test code = 1501) YELLOW APPEARANCE (test code = 1502) CLEAR SPECIFIC GRAVITY (test code = 1.028 1503) LEUKOCYTE ESTERASE (test code = NEGATIVE 1504) NITRITE (test code = 1505) NEGATIVE pH (test code = 1506) 5.0 PROTEIN (test code = 1507) TRACE GLUCOSE (test code = 1508) 3+ KETONES (test code = 1509) NEGATIVE UROBILINOGEN (test code = 1510) 0.2 MG/DL BILIRUBIN (test code = 1511) NEGATIVE OCCULT BLOOD (test code = 1512) 1+ WHITE BLOOD CELLS (test code = 0-5 /HPF 1513) RED BLOOD CELLS (test code = 1514) 30-50 /HPF EPITHELIAL CELLS (test code = 0-5 /HPF 40446) BACTERIA (test code = 1515) NONE SEEN CASTS, HYALINE (test code = 1517) TRACE URINALYSIS W/REFLEX [id number] 00:00:00 Test Item Value Reference Range Interpretation Comments COLOR (test code = 1501) YELLOW APPEARANCE (test code = 1502) CLEAR SPECIFIC GRAVITY (test code = 1.028 1503) LEUKOCYTE ESTERASE (test code = NEGATIVE 1504) NITRITE (test code = 1505) NEGATIVE pH (test code = 1506) 5.0 PROTEIN (test code = 1507) TRACE GLUCOSE (test code = 1508) 3+ KETONES (test code = 1509) NEGATIVE UROBILINOGEN (test code = 1510) 0.2 MG/DL BILIRUBIN (test code = 1511) NEGATIVE OCCULT BLOOD (test code = 1512) 1+ WHITE BLOOD CELLS (test code = 0-5 /HPF 1513) RED BLOOD CELLS (test code = 1514) 30-50 /HPF EPITHELIAL CELLS (test code = 0-5 /HPF 66730) BACTERIA (test code = 1515) NONE SEEN CASTS, HYALINE (test code = 1517) TRACE CALCIUM [ADDED]2021-03-24 00:00:00 Test Item Value Reference Range Interpretation Comments CALCIUM (test code = 2209) 9.6 MG/DL CALCIUM [ADDED]2021-03-24 00:00:00 Test Item Value Reference Range Interpretation Comments CALCIUM (test code = 2209) 9.6 MG/DL LIPID [id number] 04:51:06 Test Item Value Reference Range Interpretation [...] MOREINFORMATION , SEE CLIENT ANNOUNCE MENT AT [email or web address] [email or web address] RATIO LDL/HDL 2.57 RATIO <3.55 (test code = 2238) COMPREHENSIVE METABOLIC [id number] 04:51:06 Test Item Value Reference Range Interpretation Comments GLUCOSE (test code = 248 MG/DL 70-99 H 2216) BUN (test code = 22 MG/DL 6-20 H 2207) CREATININE (test 1.23 MG/DL 0.80-1.40 code = 2214) eGFR (2020 CKD-EPI) 79 >60 (test code = 24165) ML/MIN/1.73 CALC BUN/CREAT (test 18 RATIO 6-28 code = 2235) SODIUM (test code = 138 MEQ/L 321-232 8134) POTASSIUM (test code 4.7 MEQ/L 3.5-5.4 = 2227) CHLORIDE (test code 102 MEQ/L 95-107 = 2214) CARBON DIOXIDE (test 22 MEQ/L 19-31 code = 2206) CALCIUM (test code = 9.7 MG/DL 8.5-10.5 2208) PROTEIN, TOTAL (test 7.4 G/DL 6.1-8.3 code = 222) ALBUMIN (test code = 3.9 G/DL 3.5-5.2 2200) CALC GLOBULIN (test 3.5 G/DL 1.9-3.7 code = 2240) CALC A/G RATIO (test 1.1 RATIO 1.0-2.6 code = 2234) BILIRUBIN, TOTAL 0.4 MG/DL See_Comment [Automated message] (test code = 2206) The [employer] which generated this result transmitted ref erence range: <=1.2. T he reference range was not used to int erpret this result as normal/abnormal . ALKALINE PHOSPHATASE 174 U/L 40-112 H (test code = 2203) AST (test code = 14 U/L 9-50 2217) ALT (test code = 14 U/L 5-50 UNLESS OTH ERWISE 2218) INDICATED, ALL TESTING PERFORM ED ATCLINICAL PATH [facility], [facility]. [address] [place] [id number] [place] [address] DIRECTOR: CHRISTOPHE WEN M.D. CLIA NUMBER [id number] CAP ACCREDITATION N O. [id number] HEMOGLOBIN [id number] 03:04:48 Test Item Value Reference Range Interpretation Comments HEMOGLOBIN A1c (test 11.9 % 4.2-5.6 H AMERIC AN DIABETES code = 12236) ASSOCIATION [employer] FOR HGB A1C: PREDIABETES/INC REASED RISK . . . . . . . 5 .7-6.4% DIAGNOSIS OF DI ABETES . . . . . . . . . >=6 .5% WITH CONFIRMATION OR APPROPRIATE SYMPTOMS NOTE: ASSAY MAY BE AFFECTED BY HEMOGLOBINOPATH IES (SICKLE CELL ANEMIA, S- C DISEASE, OTHERS) OR [place] FICIALLY LOWERED BY DECR EASED RED CELL SURVIVAL ( HEMOLYTIC ANEMIAS, BLOOD LOSS, ETC.). CONSIDER ALTERN ATE TESTING OR LABORATORY C ONSULTATION. HEMOGLOBIN [id number] 00:00:00 Test Item Value Reference Range Interpretation Comments HEMOGLOBIN A1c (test code = 52265) 11.9 % HEMOGLOBIN [id number] 00:00:00 Test Item Value Reference Range Interpretation Comments HEMOGLOBIN A1c (test code = 17671) 11.9 % HEMOGLOBIN [id number] 00:00:00 Test Item Value Reference Range Interpretation Comments HEMOGLOBIN A1c (test code = 01411) 11.9 % LIPID [id number] 00:00:00 Test Item Value Reference Range Interpretation Comments CHOLESTEROL (test code = 2210) 121 MG/DL TRIGLYCERIDES (test code = 2232) 127 MG/DL HDL CHOLESTEROL (test code = 2220) 28 MG/DL CALC LDL CHOL (test code = 2237) 72 MG/DL RISK RATIO LDL/HDL (test code = 2.57 RATIO 2238) LIPID [id number] 00:00:00 Test Item Value Reference Range Interpretation Comments CHOLESTEROL (test code = 2210) 121 MG/DL TRIGLYCERIDES (test code = 2232) 127 MG/DL HDL CHOLESTEROL (test code = 2220) 28 MG/DL CALC LDL CHOL (test code = 2237) 72 MG/DL RISK RATIO LDL/HDL (test code = 2.57 RATIO 2238) COMPREHENSIVE METABOLIC [id number] 00:00:00 Test Item Value Reference Range Interpretation Comments GLUCOSE (test code = 2217) 248 MG/DL BUN (test code = 2208) 22 MG/DL CREATININE (test code = 2214) 1.23 MG/DL eGFR (2020 CKD-EPI) (test code 79 ML/MIN/1.73 = 82566) CALC BUN/CREAT (test code = 18 RATIO 2235) SODIUM (test code = 2231) 138 MEQ/L POTASSIUM (test code = 2228) 4.7 MEQ/L CHLORIDE (test code = 2215) 102 MEQ/L CARBON DIOXIDE (test code = 22 MEQ/L 6) CALCIUM (test code = 2209) 9.7 MG/DL PROTEIN, TOTAL (test code = 7.4 G/DL 2228) ALBUMIN (test code = 2201) 3.9 G/DL CALC GLOBULIN (test code = 3.5 G/DL 2240) CALC A/G RATIO (test code = 1.1 RATIO 2234) BILIRUBIN, TOTAL (test code = 0.4 MG/DL 2206) ALKALINE PHOSPHATASE (test 174 U/L code = 2204) AST (test code = 2218) 14 U/L ALT (test code = 2219) 14 U/L COMPREHENSIVE METABOLIC [id number] 00:00:00 Test Item Value Reference Range Interpretation Comments GLUCOSE (test code = 2217) 248 MG/DL BUN (test code = 2208) 22 MG/DL CREATININE (test code = 2214) 1.23 MG/DL eGFR (2020 CKD-EPI) (test code 79 ML/MIN/1.73 = 41842) CALC BUN/CREAT (test code = 18 RATIO 2235) SODIUM (test code = 2231) 138 MEQ/L POTASSIUM (test code = 2228) 4.7 MEQ/L CHLORIDE (test code = 2215) 102 MEQ/L CARBON DIOXIDE (test code = 22 MEQ/L 2205) CALCIUM (test code = 2209) 9.7 MG/DL PROTEIN, TOTAL (test code = 7.4 G/DL 2228) ALBUMIN (test code = 220) 3.9 G/DL CALC GLOBULIN (test code = 3.5 G/DL 2239) CALC A/G RATIO (test code = 1.1 RATIO 2233) BILIRUBIN, TOTAL (test code = 0.4 MG/DL 2206) ALKALINE PHOSPHATASE (test 174 U/L code = 2204) AST (test code = 2218) 14 U/L ALT (test code = 2219) 14 U/L HEMOGLOBIN [id number] 00:00:00 Test Item Value Reference Range Interpretation Comments HEMOGLOBIN A1c (test code = 15810) 11.5 % HEMOGLOBIN [id number] 00:00:00 Test Item Value Reference Range Interpretation Comments HEMOGLOBIN A1c (test code = 09166) 11.5 % HEMOGLOBIN [id number] 00:00:00 Test Item Value Reference Range Interpretation Comments HEMOGLOBIN A1c (test code = 92549) 11.5 % COMPREHENSIVE METABOLIC [id number] 00:00:00 Test Item Value Reference Range Interpretation Comments GLUCOSE (test code = 2217) 42 MG/DL BUN (test code = 2208) 47 MG/DL CREATININE (test code = 2214) 1.53 MG/DL eGFR AMER. (test code 68 ML/MIN/1.73 = 37986) eGFR NON- AMER. (test 59 ML/MIN/1.73 code = 95266) CALC BUN/CREAT (test code = 31 RATIO 2235) SODIUM (test code = 2231) 142 MEQ/L POTASSIUM (test code = 2228) 5.2 MEQ/L CHLORIDE (test code = 2215) 105 MEQ/L CARBON DIOXIDE (test code = 20 MEQ/L 2205) CALCIUM (test code = 2209) 10.0 MG/DL PROTEIN, TOTAL (test code = 8.0 G/DL 2228) ALBUMIN (test code = 2201) 3.9 G/DL CALC GLOBULIN (test code = 4.1 G/DL 2240) CALC A/G RATIO (test code = 1.0 RATIO 2234) BILIRUBIN, TOTAL (test code = 0.3 MG/DL 2206) ALKALINE PHOSPHATASE (test 195 U/L code = 2204) AST (test code = 2218) 15 U/L ALT (test code = 2219) 11 U/L COMPREHENSIVE METABOLIC [id number] 00:00:00 Test Item Value Reference Range Interpretation Comments GLUCOSE (test code = 2217) 42 MG/DL BUN (test code = 2208) 47 MG/DL CREATININE (test code = 2214) 1.53 MG/DL eGFR AMER. (test code 68 ML/MIN/1.73 = 06613) eGFR NON- AMER. (test 59 ML/MIN/1.73 code = 42453) CALC BUN/CREAT (test code = 31 RATIO 2235) SODIUM (test code = 2231) 142 MEQ/L POTASSIUM (test code = 2228) 5.2 MEQ/L CHLORIDE (test code = 2215) 105 MEQ/L CARBON DIOXIDE (test code = 20 MEQ/L 2205) CALCIUM (test code = 2209) 10.0 MG/DL PROTEIN, TOTAL (test code = 8.0 G/DL 2228) ALBUMIN (test code = 2201) 3.9 G/DL CALC GLOBULIN (test code = 4.1 G/DL 2240) CALC A/G RATIO (test code = 1.0 RATIO 2234) BILIRUBIN, TOTAL (test code = 0.3 MG/DL 2206) ALKALINE PHOSPHATASE (test 195 U/L code = 2204) AST (test code = 2218) 15 U/L ALT (test code = 2219) 11 U/L IONIZED CALCIUM, [id number] 00:00:00 Test Item Value Reference Range Interpretation Comments CALCIUM, IONIZED (test code = 4.93 MG/DL 25129) IONIZED CALCIUM, [id number] 00:00:00 Test Item Value Reference Range Interpretation Comments CALCIUM, IONIZED (test code = 4.93 MG/DL 36687) CBC W/AUTO [id number] 00:00:00 Test Item Value Reference Range Interpretation Comments WBC (test code = 1001) 10.9 K/UL RBC (test code = 1002) 4.72 M/UL HEMOGLOBIN (test code = 1003) 13.2 G/DL HEMATOCRIT (test code = 1004) 40.1 % MCV (test code = 1005) 85.0 fL MCH (test code = 1006) 28.0 PG MCHC (test code = 1007) 32.9 G/DL RDW (test code = 1038) 13.7 % NEUTROPHILS (test code = 1008) 69.5 % LYMPHOCYTES (test code = 1010) 15.0 % MONOCYTES (test code = 1011) 9.2 % EOSINOPHILS (test code = 1012) 4.7 % BASOPHILS (test code = 1013) 0.9 % IMMATURE GRANULOCYTES (test 0.7 % code = 1036) NUCLEATED RBCS (test code = 0.0 /100WBC'S 1065) PLATELET COUNT (test code = 327 K/UL 1015) ABSOLUTE NEUTROPHILS (test code 7.58 K/UL = 1066) ABSOLUTE LYMPHOCYTES (test code 1.64 K/UL = 1067) ABSOLUTE MONOCYTES (test code = 1.01 K/UL 1068) ABSOLUTE EOSINOPHILS (test code 0.51 K/UL = 1040) ABSOLUTE BASOPHILS (test code = 0.10 K/UL 1069) ABS IMMATURE GRANULOCYTES (test 0.08 K/UL code = 1020) ABS NUCLEATED RBCS (test code = 0.00 K/UL 00848) CBC W/AUTO [id number] 00:00:00 Test Item Value Reference Range Interpretation Comments WBC (test code = 1001) 10.9 K/UL RBC (test code = 1002) 4.72 M/UL HEMOGLOBIN (test code = 1003) 13.2 G/DL HEMATOCRIT (test code = 1004) 40.1 % MCV (test code = 1005) 85.0 fL MCH (test code = 1006) 28.0 PG MCHC (test code = 1007) 32.9 G/DL RDW (test code = 1038) 13.7 % NEUTROPHILS (test code = 1008) 69.5 % LYMPHOCYTES (test code = 1010) 15.0 % MONOCYTES (test code = 1011) 9.2 % EOSINOPHILS (test code = 1012) 4.7 % BASOPHILS (test code = 1013) 0.9 % IMMATURE GRANULOCYTES (test 0.7 % code = 1036) NUCLEATED RBCS (test code = 0.0 /100WBC'S 1065) PLATELET COUNT (test code = 327 K/UL 1015) ABSOLUTE NEUTROPHILS (test code 7.58 K/UL = 1066) ABSOLUTE LYMPHOCYTES (test code 1.64 K/UL = 1067) ABSOLUTE MONOCYTES (test code = 1.01 K/UL 1068) ABSOLUTE EOSINOPHILS (test code 0.51 K/UL = 1040) ABSOLUTE BASOPHILS (test code = 0.10 K/UL 1069) ABS IMMATURE GRANULOCYTES (test 0.08 K/UL code = 1020) ABS NUCLEATED RBCS (test code = 0.00 K/UL 10774) CBC W/AUTO [id number] 00:00:00 Test Item Value Reference Range Interpretation Comments WBC (test code = 1001) 10.9 K/UL RBC (test code = 1002) 4.72 M/UL HEMOGLOBIN (test code = 1003) 13.2 G/DL HEMATOCRIT (test code = 1004) 40.1 % MCV (test code = 1005) 85.0 fL MCH (test code = 1006) 28.0 PG MCHC (test code = 1007) 32.9 G/DL RDW (test code = 1038) 13.7 % NEUTROPHILS (test code = 1008) 69.5 % LYMPHOCYTES (test code = 1010) 15.0 % MONOCYTES (test code = 1011) 9.2 % EOSINOPHILS (test code = 1012) 4.7 % BASOPHILS (test code = 1013) 0.9 % IMMATURE GRANULOCYTES (test 0.7 % code = 1036) NUCLEATED RBCS (test code = 0.0 /100WBC'S 1065) PLATELET COUNT (test code = 327 K/UL 1015) ABSOLUTE NEUTROPHILS (test code 7.58 K/UL = 1066) ABSOLUTE LYMPHOCYTES (test code 1.64 K/UL = 1067) ABSOLUTE MONOCYTES (test code = 1.01 K/UL 1068) ABSOLUTE EOSINOPHILS (test code 0.51 K/UL = 1040) ABSOLUTE BASOPHILS (test code = 0.10 K/UL 1069) ABS IMMATURE GRANULOCYTES (test 0.08 K/UL code = 1020) ABS NUCLEATED RBCS (test code = 0.00 K/UL 94659) IRON BINDING CAPACITY AND IRON AND % [id number] 00:00:00 Test Item Value Reference Range Interpretation Comments IRON, SERUM (test code = 2) 45 UG/DL UNSATURATED IBC (test code = 07584) 247 UG/DL CALC TOTAL IBC (test code = 7) 292 UG/DL CALC % IRON SAT (test code = 9) 15 % IRON BINDING CAPACITY AND IRON AND % [id number] 00:00:00 Test Item Value Reference Range Interpretation Comments IRON, SERUM (test code = 2) 45 UG/DL UNSATURATED IBC (test code = 17004) 247 UG/DL CALC TOTAL IBC (test code = 7) 292 UG/DL CALC % IRON SAT (test code = 2078) 15 % [id number] 00:00:00 Test Item Value Reference Range Interpretation Comments FERRITIN (test code = 5) 103 NG/ML [id number] 00:00:00 Test Item Value Reference Range Interpretation Comments FERRITIN (test code = 5) 103 NG/ML [id number] 00:00:00 Test Item Value Reference Range Interpretation Comments TRANSFERRIN (test code = 4936) 230 MG/DL [id number] 00:00:00 Test Item Value Reference Range Interpretation Comments TRANSFERRIN (test code = 4936) 230 MG/DL BASIC METABOLIC [id number] 00:00:00 Test Item Value Reference Range Interpretation Comments GLUCOSE (test code = 2217) 128 MG/DL BUN (test code = 2208) 66 MG/DL CREATININE (test code = 2214) 4.82 MG/DL eGFR AMER. (test code 17 ML/MIN/1.73 = 90420) eGFR NON- AMER. (test 15 ML/MIN/1.73 code = 92743) SODIUM (test code = 2231) 134 MEQ/L POTASSIUM (test code = 2228) 6.6 MEQ/L CHLORIDE (test code = 2215) 103 MEQ/L CARBON DIOXIDE (test code = 17 MEQ/L 2206) CALCIUM (test code = 2209) 9.2 MG/DL BASIC METABOLIC [id number] 00:00:00 Test Item Value Reference Range Interpretation Comments GLUCOSE (test code = 2217) 128 MG/DL BUN (test code = 2208) 66 MG/DL CREATININE (test code = 2214) 4.82 MG/DL eGFR AMER. (test code 17 ML/MIN/1.73 = 80067) eGFR NON- AMER. (test 15 ML/MIN/1.73 code = 46263) SODIUM (test code = 2231) 134 MEQ/L POTASSIUM (test code = 2228) 6.6 MEQ/L CHLORIDE (test code = 2215) 103 MEQ/L CARBON DIOXIDE (test code = 17 MEQ/L 2206) CALCIUM (test code = 2209) 9.2 MG/DL [id number] 00:00:00 Test Item Value Reference Range Interpretation Comments MAGNESIUM (test code = 2226) 2.5 MG/DL [id number] 00:00:00 Test Item Value Reference Range Interpretation Comments MAGNESIUM (test code = 2226) 2.5 MG/DL [id number] 00:00:00 Test Item Value Reference Range Interpretation Comments MAGNESIUM (test code = 2226) 2.5 MG/DL URIC [id number] 00:00:00 Test Item Value Reference Range Interpretation Comments URIC ACID (test code = 2233) 10.9 MG/DL URIC [id number] 00:00:00 Test Item Value Reference Range Interpretation Comments URIC ACID (test code = 2233) 10.9 MG/DL [id number] 00:00:00 Test Item Value Reference Range Interpretation Comments PHOSPHORUS (test code = 2227) 7.4 MG/DL [id number] 00:00:00 Test Item Value Reference Range Interpretation Comments PHOSPHORUS (test code = 2227) 7.4 MG/DL MICROALBUMIN/CREATININE, RANDOM AND [id number] 00:00:00 Test Item Value Reference Range Interpretation Comments CREATININE, URINE, CONC. (test 129.6 MG/DL code = 2072) ALBUMIN, URINE, RANDOM (test code 0.6 MG/DL = 24696) CALC ALBUMIN/CREAT, RND (test 5 MG/G code = 52015) MICROALBUMIN/CREATININE, RANDOM AND [id number] 00:00:00 Test Item Value Reference Range Interpretation Comments CREATININE, URINE, CONC. (test 129.6 MG/DL code = 2072) ALBUMIN, URINE, RANDOM (test code 0.6 MG/DL = 57544) CALC ALBUMIN/CREAT, RND (test 5 MG/G code = 93917) URINALYSIS (CULTURE IF INDICATED)2020-10-14 00:00:00 Test Item Value Reference Range Interpretation Comments COLOR (test code = 1501) YELLOW APPEARANCE (test code = 1502) CLEAR SPECIFIC GRAVITY (test code = 1503) 1.016 LEUKOCYTE ESTERASE (test code = NEGATIVE 1504) NITRITE (test code = 1505) NEGATIVE pH (test code = 1506) 5.0 PROTEIN (test code = 1507) NEGATIVE GLUCOSE (test code = 1508) NEGATIVE KETONES (test code = 1509) NEGATIVE UROBILINOGEN (test code = 1510) 0.2 MG/DL BILIRUBIN (test code = 1511) NEGATIVE OCCULT BLOOD (test code = 1512) NEGATIVE URINALYSIS (CULTURE IF INDICATED)2020-10-14 00:00:00 Test Item Value Reference Range Interpretation Comments COLOR (test code = 1501) YELLOW APPEARANCE (test code = 1502) CLEAR SPECIFIC GRAVITY (test code = 1503) 1.016 LEUKOCYTE ESTERASE (test code = NEGATIVE 1504) NITRITE (test code = 1505) NEGATIVE pH (test code = 1506) 5.0 PROTEIN (test code = 1507) NEGATIVE GLUCOSE (test code = 1508) NEGATIVE KETONES (test code = 1509) NEGATIVE UROBILINOGEN (test code = 1510) 0.2 MG/DL BILIRUBIN (test code = 1511) NEGATIVE OCCULT BLOOD (test code = 1512) NEGATIVE LIPID [id number] 00:00:00 Test Item Value Reference Range Interpretation Comments CHOLESTEROL (test code = 2210) 135 MG/DL TRIGLYCERIDES (test code = 2232) 191 MG/DL HDL CHOLESTEROL (test code = 2220) 25 MG/DL CALC LDL CHOL (test code = 2237) 81 MG/DL RISK RATIO LDL/HDL (test code = 3.24 RATIO 2238) LIPID [id number] 00:00:00 Test Item Value Reference Range Interpretation Comments CHOLESTEROL (test code = 2210) 135 MG/DL TRIGLYCERIDES (test code = 2232) 191 MG/DL HDL CHOLESTEROL (test code = 2220) 25 MG/DL CALC LDL CHOL (test code = 2237) 81 MG/DL RISK RATIO LDL/HDL (test code = 3.24 RATIO 2238) COMPREHENSIVE METABOLIC [id number] 00:00:00 Test Item Value Reference Range Interpretation Comments GLUCOSE (test code = 2217) 183 MG/DL BUN (test code = 2208) 49 MG/DL CREATININE (test code = 2214) 1.95 MG/DL eGFR AMER. (test code 51 ML/MIN/1.73 = 38763) eGFR NON- AMER. (test 44 ML/MIN/1.73 code = 13253) CALC BUN/CREAT (test code = 25 RATIO 2235) SODIUM (test code = 2231) 135 MEQ/L POTASSIUM (test code = 2228) 5.3 MEQ/L CHLORIDE (test code = 2215) 101 MEQ/L CARBON DIOXIDE (test code = 20 MEQ/L 220) CALCIUM (test code = 2209) 9.9 MG/DL PROTEIN, TOTAL (test code = 7.2 G/DL 2228) ALBUMIN (test code = 2201) 4.1 G/DL CALC GLOBULIN (test code = 3.1 G/DL 0) CALC A/G RATIO (test code = 1.3 RATIO 2233) BILIRUBIN, TOTAL (test code = 0.3 MG/DL 2206) ALKALINE PHOSPHATASE (test 207 U/L code = 2204) AST (test code = 2218) 22 U/L ALT (test code = 2219) 20 U/L COMPREHENSIVE METABOLIC [id number] 00:00:00 Test Item Value Reference Range Interpretation Comments GLUCOSE (test code = 2217) 183 MG/DL BUN (test code = 2208) 49 MG/DL CREATININE (test code = 2214) 1.95 MG/DL eGFR AMER. (test code 51 ML/MIN/1.73 = 29454) eGFR NON- AMER. (test 44 ML/MIN/1.73 code = 72522) CALC BUN/CREAT (test code = 25 RATIO 2235) SODIUM (test code = 2231) 135 MEQ/L POTASSIUM (test code = 2228) 5.3 MEQ/L CHLORIDE (test code = 2215) 101 MEQ/L CARBON DIOXIDE (test code = 20 MEQ/L 2206) CALCIUM (test code = 2209) 9.9 MG/DL PROTEIN, TOTAL (test code = 7.2 G/DL 2228) ALBUMIN (test code = 2201) 4.1 G/DL CALC GLOBULIN (test code = 3.1 G/DL 2240) CALC A/G RATIO (test code = 1.3 RATIO 2234) BILIRUBIN, TOTAL (test code = 0.3 MG/DL 2206) ALKALINE PHOSPHATASE (test 207 U/L code = 2204) AST (test code = 2218) 22 U/L ALT (test code = 2219) 20 U/L HEMOGLOBIN [id number] 00:00:00 Test Item Value Reference Range Interpretation Comments HEMOGLOBIN A1c (test code = 79330) 12.7 % HEMOGLOBIN [id number] 00:00:00 Test Item Value Reference Range Interpretation Comments HEMOGLOBIN A1c (test code = 59989) 12.7 % HEMOGLOBIN [id number] 00:00:00 Test Item Value Reference Range Interpretation Comments HEMOGLOBIN A1c (test code = 88990) 12.7 % HEMOGLOBIN [id number] 00:00:00 Test Item Value Reference Range Interpretation Comments HEMOGLOBIN A1c (test code = 50814) 13.3 % HEMOGLOBIN [id number] 00:00:00 Test Item Value Reference Range Interpretation Comments HEMOGLOBIN A1c (test code = 94623) 13.3 % HEMOGLOBIN [id number] 00:00:00 Test Item Value Reference Range Interpretation Comments HEMOGLOBIN A1c (test code = 53827) 13.3 % LIPID [id number] 00:00:00 Test Item Value Reference Range Interpretation Comments CHOLESTEROL (test code = 2210) 127 MG/DL TRIGLYCERIDES (test code = 2232) 132 MG/DL HDL CHOLESTEROL (test code = 2220) 33 MG/DL CALC LDL CHOL (test code = 2237) 72 MG/DL RISK RATIO LDL/HDL (test code = 2.18 RATIO 2238) LIPID [id number] 00:00:00 Test Item Value Reference Range Interpretation Comments CHOLESTEROL (test code = 2210) 127 MG/DL TRIGLYCERIDES (test code = 2232) 132 MG/DL HDL CHOLESTEROL (test code = 2220) 33 MG/DL CALC LDL CHOL (test code = 2237) 72 MG/DL RISK RATIO LDL/HDL (test code = 2.18 RATIO 2238) COMPREHENSIVE METABOLIC [id number] 00:00:00 Test Item Value Reference Range Interpretation Comments GLUCOSE (test code = 2217) 289 MG/DL BUN (test code = 2208) 26 MG/DL CREATININE (test code = 2214) 1.35 MG/DL eGFR AMER. (test code 79 ML/MIN/1.73 = 52070) eGFR NON- AMER. (test 68 ML/MIN/1.73 code = 89078) CALC BUN/CREAT (test code = 19 RATIO 2235) SODIUM (test code = 2231) 139 MEQ/L POTASSIUM (test code = 2228) 4.6 MEQ/L CHLORIDE (test code = 2215) 100 MEQ/L CARBON DIOXIDE (test code = 23 MEQ/L 220) CALCIUM (test code = 2209) 9.9 MG/DL PROTEIN, TOTAL (test code = 7.8 G/DL 2228) ALBUMIN (test code = 2201) 4.2 G/DL CALC GLOBULIN (test code = 3.6 G/DL 224) CALC A/G RATIO (test code = 1.2 RATIO 2234) BILIRUBIN, TOTAL (test code = 0.4 MG/DL 2206) ALKALINE PHOSPHATASE (test 185 U/L code = 2204) AST (test code = 2218) 18 U/L ALT (test code = 2219) 16 U/L COMPREHENSIVE METABOLIC [id number] 00:00:00 Test Item Value Reference Range Interpretation Comments GLUCOSE (test code = 2217) 289 MG/DL BUN (test code = 2208) 26 MG/DL CREATININE (test code = 2214) 1.35 MG/DL eGFR AMER. (test code 79 ML/MIN/1.73 = 94943) eGFR NON- AMER. (test 68 ML/MIN/1.73 code = 09008) CALC BUN/CREAT (test code = 19 RATIO 2235) SODIUM (test code = 2231) 139 MEQ/L POTASSIUM (test code = 2228) 4.6 MEQ/L CHLORIDE (test code = 2215) 100 MEQ/L CARBON DIOXIDE (test code = 23 MEQ/L 2206) CALCIUM (test code = 2209) 9.9 MG/DL PROTEIN, TOTAL (test code = 7.8 G/DL 2228) ALBUMIN (test code = 2201) 4.2 G/DL CALC GLOBULIN (test code = 3.6 G/DL 2240) CALC A/G RATIO (test code = 1.2 RATIO 2234) BILIRUBIN, TOTAL (test code = 0.4 MG/DL 2206) ALKALINE PHOSPHATASE (test 185 U/L code = 2204) AST (test code = 2218) 18 U/L ALT (test code = 2219) 16 U/L HEMOGLOBIN [id number] 00:00:00 Test Item Value Reference Range Interpretation Comments HEMOGLOBIN A1c (test code = 19819) 9.6 % HEMOGLOBIN [id number] 00:00:00 Test Item Value Reference Range Interpretation Comments HEMOGLOBIN A1c (test code = 68737) 9.6 % HEMOGLOBIN [id number] 00:00:00 Test Item Value Reference Range Interpretation Comments HEMOGLOBIN A1c (test code = 15643) 9.6 % COMPREHENSIVE METABOLIC [id number] 00:00:00 Test Item Value Reference Range Interpretation Comments GLUCOSE (test code = 2216) 245 MG/DL BUN (test code = 8) 17 MG/DL CREATININE (test code = 2214) 0.99 MG/DL eGFR AMER. (test code 116 ML/MIN/1.73 = 24356) eGFR NON- AMER. (test 100 ML/MIN/1.73 code = 84639) CALC BUN/CREAT (test code = 17 RATIO 2235) SODIUM (test code = 2231) 139 MEQ/L POTASSIUM (test code = 2228) 4.6 MEQ/L CHLORIDE (test code = 2215) 101 MEQ/L CARBON DIOXIDE (test code = 19 MEQ/L 2205) CALCIUM (test code = 2209) 9.6 MG/DL PROTEIN, TOTAL (test code = 7.5 G/DL 2228) ALBUMIN (test code = 2201) 4.0 G/DL CALC GLOBULIN (test code = 3.5 G/DL 2240) CALC A/G RATIO (test code = 1.1 RATIO 2234) BILIRUBIN, TOTAL (test code = 0.3 MG/DL 2206) ALKALINE PHOSPHATASE (test 167 U/L code = 2204) AST (test code = 2218) 21 U/L ALT (test code = 2219) 17 U/L COMPREHENSIVE METABOLIC [id number] 00:00:00 Test Item Value Reference Range Interpretation Comments GLUCOSE (test code = 2217) 245 MG/DL BUN (test code = 2208) 17 MG/DL CREATININE (test code = 2214) 0.99 MG/DL eGFR AMER. (test code 116 ML/MIN/1.73 = 34567) eGFR NON- AMER. (test 100 ML/MIN/1.73 code = 07804) CALC BUN/CREAT (test code = 17 RATIO 2235) SODIUM (test code = 2231) 139 MEQ/L POTASSIUM (test code = 2228) 4.6 MEQ/L CHLORIDE (test code = 2215) 101 MEQ/L CARBON DIOXIDE (test code = 19 MEQ/L 2205) CALCIUM (test code = 2209) 9.6 MG/DL PROTEIN, TOTAL (test code = 7.5 G/DL 2228) ALBUMIN (test code = 220) 4.0 G/DL CALC GLOBULIN (test code = 3.5 G/DL 2239) CALC A/G RATIO (test code = 1.1 RATIO 4) BILIRUBIN, TOTAL (test code = 0.3 MG/DL 2206) ALKALINE PHOSPHATASE (test 167 U/L code = 2204) AST (test code = 2218) 21 U/L ALT (test code = 2219) 17 U/L LIPID [id number] 00:00:00 Test Item Value Reference Range Interpretation Comments CHOLESTEROL (test code = 2210) 110 MG/DL TRIGLYCERIDES (test code = 2232) 123 MG/DL HDL CHOLESTEROL (test code = 2220) 29 MG/DL CALC LDL CHOL (test code = 2237) 61 MG/DL RISK RATIO LDL/HDL (test code = 2.10 RATIO 2238) LIPID [id number] 00:00:00 Test Item Value Reference Range Interpretation Comments CHOLESTEROL (test code = 2210) 110 MG/DL TRIGLYCERIDES (test code = 2232) 123 MG/DL HDL CHOLESTEROL (test code = 2220) 29 MG/DL CALC LDL CHOL (test code = 2237) 61 MG/DL RISK RATIO LDL/HDL (test code = 2.10 RATIO 2238) HEMOGLOBIN [id number] 00:00:00 Test Item Value Reference Range Interpretation Comments HEMOGLOBIN A1c (test code = 15191) 11.2 % HEMOGLOBIN [id number] 00:00:00 Test Item Value Reference Range Interpretation Comments HEMOGLOBIN A1c (test code = 45340) 11.2 % HEMOGLOBIN [id number] 00:00:00 Test Item Value Reference Range Interpretation Comments HEMOGLOBIN A1c (test code = 77060) 11.2 % COMPREHENSIVE METABOLIC [id number] 00:00:00 Test Item Value Reference Range Interpretation Comments GLUCOSE (test code = 2217) 305 MG/DL BUN (test code = 2208) 52 MG/DL CREATININE (test code = 2214) 1.47 MG/DL eGFR AMER. (test code 72 ML/MIN/1.73 = 04898) eGFR NON- AMER. (test 62 ML/MIN/1.73 code = 86055) CALC BUN/CREAT (test code = 35 RATIO 2235) SODIUM (test code = 2231) 132 MEQ/L POTASSIUM (test code = 2228) 5.1 MEQ/L CHLORIDE (test code = 2215) 99 MEQ/L CARBON DIOXIDE (test code = 21 MEQ/L 2205) CALCIUM (test code = 2209) 9.6 MG/DL PROTEIN, TOTAL (test code = 7.6 G/DL 2228) ALBUMIN (test code = 2201) 4.0 G/DL CALC GLOBULIN (test code = 3.6 G/DL 0) CALC A/G RATIO (test code = 1.1 RATIO 4) BILIRUBIN, TOTAL (test code = 0.6 MG/DL 2206) ALKALINE PHOSPHATASE (test 128 U/L code = 2204) AST (test code = 2218) 13 U/L ALT (test code = 2219) 13 U/L COMPREHENSIVE METABOLIC [id number] 00:00:00 Test Item Value Reference Range Interpretation Comments GLUCOSE (test code = 2217) 305 MG/DL BUN (test code = 2208) 52 MG/DL CREATININE (test code = 2214) 1.47 MG/DL eGFR AMER. (test code 72 ML/MIN/1.73 = 16785) eGFR NON- AMER. (test 62 ML/MIN/1.73 code = 75407) CALC BUN/CREAT (test code = 35 RATIO 2235) SODIUM (test code = 2231) 132 MEQ/L POTASSIUM (test code = 2228) 5.1 MEQ/L CHLORIDE (test code = 2215) 99 MEQ/L CARBON DIOXIDE (test code = 21 MEQ/L 2205) CALCIUM (test code = 2209) 9.6 MG/DL PROTEIN, TOTAL (test code = 7.6 G/DL 2228) ALBUMIN (test code = 2201) 4.0 G/DL CALC GLOBULIN (test code = 3.6 G/DL 0) CALC A/G RATIO (test code = 1.1 RATIO 2234) BILIRUBIN, TOTAL (test code = 0.6 MG/DL 2206) ALKALINE PHOSPHATASE (test 128 U/L code = 2204) AST (test code = 2218) 13 U/L ALT (test code = 2219) 13 U/L LIPID [id number] 00:00:00 Test Item Value Reference Range Interpretation Comments CHOLESTEROL (test code = 2210) 93 MG/DL TRIGLYCERIDES (test code = 2232) 87 MG/DL HDL CHOLESTEROL (test code = 2220) 28 MG/DL CALC LDL CHOL (test code = 2237) 48 MG/DL RISK RATIO LDL/HDL (test code = 1.71 RATIO 2238) LIPID [id number] 00:00:00 Test Item Value Reference Range Interpretation Comments CHOLESTEROL (test code = 2210) 93 MG/DL TRIGLYCERIDES (test code = 2232) 87 MG/DL HDL CHOLESTEROL (test code = 2220) 28 MG/DL CALC LDL CHOL (test code = 2237) 48 MG/DL RISK RATIO LDL/HDL (test code = 1.71 RATIO 2238) HEMOGLOBIN [id number] 00:00:00 Test Item Value Reference Range Interpretation Comments HEMOGLOBIN A1c (test code = 08156) 11.0 % HEMOGLOBIN [id number] 00:00:00 Test Item Value Reference Range Interpretation Comments HEMOGLOBIN A1c (test code = 13299) 11.0 % HEMOGLOBIN [id number] 00:00:00 Test Item Value Reference Range Interpretation Comments HEMOGLOBIN A1c (test code = 47572) 11.0 % COMPREHENSIVE METABOLIC [id number] 00:00:00 Test Item Value Reference Range Interpretation Comments GLUCOSE (test code = 2217) 170 MG/DL BUN (test code = 2208) 27 MG/DL CREATININE (test code = 2214) 1.46 MG/DL eGFR AMER. (test code 73 ML/MIN/1.73 = 61067) eGFR NON- AMER. (test 63 ML/MIN/1.73 code = 19814) CALC BUN/CREAT (test code = 18 RATIO 2235) SODIUM (test code = 2231) 142 MEQ/L POTASSIUM (test code = 2228) 4.5 MEQ/L CHLORIDE (test code = 2215) 103 MEQ/L CARBON DIOXIDE (test code = 22 MEQ/L 2206) CALCIUM (test code = 2209) 10.4 MG/DL PROTEIN, TOTAL (test code = 8.1 G/DL 2228) ALBUMIN (test code = 2201) 4.7 G/DL CALC GLOBULIN (test code = 3.4 G/DL 2240) CALC A/G RATIO (test code = 1.4 RATIO 2234) BILIRUBIN, TOTAL (test code = 0.4 MG/DL 2206) ALKALINE PHOSPHATASE (test 151 U/L code = 2204) AST (test code = 2218) 19 U/L ALT (test code = 2219) 22 U/L COMPREHENSIVE METABOLIC [id number] 00:00:00 Test Item Value Reference Range Interpretation Comments GLUCOSE (test code = 2217) 170 MG/DL BUN (test code = 2208) 27 MG/DL CREATININE (test code = 2214) 1.46 MG/DL eGFR AMER. (test code 73 ML/MIN/1.73 = 13487) eGFR NON- AMER. (test 63 ML/MIN/1.73 code = 69530) CALC BUN/CREAT (test code = 18 RATIO 2235) SODIUM (test code = 2231) 142 MEQ/L POTASSIUM (test code = 2228) 4.5 MEQ/L CHLORIDE (test code = 2215) 103 MEQ/L CARBON DIOXIDE (test code = 22 MEQ/L 2206) CALCIUM (test code = 2209) 10.4 MG/DL PROTEIN, TOTAL (test code = 8.1 G/DL 2228) ALBUMIN (test code = 2201) 4.7 G/DL CALC GLOBULIN (test code = 3.4 G/DL 2240) CALC A/G RATIO (test code = 1.4 RATIO 2234) BILIRUBIN, TOTAL (test code = 0.4 MG/DL 2206) ALKALINE PHOSPHATASE (test 151 U/L code = 2204) AST (test code = 2218) 19 U/L ALT (test code = 2219) 22 U/L CULTURE, [id number] 00:00:00 Test Item Value Reference Range Interpretation Comments CULTURE, ROUTINE (test SPECIMEN NUMBER: code = 36851) [id number] CULTURE, [id number] 00:00:00 Test Item Value Reference Range Interpretation Comments CULTURE, ROUTINE (test SPECIMEN NUMBER: code = 28482) [id number] CULTURE, [id number] 00:00:00 Test Item Value Reference Range Interpretation Comments CULTURE, ROUTINE (test SPECIMEN NUMBER: code = 46645) [id number] COMPREHENSIVE METABOLIC [id number] 00:00:00 Test Item Value Reference Range Interpretation Comments GLUCOSE (test code = 2217) 207 MG/DL BUN (test code = 2208) 29 MG/DL CREATININE (test code = 2214) 1.51 MG/DL eGFR AMER. (test code 70 ML/MIN/1.73 = 60731) eGFR NON- AMER. (test 61 ML/MIN/1.73 code = 30620) CALC BUN/CREAT (test code = 19 RATIO 2235) SODIUM (test code = 2231) 138 MEQ/L POTASSIUM (test code = 2228) 4.6 MEQ/L CHLORIDE (test code = 2215) 100 MEQ/L CARBON DIOXIDE (test code = 22 MEQ/L 2206) CALCIUM (test code = 2209) 9.8 MG/DL PROTEIN, TOTAL (test code = 7.5 G/DL 2228) ALBUMIN (test code = 2201) 4.4 G/DL CALC GLOBULIN (test code = 3.1 G/DL 2240) CALC A/G RATIO (test code = 1.4 RATIO 2233) BILIRUBIN, TOTAL (test code = 0.3 MG/DL 2206) ALKALINE PHOSPHATASE (test 115 U/L code = 2204) AST (test code = 2218) 18 U/L ALT (test code = 2219) 17 U/L COMPREHENSIVE METABOLIC [id number] 00:00:00 Test Item Value Reference Range Interpretation Comments GLUCOSE (test code = 2217) 207 MG/DL BUN (test code = 2208) 29 MG/DL CREATININE (test code = 2214) 1.51 MG/DL eGFR AMER. (test code 70 ML/MIN/1.73 = 86441) eGFR NON- AMER. (test 61 ML/MIN/1.73 code = 11389) CALC BUN/CREAT (test code = 19 RATIO 2235) SODIUM (test code = 2231) 138 MEQ/L POTASSIUM (test code = 2228) 4.6 MEQ/L CHLORIDE (test code = 2215) 100 MEQ/L CARBON DIOXIDE (test code = 22 MEQ/L 2205) CALCIUM (test code = 2209) 9.8 MG/DL PROTEIN, TOTAL (test code = 7.5 G/DL 2228) ALBUMIN (test code = 2201) 4.4 G/DL CALC GLOBULIN (test code = 3.1 G/DL 2239) CALC A/G RATIO (test code = 1.4 RATIO 2233) BILIRUBIN, TOTAL (test code = 0.3 MG/DL 2206) ALKALINE PHOSPHATASE (test 115 U/L code = 2204) AST (test code = 2218) 18 U/L ALT (test code = 2219) 17 U/L LIPID [id number] 00:00:00 Test Item Value Reference Range Interpretation Comments CHOLESTEROL (test code = 2210) 114 MG/DL TRIGLYCERIDES (test code = 2232) 102 MG/DL HDL CHOLESTEROL (test code = 2220) 32 MG/DL CALC LDL CHOL (test code = 2237) 62 MG/DL RISK RATIO LDL/HDL (test code = 1.93 RATIO 2238) LIPID [id number] 00:00:00 Test Item Value Reference Range Interpretation Comments CHOLESTEROL (test code = 2210) 114 MG/DL TRIGLYCERIDES (test code = 2232) 102 MG/DL HDL CHOLESTEROL (test code = 2220) 32 MG/DL CALC LDL CHOL (test code = 2237) 62 MG/DL RISK RATIO LDL/HDL (test code = 1.93 RATIO 2238) HEMOGLOBIN [id number] 00:00:00 Test Item Value Reference Range Interpretation Comments HEMOGLOBIN A1c (test code = 11528) 10.9 % HEMOGLOBIN [id number] 00:00:00 Test Item Value Reference Range Interpretation Comments HEMOGLOBIN A1c (test code = 64629) 10.9 % HEMOGLOBIN [id number] 00:00:00 Test Item Value Reference Range Interpretation Comments HEMOGLOBIN A1c (test code = 11674) 10.9 % MICROALBUMIN/CREATININE, RANDOM AND [id number] 00:00:00 Test Item Value Reference Range Interpretation Comments CREATININE, URINE, CONC. (test 81.0 MG/DL code = 2072) ALBUMIN, URINE, RANDOM (test code 26.9 MG/DL = 34617) CALC ALBUMIN/CREAT, RND (test code 332 MG/G = 43010) MICROALBUMIN/CREATININE, RANDOM AND [id number] 00:00:00 Test Item Value Reference Range Interpretation Comments CREATININE, URINE, CONC. (test 81.0 MG/DL code = 2072) ALBUMIN, URINE, RANDOM (test code 26.9 MG/DL = 00348) CALC ALBUMIN/CREAT, RND (test code 332 MG/G = 02580) CULTURE, [id number] 00:00:00 Test Item Value Reference Range Interpretation Comments CULTURE, ROUTINE (test SPECIMEN NUMBER: code = 10162) [id number] CULTURE, [id number] 00:00:00 Test Item Value Reference Range Interpretation Comments CULTURE, ROUTINE (test SPECIMEN NUMBER: code = 67240) [id number] CULTURE, [id number] 00:00:00 Test Item Value Reference Range Interpretation Comments CULTURE, ROUTINE (test SPECIMEN NUMBER: code = 06107) [id number] HEMOGLOBIN [id number] 00:00:00 Test Item Value Reference Range Interpretation Comments HEMOGLOBIN A1c (test code = 65902) 11.2 % HEMOGLOBIN [id number] 00:00:00 Test Item Value Reference Range Interpretation Comments HEMOGLOBIN A1c (test code = 74635) 11.2 % HEMOGLOBIN [id number] 00:00:00 Test Item Value Reference Range Interpretation Comments HEMOGLOBIN A1c (test code = 72602) 11.2 % COMPREHENSIVE METABOLIC [id number] 00:00:00 Test Item Value Reference Range Interpretation Comments GLUCOSE (test code = 2217) 104 MG/DL BUN (test code = 2208) 21 MG/DL CREATININE (test code = 2214) 0.98 MG/DL eGFR AMER. (test code 119 ML/MIN/1.73 = 77594) eGFR NON- AMER. (test 103 ML/MIN/1.73 code = 30114) CALC BUN/CREAT (test code = 21 RATIO 2235) SODIUM (test code = 2231) 142 MEQ/L POTASSIUM (test code = 2228) 4.8 MEQ/L CHLORIDE (test code = 2215) 103 MEQ/L CARBON DIOXIDE (test code = 24 MEQ/L 2205) CALCIUM (test code = 2209) 9.9 MG/DL PROTEIN, TOTAL (test code = 7.6 G/DL 2228) ALBUMIN (test code = 2201) 4.5 G/DL CALC GLOBULIN (test code = 3.1 G/DL 2240) CALC A/G RATIO (test code = 1.5 RATIO 2234) BILIRUBIN, TOTAL (test code = 0.3 MG/DL 2206) ALKALINE PHOSPHATASE (test 113 U/L code = 2204) AST (test code = 2218) 20 U/L ALT (test code = 2219) 17 U/L COMPREHENSIVE METABOLIC [id number] 00:00:00 Test Item Value Reference Range Interpretation Comments GLUCOSE (test code = 2217) 104 MG/DL BUN (test code = 2208) 21 MG/DL CREATININE (test code = 2214) 0.98 MG/DL eGFR AMER. (test code 119 ML/MIN/1.73 = 43185) eGFR NON- AMER. (test 103 ML/MIN/1.73 code = 23960) CALC BUN/CREAT (test code = 21 RATIO 2235) SODIUM (test code = 2231) 142 MEQ/L POTASSIUM (test code = 2228) 4.8 MEQ/L CHLORIDE (test code = 2215) 103 MEQ/L CARBON DIOXIDE (test code = 24 MEQ/L 2205) CALCIUM (test code = 2209) 9.9 MG/DL PROTEIN, TOTAL (test code = 7.6 G/DL 2228) ALBUMIN (test code = 2201) 4.5 G/DL CALC GLOBULIN (test code = 3.1 G/DL 2240) CALC A/G RATIO (test code = 1.5 RATIO 2234) BILIRUBIN, TOTAL (test code = 0.3 MG/DL 2206) ALKALINE PHOSPHATASE (test 113 U/L code = 2204) AST (test code = 2218) 20 U/L ALT (test code = 2219) 17 U/L MICROALBUMIN/CREATININE, RANDOM AND [id number] 00:00:00 Test Item Value Reference Range Interpretation Comments CREATININE, URINE, CONC. (test 79.3 MG/DL code = 2072) MICROALBUMIN, RANDOM (test code = 10.2 MG/DL 81135) CALC MICROALB/CREAT RND (test code 129 MG/G = 97967) MICROALBUMIN/CREATININE, RANDOM AND [id number] 00:00:00 Test Item Value Reference Range Interpretation Comments CREATININE, URINE, CONC. (test 79.3 MG/DL code = 2072) MICROALBUMIN, RANDOM (test code = 10.2 MG/DL 81789) CALC MICROALB/CREAT RND (test code 129 MG/G = 75798) HEMOGLOBIN [id number] 00:00:00 Test Item Value Reference Range Interpretation Comments HEMOGLOBIN A1c (test code = 79750) 12.2 % HEMOGLOBIN [id number] 00:00:00 Test Item Value Reference Range Interpretation Comments HEMOGLOBIN A1c (test code = 46436) 12.2 % HEMOGLOBIN [id number] 00:00:00 Test Item Value Reference Range Interpretation Comments HEMOGLOBIN A1c (test code = 94237) 12.2 % COMPREHENSIVE METABOLIC [id number] 00:00:00 Test Item Value Reference Range Interpretation Comments GLUCOSE (test code = 2217) 372 MG/DL BUN (test code = 2208) 33 MG/DL CREATININE (test code = 2214) 1.31 MG/DL eGFR AMER. (test code 84 ML/MIN/1.73 = 71947) eGFR NON- AMER. (test 73 ML/MIN/1.73 code = 15300) CALC BUN/CREAT (test code = 25 RATIO 2235) SODIUM (test code = 2231) 137 MEQ/L POTASSIUM (test code = 2228) 4.6 MEQ/L CHLORIDE (test code = 2215) 98 MEQ/L CARBON DIOXIDE (test code = 23 MEQ/L 2205) CALCIUM (test code = 2209) 9.7 MG/DL PROTEIN, TOTAL (test code = 8.1 G/DL 2228) ALBUMIN (test code = 2201) 4.6 G/DL CALC GLOBULIN (test code = 3.5 G/DL 2240) CALC A/G RATIO (test code = 1.3 RATIO 2234) BILIRUBIN, TOTAL (test code = 0.3 MG/DL 2206) ALKALINE PHOSPHATASE (test 109 U/L code = 2204) AST (test code = 2218) 17 U/L ALT (test code = 2219) 16 U/L COMPREHENSIVE METABOLIC [id number] 00:00:00 Test Item Value Reference Range Interpretation Comments GLUCOSE (test code = 2217) 372 MG/DL BUN (test code = 2208) 33 MG/DL CREATININE (test code = 2214) 1.31 MG/DL eGFR AMER. (test code 84 ML/MIN/1.73 = 09385) eGFR NON- AMER. (test 73 ML/MIN/1.73 code = 51657) CALC BUN/CREAT (test code = 25 RATIO 2235) SODIUM (test code = 2231) 137 MEQ/L POTASSIUM (test code = 2228) 4.6 MEQ/L CHLORIDE (test code = 2215) 98 MEQ/L CARBON DIOXIDE (test code = 23 MEQ/L 2205) CALCIUM (test code = 2209) 9.7 MG/DL PROTEIN, TOTAL (test code = 8.1 G/DL 2228) ALBUMIN (test code = 2201) 4.6 G/DL CALC GLOBULIN (test code = 3.5 G/DL 2239) CALC A/G RATIO (test code = 1.3 RATIO 4) BILIRUBIN, TOTAL (test code = 0.3 MG/DL 2206) ALKALINE PHOSPHATASE (test 109 U/L code = 2204) AST (test code = 2218) 17 U/L ALT (test code = 2219) 16 U/L LIPID [id number] 00:00:00 Test Item Value Reference Range Interpretation Comments CHOLESTEROL (test code = 2210) 130 MG/DL TRIGLYCERIDES (test code = 2232) 173 MG/DL HDL CHOLESTEROL (test code = 2220) 29 MG/DL CALC LDL CHOL (test code = 2237) 66 MG/DL RISK RATIO LDL/HDL (test code = 2.29 RATIO 2238) LIPID [id number] 00:00:00 Test Item Value Reference Range Interpretation Comments CHOLESTEROL (test code = 2210) 130 MG/DL TRIGLYCERIDES (test code = 2232) 173 MG/DL HDL CHOLESTEROL (test code = 2220) 29 MG/DL CALC LDL CHOL (test code = 2237) 66 MG/DL RISK RATIO LDL/HDL (test code = 2.29 RATIO 2238) CULTURE, [id number] 00:00:00 Test Item Value Reference Range Interpretation Comments CULTURE, ROUTINE (test SPECIMEN NUMBER: code = 55189) [id number] CULTURE, [id number] 00:00:00 Test Item Value Reference Range Interpretation Comments CULTURE, ROUTINE (test SPECIMEN NUMBER: code = 89258) [id number] CULTURE, [id number] 00:00:00 Test Item Value Reference Range Interpretation Comments CULTURE, ROUTINE (test SPECIMEN NUMBER: code = 85323) [id number] COMPREHENSIVE METABOLIC [id number] 00:00:00 Test Item Value Reference Range Interpretation Comments GLUCOSE (test code = 2217) 388 MG/DL BUN (test code = 2208) 28 MG/DL CREATININE (test code = 2214) 1.41 MG/DL eGFR AMER. (test code 77 ML/MIN/1.73 = 03738) eGFR NON- AMER. (test 67 ML/MIN/1.73 code = 43776) CALC BUN/CREAT (test code = 20 RATIO 2235) SODIUM (test code = 2231) 138 MEQ/L POTASSIUM (test code = 2228) 5.4 MEQ/L CHLORIDE (test code = 2215) 99 MEQ/L CARBON DIOXIDE (test code = 17 MEQ/L 2205) CALCIUM (test code = 2209) 9.6 MG/DL PROTEIN, TOTAL (test code = 6.5 G/DL 2228) ALBUMIN (test code = 2201) 3.9 G/DL CALC GLOBULIN (test code = 2.6 G/DL 2240) CALC A/G RATIO (test code = 1.5 RATIO 2234) BILIRUBIN, TOTAL (test code = 0.6 MG/DL 220) ALKALINE PHOSPHATASE (test 81 U/L code = 2204) AST (test code = 2218) 21 U/L ALT (test code = 2219) 23 U/L COMPREHENSIVE METABOLIC [id number] 00:00:00 Test Item Value Reference Range Interpretation Comments GLUCOSE (test code = 2217) 388 MG/DL BUN (test code = 2208) 28 MG/DL CREATININE (test code = 2214) 1.41 MG/DL eGFR AMER. (test code 77 ML/MIN/1.73 = 33018) eGFR NON- AMER. (test 67 ML/MIN/1.73 code = 57189) CALC BUN/CREAT (test code = 20 RATIO 2235) SODIUM (test code = 2231) 138 MEQ/L POTASSIUM (test code = 2228) 5.4 MEQ/L CHLORIDE (test code = 2215) 99 MEQ/L CARBON DIOXIDE (test code = 17 MEQ/L 2205) CALCIUM (test code = 2209) 9.6 MG/DL PROTEIN, TOTAL (test code = 6.5 G/DL 2228) ALBUMIN (test code = 2201) 3.9 G/DL CALC GLOBULIN (test code = 2.6 G/DL 2239) CALC A/G RATIO (test code = 1.5 RATIO 2234) BILIRUBIN, TOTAL (test code = 0.6 MG/DL 2206) ALKALINE PHOSPHATASE (test 81 U/L code = 2204) AST (test code = 2218) 21 U/L ALT (test code = 2219) 23 U/L LIPID [id number] 00:00:00 Test Item Value Reference Range Interpretation Comments CHOLESTEROL (test code = 2210) 124 MG/DL TRIGLYCERIDES (test code = 2232) 75 MG/DL HDL CHOLESTEROL (test code = 2220) 35 MG/DL CALC LDL CHOL (test code = 2237) 74 MG/DL RISK RATIO LDL/HDL (test code = 2.11 RATIO 2238) LIPID [id number] 00:00:00 Test Item Value Reference Range Interpretation Comments CHOLESTEROL (test code = 2210) 124 MG/DL TRIGLYCERIDES (test code = 2232) 75 MG/DL HDL CHOLESTEROL (test code = 2220) 35 MG/DL CALC LDL CHOL (test code = 2237) 74 MG/DL RISK RATIO LDL/HDL (test code = 2.11 RATIO 2238) [id number] 00:00:00 Test Item Value Reference Range Interpretation Comments TSH (test code = 2821) 4.5 UIU/ML [id number] 00:00:00 Test Item Value Reference Range Interpretation Comments TSH (test code = 2821) 4.5 UIU/ML [id number] 00:00:00 Test Item Value Reference Range Interpretation Comments TSH (test code = 2821) 4.5 UIU/ML HEMOGLOBIN [id number] 00:00:00 Test Item Value Reference Range Interpretation Comments HEMOGLOBIN A1c (test code = 27387) 12.7 % HEMOGLOBIN [id number] 00:00:00 Test Item Value Reference Range Interpretation Comments HEMOGLOBIN A1c (test code = 15979) 12.7 % HEMOGLOBIN [id number] 00:00:00 Test Item Value Reference Range Interpretation Comments HEMOGLOBIN A1c (test code = 96811) 12.7 % CBC W/AUTO [id number] 00:00:00 Test Item Value Reference Range Interpretation Comments WBC (test code = 1001) 9.6 K/UL RBC (test code = 1002) 4.27 M/UL HEMOGLOBIN (test code = 1003) 12.5 G/DL HEMATOCRIT (test code = 1004) 37.5 % MCV (test code = 1005) 87.8 fL MCH (test code = 1006) 29.3 PG MCHC (test code = 1007) 33.3 G/DL RDW (test code = 1038) 13.8 % NEUTROPHILS (test code = 1008) 59.4 % LYMPHOCYTES (test code = 1010) 22.2 % MONOCYTES (test code = 1011) 10.6 % EOSINOPHILS (test code = 1012) 6.5 % BASOPHILS (test code = 1013) 1.3 % PLATELET COUNT (test code = 1015) 332 K/UL CBC W/AUTO [id number] 00:00:00 Test Item Value Reference Range Interpretation Comments WBC (test code = 1001) 9.6 K/UL RBC (test code = 1002) 4.27 M/UL HEMOGLOBIN (test code = 1003) 12.5 G/DL HEMATOCRIT (test code = 1004) 37.5 % MCV (test code = 1005) 87.8 fL MCH (test code = 1006) 29.3 PG MCHC (test code = 1007) 33.3 G/DL RDW (test code = 1038) 13.8 % NEUTROPHILS (test code = 1008) 59.4 % LYMPHOCYTES (test code = 1010) 22.2 % MONOCYTES (test code = 1011) 10.6 % EOSINOPHILS (test code = 1012) 6.5 % BASOPHILS (test code = 1013) 1.3 % PLATELET COUNT (test code = 1015) 332 K/UL CBC W/AUTO [id number] 00:00:00 Test Item Value Reference Range Interpretation Comments WBC (test code = 1001) 9.6 K/UL RBC (test code = 1002) 4.27 M/UL HEMOGLOBIN (test code = 1003) 12.5 G/DL HEMATOCRIT (test code = 1004) 37.5 % MCV (test code = 1005) 87.8 fL MCH (test code = 1006) 29.3 PG MCHC (test code = 1007) 33.3 G/DL RDW (test code = 1038) 13.8 % NEUTROPHILS (test code = 1008) 59.4 % LYMPHOCYTES (test code = 1010) 22.2 % MONOCYTES (test code = 1011) 10.6 % EOSINOPHILS (test code = 1012) 6.5 % BASOPHILS (test code = 1013) 1.3 % PLATELET COUNT (test code = 1015) 332 K/UL HEMOGLOBIN [id number] 00:00:00 Test Item Value Reference Range Interpretation Comments HEMOGLOBIN A1c (test code = 31396) 12.9 % HEMOGLOBIN [id number] 00:00:00 Test Item Value Reference Range Interpretation Comments HEMOGLOBIN A1c (test code = 13696) 12.9 % HEMOGLOBIN [id number] 00:00:00 Test Item Value Reference Range Interpretation Comments HEMOGLOBIN A1c (test code = 52230) 12.9 % COMPREHENSIVE METABOLIC [id number] 00:00:00 Test Item Value Reference Range Interpretation Comments GLUCOSE (test code = 2217) <30 MG/DL BUN (test code = 2208) 26 MG/DL CREATININE (test code = 2214) 1.19 MG/DL eGFR AMER. (test code 95 ML/MIN/1.73 = 62555) eGFR NON- AMER. (test 82 ML/MIN/1.73 code = 32473) CALC BUN/CREAT (test code = 22 RATIO 2235) SODIUM (test code = 2231) 143 MEQ/L POTASSIUM (test code = 2228) 3.5 MEQ/L CHLORIDE (test code = 2215) 103 MEQ/L CARBON DIOXIDE (test code = 14 MEQ/L 2205) CALCIUM (test code = 2209) 10.0 MG/DL PROTEIN, TOTAL (test code = 7.9 G/DL 2228) ALBUMIN (test code = 2201) 4.4 G/DL CALC GLOBULIN (test code = 3.5 G/DL 2239) CALC A/G RATIO (test code = 1.3 RATIO 2233) BILIRUBIN, TOTAL (test code = 0.2 MG/DL 2207) ALKALINE PHOSPHATASE (test 86 U/L code = 2204) AST (test code = 2218) 24 U/L ALT (test code = 2219) 22 U/L COMPREHENSIVE METABOLIC [id number] 00:00:00 Test Item Value Reference Range Interpretation Comments GLUCOSE (test code = 2217) <30 MG/DL BUN (test code = 2208) 26 MG/DL CREATININE (test code = 2214) 1.19 MG/DL eGFR AMER. (test code 95 ML/MIN/1.73 = 69202) eGFR NON- AMER. (test 82 ML/MIN/1.73 code = 40126) CALC BUN/CREAT (test code = 22 RATIO 2235) SODIUM (test code = 2231) 143 MEQ/L POTASSIUM (test code = 2228) 3.5 MEQ/L CHLORIDE (test code = 2215) 103 MEQ/L CARBON DIOXIDE (test code = 14 MEQ/L 2205) CALCIUM (test code = 2209) 10.0 MG/DL PROTEIN, TOTAL (test code = 7.9 G/DL 2228) ALBUMIN (test code = 2201) 4.4 G/DL CALC GLOBULIN (test code = 3.5 G/DL 2240) CALC A/G RATIO (test code = 1.3 RATIO 2234) BILIRUBIN, TOTAL (test code = 0.2 MG/DL 2206) ALKALINE PHOSPHATASE (test 86 U/L code = 2204) AST (test code = 2218) 24 U/L ALT (test code = 2219) 22 U/L THYROID II PROFILE (T3U, T4, T7, TSH)[id number] 00:00:00 Test Item Value Reference Range Interpretation Comments T3 UPTAKE (test code = 2817) 30.3 % T4 (THYROXINE) (test code = 2819) 5.1 UG/DL CALCULATED T7 (FTI) (test code = 1.55 2820) TSH (test code = 2821) 6.7 UIU/ML THYROID II PROFILE (T3U, T4, T7, TSH)2016-01-08 00:00:00 Test Item Value Reference Range Interpretation Comments T3 UPTAKE (test code = 2817) 30.3 % T4 (THYROXINE) (test code = 2819) 5.1 UG/DL CALCULATED T7 (FTI) (test code = 1.55 2820) TSH (test code = 2821) 6.7 UIU/ML LIPID [id number] 00:00:00 Test Item Value Reference Range Interpretation Comments CHOLESTEROL (test code = 2210) 154 MG/DL TRIGLYCERIDES (test code = 2232) 66 MG/DL HDL CHOLESTEROL (test code = 2220) 40 MG/DL CALC LDL CHOL (test code = 2237) 101 MG/DL RISK RATIO LDL/HDL (test code = 2.52 RATIO 2238) LIPID [id number] 00:00:00 Test Item Value Reference Range Interpretation Comments CHOLESTEROL (test code = 2210) 154 MG/DL TRIGLYCERIDES (test code = 2232) 66 MG/DL HDL CHOLESTEROL (test code = 2220) 40 MG/DL CALC LDL CHOL (test code = 2237) 101 MG/DL RISK RATIO LDL/HDL (test code = 2.52 RATIO 2238) CBC W/AUTO [id number] 00:00:00 Test Item Value Reference Range Interpretation Comments WBC (test code = 1001) 14.6 K/UL RBC (test code = 1002) 4.86 M/UL HEMOGLOBIN (test code = 1003) 13.9 G/DL HEMATOCRIT (test code = 1004) 43.0 % MCV (test code = 1005) 88.5 fL MCH (test code = 1006) 28.6 PG MCHC (test code = 1007) 32.3 G/DL RDW (test code = 1038) 13.8 % NEUTROPHILS (test code = 1008) 49.3 % LYMPHOCYTES (test code = 1010) 31.1 % MONOCYTES (test code = 1011) 11.5 % EOSINOPHILS (test code = 1012) 7.1 % BASOPHILS (test code = 1013) 1.0 % PLATELET COUNT (test code = 1015) 433 K/UL CBC W/AUTO [id number] 00:00:00 Test Item Value Reference Range Interpretation Comments WBC (test code = 1001) 14.6 K/UL RBC (test code = 1002) 4.86 M/UL HEMOGLOBIN (test code = 1003) 13.9 G/DL HEMATOCRIT (test code = 1004) 43.0 % MCV (test code = 1005) 88.5 fL MCH (test code = 1006) 28.6 PG MCHC (test code = 1007) 32.3 G/DL RDW (test code = 1038) 13.8 % NEUTROPHILS (test code = 1008) 49.3 % LYMPHOCYTES (test code = 1010) 31.1 % MONOCYTES (test code = 1011) 11.5 % EOSINOPHILS (test code = 1012) 7.1 % BASOPHILS (test code = 1013) 1.0 % PLATELET COUNT (test code = 1015) 433 K/UL CBC W/AUTO [id number] 00:00:00 Test Item Value Reference Range Interpretation Comments WBC (test code = 1001) 14.6 K/UL RBC (test code = 1002) 4.86 M/UL HEMOGLOBIN (test code = 1003) 13.9 G/DL HEMATOCRIT (test code = 1004) 43.0 % MCV (test code = 1005) 88.5 fL MCH (test code = 1006) 28.6 PG MCHC (test code = 1007) 32.3 G/DL RDW (test code = 1038) 13.8 % NEUTROPHILS (test code = 1008) 49.3 % LYMPHOCYTES (test code = 1010) 31.1 % MONOCYTES (test code = 1011) 11.5 % EOSINOPHILS (test code = 1012) 7.1 % BASOPHILS (test code = 1013) 1.0 % PLATELET COUNT (test code = 1015) 433 K/UL COMPREHENSIVE METABOLIC [id number] 00:00:00 Test Item Value Reference Range Interpretation Comments GLUCOSE (test code = 2217) 180 MG/DL BUN (test code = 2208) 21 MG/DL CREATININE (test code = 2214) 0.9 MG/DL eGFR AMER. (test code 122 ML/MIN/1.73 = 01063) eGFR NON- AMER. (test 101 ML/MIN/1.73 code = 58526) CALCULATED BUN/CREAT (test 23 RATIO code = 2235) SODIUM (test code = 2231) 139 MEQ/L POTASSIUM (test code = 2228) 4.1 MEQ/L CHLORIDE (test code = 2215) 103 MEQ/L CARBON DIOXIDE (test code = 28 MEQ/L 2206) CALCIUM (test code = 2209) 9.9 MG/DL PROTEIN, TOTAL (test code = 7.9 G/DL 2228) ALBUMIN (test code = 2201) 4.2 G/DL CALCULATED GLOBULIN (test 3.7 G/DL code = 2240) CALCULATED A/G RATIO (test 1.1 RATIO code = 2234) BILIRUBIN, TOTAL (test code = 0.9 MG/DL 2206) ALKALINE PHOSPHATASE (test 94 U/L code = 2204) SGOT (AST) (test code = 2218) 18 U/L SGPT (ALT) (test code = 2219) 20 U/L COMPREHENSIVE METABOLIC [id number] 00:00:00 Test Item Value Reference Range Interpretation Comments GLUCOSE (test code = 2217) 180 MG/DL BUN (test code = 2208) 21 MG/DL CREATININE (test code = 2214) 0.9 MG/DL eGFR AMER. (test code 122 ML/MIN/1.73 = 70223) eGFR NON- AMER. (test 101 ML/MIN/1.73 code = 36102) CALCULATED BUN/CREAT (test 23 RATIO code = 2235) SODIUM (test code = 2231) 139 MEQ/L POTASSIUM (test code = 2228) 4.1 MEQ/L CHLORIDE (test code = 2215) 103 MEQ/L CARBON DIOXIDE (test code = 28 MEQ/L 2205) CALCIUM (test code = 2209) 9.9 MG/DL PROTEIN, TOTAL (test code = 7.9 G/DL 2228) ALBUMIN (test code = 2201) 4.2 G/DL CALCULATED GLOBULIN (test 3.7 G/DL code = 2240) CALCULATED A/G RATIO (test 1.1 RATIO code = 2234) BILIRUBIN, TOTAL (test code = 0.9 MG/DL 2206) ALKALINE PHOSPHATASE (test 94 U/L code = 2204) SGOT (AST) (test code = 2218) 18 U/L SGPT (ALT) (test code = 2219) 20 U/L CBC W/AUTO [id number] 00:00:00 Test Item Value Reference Range Interpretation Comments WBC (test code = 1001) 7.2 K/UL RBC (test code = 1002) 5.94 M/UL HEMOGLOBIN (test code = 1003) 16.3 G/DL HEMATOCRIT (test code = 1004) 49.5 % MCV (test code = 1005) 83.3 fL MCH (test code = 1006) 27.4 PG MCHC (test code = 1007) 32.9 G/DL RDW (test code = 1038) 16.0 % NEUTROPHILS (test code = 1008) 68 % LYMPHOCYTES (test code = 1010) 20 % MONOCYTES (test code = 1011) 9 % EOSINOPHILS (test code = 1012) 2 % BASOPHILS (test code = 1013) 1 % PLATELET COUNT (test code = 1015) 277 K/UL CBC W/AUTO [id number] 00:00:00 Test Item Value Reference Range Interpretation Comments WBC (test code = 1001) 7.2 K/UL RBC (test code = 1002) 5.94 M/UL HEMOGLOBIN (test code = 1003) 16.3 G/DL HEMATOCRIT (test code = 1004) 49.5 % MCV (test code = 1005) 83.3 fL MCH (test code = 1006) 27.4 PG MCHC (test code = 1007) 32.9 G/DL RDW (test code = 1038) 16.0 % NEUTROPHILS (test code = 1008) 68 % LYMPHOCYTES (test code = 1010) 20 % MONOCYTES (test code = 1011) 9 % EOSINOPHILS (test code = 1012) 2 % BASOPHILS (test code = 1013) 1 % PLATELET COUNT (test code = 1015) 277 K/UL CBC W/AUTO [id number] 00:00:00 Test Item Value Reference Range Interpretation Comments WBC (test code = 1001) 7.2 K/UL RBC (test code = 1002) 5.94 M/UL HEMOGLOBIN (test code = 1003) 16.3 G/DL HEMATOCRIT (test code = 1004) 49.5 % MCV (test code = 1005) 83.3 fL MCH (test code = 1006) 27.4 PG MCHC (test code = 1007) 32.9 G/DL RDW (test code = 1038) 16.0 % NEUTROPHILS (test code = 1008) 68 % LYMPHOCYTES (test code = 1010) 20 % MONOCYTES (test code = 1011) 9 % EOSINOPHILS (test code = 1012) 2 % BASOPHILS (test code = 1013) 1 % PLATELET COUNT (test code = 1015) 277 K/UL HEMOGLOBIN [id number] 00:00:00 Test Item Value Reference Range Interpretation Comments HEMOGLOBIN A1c (test code = 90661) 11.4 % HEMOGLOBIN [id number] 00:00:00 Test Item Value Reference Range Interpretation Comments HEMOGLOBIN A1c (test code = 85377) 11.4 % HEMOGLOBIN [id number] 00:00:00 Test Item Value Reference Range Interpretation Comments HEMOGLOBIN A1c (test code = 89082) 11.4 % THYROID II PROFILE (T3U, T4, T7, TSH)[id number] 00:00:00 Test Item Value Reference Range Interpretation Comments T3 UPTAKE (test code = 2817) 29.4 % T4 (THYROXINE) (test code = 2819) 6.3 UG/DL CALCULATED T7 (FTI) (test code = 1.85 2820) TSH (test code = 2821) 5.4 UIU/ML THYROID II PROFILE (T3U, T4, T7, TSH)[id number] 00:00:00 Test Item Value Reference Range Interpretation Comments T3 UPTAKE (test code = 2817) 29.4 % T4 (THYROXINE) (test code = 2819) 6.3 UG/DL CALCULATED T7 (FTI) (test code = 1.85 2820) TSH (test code = 2821) 5.4 UIU/ML LIPID [id number] 00:00:00 Test Item Value Reference Range Interpretation Comments CHOLESTEROL (test code = 2210) 136 MG/DL TRIGLYCERIDES (test code = 2232) 75 MG/DL HDL CHOLESTEROL (test code = 2220) 34 MG/DL CALCULATED LDL CHOL (test code = 87 MG/DL 2237) RISK RATIO LDL/HDL (test code = 2.56 RATIO 2238) LIPID [id number] 00:00:00 Test Item Value Reference Range Interpretation Comments CHOLESTEROL (test code = 2210) 136 MG/DL TRIGLYCERIDES (test code = 2232) 75 MG/DL HDL CHOLESTEROL (test code = 2220) 34 MG/DL CALCULATED LDL CHOL (test code = 87 MG/DL 2237) RISK RATIO LDL/HDL (test code = 2.56 RATIO 2238)
[2022-03-08] MEDS ORDERED: LIDOCAINE 1% MPF 5 ML VIAL ONE (16:29)
--- NOTE | 2022-03-08 17:33 | ER ---
Nurse's Notes [facility] Name: Kailash Greenfield Age: 36 yrs Sex: Male : 1985 Arrival Date: 03/08/2022 Time: 16:00 Bed 23 Private MD: Diagnosis: Cutaneous abscess of left axilla Presentation: 03/08 16:17 Chief complaint: Patient states: Pt reports abscess in left axilla x2 days. Coronavirus kb3 screen: Vaccine status: Patient reports being unvaccinated. Client denies travel out of the [place] in the last 14 days. Ebola Screen: Patient negative for fever greater than or equal to 101.5 degrees Fahrenheit, and additional compatible Ebola Virus Disease symptoms Patient denies exposure to infectious person. Patient denies travel to an Ebola-affected area in the 21 days before illness onset. Initial Sepsis Screen: Does the patient meet any 2 criteria? No. Patient's initial sepsis screen is negative. Does the patient have a suspected source of infection? No. Patient's initial sepsis screen is negative. Risk Assessment: Do you want to hurt yourself or someone else? Patient reports no desire to harm self or others. Onset of symptoms was March 06, 2022. 16:17 Method Of Arrival: Ambulatory kb3 16:17 Acuity: ALFONSO 3 kb3 Triage Assessment: 16:18 General: Appears in no apparent distress. uncomfortable, Behavior is calm, cooperative. kb3 Pain: Complains of pain in left axilla Pain does not radiate. Pain currently is 0 out of 10 on a pain scale. at worst was 6 out of 10 on a pain scale. Quality of pain is described as sharp. Derm: Abscess located on left axilla. Historical: - Allergies: 16:18 Lidocaine; kb3 - Home Meds: 16:18 [place] 10-325 mg Oral tab [Active]; carvedilol 6.25 mg oral tab 1 tab 2 times per day kb3 [Active]; lisinopril 10 mg Oral tab 1 tab once daily [Active]; - PMHx: 16:18 Diabetes - IDDM; heart problems; Hypertension; kb3 - PSHx: 16:18 heart surgery; kb3 - Immunization history:: Adult Immunizations up to date, Client reports having NOT received the Covid vaccine. Last tetanus immunization: up to date. - Social history:: Smoking status: Patient denies any tobacco usage or history of. Screenin:37 [facility] ED Fall Risk Assessment (Adult) History of falling in the last 3 months, em6 including since admission No falls in past 3 months (0 pts) Confusion or Disorientation No (0 pts) Intoxicated or Sedated No (0 pts) Impaired Gait No (0 pts) Mobility Assist Device Used No (0 pt) Altered Elimination No (0 pt) Score/Fall Risk Level 0 - 2 = Low Risk Oriented to surroundings, Maintained a safe environment, Educated pt \T\ family on fall prevention, incl call for assistance when getting out of bed, Assessed \T\ reinforced patient's understanding of fall precautions, Provided non-skid footwear, Hourly rounding (assess needs \T\ fall precautionary measures) done, Used ambulatory aids as needed (educated on \T\ assisted with), Used gait belt as appropriate. Abuse screen: Denies threats or abuse. Nutritional screening: No deficits noted. Tuberculosis screening:. Tuberculosis screening: No symptoms or risk factors identified. Assessment: 16:36 General: Appears in no apparent distress. Behavior is cooperative. Pain: Complains of em6 pain in left arm and left axilla Pain does not radiate. Pain currently is 3 out of 10 on a pain scale. Quality of pain is described as tingling, throbbing. Neuro: Level of Consciousness is awake, alert, obeys commands, Oriented to person, place, time, situation. Cardiovascular: Patient's skin is warm and dry. Respiratory: Airway is patent Respiratory effort is even, unlabored, Respiratory pattern is regular, symmetrical. GI: No signs and/or symptoms were reported involving the gastrointestinal system. : No signs and/or symptoms were reported regarding the genitourinary system. EENT: No signs and/or symptoms were reported regarding the EENT system. Derm: Reports abscess in the left axilla. Musculoskeletal: Circulation, motion, and sensation intact. Range of motion: intact in all extremities. 17:33 Reassessment: Patient appears in no apparent distress at this time. No changes from em6 previously documented assessment. Patient and/or family updated on plan of care and expected duration. Pain level reassessed. Patient is alert, oriented x 3, equal unlabored respirations, skin warm/dry/pink. Vital Signs: 16:18 BP 134 / 88; Pulse 94; Resp 20; Temp 98.4; Pulse Ox 87% ; Weight 87.09 kg; Height 6 ft. kb3 0 in. (182.88 cm); Pain 0/10; 16:38 BP 119 / 73; Pulse 94; Resp 20; Pulse Ox 91% on R/A; em6 17:15 BP 130 / 66; Pulse 95; Resp 20; Pulse Ox 91% on R/A; em6 16:18 Body Mass Index 26.04 (87.09 kg, 182.88 cm) kb3 ED Course: 16:00 Patient arrived in ED. cc5 16:01 Marimar North [facility]C [facility]. kb 16:01 Aly Rendon DO is Attending Physician. kb 16:18 Triage completed. kb3 16:18 Arm band placed on right wrist. kb3 16:36 Marylou Mackay, RN is Primary Nurse. em6 16:37 Placed in gown. Bed in low position. Call light in reach. Side rails up X 1. Pulse ox em6 on. NIBP on. Warm blanket given. 17:34 No provider procedures requiring assistance completed. Patient did not have IV access em6 during this emergency room visit. Administered Medications: 16:56 Drug: Lidocaine (1 %) 1 vials {Note: administered by bubba carroll .} Volume: 5 ml; em6 Route: Infiltration; 17:43 Follow up: Response: No adverse reaction em6 17:34 Drug: KeFLEX (cephalexin) 500 mg Route: PO; em6 17:44 Follow up: Response: No adverse reaction em6 17:34 Drug: Bactrim (trimethoprim-sulfamethoxazole) (160 mg-800 mg (DS) 1 tablet Route: PO; em6 17:44 Follow up: Response: No adverse reaction em6 Medication: 17:34 VIS not applicable for this client. em6 Outcome: 17:32 Discharge ordered by . kb 17:43 Discharged to home ambulatory. em6 17:43 Condition: stable 17:43 Discharge instructions given to patient, Instructed on discharge instructions, follow up and referral plans. medication usage, wound care, Demonstrated understanding of instructions, follow-up care, medications, wound care, Prescriptions given X 3. 17:52 Patient left the ED. em6 Signatures: Marimar North FNP-C FNP-Marylou Alexander RN RN em6 Cathi Richards RN RN kb3 Lucy Coats cc5 Corrections: (The following items were deleted from the chart) 16:20 16:18 Home Meds: amlodipine 5 mg tab; kb3 kb3 16:20 16:18 Home Meds: gabapentin 400 mg Oral cap; kb3 kb3 16:20 16:18 Home Meds: Lasix 20 mg Oral tab; kb3 kb3 16:20 16:18 Home Meds: lisinopril-hydrochlorothiazide 20-12.5 mg Oral tab; kb3 kb3
--- NOTE | 2022-03-08 17:33 | EDPHYS ---
Physician Documentation [facility] Name: Kailash Greenfield Age: 36 yrs Sex: Male : 1985 Arrival Date: 03/08/2022 Time: 16:00 Bed 23 Private MD: ED Physician Aly Rendon HPI: 03/08 23:12 This 36 yrs old Male presents to ER via Ambulatory with complaints of Arm Pain. kb 23:12 The patient presents with an abscess of the left axilla. Description: erythematous, kb swollen, warm. Onset: The symptoms/episode began/occurred 4 day(s) ago. Possible cause(s): unknown. Associated signs and symptoms: Pertinent positives: erythema, swelling. Modifying factors: the symptoms are alleviated by nothing, the symptoms are aggravated by movement, pressure, touching. Severity of symptoms: At their worst the symptoms were moderate, in the emergency department the symptoms are unchanged. The patient has not experienced similar symptoms in the past. The patient has not recently seen a physician. 23:13 Patient reports normal O2 sat of 88 to 90% on room air due to medical history.. kb Historical: - Allergies: 16:18 Lidocaine; kb3 - Home Meds: 16:18 [place] 10-325 mg Oral tab [Active]; carvedilol 6.25 mg oral tab 1 tab 2 times per day kb3 [Active]; lisinopril 10 mg Oral tab 1 tab once daily [Active]; - PMHx: 16:18 Diabetes - IDDM; heart problems; Hypertension; kb3 - PSHx: 16:18 heart surgery; kb3 - Immunization history:: Adult Immunizations up to date, Client reports having NOT received the Covid vaccine. Last tetanus immunization: up to date. - Social history:: Smoking status: Patient denies any tobacco usage or history of. ROS: 23:11 Constitutional: Negative for fever, chills, and weight loss. kb 23:11 Skin: Positive for abscess, of the left axilla. 23:11 All other systems are negative. Exam: 23:11 Constitutional: This is a well developed, well nourished patient who is awake, alert, kb and in no acute distress. Head/Face: Normocephalic, atraumatic. ENT: Moist Mucous membranes Cardiovascular: Regular rate and rhythm with a normal S1 and S2. No gallops, murmurs, or rubs. No pulse deficits. Respiratory: Respirations even and unlabored. No increased work of breathing. Talking in full sentences Abdomen/GI: Soft, non-tender. No distention MS/ Extremity: Pulses equal, no cyanosis. Neurovascular intact. Full, normal range of motion. Neuro: Awake and alert, GCS 15, oriented to person, place, time, and situation. Moves all extremities. Normal gait. 23:11 Skin: abscess, that is moderate sized, of the left axilla, with drainage, with fluctuance, with surrounding cellulitis. Vital Signs: 16:18 BP 134 / 88; Pulse 94; Resp 20; Temp 98.4; Pulse Ox 87% ; Weight 87.09 kg; Height 6 ft. kb3 0 in. (182.88 cm); Pain 0/10; 16:38 BP 119 / 73; Pulse 94; Resp 20; Pulse Ox 91% on R/A; em6 17:15 BP 130 / 66; Pulse 95; Resp 20; Pulse Ox 91% on R/A; em6 16:18 Body Mass Index 26.04 (87.09 kg, 182.88 cm) kb3 Procedures: 23:11 I \T\ D: Incision and drainage was performed for an abscess of the left axilla. Prepped kb with Betadine, Anesthetized with 3 ml's 1% Lidocaine. Incised with #11 blade. Drained large amount purulent fluid. Packed with iodoform gauze, Dressing: sterile 4x4 gauze, the patient tolerated the procedure well. MDM: 16:17 Patient medically screened. kb 23:11 Data reviewed: vital signs, nurses notes. Data interpreted: Pulse oximetry: on room air kb is 91 %. Interpretation: normal. Counseling: I had a detailed discussion with the patient and/or guardian regarding: the historical points, exam findings, and any diagnostic results supporting the discharge/admit diagnosis, the need for outpatient follow up, a general surgeon, to return to the emergency department if symptoms worsen or persist or if there are any questions or concerns that arise at home. 23:12 Differential diagnosis: abscess, cellulitis, insect bite. kb 03/08 16:19 Order name: I\T\D Setup; Complete Time: 16:28 kb Administered Medications: 16:56 Drug: Lidocaine (1 %) 1 vials {Note: administered by bubba carroll .} Volume: 5 ml; em6 Route: Infiltration; 17:43 Follow up: Response: No adverse reaction em6 17:34 Drug: KeFLEX (cephalexin) 500 mg Route: PO; em6 17:44 Follow up: Response: No adverse reaction em6 17:34 Drug: Bactrim (trimethoprim-sulfamethoxazole) (160 mg-800 mg (DS) 1 tablet Route: PO; em6 17:44 Follow up: Response: No adverse reaction em6 Disposition Summary: 03/08/22 17:32 Discharge Ordered Location: [place] kb Condition: Stable kb Diagnosis - Cutaneous abscess of left axilla kb Followup: kb - With: Emergency Department - When: As needed - Reason: Worsening of condition Followup: kb - With: Private Physician - When: 2 - 3 days - Reason: Recheck today's complaints, Continuance of care, Re-evaluation by your physician Discharge Instructions: - Discharge Summary Sheet kb - Skin Abscess, Vijs-bd-Soes kb - Incision and Drainage, Care After kb Forms: - Medication Reconciliation Form kb - Thank You Letter kb - Antibiotic Education kb - Prescription Opioid Use kb Prescriptions: - Cephalexin 500 mg Oral Capsule - take 1 capsule by ORAL route every 8 hours for 10 days; 30 capsule; Refills: 0, kb Product Selection Permitted - Tramadol 50 mg Oral Tablet - take 1 tablet by ORAL route every 8 hours as needed; 12 tablet; Refills: 0, kb Product Selection Permitted - Bactrim DS 800-160 mg Oral Tablet - take 1 tablet by ORAL route every 12 hours for 10 days; 20 tablet; Refills: 0, kb Product Selection Permitted Addendum: 03/10/2022 12:40 Co-signature as Attending Physician, Aly VALENZUELA was immediately available on-site m s3 in the Emergency Department for consultation in the care of the patient.. Signatures: Marimar North FNP-C FNP-Aly Wakefield DO DO ms3 Marylou Mackay, RN RN em6 Cathi Richards RN RN kb3 Corrections: (The following items were deleted from the chart) 03/08 16:20 16:18 Home Meds: amlodipine 5 mg tab; kb3 kb3 16:20 16:18 Home Meds: gabapentin 400 mg Oral cap; kb3 kb3 16:20 16:18 Home Meds: Lasix 20 mg Oral tab; kb3 kb3 16:20 16:18 Home Meds: lisinopril-hydrochlorothiazide 20-12.5 mg Oral tab; kb3 kb3
[2022-03-08] MEDS ORDERED: CEPHALEXIN 250 MG CAP ONE (17:41)
[2022-03-08] MEDS ORDERED: SMZ./TMP. 800/160 MG TABLET ONE (17:41)
[2022-03-08 17:56] VITALS: TEMP 98.4
[2022-03-08 17:57] VITALS: O2SAT 91
[2022-03-08 17:58] VITALS: BP 130/66
== END 2022-03-08 17:52 | disposition home or self-care (01) ==
LOC: ER 15:49
PROC: 0X950ZZ Drainage of Left Axilla, Open Approach (ICD-10-PCS; principal; 2022-03-08)
DX: L02.412 Cutaneous abscess of left axilla (principal)
CPT/HCPCS: 99283; 10060; J2001